=== PATIENT | male | born 1965 | race Caucasian/White ===

== ENCOUNTER 2016-05-24 00:54 | Inpatient (IN) | payer OTHER ==
[~2016-05-24] VITALS: Ht 180.3 cm; Wt 94.4 kg
[~2016-05-24 00:54] MED LIST: ASPI1TAB30 PO; CETI10TA16 PO; DIAZ5TAB4 PO; ESCI10TA PO; MIDO10TA PO; OXYM30SP NS; QUET400T6 PO; TAMS0.4C2 PO; TIZA2CAP PO; allergy
[2016-05-24 01:50] LABS: BASO # 0.1 x10^3/uL (0.0-0.2); BASO % 1 % (0-3); EOS % 4 % (0-3); HEMATOCRIT 41.3 % (39.0-53.0); HEMOGLOBIN 13.9 g/dL (13.0-17.5); LYMPH # 2.2 x10^3/uL (1.0-4.8); LYMPH % 35 % (24-48); MEAN CORPUSCULAR HEMOGLOBIN 32 pg (25-35); MEAN CORPUSCULAR HGB CONC 34 g/dL (31-37); MEAN CORPUSCULAR VOLUME 96 fL (79-100); MONO % 10 % (0-9); NEUT % 49 % (31-73); PLATELET COUNT 88 x10^3/uL (140-400); RED CELL DISTRIBUTION WIDTH 13.1 % (11.5-14.5); WHITE BLOOD COUNT 6.4 x10^3/uL (4.0-11.0)
[2016-05-24 02:05] LABS: CREATININE 1.1 mg/dL (0.7-1.3)
[2016-05-24 02:11] LABS: ALBUMIN 3.4 g/dL (3.4-5.0); ALBUMIN/GLOBULIN RATIO 0.8 (1.0-1.7); TOTAL BILIRUBIN 0.4 mg/dL (0.2-1.0); TOTAL PROTEIN 7.5 g/dL (6.4-8.2)
[2016-05-24] MEDS ORDERED: CONTRAST GIVEN MC PRN (02:15)
[2016-05-24] MEDS ORDERED: IOHEXOL 300 MG/ML 75 ML VIAL IV ONE (02:30)
--- NOTE | 2016-05-24 03:07 | RAD ---
PROCEDURE CT abdomen and pelvis with contrast dated 05/24/2016. HISTORY Diffuse lower abdominal pain for 4-5 days TECHNIQUE Contiguous axial imaging of the abdomen and pelvis performed after the administration of 75 cc Omnipaque 300.Exposure: One or more of the following individualized dose reduction techniques were utilized for this exam: 1. Automated exposure control. 2. Adjustment of the mA and/or kV according to patient size. 3. Use of iterative reconstruction technique. COMPARISON None. FINDINGS Limited images of lung bases are clear. Heart size within normal limits. No pleural or pericardial effusion. Minimal dependent opacity at the lung bases, likely atelectasis. Liver show subtle nodularity of its outer contour. No focal mass. Spleen is mildly enlarged. Pancreas, adrenal glands and kidneys are unremarkable. No hydronephrosis. Gallbladder is surgically absent. There is some hazy increased attenuation along the ventral margin of the proximal abdominal aorta. This appears to extend along the course of the proximal superior mesenteric artery. There is mild narrowing of the SMA ostium. The celiac artery origin is patent. Bilateral renal artery origins are grossly patent. There is mild narrowing of the proximal left renal vein. Hazy increased density extends along the dorsal margin of the pancreas. No circumscribed fluid collection. Borderline enlarged lymph nodes at the portacaval region and left periaortic region. No mesenteric adenopathy or ascites. Unopacified GI tract normal in caliber and contour. No focal bowel wall thickening. No inflammatory stranding in the mesentery. The appendix is normal in caliber. Images of pelvis show nondistended urinary bladder. Prostate gland normal in size. No free pelvic fluid or pelvic adenopathy. Bone window show no acute findings. Multilevel spondylosis. IMPRESSION - Hazy inflammatory stranding near the ventral abdominal aorta, origin of SMA and along the dorsal margin of the pancreas of uncertain etiology. Although this may represent an acute aortitis or other causes of vasculitis, there is no significant luminal narrowing of the vessels at this time. A mild pancreatitis is another consideration. Recommend laboratory correlation. - Slightly nodular appearance of the liver, raising the question of early cirrhotic change. - Borderline splenomegaly. - Status postcholecystectomy. Electronically signed by: Leland Beth (May 24, 2016 03:06:06)
[2016-05-24] MEDS ORDERED: ONDANSETRON PF 4 MG/2 ML VIAL. IV PRN (03:15)
--- NOTE | 2016-05-24 03:20 | PHYS DOC ---
Past Medical History Past Medical History: Bipolar, Hypotension, Hepatitis, Schizophrenia, Other Additional Past Medical Histor: DDD, sleep apnea, hx of drug and ETOH abuse Past Surgical History: Cholecystectomy, Other Additional Past Surgical Histo: sinus, right shoulder reconstruct, teeth, jaw Alcohol Use: Sober Drug Use: None Adult General Chief Complaint Chief Complaint: ABDOMINAL PAIN HPI HPI Patient is a 51 year old gentleman with a history significant for cholecystectomy presents here today complaining of abdominal pain for 5 days. Patient reports the pain increases with food. Patient denies any fevers shakes chills. Patient has any nausea or vomiting. Patient reports she's had loose bowel movements for the last 24 hours. Patient has a dysuria frequency or urgency. Patient has a cough cold runny nose. Patient has a chest pain or shortness of breath. Patient denies any rashes. Patient has any melena or bright red blood per rectum. Patient denies any hematemesis. Patient's physical exam was significant for mild to moderate diffuse tenderness to palpation of his abdomen. Patient has no rebound or guarding. Patient has no psoas or upgrader signs. Patient has no pulsatile mass. Patient is NABS. Patient is ER workup was significant for labs which were all unremarkable. Patient is a normal CBC and loculates. Patient had a CT scan of his abdomen and pelvis with IV contrast which showed Hazy inflammatory stranding of the ventral abdominal aorta origin of the SMA along the dorsal margin of the pancreas of uncertain etiology. Although this may represent an acute aortitis or other causes of vasculitis there is no significant luminal narrowing of the vessels at this time. Min Harris is another consideration. Given the patient's discomfort and the CT scan I think it appropriate to admit the patient for further evaluation hospital. Patient given 2 doses of pain medications without any significant relief in his discomfort. I discussed with the patient the plan to be admitted to the hospital he is in full agreement with this as planned. Review of Systems Review of Systems Constitutional: Denies fever or chills [] Eyes: Denies change in visual acuity, redness, or eye pain [] All other review systems are negative except as documented in history of present illness portion. Current Medications Current Medications Current Medications Medications (Trade) Dose Ordered Sig/Prem Start Time Stop Time Status Last Admin Dose Admin Info (Do NOT chart on this entry -- for MONITORING) 1 each PRN DAILY PRN 05/24/16 02:15 05/26/16 02:14 Iohexol (Omnipaque 300 Mg/ml) 75 ml 1X ONCE 05/24/16 02:30 05/24/16 02:31 DC 05/24/16 02:24 75 ML Allergies Allergies Allergies Coded Allergies Type Severity Reaction Last Updated Verified codeine Allergy Intermediate 06/21/15 Yes meperidine Allergy Intermediate 06/21/15 Yes Physical Exam Physical Exam Constitutional: Well developed, well nourished, no acute distress, non-toxic appearance. [] HENT: Normocephalic, atraumatic, bilateral external ears normal, oropharynx moist, no oral exudates, nose normal. [] Eyes: PERRLA, EOMI, conjunctiva normal, no discharge. [] Neck: Normal range of motion, no tenderness, supple, no stridor. [] Cardiovascular:Heart rate regular rhythm, no murmur [] Lungs & Thorax: Bilateral breath sounds clear to auscultation [] Abdomen: Bowel sounds normal, soft,no masses, no pulsatile masses tenderness to palpation diffusely greatest in the periumbilical region.. [] Skin: Warm, dry, no erythema, no rash. [] Back: No tenderness, no CVA tenderness. [] Extremities: No tenderness, no cyanosis, no clubbing, ROM intact, no edema. [] Neurologic: Alert and oriented X 3, normal motor function, normal sensory function, no focal deficits noted. [] Psychologic: Affect normal, judgement normal, mood normal. [] Current Patient Data Vital Signs Vital Signs Date Time Temp Pulse Resp B/P Pulse Ox O2 Delivery O2 Flow Rate FiO2 05/24/16 01:35 97.9 69 19 128/82 97 Room Air 97.9 Lab Values Laboratory Tests Test 05/24/16 01:29 White Blood Count 6.4x10^3/uL (4.0-11.0) Red Blood Count 4.30x10^6/uL (4.30-5.70) Hemoglobin 13.9g/dL (13.0-17.5) Hematocrit 41.3% (39.0-53.0) Mean Corpuscular Volume 96fL (79-100) Mean Corpuscular Hemoglobin 32pg (25-35) Mean Corpuscular Hemoglobin Concent 34g/dL (31-37) Red Cell Distribution Width 13.1% (11.5-14.5) Platelet Count 88x10^3/uL (140-400) L Neutrophils (%) (Auto) 49% (31-73) Lymphocytes (%) (Auto) 35% (24-48) Monocytes (%) (Auto) 10% (0-9) H Eosinophils (%) (Auto) 4% (0-3) H Basophils (%) (Auto) 1% (0-3) Neutrophils # (Auto) 3.1x10^3uL (1.8-7.7) Lymphocytes # (Auto) 2.2x10^3/uL (1.0-4.8) Monocytes # (Auto) 0.7x10^3/uL (0.0-1.1) Eosinophils # (Auto) 0.3x10^3/uL (0.0-0.7) Basophils # (Auto) 0.1x10^3/uL (0.0-0.2) Sodium Level 142mmol/L (136-145) Potassium Level 4.0mmol/L (3.5-5.1) Chloride Level 105mmol/L (98-107) Carbon Dioxide Level 29mmol/L (21-32) Anion Gap 8 (6-14) Blood Urea Nitrogen 15mg/dL (8-26) Creatinine 1.1mg/dL (0.7-1.3) Estimated GFR (Cockcroft-Gault) 70.0 BUN/Creatinine Ratio 14 (6-20) Glucose Level 92mg/dL (70-99) Calcium Level 9.0mg/dL (8.5-10.1) Total Bilirubin 0.4mg/dL (0.2-1.0) Aspartate Amino Transferase (AST) 18U/L (15-37) Alanine Aminotransferase (ALT) 19U/L (16-63) Alkaline Phosphatase 57U/L (46-116) Total Protein 7.5g/dL (6.4-8.2) Albumin 3.4g/dL (3.4-5.0) Albumin/Globulin Ratio 0.8 (1.0-1.7) L Lipase 305U/L (73-393) Laboratory Tests 05/24/16 01:29 Laboratory Tests 05/24/16 01:29 EKG EKG [] Radiology/Procedures Radiology/Procedures [] Course & Med Decision Making Course & Med Decision Making Pertinent Labs and Imaging studies reviewed. (See chart for details) [] Dragon Disclaimer Dragon Disclaimer This electronic medical record was generated, in whole or in part, using a voice recognition dictation system. Departure Departure Impression: Primary Impression: Intractable abdominal pain Disposition: ADMITTED INPATIENT Admitting Physician: Sejal Lopez Condition: IMPROVED Referrals: BABITA OREILLY MD (PCP) VENUS DEWEY MD May 24, 2016 03:20
[2016-05-24 03:26] LABS: BILIRUBIN,URINE NEGATIVE (NEG); GLUCOSE,URINE NEGATIVE (NEG); NITRITE,URINE NEGATIVE (NEG); PH,URINE 6.5; PROTEIN,URINE NEGATIVE (NEG-TRACE); UROBILINOGEN,URINE 0.2 mg/dL (0.2 mg/dL)
[2016-05-24 03:30] LABS: BACTERIA,URINE 0 /HPF (0-FEW); RBC,URINE OCC /HPF (0-2); SQUAMOUS EPITHELIAL CELL,UR OCC /LPF; WBC,URINE OCC /HPF (0-4)
--- NOTE | 2016-05-24 03:33 | ACF ---
Admit Criteria Forms Admit Criteria Forms Admit Criteria Forms ABDOMINAL PAIN Clinical Indications for Admission to Inpatient Care (Place 'X' for any and all applicable criteria): Admission is indicated for ANY ONE of the following(1)(2)(3)(4)(5): [X]I. Inpatient admission required rather than observation care (Also use Abdominal Pain: Observation Care, as appropriate) because of ANY ONE of the following: [X]a) Severe pain requiring acute inpatient management [ ]b) Identification of etiology/finding that requires inpatient care (eg, aortic dissection, free air) [ ]c) Absent bowel sounds with complete ileus(6) [ ]d) Suspected toxic megacolon [ ]e) Severe electrolyte abnormalities requiring inpatient care [ ]f) High fever or infection requiring inpatient admission as indicated by ANY ONE of following(7)(8): [ ] i) Appropriate outpatient or observational care antimicrobial treatment unavailable, not effective, or not feasible [ ] ii) Documented bacteremia [ ] iii) Temperature > 104.9 degrees F (oral) [ ] iv) T >103.1 F (oral) or < 96.8 F(rectal) that does not respond to all emergency treatment measures [ ]g) Signs of intestinal obstruction [B] [ ]h) Hemodynamic instability [ ]i) IV fluid to replace significant ongoing losses (greater than 3 L/m2 per day) (12)(13) [ ]j) Percutaneous or open drainage (eg, abscess, biliary tract ) procedures [ ]k) Parenteral nutrition regimen that must be implemented on inpatient basis [ ]l) Other condition,treatment or monitoring requiring inpatient admission. [ ]II. Peritoneal signs present [ ]III. Surgery needed that cannot be performed on an ambulatory basis. [ ]IV. Evaluation requires patient to not eat or drink for extended period ( eg, more than 24 hours). [ ]V. Contraindications and/or Inappropriate clinical situations for Observational Care in patients with abdominal pain, when ANY ONE of the following is required: [ ]a) Thorough evaluation is required to prevent catastrophic events due to delays in diagnosing (e.g.Mesenteric ischemia) 1,3 [ ]b) Patient with severe pathology or with chronic symptoms unlikely to improve in the ED stay (3) [ ]. General contraindications and/or Inappropriate clinical situations for Observational Care in patients with abdominal pain, when ANY ONE of the following is required: [ ]a) Prediction of prolongation of LOS based on ANY ONE of the following may be considered as a contraindication for observational care 2, 3, 4, 5, 6, 7, 8, 9, 10, 11 [ ]i) Age > 65 yrs. [ ]ii) Patient arriving by ambulance [ ]iii) Patient with high acuity [ ]iv) Patient requiring vital sign monitoring [ ]v) Patient on IV medication [ ]b) Systolic blood pressures 180mmHg 3,12 [ ]c) Patient with altered mental status including delirium and other alteration of consciousness, (3) [ ]d) Patient whose discharge disposition will be to a [place] [facility] home or rehabilitation home should not be managed in Emergency Department Observation Unit. CMS rule requires 3 days hospital stay before such placement.3,13 [ ]e) Patient with failure to thrive due to broad array of etiologies 3,16,17 [ ]f) Inability to ambulate 3,14 Extended stay beyond goal length of stay may be needed for(2)(3): [ ]a) Persistent abdominal pain with suspected intra-abdominal process [ ]b) Diagnosed condition requiring continued stay (e.g., pancreatitis, complicated diverticulitis) [ ]c) Surgery (e.g., colectomy) The original [employer] content created by [employer] has been revised. The portions of the content which have been revised are identified through the use of italic text or in bold, and [employer] [facility] [employer] has neither reviewed nor approved the modified material.All other unmodified content is copyright [employer]. Please see references footnoted in the original [employer] [employer] [facility] edition 2016 MILTON BEDOYA May 24, 2016 03:33
[2016-05-24 04:38] VITALS: BP 127/85
[2016-05-24] MEDS: FENTANYL PF 100 MCG/2 ML VIAL. IV PRN ×5 (04:54→19:27)
[2016-05-24] MEDS: IV NORMAL SALINE 1000ML BAG 1,000 ML IV SCH ×3 (04:55→12:35)
[2016-05-24 07:00] VITALS: BP 134/66
[2016-05-24 11:00] VITALS: BP 132/77
--- NOTE | 2016-05-24 14:26 | HP ---
ADMIT DATE: 05/24/2016 CHIEF COMPLAINT: Abdominal pain. HISTORY OF PRESENT ILLNESS: The patient is a pleasant 51-year-old male with multiple medical issues. Basically, he presents with abdominal pain that has been occurring for 5 days. It is worse with food. He has also had some loose stools, cough, and runny nose. He has had some periodic chest pain. While in the ER, they did some imaging which showed possible inflammation of the aorta and particularly it was read as hazy inflammation, stranding near the ventral abdominal aorta and SMA and along the dorsal margin of the pancreas. This was of uncertain etiology, although this could represent aortitis or other vasculitis. The patient is now being admitted. We are consulting Vascular Surgery and GI. PAST MEDICAL HISTORY: Degenerative joint disease, bipolar, hypotension, hepatitis, schizophrenia, history of alcohol, cholecystectomy, right shoulder reconstruction, and jaw surgery. ALLERGIES: CODEINE AND MEPERIDINE. FAMILY HISTORY: Diabetes. SOCIAL HISTORY: He does not smoke. He has a history of drug and alcohol. MEDICATIONS: Reviewed. Please refer to the MRAD. REVIEW OF SYSTEMS: GENERAL: No history of weight change, weakness, or fevers. SKIN: No bruising, hair changes, or rashes. EYES: No blurred, double, or loss of vision. NOSE AND THROAT: No history of nosebleeds, hoarseness, or sore throat. HEART: No history of palpitations, chest pain, or shortness of breath on exertion. LUNGS: Denies cough, hemoptysis, wheezing, or shortness of breath. GASTROINTESTINAL: He complains of abdominal pain. GENITOURINARY: No history of frequency, urgency, hesitancy or nocturia. NEUROLOGIC: Denies history of numbness, tingling, tremor or weakness. PSYCHIATRIC: No history of panic, anxiety or depression. ENDOCRINE: No history of heat or cold intolerance, polyuria or polydipsia. EXTREMITIES: Denies muscle weakness, joint pain, pain on walking or stiffness PHYSICAL EXAMINATION: VITAL SIGNS: Temperature afebrile, pulse 67, respirations 20, blood pressure 134/66, and O2 saturation 97%. GENERAL: He is sleeping. He awakens. HEART: Distant S1 and S2. LUNGS: Clear. ABDOMEN: Soft. Decreased bowel sounds, a little tender in the epigastrium. EXTREMITIES: No edema. SKIN: No rashes. PSYCHIATRIC: He is stable currently. VASCULAR: Good capillary refill. ENDOCRINE: No thyromegaly. LYMPHATICS: No cervical nodes. HEMATOPOIETIC: No bruising. LABORATORY DATA: White count 6, hemoglobin 14, and platelets 88. His electrolytes are normal. Urinalysis is negative. ASSESSMENT AND PLAN: Abdominal pain with abnormal CAT scan of the abdomen suspicious for possible vasculitis and/or pancreatitis. The patient has been admitted. We are consulting Gastroenterology and Vascular Surgery. IV hydration, continue his home medications, p.r.n. fentanyl, p.r.n. Zofran, frequent labs, n.p.o. until he is seen by Gastroenterology, other than his medications. [place]Y [place] DO DR: NADIRA/stephanie JOB#: [id number] / [id number]
[2016-05-24 15:00] VITALS: BP 124/73
--- NOTE | 2016-05-24 15:51 | PDOC2 ---
CONSULT Date of Consult Date of Consult DATE: 05/24/16 TIME: 15:35 Reason for Consult Reason for Consult: Abdominal pain. Referring Physician Referring Physician: Dr. Chacon. Source Source: Chart review, Patient History of Present Illness Reason for Visit: 51 y/o male with 4-5 day history of abdominal pain. Located in periumbilical area w/o radiation. Tends to occur ~30-45 minutes pc with severe cramping which persists for some time. Some nausea w/o emesis. Denies typical heartburn , dysphagia or h/o PUD. Prior bozena in 2005 with gallstones. Had EGD then felt normal. On CT here, "haziness" near SMA/aortic junction, cause unclear. H /o chronic HCV and imaging in the past to suggest cirrhosis; had this treated at with oral agents only and pronounced "cured". Former smoker. 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 No ASA or NSAID use. Stools generally soft w/o diarrhea and occur 0-3/day. No constipation, hematochezia or melena. Wt/ appetite OK. Had "normal" colonoscopy historically w/in last 2 years. GI family history unknown as adopted. Past Medical History Musculoskeletal: Other (right shoulder injury) Infectious disease: Other (sinusitis) Past Surgical History Past Surgical History: Other (sinus drainage procedure, right shoulder reconstruction) Family History Family History Unknown as adopted. Social History Quit ALCOHOL: heavy (quit) Drugs: Other (former iv drug use) Current Problem List Problem List Problems Medical Problems: (1) Intractable abdominal pain Status: Acute Current Medications Current Medications Current Medications Iohexol (Omnipaque 300 Mg/ml) 75 ml 1X ONCE IV Last administered on 05/24/16t 02:24; Start 05/24/16 at 02:30; Stop 05/24/16 at 02:31; Status DC Info (Do NOT chart on this entry -- for MONITORING) 1 each PRN DAILY PRN MC SEE COMMENTS; Start 05/24/16 at 02:15; Stop 05/26/16 at 02:14 Ondansetron HCl (Zofran) 4 mg PRN Q8HRS PRN IV NAUSEA/VOMITING; Start 05/24/16 at 03:15; Stop 05/25/16 at 03:14 Fentanyl Citrate 50 mcg 50 mcg PRN Q2HR PRN IV SEVERE PAIN Last administered on 05/24/16 12:34; Start 05/24/16 at 03:15; Stop 05/25/16 at 03:14 Sodium Chloride (Iv Sodium Chloride 0.9% 1000ml Bag) 1,000 ml @ 125 mls/hr Q8H IV Last administered on 05/24/16 12:35; Start 05/24/16 at 03:12; Stop 05/25/16 at 03:11 Active Scripts Active Reported Midodrine Hcl 10 Mg Tablet 10 Mg PO TID Tamsulosin Hcl 0.4 Mg Cap.er.24h 1 Cap PO HS Seroquel Xr (Quetiapine Fumarate) 400 Mg Tab.er.24h 2 Tab PO QHS Excedrin Migraine Caplet (Aspirin/Acetaminophen/Caffeine) 1 Each Tablet 2 Each PO Afrin (Oxymetazoline Hcl) 30 Ml [place] 30 Ml NS BID PRN Tizanidine Hcl 2 Mg Capsule 2 Mg PO QHS PRN Diazepam 5 Mg Tablet 5 Mg PO QHS Escitalopram Oxalate 10 Mg Tablet 1 Tab PO DAILY Cetirizine Hcl 10 Mg Tablet 1 Tab PO DAILY Allergies Allergies: Coded Allergies: codeine (Verified Allergy, Intermediate, 06/21/15) meperidine (Verified Allergy, Intermediate, 06/21/15) ROS Review of System 10-point review otherwise negative, particularly any skin rash/lesions or joint issues. Physical Exam General: Alert, Oriented X3, Cooperative, mild distress Lungs: Clear to auscultation Heart: Regular rate, Normal S1, Normal S2, No murmurs Abdomen: Normal bowel sounds, Soft, No hepatosplenomegaly, No masses, Other ( tenderness from epigastric area towards RLQ/some costal margin tenderness) Vitals VITALS Vital Signs Date Time Temp Pulse Resp B/P Pulse Ox O2 Delivery O2 Flow Rate FiO2 05/24/16 15:00 98.0 61 18 124/73 96 Room Air 98.0 Labs Labs Laboratory Tests Test 05/24/16 01:29 05/24/16 03:09 05/24/16 13:45 White Blood Count 6.4x10^3/uL (4.0-11.0) Red Blood Count 4.30x10^6/uL (4.30-5.70) Hemoglobin 13.9g/dL (13.0-17.5) Hematocrit 41.3% (39.0-53.0) Mean Corpuscular Volume 96fL (79-100) Mean Corpuscular Hemoglobin 32pg (25-35) Mean Corpuscular Hemoglobin Concent 34g/dL (31-37) Red Cell Distribution Width 13.1% (11.5-14.5) Platelet Count 88x10^3/uL (140-400) Neutrophils (%) (Auto) 49% (31-73) Lymphocytes (%) (Auto) 35% (24-48) Monocytes (%) (Auto) 10% (0-9) Eosinophils (%) (Auto) 4% (0-3) Basophils (%) (Auto) 1% (0-3) Neutrophils # (Auto) 3.1x10^3uL (1.8-7.7) Lymphocytes # (Auto) 2.2x10^3/uL (1.0-4.8) Monocytes # (Auto) 0.7x10^3/uL (0.0-1.1) Eosinophils # (Auto) 0.3x10^3/uL (0.0-0.7) Basophils # (Auto) 0.1x10^3/uL (0.0-0.2) Sodium Level 142mmol/L (136-145) Potassium Level 4.0mmol/L (3.5-5.1) Chloride Level 105mmol/L (98-107) Carbon Dioxide Level 29mmol/L (21-32) Anion Gap 8 (6-14) Blood Urea Nitrogen 15mg/dL (8-26) Creatinine 1.1mg/dL (0.7-1.3) Estimated GFR (Cockcroft-Gault) 70.0 BUN/Creatinine Ratio 14 (6-20) Glucose Level 92mg/dL (70-99) Calcium Level 9.0mg/dL (8.5-10.1) Total Bilirubin 0.4mg/dL (0.2-1.0) Aspartate Amino Transf (AST/SGOT) 18U/L (15-37) Alanine Aminotransferase (ALT/SGPT) 19U/L (16-63) Alkaline Phosphatase 57U/L (46-116) Total Protein 7.5g/dL (6.4-8.2) Albumin 3.4g/dL (3.4-5.0) Albumin/Globulin Ratio 0.8 (1.0-1.7) Lipase 305U/L (73-393) Urine Collection Type Unknown Urine Color Yellow Urine Clarity Clear Urine pH 6.5 Urine Specific [place] 1.025 Urine Protein Negativemg/dL (NEG-TRACE) Urine Glucose (UA) Negativemg/dL (NEG) Urine Ketones (Stick) Negativemg/dL (NEG) Urine Blood Negative (NEG) Urine Nitrite Negative (NEG) Urine Bilirubin Negative (NEG) Urine Urobilinogen Dipstick 0.2mg/dL (0.2 mg/dL) Urine Leukocyte Esterase Negative (NEG) Urine RBC Occ/HPF (0-2) Urine WBC Occ/HPF (0-4) Urine Squamous Epithelial Cells Occ/LPF Urine Bacteria 0/HPF (0-FEW) Urine Mucus Slight/LPF Erythrocyte Sedimentation Rate 35 (0-15) Laboratory Tests Test 05/24/16 01:29 05/24/16 03:09 05/24/16 13:45 White Blood Count 6.4x10^3/uL (4.0-11.0) Red Blood Count 4.30x10^6/uL (4.30-5.70) Hemoglobin 13.9g/dL (13.0-17.5) Hematocrit 41.3% (39.0-53.0) Mean Corpuscular Volume 96fL (79-100) Mean Corpuscular Hemoglobin 32pg (25-35) Mean Corpuscular Hemoglobin Concent 34g/dL (31-37) Red Cell Distribution Width 13.1% (11.5-14.5) Platelet Count 88x10^3/uL (140-400) Neutrophils (%) (Auto) 49% (31-73) Lymphocytes (%) (Auto) 35% (24-48) Monocytes (%) (Auto) 10% (0-9) Eosinophils (%) (Auto) 4% (0-3) Basophils (%) (Auto) 1% (0-3) Neutrophils # (Auto) 3.1x10^3uL (1.8-7.7) Lymphocytes # (Auto) 2.2x10^3/uL (1.0-4.8) Monocytes # (Auto) 0.7x10^3/uL (0.0-1.1) Eosinophils # (Auto) 0.3x10^3/uL (0.0-0.7) Basophils # (Auto) 0.1x10^3/uL (0.0-0.2) Sodium Level 142mmol/L (136-145) Potassium Level 4.0mmol/L (3.5-5.1) Chloride Level 105mmol/L (98-107) Carbon Dioxide Level 29mmol/L (21-32) Anion Gap 8 (6-14) Blood Urea Nitrogen 15mg/dL (8-26) Creatinine 1.1mg/dL (0.7-1.3) Estimated GFR (Cockcroft-Gault) 70.0 BUN/Creatinine Ratio 14 (6-20) Glucose Level 92mg/dL (70-99) Calcium Level 9.0mg/dL (8.5-10.1) Total Bilirubin 0.4mg/dL (0.2-1.0) Aspartate Amino Transf (AST/SGOT) 18U/L (15-37) Alanine Aminotransferase (ALT/SGPT) 19U/L (16-63) Alkaline Phosphatase 57U/L (46-116) Total Protein 7.5g/dL (6.4-8.2) Albumin 3.4g/dL (3.4-5.0) Albumin/Globulin Ratio 0.8 (1.0-1.7) Lipase 305U/L (73-393) Urine Collection Type Unknown Urine Color Yellow Urine Clarity Clear Urine pH 6.5 Urine Specific [place] 1.025 Urine Protein Negativemg/dL (NEG-TRACE) Urine Glucose (UA) Negativemg/dL (NEG) Urine Ketones (Stick) Negativemg/dL (NEG) Urine Blood Negative (NEG) Urine Nitrite Negative (NEG) Urine Bilirubin Negative (NEG) Urine Urobilinogen Dipstick 0.2mg/dL (0.2 mg/dL) Urine Leukocyte Esterase Negative (NEG) Urine RBC Occ/HPF (0-2) Urine WBC Occ/HPF (0-4) Urine Squamous Epithelial Cells Occ/LPF Urine Bacteria 0/HPF (0-FEW) Urine Mucus Slight/LPF Erythrocyte Sedimentation Rate 35 (0-15) Fairly normal. Images Images On CT: IMPRESSION - Hazy inflammatory stranding near the ventral abdominal aorta, origin of SMA and along the dorsal margin of the pancreas of uncertain etiology. Although this may represent an acute aortitis or other causes of vasculitis, there is no significant luminal narrowing of the vessels at this time. A mild pancreatitis is another consideration. Recommend laboratory correlation. - Slightly nodular appearance of the liver, raising the question of early cirrhotic change. - Borderline splenomegaly. - Status postcholecystectomy. Reviewed personally. Assessment/Plan Assessment/Plan IMP: 1. One week h/o abdominal pain; location and timing c/w small bowel origin. Given findings on CT, some sort of vasculitis? Pain and CT not typical for pancreatitis and normal lipase. 2. S/p bozena. 3. History of HCV, treated historically with SVR. Imaging in past suggests possible cirrhosis. REC: 1. ESR, CRP 2. CTA abdomen 3. Complement levels. --other pending. Thank you for allowing us to assist in the care of this patient. Please call if questions. BARTOLO VENTURA MD May 24, 2016 15:51
[2016-05-24 19:05] VITALS: BP 126/69
[2016-05-24] MEDS ORDERED: OLAN20TA7 PO (19:26)
[2016-05-24] MEDS ORDERED: TRAZ150T55 PO (19:26)
[2016-05-24] MEDS ORDERED: MONT10TA9 PO (19:26)
[2016-05-24] MEDS ORDERED: OLAN5TAB9 PO (19:26)
[2016-05-24] MEDS ORDERED: FLUO10CA7 PO (19:26)
[2016-05-24] MEDS ORDERED: DIVA500T17 PO (19:26)
[2016-05-24] MEDS: OLANZAPINE 5 MG TABLET. PO SCH ×2 (19:49→20:26)
[2016-05-24] MEDS: TAMSULOSIN 0.4 MG CAP.ER.24H. PO SCH (20:26)
[2016-05-24] MEDS: MONTELUKAST SODIUM 10 MG TABLET. PO SCH (20:26)
[2016-05-24] MEDS: traZODone 50 MG TABLET. PO SCH (20:27)
[2016-05-24] MEDS: CETIRIZINE HCL 10 MG TABLET PO SCH (20:27)
[2016-05-24] MEDS: DIVALPROEX EXTENDED RELEASE 500 MG TAB.ER.24H. PO SCH (20:27)
[2016-05-24] MEDS: FLUOXETINE HCL 10 MG CAPSULE PO SCH (20:27)
[2016-05-24 22:58] VITALS: BP 147/84
[2016-05-25 02:51] VITALS: BP 119/67
[2016-05-25] MEDS: FENTANYL PF 100 MCG/2 ML VIAL. IV PRN ×5 (03:00→22:31)
[2016-05-25 04:13] LABS: BASO # 0.1 x10^3/uL (0.0-0.2); BASO % 1 % (0-3); EOS % 4 % (0-3); HEMATOCRIT 39.7 % (39.0-53.0); HEMOGLOBIN 13.4 g/dL (13.0-17.5); LYMPH # 2.3 x10^3/uL (1.0-4.8); LYMPH % 39 % (24-48); MEAN CORPUSCULAR HEMOGLOBIN 32 pg (25-35); MEAN CORPUSCULAR HGB CONC 34 g/dL (31-37); MEAN CORPUSCULAR VOLUME 95 fL (79-100); MONO % 9 % (0-9); NEUT % 47 % (31-73); PLATELET COUNT 92 x10^3/uL (140-400); RED BLOOD COUNT 4.17 x10^6/uL (4.30-5.70); RED CELL DISTRIBUTION WIDTH 12.8 % (11.5-14.5); WHITE BLOOD COUNT 5.9 x10^3/uL (4.0-11.0)
[2016-05-25 04:31] LABS: CALCIUM 8.2 mg/dL (8.5-10.1); CREATININE 0.9 mg/dL (0.7-1.3); GFR 88.3; POTASSIUM 3.9 mmol/L (3.5-5.1)
[2016-05-25 07:00] VITALS: BP 113/72
[2016-05-25] MEDS ORDERED: CONTRAST GIVEN MC PRN (08:30)
[2016-05-25] MEDS ORDERED: IOHEXOL 350 MG/ML 100ML VIAL. IV ONE (08:30)
[2016-05-25] MEDS: OLANZAPINE 5 MG TABLET. PO SCH ×2 (08:51→20:22)
[2016-05-25] MEDS: FLUOXETINE HCL 10 MG CAPSULE PO SCH (08:51)
[2016-05-25] MEDS: CETIRIZINE HCL 10 MG TABLET PO SCH (08:51)
--- NOTE | 2016-05-25 09:20 | RAD ---
EXAM: CTA abdomen/pelvis with contrast. HISTORY: Aortic/vascular inflammation on prior CT. TECHNIQUE: Computed tomographic angiography of the abdomen/pelvis was performed after the intravenous administration of 90 mL Omnipaque 350. Three-dimensional reconstructions were also performed. COMPARISON: 05/24/2016. FINDINGS: Nonangiographic findings: Images of the lung bases demonstrate dependent atelectasis. Bone windows reveal no suspicious lesions. The hepatic surface is mildly nodular consistent with cirrhotic change. No focal lesions are seen. The gallbladder is surgically absent. The spleen is moderately enlarged at 16.5 cm. The pancreas, kidneys and adrenal glands are unremarkable. There are no pathologically enlarged lymph nodes. The appendix is not inflamed. There is no obstruction or bowel wall thickening. Angiographic findings: There is wall thickening with mild surrounding stranding at the superior mesenteric artery. This results in mild stenosis just beyond its origin. No dissection flap is appreciable. The celiac axis and inferior mesenteric artery are widely patent. No additional perivascular inflammation is seen. There are no additional stenoses or aneurysm. Both renal arteries are widely patent. The abdominal aorta and iliac systems demonstrate moderate atherosclerotic calcifications without stenosis. The common femoral and proximal superficial and deep femoral arteries are patent. IMPRESSION: 1. Mild stenosis, wall thickening and perivascular inflammation about the proximal superior mesenteric artery. This may reflect segmental arterial mediolysis. No dissection flap is detectable, but a thrombosed underlying dissection is another possibility. Correlate with systemic inflammatory markers to further exclude vasculitis. No additional sites of vascular involvement are seen. 2. Morphologic changes of cirrhosis. Moderate splenomegaly. One or more of the following individualized dose reduction techniques were utilized for this examination: 1. Automated exposure control. 2. Adjustment of the mA and/or kV according to patient size. 3. Use of iterative reconstruction technique.
[2016-05-25 10:42] VITALS: BP 118/73
[2016-05-25] MEDS ORDERED: IV NORMAL SALINE 1000ML BAG 1,000 ML IV SCH (11:45)
[2016-05-25] MEDS ORDERED: FENTANYL PF 100 MCG/2 ML VIAL. IV ONE (13:45)
[2016-05-25] MEDS ORDERED: BENZOCAINE/MENTHOL LOZENGE. PO PRN (13:45)
[2016-05-25] MEDS ORDERED: SALIVA STIMULANT AGENT 44ML SPRAY BOTTLE. PO PRN (13:45)
--- NOTE | 2016-05-25 13:46 | PDOC ---
Subjective: Subjective: Pain unchanged - diffuse today, worse in lower quadrants, rates 7/10. Objective: Vital Signs: Vital Signs Date Time Temp Pulse Resp B/P Pulse Ox O2 Delivery O2 Flow Rate FiO2 05/25/16 10:42 97.8 67 18 118/73 94 Room Air 97.8 Labs: Laboratory Tests Test 05/24/16 13:45 05/25/16 03:45 Erythrocyte Sedimentation Rate 35 White Blood Count 5.9x10^3/uL Red Blood Count 4.17x10^6/uL Hemoglobin 13.4g/dL Hematocrit 39.7% Mean Corpuscular Volume 95fL Mean Corpuscular Hemoglobin 32pg Mean Corpuscular Hemoglobin Concent 34g/dL Red Cell Distribution Width 12.8% Platelet Count 92x10^3/uL Neutrophils (%) (Auto) 47% Lymphocytes (%) (Auto) 39% Monocytes (%) (Auto) 9% Eosinophils (%) (Auto) 4% Basophils (%) (Auto) 1% Neutrophils # (Auto) 2.8x10^3uL Lymphocytes # (Auto) 2.3x10^3/uL Monocytes # (Auto) 0.6x10^3/uL Eosinophils # (Auto) 0.2x10^3/uL Basophils # (Auto) 0.1x10^3/uL Sodium Level 143mmol/L Potassium Level 3.9mmol/L Chloride Level 108mmol/L Carbon Dioxide Level 27mmol/L Anion Gap 8 Blood Urea Nitrogen 12mg/dL Creatinine 0.9mg/dL Estimated GFR (Cockcroft-Gault) 88.3 Glucose Level 81mg/dL Calcium Level 8.2mg/dL Imaging: CT A/P 05/24/16 IMPRESSION - Hazy inflammatory stranding near the ventral abdominal aorta, origin of SMA and along the dorsal margin of the pancreas of uncertain etiology. Although this may represent an acute aortitis or other causes of vasculitis, there is no significant luminal narrowing of the vessels at this time. A mild pancreatitis is another consideration. Recommend laboratory correlation. - Slightly nodular appearance of the liver, raising the question of early cirrhotic change. - Borderline splenomegaly. - Status postcholecystectomy. CTA A/P 05/25/16 IMPRESSION: 1. Mild stenosis, wall thickening and perivascular inflammation about the proximal superior mesenteric artery. This may reflect segmental arterial mediolysis. No dissection flap is detectable, but a thrombosed underlying dissection is another possibility. Correlate with systemic inflammatory markers to further exclude vasculitis. No additional sites of vascular involvement are seen. 2. Morphologic changes of cirrhosis. Moderate splenomegaly. PE: GEN: NAD although looks a bit uncomfortable LUNGS: clear anteriorly HEART: S1S2 ABD: NABS, S/ND, tender in BLQ > BUQ NEURO/PSYCH: A & O 3 A/P: Abd pain -describes post-prandial cramping (periumbilical - today seems more diffuse), nausea -elevated ESR (35) and CRP (8.8), complement levels pending -CTA as above w/ mild stenosis, wall thickening, and perivascular inflammation about the proximal SMA H/o HCV, historically treated -cirrhosis and splenomegaly on CTA -- Will review w/ Dr. Mg. ADALBERTO BARAJAS May 25, 2016 13:46
[2016-05-25] MEDS: POTASSIUM CL 20MEQ D5-0.45NACL 1,000 ML IV SCH ×2 (14:47→21:57)
[2016-05-25 15:00] VITALS: BP 129/69
--- NOTE | 2016-05-25 15:07 | PDOC ---
PROGRESS NOTES Chief Complaint Chief Complaint acute abd pain vasculitis nausea hc EtOH abuse and meth use recent treatment at [facility] for Hep C, possibly with Harvoni Vitals Vitals Vital Signs Date Time Temp Pulse Resp B/P Pulse Ox O2 Delivery O2 Flow Rate FiO2 05/25/16 14:44 16 94 Room Air 05/25/16 10:42 97.8 67 118/73 97.8 Physical Exam General: Alert, Oriented X3, Cooperative, mild distress Heart: Regular rate, Normal S1, Normal S2, No murmurs Lungs: Clear, Other Abdomen: Normal bowel sounds, Soft, No hepatosplenomegaly, No masses, Other ( tenderness from epigastric area towards RLQ/some costal margin tenderness) Labs LABS Laboratory Tests Test 05/25/16 03:45 White Blood Count 5.9x10^3/uL (4.0-11.0) Red Blood Count 4.17x10^6/uL (4.30-5.70) Hemoglobin 13.4g/dL (13.0-17.5) Hematocrit 39.7% (39.0-53.0) Mean Corpuscular Volume 95fL (79-100) Mean Corpuscular Hemoglobin 32pg (25-35) Mean Corpuscular Hemoglobin Concent 34g/dL (31-37) Red Cell Distribution Width 12.8% (11.5-14.5) Platelet Count 92x10^3/uL (140-400) Neutrophils (%) (Auto) 47% (31-73) Lymphocytes (%) (Auto) 39% (24-48) Monocytes (%) (Auto) 9% (0-9) Eosinophils (%) (Auto) 4% (0-3) Basophils (%) (Auto) 1% (0-3) Neutrophils # (Auto) 2.8x10^3uL (1.8-7.7) Lymphocytes # (Auto) 2.3x10^3/uL (1.0-4.8) Monocytes # (Auto) 0.6x10^3/uL (0.0-1.1) Eosinophils # (Auto) 0.2x10^3/uL (0.0-0.7) Basophils # (Auto) 0.1x10^3/uL (0.0-0.2) Sodium Level 143mmol/L (136-145) Potassium Level 3.9mmol/L (3.5-5.1) Chloride Level 108mmol/L (98-107) Carbon Dioxide Level 27mmol/L (21-32) Anion Gap 8 (6-14) Blood Urea Nitrogen 12mg/dL (8-26) Creatinine 0.9mg/dL (0.7-1.3) Estimated GFR (Cockcroft-Gault) 88.3 Glucose Level 81mg/dL (70-99) Calcium Level 8.2mg/dL (8.5-10.1) Review of Systems Review of Systems nausea abd pain, dry mouth, pain in abd, but would like to eat Assessment and Plan Assessmemt and Plan w/u vasculitis, cont current Rheum consult pain control IV fluid, add D5, half Problems Medical Problems: (1) Intractable abdominal pain Status: Acute Problems: Comment Review of Relevant I have reviewed the following items venita (where applicable) has been applied. Labs Laboratory Tests Test 05/24/16 01:29 05/24/16 03:09 05/24/16 13:45 05/25/16 03:45 White Blood Count 6.4x10^3/uL (4.0-11.0) 5.9x10^3/uL (4.0-11.0) Red Blood Count 4.30x10^6/uL (4.30-5.70) 4.17x10^6/uL (4.30-5.70) Hemoglobin 13.9g/dL (13.0-17.5) 13.4g/dL (13.0-17.5) Hematocrit 41.3% (39.0-53.0) 39.7% (39.0-53.0) Mean Corpuscular Volume 96fL (79-100) 95fL (79-100) Mean Corpuscular Hemoglobin 32pg (25-35) 32pg (25-35) Mean Corpuscular Hemoglobin Concent 34g/dL (31-37) 34g/dL (31-37) Red Cell Distribution Width 13.1% (11.5-14.5) 12.8% (11.5-14.5) Platelet Count 88x10^3/uL (140-400) 92x10^3/uL (140-400) Neutrophils (%) (Auto) 49% (31-73) 47% (31-73) Lymphocytes (%) (Auto) 35% (24-48) 39% (24-48) Monocytes (%) (Auto) 10% (0-9) 9% (0-9) Eosinophils (%) (Auto) 4% (0-3) 4% (0-3) Basophils (%) (Auto) 1% (0-3) 1% (0-3) Neutrophils # (Auto) 3.1x10^3uL (1.8-7.7) 2.8x10^3uL (1.8-7.7) Lymphocytes # (Auto) 2.2x10^3/uL (1.0-4.8) 2.3x10^3/uL (1.0-4.8) Monocytes # (Auto) 0.7x10^3/uL (0.0-1.1) 0.6x10^3/uL (0.0-1.1) Eosinophils # (Auto) 0.3x10^3/uL (0.0-0.7) 0.2x10^3/uL (0.0-0.7) Basophils # (Auto) 0.1x10^3/uL (0.0-0.2) 0.1x10^3/uL (0.0-0.2) Sodium Level 142mmol/L (136-145) 143mmol/L (136-145) Potassium Level 4.0mmol/L (3.5-5.1) 3.9mmol/L (3.5-5.1) Chloride Level 105mmol/L (98-107) 108mmol/L (98-107) Carbon Dioxide Level 29mmol/L (21-32) 27mmol/L (21-32) Anion Gap 8 (6-14) 8 (6-14) Blood Urea Nitrogen 15mg/dL (8-26) 12mg/dL (8-26) Creatinine 1.1mg/dL (0.7-1.3) 0.9mg/dL (0.7-1.3) Estimated GFR (Cockcroft-Gault) 70.0 88.3 BUN/Creatinine Ratio 14 (6-20) Glucose Level 92mg/dL (70-99) 81mg/dL (70-99) Calcium Level 9.0mg/dL (8.5-10.1) 8.2mg/dL (8.5-10.1) Total Bilirubin 0.4mg/dL (0.2-1.0) Aspartate Amino Transf (AST/SGOT) 18U/L (15-37) Alanine Aminotransferase (ALT/SGPT) 19U/L (16-63) Alkaline Phosphatase 57U/L (46-116) C-Reactive Protein, Quantitative 8.9mg/L (0-3.3) Total Protein 7.5g/dL (6.4-8.2) Albumin 3.4g/dL (3.4-5.0) Albumin/Globulin Ratio 0.8 (1.0-1.7) Lipase 305U/L (73-393) Urine Collection Type Unknown Urine Color Yellow Urine Clarity Clear Urine pH 6.5 Urine Specific [place] 1.025 Urine Protein Negativemg/dL (NEG-TRACE) Urine Glucose (UA) Negativemg/dL (NEG) Urine Ketones (Stick) Negativemg/dL (NEG) Urine Blood Negative (NEG) Urine Nitrite Negative (NEG) Urine Bilirubin Negative (NEG) Urine Urobilinogen Dipstick 0.2mg/dL (0.2 mg/dL) Urine Leukocyte Esterase Negative (NEG) Urine RBC Occ/HPF (0-2) Urine WBC Occ/HPF (0-4) Urine Squamous Epithelial Cells Occ/LPF Urine Bacteria 0/HPF (0-FEW) Urine Mucus Slight/LPF Erythrocyte Sedimentation Rate 35 (0-15) Laboratory Tests Test 05/25/16 03:45 White Blood Count 5.9x10^3/uL (4.0-11.0) Red Blood Count 4.17x10^6/uL (4.30-5.70) Hemoglobin 13.4g/dL (13.0-17.5) Hematocrit 39.7% (39.0-53.0) Mean Corpuscular Volume 95fL (79-100) Mean Corpuscular Hemoglobin 32pg (25-35) Mean Corpuscular Hemoglobin Concent 34g/dL (31-37) Red Cell Distribution Width 12.8% (11.5-14.5) Platelet Count 92x10^3/uL (140-400) Neutrophils (%) (Auto) 47% (31-73) Lymphocytes (%) (Auto) 39% (24-48) Monocytes (%) (Auto) 9% (0-9) Eosinophils (%) (Auto) 4% (0-3) Basophils (%) (Auto) 1% (0-3) Neutrophils # (Auto) 2.8x10^3uL (1.8-7.7) Lymphocytes # (Auto) 2.3x10^3/uL (1.0-4.8) Monocytes # (Auto) 0.6x10^3/uL (0.0-1.1) Eosinophils # (Auto) 0.2x10^3/uL (0.0-0.7) Basophils # (Auto) 0.1x10^3/uL (0.0-0.2) Sodium Level 143mmol/L (136-145) Potassium Level 3.9mmol/L (3.5-5.1) Chloride Level 108mmol/L (98-107) Carbon Dioxide Level 27mmol/L (21-32) Anion Gap 8 (6-14) Blood Urea Nitrogen 12mg/dL (8-26) Creatinine 0.9mg/dL (0.7-1.3) Estimated GFR (Cockcroft-Gault) 88.3 Glucose Level 81mg/dL (70-99) Calcium Level 8.2mg/dL (8.5-10.1) Medications Current Medications Iohexol (Omnipaque 300 Mg/ml) 75 ml 1X ONCE IV Last administered on 05/24/16 02:24; Start 05/24/16 at 02:30; Stop 05/24/16 at 02:31; Status DC Info (Do NOT chart on this entry -- for MONITORING) 1 each PRN DAILY PRN MC SEE COMMENTS; Start 05/24/16 at 02:15; Stop 05/25/16 at 13:30; Status DC Ondansetron HCl (Zofran) 4 mg PRN Q8HRS PRN IV NAUSEA/VOMITING; Start 05/24/16 at 03:15; Stop 05/25/16 at 03:14; Status DC Fentanyl Citrate 50 mcg 50 mcg PRN Q2HR PRN IV SEVERE PAIN Last administered on 05/25/16 03:00; Start 05/24/16 at 03:15; Stop 05/25/16 at 03:14; Status DC Sodium Chloride (Iv Sodium Chloride 0.9% 1000ml Bag) 1,000 ml @ 125 mls/hr Q8H IV Last administered on 05/24/16 12:35; Start 05/24/16 at 03:12; Stop 05/25/16 at 03:11; Status DC Cetirizine HCl (Zyrtec) 10 mg DAILY PO Last administered on 05/24/16 20:27; Start 05/24/16 at 20:00 Divalproex Sodium (Depakote Er) 1,000 mg QHS PO Last administered on 05/24/16 20:27; Start 05/24/16 at 21:00 Fluoxetine HCl (Prozac) 10 mg DAILY PO Last administered on 05/24/16 20:27; Start 05/24/16 at 20:00 Montelukast Sodium (Singulair) 10 mg HS PO Last administered on 05/24/16 20:26 ; Start 05/24/16 at 21:00 Olanzapine (Zyprexa) 5 mg DAILY PO ; Start 05/24/16 at 20:00 Tamsulosin HCl (Flomax) 0.4 mg HS PO Last administered on 05/24/16 20:26; Start 05/24/16 at 21:00 Olanzapine (Zyprexa) 20 mg QHS PO Last administered on 05/24/16 20:26; Start at 21:00 Trazodone HCl (Desyrel) 150 mg QHS PO ; Start 05/24/16 at 21:00 Iohexol (Omnipaque 350 Mg/ml) 90 ml 1X ONCE IV Last administered on 05/25/16 08:48; Start 05/25/16 at 08:30; Stop 05/25/16 at 08:31; Status DC Info (Do NOT chart on this entry -- for MONITORING) 1 each PRN DAILY PRN MC SEE COMMENTS; Start 05/25/16 at 08:30; Stop 05/27/16 at 08:29 Fentanyl Citrate 50 mcg 50 mcg PRN Q2HR PRN IV PAIN Last administered on 09:26; Start 05/25/16 at 08:45 Sodium Chloride (Iv Sodium Chloride 0.9% 1000ml Bag) 1,000 ml @ 125 mls/hr Q8H IV Last administered on 05/25/16 11:45; Start 05/25/16 at 11:45; Stop 05/25/16 at 13:39; Status DC Saliva Substitute (Biotene Moisturizing Mouth) 2 spray PRN Q15MIN PRN PO DRY MOUTH; Start 05/25/16 at 13:45 Throat Lozenges 1 aliyah 1 aliyah PRN Q2HRS PRN PO SORE THROAT; Start 05/25/16 at 13: 45 Potassium Chloride/Dextrose/ Sod Cl (KCl 20 Meq In D5W-1/2 NS) 1,000 ml @ 125 mls/hr Q8H IV Last administered on 05/25/16 14:47; Start 05/25/16 at 13:45 Fentanyl Citrate (Fentanyl 2ml Vial) 75 mcg 1X ONCE IV Last administered on 14:44; Start 05/25/16 at 13:45; Stop 05/25/16 at 13:46; Status DC Active Scripts Active Reported Trazodone Hcl 150 Mg Tablet 1 Tab PO QHS Montelukast Sodium Tablet (Montelukast Sodium) 10 Mg Tablet 10 Mg PO HS Divalproex Sodium Er (Divalproex Sodium) 500 Mg Tab.er.24h 2 Tab PO QHS Olanzapine 20 Mg Tablet 1 Tab PO QHS Olanzapine 5 Mg Tablet 5 Mg PO DAILY Fluoxetine Hcl 10 Mg Capsule 1 Cap PO DAILY Tamsulosin Hcl 0.4 Mg Cap.er.24h 1 Cap PO HS Cetirizine Hcl 10 Mg Tablet 1 Tab PO DAILY Vitals/I & O Vital Sign - Last 24 Hours 05/24/16 05/24/16 05/24/16 05/24/16 16:24 17:37 19:05 19:27 Temp 97.5 97.5 Pulse 66 Resp 18 B/P 126/69 Pulse Ox 93 O2 Delivery Room Air Room Air Room Air Room Air 05/24/16 05/24/16 05/25/16 05/25/16 20:22 22:58 02:51 03:00 Temp 98.0 98.2 98.0 98.2 Pulse 69 72 Resp 18 20 18 B/P 147/84 119/67 Pulse Ox 94 91 O2 Delivery Room Air Room Air Room Air 05/25/16 05/25/16 05/25/1617 07:00 08:00 09:26 10:01 Temp 98.0 98.0 Pulse 61 Resp 20 18 18 B/P 113/72 Pulse Ox 94 94 94 O2 Delivery Room Air Room Air Room Air Room Air 05/25/16 05/25/16 10:42 14:44 Temp 97.8 97.8 Pulse 67 Resp 18 16 B/P 118/73 Pulse Ox 94 94 O2 Delivery Room Air Room Air Intake and Output 05/24/16 05/24/16 05/25/16 15:00 23:00 07:00 Intake Total 1313 ml 0 ml Output Total 900 ml Balance 413 ml 0 ml LORI VINSON MD May 25, 2016 15:07
--- NOTE | 2016-05-25 18:10 | PDOC2 ---
KATI REVELES MANAGER ELECTRICAL 05/25/160: CONSULT Date of Consult Date of Consult DATE: 05/25/16 TIME: 16:56 Reason for Consult Reason for Consult: Possible aortic vasculitis. Referring Physician Referring Physician: Odin Chacon D.O. Identification/Chief Complaint Chief Complaint Severe abdominal pain with fullness. Source Source: Chart review, Patient History of Present Illness Reason for Visit: This is a pleasant 51-year-old male who is in obvious moderate distress experiencing abdominal pain at the time of this consultation. He is a good historian. The patient states he began to experience abdominal pain about 1 week ago that slowly and progressively worsened. He described the pain initially as dull in the morning and would progress throughout the day. He noticed the pain would worsen after eating. This discomfort progressively intensified to the point that he was unable to tolerate the pain and presented to the emergency room for evaluation. He cannot tell me if he has had any significant weight loss as he does not have access to a scale. When asked if his clothes fit the same, he believes he is experiencing abdominal distention. The patient has recently been around family that are currently hospitalized with the flu. Additionally, he admits to having problems with loose, diarrhea stools that started several months ago prior to the onset of this abdominal pain. The patient denies any symptoms of hip, buttock or lower extremity claudication. Vascular Surgery has been consulted as CTA suspect for aortic vasculitis. Past Medical History Past Medical History 1. Bipolar disorder. 2. History of alcohol abuse. Sober for 4.5 years. 3. History of drug abuse, clean since 1994. 4. Degenerative joint disease. 5. Hepatitis C. 6. Schizophrenia. Past Surgical History Past Surgical History 1. Right shoulder surgery. 2. Sinus surgery. Social History Social History Current smoking history, stating he had his last cigarette prior to coming to the hospital. History of alcohol abuse. Sober for 4.5 years. History of IV drug abuse. Clean since 1994. . 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 Current Problem List Problem List Problems Medical Problems: (1) Intractable abdominal pain Status: Acute Current Medications Current Medications Current Medications Iohexol (Omnipaque 300 Mg/ml) 75 ml 1X ONCE IV Last administered on 05/24/16t 02:24; Start 05/24/16 at 02:30; Stop 05/24/16 at 02:31; Status DC Info (Do NOT chart on this entry -- for MONITORING) 1 each PRN DAILY PRN MC SEE COMMENTS; Start 05/24/16 at 02:15; Stop 05/25/16 at 13:30; Status DC Ondansetron HCl (Zofran) 4 mg PRN Q8HRS PRN IV NAUSEA/VOMITING; Start 05/24/16 at 03:15; Stop 05/25/16 at 03:14; Status DC Fentanyl Citrate 50 mcg 50 mcg PRN Q2HR PRN IV SEVERE PAIN Last administered on 05/25/16 03:00; Start 05/24/16 at 03:15; Stop 05/25/16 at 03:14; Status DC Sodium Chloride (Iv Sodium Chloride 0.9% 1000ml Bag) 1,000 ml @ 125 mls/hr Q8H IV Last administered on 05/24/16 12:35; Start 05/24/16 at 03:12; Stop 05/25/16 at 03:11; Status DC Cetirizine HCl (Zyrtec) 10 mg DAILY PO Last administered on 05/24/16 20:27; Start 05/24/16 at 20:00 Divalproex Sodium (Depakote Er) 1,000 mg QHS PO Last administered on 05/24/16 20:27; Start 05/24/16 at 21:00 Fluoxetine HCl (Prozac) 10 mg DAILY PO Last administered on 05/24/16 20:27; Start 05/24/16 at 20:00 Montelukast Sodium (Singulair) 10 mg HS PO Last administered on 05/24/16 20:26 ; Start 05/24/16 at 21:00 Olanzapine (Zyprexa) 5 mg DAILY PO ; Start 05/24/16 at 20:00 Tamsulosin HCl (Flomax) 0.4 mg HS PO Last administered on 05/24/16 20:26; Start 05/24/16 at 21:00 Olanzapine (Zyprexa) 20 mg QHS PO Last administered on 05/24/16 20:26; Start at 21:00 Trazodone HCl (Desyrel) 150 mg QHS PO ; Start 05/24/16 at 21:00 Iohexol (Omnipaque 350 Mg/ml) 90 ml 1X ONCE IV Last administered on 05/25/16 08:48; Start 05/25/16 at 08:30; Stop 05/25/16 at 08:31; Status DC Info (Do NOT chart on this entry -- for MONITORING) 1 each PRN DAILY PRN MC SEE COMMENTS; Start 05/25/16 at 08:30; Stop 05/27/16 at 08:29 Fentanyl Citrate 50 mcg 50 mcg PRN Q2HR PRN IV PAIN Last administered on 09:26; Start 05/25/16 at 08:45 Sodium Chloride (Iv Sodium Chloride 0.9% 1000ml Bag) 1,000 ml @ 125 mls/hr Q8H IV Last administered on 05/25/16 11:45; Start 05/25/16 at 11:45; Stop 05/25/16 at 13:39; Status DC Saliva Substitute (Biotene Moisturizing Mouth) 2 spray PRN Q15MIN PRN PO DRY MOUTH; Start 05/25/16 at 13:45 Throat Lozenges 1 aliyah 1 aliyah PRN Q2HRS PRN PO SORE THROAT; Start 05/25/16 at 13: 45 Potassium Chloride/Dextrose/ Sod Cl (KCl 20 Meq In D5W-1/2 NS) 1,000 ml @ 125 mls/hr Q8H IV Last administered on 05/25/16 14:47; Start 05/25/16 at 13:45 Fentanyl Citrate (Fentanyl 2ml Vial) 75 mcg 1X ONCE IV Last administered on 14:44; Start 05/25/16 at 13:45; Stop 05/25/16 at 13:46; Status DC Active Scripts Active Reported Trazodone Hcl 150 Mg Tablet 1 Tab PO QHS Montelukast Sodium Tablet (Montelukast Sodium) 10 Mg Tablet 10 Mg PO HS Divalproex Sodium Er (Divalproex Sodium) 500 Mg Tab.er.24h 2 Tab PO QHS Olanzapine 20 Mg Tablet 1 Tab PO QHS Olanzapine 5 Mg Tablet 5 Mg PO DAILY Fluoxetine Hcl 10 Mg Capsule 1 Cap PO DAILY Tamsulosin Hcl 0.4 Mg Cap.er.24h 1 Cap PO HS Cetirizine Hcl 10 Mg Tablet 1 Tab PO DAILY Allergies Allergies: Coded Allergies: codeine (Verified Allergy, Intermediate, 06/21/15) meperidine (Verified Allergy, Intermediate, 06/21/15) ROS General: YES: Appetite (Reduced), No: Chills, Fatigue, Malaise, Night Sweats PSYCHOLOGICAL ROS: YES: Depression, Hallucinations HEENT: YES: Heacaches, No: Nasal congestion, Sinus pain, Sore Throat Respiratory: YES: Shortness of breath, Wheezing Cardiovascular: No Chest Pain, No Orthopnea, No Palpitations, No Paroxysmal Noc. Dyspnea Gastrointestinal: Yes Abdominal Pain, Yes Diarrhea, Yes Other (Abdominal distention) Skin: No Dry Skin, No Mottling, No Rash Physical Exam General: Alert, Oriented X3, Cooperative, moderate distress HEENT: Atraumatic, PERRLA Lungs: Other (Long, expiratory wheezes. Somewhat short of breath with conversation.) Heart: Regular rate, Normal S1, Normal S2, No murmurs Abdomen: Normal bowel sounds, Other (Unable to palpate due to pain. Very guarded. Significant pain just above the umbilicus. ) Extremities: No clubbing, No cyanosis, No edema, Normal pulses Skin: No rashes, No breakdown, No significant lesion Vitals VITALS Vital Signs Date Time Temp Pulse Resp B/P Pulse Ox O2 Delivery O2 Flow Rate FiO2 05/25/16 15:18 18 94 Room Air 05/25/16 15:00 97.6 71 129/69 97.6 Labs Labs Laboratory Tests Test 05/24/16 01:29 05/24/16 03:09 05/24/16 13:45 05/25/16 03:45 White Blood Count 6.4x10^3/uL (4.0-11.0) 5.9x10^3/uL (4.0-11.0) Red Blood Count 4.30x10^6/uL (4.30-5.70) 4.17x10^6/uL (4.30-5.70) Hemoglobin 13.9g/dL (13.0-17.5) 13.4g/dL (13.0-17.5) Hematocrit 41.3% (39.0-53.0) 39.7% (39.0-53.0) Mean Corpuscular Volume 96fL (79-100) 95fL (79-100) Mean Corpuscular Hemoglobin 32pg (25-35) 32pg (25-35) Mean Corpuscular Hemoglobin Concent 34g/dL (31-37) 34g/dL (31-37) Red Cell Distribution Width 13.1% (11.5-14.5) 12.8% (11.5-14.5) Platelet Count 88x10^3/uL (140-400) 92x10^3/uL (140-400) Neutrophils (%) (Auto) 49% (31-73) 47% (31-73) Lymphocytes (%) (Auto) 35% (24-48) 39% (24-48) Monocytes (%) (Auto) 10% (0-9) 9% (0-9) Eosinophils (%) (Auto) 4% (0-3) 4% (0-3) Basophils (%) (Auto) 1% (0-3) 1% (0-3) Neutrophils # (Auto) 3.1x10^3uL (1.8-7.7) 2.8x10^3uL (1.8-7.7) Lymphocytes # (Auto) 2.2x10^3/uL (1.0-4.8) 2.3x10^3/uL (1.0-4.8) Monocytes # (Auto) 0.7x10^3/uL (0.0-1.1) 0.6x10^3/uL (0.0-1.1) Eosinophils # (Auto) 0.3x10^3/uL (0.0-0.7) 0.2x10^3/uL (0.0-0.7) Basophils # (Auto) 0.1x10^3/uL (0.0-0.2) 0.1x10^3/uL (0.0-0.2) Sodium Level 142mmol/L (136-145) 143mmol/L (136-145) Potassium Level 4.0mmol/L (3.5-5.1) 3.9mmol/L (3.5-5.1) Chloride Level 105mmol/L (98-107) 108mmol/L (98-107) Carbon Dioxide Level 29mmol/L (21-32) 27mmol/L (21-32) Anion Gap 8 (6-14) 8 (6-14) Blood Urea Nitrogen 15mg/dL (8-26) 12mg/dL (8-26) Creatinine 1.1mg/dL (0.7-1.3) 0.9mg/dL (0.7-1.3) Estimated GFR (Cockcroft-Gault) 70.0 88.3 BUN/Creatinine Ratio 14 (6-20) Glucose Level 92mg/dL (70-99) 81mg/dL (70-99) Calcium Level 9.0mg/dL (8.5-10.1) 8.2mg/dL (8.5-10.1) Total Bilirubin 0.4mg/dL (0.2-1.0) Aspartate Amino Transf (AST/SGOT) 18U/L (15-37) Alanine Aminotransferase (ALT/SGPT) 19U/L (16-63) Alkaline Phosphatase 57U/L (46-116) C-Reactive Protein, Quantitative 8.9mg/L (0-3.3) Total Protein 7.5g/dL (6.4-8.2) Albumin 3.4g/dL (3.4-5.0) Albumin/Globulin Ratio 0.8 (1.0-1.7) Lipase 305U/L (73-393) Urine Collection Type Unknown Urine Color Yellow Urine Clarity Clear Urine pH 6.5 Urine Specific [place] 1.025 Urine Protein Negativemg/dL (NEG-TRACE) Urine Glucose (UA) Negativemg/dL (NEG) Urine Ketones (Stick) Negativemg/dL (NEG) Urine Blood Negative (NEG) Urine Nitrite Negative (NEG) Urine Bilirubin Negative (NEG) Urine Urobilinogen Dipstick 0.2mg/dL (0.2 mg/dL) Urine Leukocyte Esterase Negative (NEG) Urine RBC Occ/HPF (0-2) Urine WBC Occ/HPF (0-4) Urine Squamous Epithelial Cells Occ/LPF Urine Bacteria 0/HPF (0-FEW) Urine Mucus Slight/LPF Erythrocyte Sedimentation Rate 35 (0-15) Laboratory Tests Test 05/25/16 03:45 White Blood Count 5.9x10^3/uL (4.0-11.0) Red Blood Count 4.17x10^6/uL (4.30-5.70) Hemoglobin 13.4g/dL (13.0-17.5) Hematocrit 39.7% (39.0-53.0) Mean Corpuscular Volume 95fL (79-100) Mean Corpuscular Hemoglobin 32pg (25-35) Mean Corpuscular Hemoglobin Concent 34g/dL (31-37) Red Cell Distribution Width 12.8% (11.5-14.5) Platelet Count 92x10^3/uL (140-400) Neutrophils (%) (Auto) 47% (31-73) Lymphocytes (%) (Auto) 39% (24-48) Monocytes (%) (Auto) 9% (0-9) Eosinophils (%) (Auto) 4% (0-3) Basophils (%) (Auto) 1% (0-3) Neutrophils # (Auto) 2.8x10^3uL (1.8-7.7) Lymphocytes # (Auto) 2.3x10^3/uL (1.0-4.8) Monocytes # (Auto) 0.6x10^3/uL (0.0-1.1) Eosinophils # (Auto) 0.2x10^3/uL (0.0-0.7) Basophils # (Auto) 0.1x10^3/uL (0.0-0.2) Sodium Level 143mmol/L (136-145) Potassium Level 3.9mmol/L (3.5-5.1) Chloride Level 108mmol/L (98-107) Carbon Dioxide Level 27mmol/L (21-32) Anion Gap 8 (6-14) Blood Urea Nitrogen 12mg/dL (8-26) Creatinine 0.9mg/dL (0.7-1.3) Estimated GFR (Cockcroft-Gault) 88.3 Glucose Level 81mg/dL (70-99) Calcium Level 8.2mg/dL (8.5-10.1) Images Images CT abdomen and pelvis with contrast dated 05/24/2016. IMPRESSION - Hazy inflammatory stranding near the ventral abdominal aorta, origin of SMA and along the dorsal margin of the pancreas of uncertain etiology. Although this may represent an acute aortitis or other causes of vasculitis, there is no significant luminal narrowing of the vessels at this time. A mild pancreatitis is another consideration. Recommend laboratory correlation. - Slightly nodular appearance of the liver, raising the question of early cirrhotic change. - Borderline splenomegaly. - Status postcholecystectomy. CTA Abdomen and Pelvis: IMPRESSION: 1. Mild stenosis, wall thickening and perivascular inflammation about the proximal superior mesenteric artery. This may reflect segmental arterial mediolysis. No dissection flap is detectable, but a thrombosed underlying dissection is another possibility. Correlate with systemic inflammatory markers to further exclude vasculitis. No additional sites of vascular involvement are seen. 2. Morphologic changes of cirrhosis. Moderate splenomegaly. One or more of the following individualized dose reduction techniques were utilized for this examination: 1. Automated exposure control. 2. Adjustment of the mA and/or kV according to patient size. 3. Use of iterative reconstruction technique. Assessment/Plan Assessment/Plan Abdominal pain with CTA of the abdomen/pelvis indicating a mild stenosis, wall thickening and perivascular inflammation at the proximal superior mesenteric artery. There is no dissection flap detected. The patient has an elevated Sed Rate of 35 and a CRP of 8.8. Rheumatology consultation is pending. History and symptoms suspect for vasculitis of the aorta, although symptoms also consistent with stenosis of the SMA but difficult to fully evaluate at this time. A vasculitis at the location of the SMA can cause temporary stenosis but improve with treatment. Most likely, will need to be treated with steroids for vasculitis and then re-evaluated with a repeat CTA after steroid regimen completed. At this time, we will defer to Rheumatology for evaluation and a treatment plan with steroids for probable vasculitis. We would like to recommend adding antiplatelet therapy with Aspirin 81mg daily but the patient's platelet count is only 92,000. Will defer this to Dr. Chacon to determine if contraindicated. Thank you for the opportunity to participate in the care of this patient. Dr. Enamorado will provide additional recommendations as needed. We will intermittently follow while the patient is hospitalized. ELLY MERINO II, MD 05/26/16 2213: CONSULT Allergies Allergies: Coded Allergies: codeine (Verified Allergy, Intermediate, 06/21/15) meperidine (Verified Allergy, Intermediate, 06/21/15) Assessment/Plan Assessment/Plan History reviewed. Pt sleeping. Nurse states that abdominal pain persists, SOCIAL PSYCHOLOGIST fentanyl begun. CTA reviewed. No significant SMA stenosis, not flow limiting. Don't think the etiology of his pain is arterial insufficiency. Suggest continued GI evaluation and f/u. KATI REVELES APRN May 25, 2016 18:10 ELLY MERINO II, MD May 26, 2016 22:13
[2016-05-25 19:35] VITALS: BP 135/72
[2016-05-25] MEDS: traZODone 50 MG TABLET. PO SCH (20:21)
[2016-05-25] MEDS: DIVALPROEX EXTENDED RELEASE 500 MG TAB.ER.24H. PO SCH (20:21)
[2016-05-25] MEDS: TAMSULOSIN 0.4 MG CAP.ER.24H. PO SCH (20:21)
[2016-05-25] MEDS: MONTELUKAST SODIUM 10 MG TABLET. PO SCH (20:22)
[2016-05-25 22:50] VITALS: BP 151/80
[2016-05-26 02:33] VITALS: BP 124/78
[2016-05-26] MEDS: FENTANYL PF 100 MCG/2 ML VIAL. IV PRN ×4 (03:21→13:53)
[2016-05-26 04:04] LABS: BASO # 0.1 x10^3/uL (0.0-0.2); BASO % 1 % (0-3); EOS % 3 % (0-3); HEMATOCRIT 40.4 % (39.0-53.0); HEMOGLOBIN 13.7 g/dL (13.0-17.5); LYMPH # 2.1 x10^3/uL (1.0-4.8); LYMPH % 35 % (24-48); MEAN CORPUSCULAR HEMOGLOBIN 32 pg (25-35); MEAN CORPUSCULAR HGB CONC 34 g/dL (31-37); MEAN CORPUSCULAR VOLUME 94 fL (79-100); MONO % 11 % (0-9); NEUT % 50 % (31-73); PLATELET COUNT 96 x10^3/uL (140-400); RED BLOOD COUNT 4.29 x10^6/uL (4.30-5.70); WHITE BLOOD COUNT 5.8 x10^3/uL (4.0-11.0)
[2016-05-26 04:28] LABS: CALCIUM 8.4 mg/dL (8.5-10.1); GFR 78.2; POTASSIUM 4.2 mmol/L (3.5-5.1)
[2016-05-26] MEDS: POTASSIUM CL 20MEQ D5-0.45NACL 1,000 ML IV SCH ×3 (05:22→15:47)
[2016-05-26 06:17] LABS: RHEUMATOID FACTOR <10.0 IU/mL (0.0-13.9)
[2016-05-26 07:00] VITALS: BP 123/76
[2016-05-26] MEDS: OLANZAPINE 5 MG TABLET. PO SCH ×2 (09:07→21:30)
[2016-05-26] MEDS: FLUOXETINE HCL 10 MG CAPSULE PO SCH (09:07)
[2016-05-26] MEDS: CETIRIZINE HCL 10 MG TABLET PO SCH (09:07)
--- NOTE | 2016-05-26 10:17 | PDOC ---
Subjective: Subjective: Still 7/10 pain. Objective: Vital Signs: Vital Signs Date Time Temp Pulse Resp B/P Pulse Ox O2 Delivery O2 Flow Rate FiO2 05/26/16 08:00 Room Air 05/26/16 07:00 98.0 68 18 123/76 96 98.0 Labs: Laboratory Tests Test 05/25/16 15:00 05/26/16 03:50 Rheumatoid Factor <10.0IU/mL c-ANCA Pending p-ANCA Pending Atypical p-ANCA Pending White Blood Count 5.8x10^3/uL Red Blood Count 4.29x10^6/uL Hemoglobin 13.7g/dL Hematocrit 40.4% Mean Corpuscular Volume 94fL Mean Corpuscular Hemoglobin 32pg Mean Corpuscular Hemoglobin Concent 34g/dL Red Cell Distribution Width 14.0% Platelet Count 96x10^3/uL Neutrophils (%) (Auto) 50% Lymphocytes (%) (Auto) 35% Monocytes (%) (Auto) 11% Eosinophils (%) (Auto) 3% Basophils (%) (Auto) 1% Neutrophils # (Auto) 2.9x10^3uL Lymphocytes # (Auto) 2.1x10^3/uL Monocytes # (Auto) 0.6x10^3/uL Eosinophils # (Auto) 0.2x10^3/uL Basophils # (Auto) 0.1x10^3/uL Sodium Level 144mmol/L Potassium Level 4.2mmol/L Chloride Level 109mmol/L Carbon Dioxide Level 29mmol/L Anion Gap 6 Blood Urea Nitrogen 11mg/dL Creatinine 1.0mg/dL Estimated GFR (Cockcroft-Gault) 78.2 Glucose Level 95mg/dL Calcium Level 8.4mg/dL PE: GEN: NAD LUNGS: clear anteriorly HEART: RRR ABD: RUQ tenderness mostly today NEURO/PSYCH: A & O 3 A/P: Abd pain, vasculitis -elevated ESR (35) and CRP (8.8), RF neg -CTA as above w/ mild stenosis, wall thickening, and perivascular inflammation about the proximal SMA -rheum consult and additional labs pending H/o HCV, historically treated -cirrhosis and splenomegaly on CTA -- Ongoing pain, still NPO. Will review w/ Dr. Mg. ADALBERTO BARAJAS May 26, 2016 10:17
--- NOTE | 2016-05-26 10:30 | CONS ---
DATE OF CONSULTATION: 05/24/2016 REQUESTING PHYSICIAN: Dr. Haywood. REASON FOR CONSULTATION: Abdominal pain and abnormal CT scan. HISTORY OF PRESENT ILLNESS: The patient is a 51-year-old male with multiple medical problems, has been admitted because of the abdominal pain from last 5-6 days. He described the pain as constant, achy, cramping, but today it is intermittent, associated with nausea, but no vomiting and some diarrhea. He denies any fever. On further evaluation, he was found to have abnormal features on CT scan of abdomen suggestive of vasculitis. So, rheumatology consultation has been requested for further evaluation and management. He denies any joint pain, joint swelling, stiffness, skin rash, etc. PAST MEDICAL HISTORY: Osteoarthritis, bipolar, hypotension, hepatitis C treated, schizophrenia, alcoholism. PAST SURGICAL HISTORY: Cholecystectomy, right shoulder reconstruction and jaw surgery. SOCIAL HISTORY: He denies tobacco smoking or any current alcohol abuse. FAMILY HISTORY: Negative for any autoimmune disease. ALLERGIES: MEPERIDINE AND CODEINE. MEDICATIONS: I have reviewed the list of medications. REVIEW OF SYSTEMS: All other systems are reviewed and negative except for HPI. PHYSICAL EXAMINATION: VITAL SIGNS: Reveal temperature 97.6, pulse 71, respirations 18 and blood pressure 129/69. GENERAL: He is awake, alert, oriented x 3, not in acute distress. SKIN: He does not have any rash. HEENT: Normocephalic, atraumatic head. No oral ulcerations. NECK: Supple. HEART: S1, S2 regular. LUNGS: Clear to auscultation. EXTREMITIES: No pitting edema. MUSCULOSKELETAL: Did not reveal any joint tenderness or synovitis. I have reviewed his laboratory test and his sed rate is 35, C-reactive protein is 8.9, creatinine 0.9, platelet count is 92. I have reviewed his CT of abdomen. ASSESSMENT: 1. Abdominal pain. 2. Abnormal CT scan of the abdomen. 3. Elevated sedimentation rate and CRP. 4. Segmental arterial mediolysis. I have reviewed the CT scan of the abdomen with radiologist and vasculitis is very unlikely. Possibly he has a segmental arterial mediolysis which is spontaneous in nature. So at the present I am not requesting any further workup for the vasculitis and recommend further treatment by GI. After one month, if he still does not have any improvement or if there is any worsening you may repeat the CT scan of the abdomen. Thank you for allowing me to participate in his care. If any question, please do not hesitate to contact me. FADI GUERIN MD DR: ITZ/stephanie JOB#: [id number] / [id number] DEMETRIO
[2016-05-26 11:00] VITALS: BP 125/71
[2016-05-26 15:00] VITALS: BP 118/72
[2016-05-26] MEDS: FENTANYL STANDARD PCA 30 ML IV PRN (16:01)
--- NOTE | 2016-05-26 16:03 | PDOC ---
PROGRESS NOTES Chief Complaint Chief Complaint acute abd pain vasculitis, EDISON , segmental arterial mediolysis nausea hx prior EtOH abuse and meth use recent treatment at [facility] for Hep C, possibly with Harvoni History of Present Illness History of Present Illness IR consulted to eval for stent or embolization, films reviewed, unsure if any benefit from stenting, pain does not seem post-prandial, and possible inflammation from pancreas or other, Pt has now been NPO > 24 hours, and pain not improving change IV fluid to PPN stop current pain meds, start [employer] fentanyl Vitals Vitals Vital Signs Date Time Temp Pulse Resp B/P Pulse Ox O2 Delivery O2 Flow Rate FiO2 05/26/16 13:53 18 Room Air 05/26/16 11:00 98.3 60 125/71 95 98.3 Physical Exam General: Alert, Oriented X3, Cooperative, moderate distress Heart: Regular rate, Normal S1, Normal S2, No murmurs Lungs: Clear, Other Abdomen: Normal bowel sounds, Other (Unable to palpate due to pain. Very guarded. Significant pain just above the umbilicus. ) Extremities: No clubbing, No cyanosis, No edema, Normal pulses Skin: No rashes, No breakdown, No significant lesion Labs LABS Laboratory Tests Test 05/26/16 03:50 White Blood Count 5.8x10^3/uL (4.0-11.0) Red Blood Count 4.29x10^6/uL (4.30-5.70) Hemoglobin 13.7g/dL (13.0-17.5) Hematocrit 40.4% (39.0-53.0) Mean Corpuscular Volume 94fL (79-100) Mean Corpuscular Hemoglobin 32pg (25-35) Mean Corpuscular Hemoglobin Concent 34g/dL (31-37) Red Cell Distribution Width 14.0% (11.5-14.5) Platelet Count 96x10^3/uL (140-400) Neutrophils (%) (Auto) 50% (31-73) Lymphocytes (%) (Auto) 35% (24-48) Monocytes (%) (Auto) 11% (0-9) Eosinophils (%) (Auto) 3% (0-3) Basophils (%) (Auto) 1% (0-3) Neutrophils # (Auto) 2.9x10^3uL (1.8-7.7) Lymphocytes # (Auto) 2.1x10^3/uL (1.0-4.8) Monocytes # (Auto) 0.6x10^3/uL (0.0-1.1) Eosinophils # (Auto) 0.2x10^3/uL (0.0-0.7) Basophils # (Auto) 0.1x10^3/uL (0.0-0.2) Sodium Level 144mmol/L (136-145) Potassium Level 4.2mmol/L (3.5-5.1) Chloride Level 109mmol/L (98-107) Carbon Dioxide Level 29mmol/L (21-32) Anion Gap 6 (6-14) Blood Urea Nitrogen 11mg/dL (8-26) Creatinine 1.0mg/dL (0.7-1.3) Estimated GFR (Cockcroft-Gault) 78.2 Glucose Level 95mg/dL (70-99) Calcium Level 8.4mg/dL (8.5-10.1) Review of Systems Review of Systems no n.v.d 10/29 pain, insomnia Assessment and Plan Assessmemt and Plan Problems Medical Problems: (1) Intractable abdominal pain Status: Acute Problems: Comment Review of Relevant I have reviewed the following items venita (where applicable) has been applied. Labs Laboratory Tests Test 05/25/16 03:45 05/25/16 15:00 05/26/16 03:50 White Blood Count 5.9x10^3/uL (4.0-11.0) 5.8x10^3/uL (4.0-11.0) Red Blood Count 4.17x10^6/uL (4.30-5.70) 4.29x10^6/uL (4.30-5.70) Hemoglobin 13.4g/dL (13.0-17.5) 13.7g/dL (13.0-17.5) Hematocrit 39.7% (39.0-53.0) 40.4% (39.0-53.0) Mean Corpuscular Volume 95fL (79-100) 94fL (79-100) Mean Corpuscular Hemoglobin 32pg (25-35) 32pg (25-35) Mean Corpuscular Hemoglobin Concent 34g/dL (31-37) 34g/dL (31-37) Red Cell Distribution Width 12.8% (11.5-14.5) 14.0% (11.5-14.5) Platelet Count 92x10^3/uL (140-400) 96x10^3/uL (140-400) Neutrophils (%) (Auto) 47% (31-73) 50% (31-73) Lymphocytes (%) (Auto) 39% (24-48) 35% (24-48) Monocytes (%) (Auto) 9% (0-9) 11% (0-9) Eosinophils (%) (Auto) 4% (0-3) 3% (0-3) Basophils (%) (Auto) 1% (0-3) 1% (0-3) Neutrophils # (Auto) 2.8x10^3uL (1.8-7.7) 2.9x10^3uL (1.8-7.7) Lymphocytes # (Auto) 2.3x10^3/uL (1.0-4.8) 2.1x10^3/uL (1.0-4.8) Monocytes # (Auto) 0.6x10^3/uL (0.0-1.1) 0.6x10^3/uL (0.0-1.1) Eosinophils # (Auto) 0.2x10^3/uL (0.0-0.7) 0.2x10^3/uL (0.0-0.7) Basophils # (Auto) 0.1x10^3/uL (0.0-0.2) 0.1x10^3/uL (0.0-0.2) Sodium Level 143mmol/L (136-145) 144mmol/L (136-145) Potassium Level 3.9mmol/L (3.5-5.1) 4.2mmol/L (3.5-5.1) Chloride Level 108mmol/L (98-107) 109mmol/L (98-107) Carbon Dioxide Level 27mmol/L (21-32) 29mmol/L (21-32) Anion Gap 8 (6-14) 6 (6-14) Blood Urea Nitrogen 12mg/dL (8-26) 11mg/dL (8-26) Creatinine 0.9mg/dL (0.7-1.3) 1.0mg/dL (0.7-1.3) Estimated GFR (Cockcroft-Gault) 88.3 78.2 Glucose Level 81mg/dL (70-99) 95mg/dL (70-99) Calcium Level 8.2mg/dL (8.5-10.1) 8.4mg/dL (8.5-10.1) Rheumatoid Factor <10.0IU/mL (0.0-13.9) Laboratory Tests Test 05/26/16 03:50 White Blood Count 5.8x10^3/uL (4.0-11.0) Red Blood Count 4.29x10^6/uL (4.30-5.70) Hemoglobin 13.7g/dL (13.0-17.5) Hematocrit 40.4% (39.0-53.0) Mean Corpuscular Volume 94fL (79-100) Mean Corpuscular Hemoglobin 32pg (25-35) Mean Corpuscular Hemoglobin Concent 34g/dL (31-37) Red Cell Distribution Width 14.0% (11.5-14.5) Platelet Count 96x10^3/uL (140-400) Neutrophils (%) (Auto) 50% (31-73) Lymphocytes (%) (Auto) 35% (24-48) Monocytes (%) (Auto) 11% (0-9) Eosinophils (%) (Auto) 3% (0-3) Basophils (%) (Auto) 1% (0-3) Neutrophils # (Auto) 2.9x10^3uL (1.8-7.7) Lymphocytes # (Auto) 2.1x10^3/uL (1.0-4.8) Monocytes # (Auto) 0.6x10^3/uL (0.0-1.1) Eosinophils # (Auto) 0.2x10^3/uL (0.0-0.7) Basophils # (Auto) 0.1x10^3/uL (0.0-0.2) Sodium Level 144mmol/L (136-145) Potassium Level 4.2mmol/L (3.5-5.1) Chloride Level 109mmol/L (98-107) Carbon Dioxide Level 29mmol/L (21-32) Anion Gap 6 (6-14) Blood Urea Nitrogen 11mg/dL (8-26) Creatinine 1.0mg/dL (0.7-1.3) Estimated GFR (Cockcroft-Gault) 78.2 Glucose Level 95mg/dL (70-99) Calcium Level 8.4mg/dL (8.5-10.1) Medications Current Medications Iohexol (Omnipaque 300 Mg/ml) 75 ml 1X ONCE IV Last administered on 05/24/16 02:24; Start 05/24/16 at 02:30; Stop 05/24/16 at 02:31; Status DC Info (Do NOT chart on this entry -- for MONITORING) 1 each PRN DAILY PRN MC SEE COMMENTS; Start 05/24/16 at 02:15; Stop 05/25/16 at 13:30; Status DC Ondansetron HCl (Zofran) 4 mg PRN Q8HRS PRN IV NAUSEA/VOMITING; Start 05/24/16 at 03:15; Stop 05/25/16 at 03:14; Status DC Fentanyl Citrate 50 mcg 50 mcg PRN Q2HR PRN IV SEVERE PAIN Last administered on 05/25/16 03:00; Start 05/24/16 at 03:15; Stop 05/25/16 at 03:14; Status DC Sodium Chloride (Iv Sodium Chloride 0.9% 1000ml Bag) 1,000 ml @ 125 mls/hr Q8H IV Last administered on 05/24/16 12:35; Start 05/24/16 at 03:12; Stop 05/25/16 at 03:11; Status DC Cetirizine HCl (Zyrtec) 10 mg DAILY PO Last administered on 05/26/16 09:07; Start 05/24/16 at 20:00 Divalproex Sodium (Depakote Er) 1,000 mg QHS PO Last administered on 05/24/16 20:27; Start 05/24/16 at 21:00 Fluoxetine HCl (Prozac) 10 mg DAILY PO Last administered on 05/26/16 09:07; Start 05/24/16 at 20:00 Montelukast Sodium (Singulair) 10 mg HS PO Last administered on 05/24/16 20:26 ; Start 05/24/16 at 21:00 Olanzapine (Zyprexa) 5 mg DAILY PO Last administered on 05/26/16 09:07; Start 05/24/16 at 20:00 Tamsulosin HCl (Flomax) 0.4 mg HS PO Last administered on 05/24/16 20:26; Start 05/24/16 at 21:00 Olanzapine (Zyprexa) 20 mg QHS PO Last administered on 05/24/16 20:26; Start at 21:00 Trazodone HCl (Desyrel) 150 mg QHS PO ; Start 05/24/16 at 21:00 Iohexol (Omnipaque 350 Mg/ml) 90 ml 1X ONCE IV Last administered on 05/25/16 08:48; Start 05/25/16 at 08:30; Stop 05/25/16 at 08:31; Status DC Info (Do NOT chart on this entry -- for MONITORING) 1 each PRN DAILY PRN MC SEE COMMENTS; Start 05/25/16 at 08:30; Stop 05/27/16 at 08:29 Fentanyl Citrate 50 mcg 50 mcg PRN Q2HR PRN IV PAIN Last administered on 13:53; Start 05/25/16 at 08:45; Stop 05/26/16 at 15:13; Status DC Sodium Chloride (Iv Sodium Chloride 0.9% 1000ml Bag) 1,000 ml @ 125 mls/hr Q8H IV Last administered on 05/25/16 11:45; Start 05/25/16 at 11:45; Stop 05/25/16 at 13:39; Status DC Saliva Substitute (Biotene Moisturizing Mouth) 2 spray PRN Q15MIN PRN PO DRY MOUTH; Start 05/25/16 at 13:45 Throat Lozenges 1 aliyah 1 aliyah PRN Q2HRS PRN PO SORE THROAT; Start 05/25/16 at 13: 45 Potassium Chloride/Dextrose/ Sod Cl (KCl 20 Meq In D5W-1/2 NS) 1,000 ml @ 125 mls/hr Q8H IV Last administered on 05/26/16 14:00; Start 05/25/16 at 13:45 Fentanyl Citrate 75 mcg 75 mcg 1X ONCE IV Last administered on 3/6/17at 14:44 ; Start 05/25/16 at 13:45; Stop 05/25/16 at 13:46; Status DC Fentanyl Citrate (Fentanyl 600 Mcg/30 ml [employer]) 30 ml @ 0 mls/hr CONT PRN PRN IV PROTOCOL; Start 05/26/16 at 14:15 Active Scripts Active Reported Trazodone Hcl 150 Mg Tablet 1 Tab PO QHS Montelukast Sodium Tablet (Montelukast Sodium) 10 Mg Tablet 10 Mg PO HS Divalproex Sodium Er (Divalproex Sodium) 500 Mg Tab.er.24h 2 Tab PO QHS Olanzapine 20 Mg Tablet 1 Tab PO QHS Olanzapine 5 Mg Tablet 5 Mg PO DAILY Fluoxetine Hcl 10 Mg Capsule 1 Cap PO DAILY Tamsulosin Hcl 0.4 Mg Cap.er.24h 1 Cap PO HS Cetirizine Hcl 10 Mg Tablet 1 Tab PO DAILY Vitals/I & O Vital Sign - Last 24 Hours 05/25/16 05/25/16 05/25/16 05/25/16 17:07 17:40 19:35 20:05 Temp 98.4 98.4 Pulse 61 Resp 18 18 B/P 135/72 Pulse Ox 94 94 96 O2 Delivery Room Air Room Air Room Air 05/25/16 05/25/16 05/25/16 05/26/16 20:19 22:31 22:50 02:33 Temp 97.9 97.6 97.9 97.6 Pulse 72 63 Resp 18 18 B/P 151/80 124/78 Pulse Ox 96 94 O2 Delivery Room Air Room Air Room Air Room Air 05/26/16 05/26/16 05/26/16 05/26/16 03:21 05:20 07:00 08:00 Temp 98.0 98.0 Pulse 68 Resp 18 B/P 123/76 Pulse Ox 96 O2 Delivery Room Air Room Air Room Air Room Air 05/26/16 05/26/16 05/26/16 05/26/16 10:45 11:00 11:16 13:53 Temp 98.3 98.3 Pulse 60 Resp 18 18 18 18 B/P 125/71 Pulse Ox 95 O2 Delivery Room Air Room Air Room Air Room Air Intake and Output 05/25/16 05/25/16 05/26/16 15:00 23:00 07:00 Intake Total 276 ml 4386 ml Output Total 1450 ml 400 ml Balance -1174 ml 3986 ml LORI VINSON MD May 26, 2016 16:03
[2016-05-26] MEDS: AA 4.25%/CALCIUM/LYTES/D5W 1,000 ML IV SCH (16:47)
[2016-05-26 19:30] VITALS: BP 124/77
[2016-05-26] MEDS: MONTELUKAST SODIUM 10 MG TABLET. PO SCH (21:27)
[2016-05-26] MEDS: traZODone 50 MG TABLET. PO SCH (21:28)
[2016-05-26] MEDS: DIVALPROEX EXTENDED RELEASE 500 MG TAB.ER.24H. PO SCH (21:28)
[2016-05-26] MEDS: TAMSULOSIN 0.4 MG CAP.ER.24H. PO SCH (21:28)
[2016-05-26 23:46] VITALS: BP 104/66
[2016-05-27 03:13] LABS: C3 COMPLEMENT 115 mg/dL (82-167); C4 COMPLEMENT 19 mg/dL (14-44)
[2016-05-27 03:24] VITALS: BP 116/62
[2016-05-27 04:50] LABS: BASO % 1 % (0-3); EOS % 4 % (0-3); HEMATOCRIT 41.1 % (39.0-53.0); HEMOGLOBIN 14.2 g/dL (13.0-17.5); LYMPH % 37 % (24-48); MEAN CORPUSCULAR HEMOGLOBIN 33 pg (25-35); MEAN CORPUSCULAR HGB CONC 34 g/dL (31-37); MEAN CORPUSCULAR VOLUME 95 fL (79-100); MONO % 11 % (0-9); NEUT % 48 % (31-73); PLATELET COUNT 97 x10^3/uL (140-400); RED BLOOD COUNT 4.35 x10^6/uL (4.30-5.70); RED CELL DISTRIBUTION WIDTH 13.9 % (11.5-14.5); WHITE BLOOD COUNT 5.5 x10^3/uL (4.0-11.0)
[2016-05-27] MEDS: AA 4.25%/CALCIUM/LYTES/D5W 1,000 ML IV SCH (05:02)
[2016-05-27 05:03] LABS: ALBUMIN 2.9 g/dL (3.4-5.0); ALBUMIN/GLOBULIN RATIO 0.7 (1.0-1.7); CALCIUM 8.8 mg/dL (8.5-10.1); CREATININE 0.9 mg/dL (0.7-1.3); GFR 88.3; POTASSIUM 4.5 mmol/L (3.5-5.1); TOTAL BILIRUBIN 0.4 mg/dL (0.2-1.0)
[2016-05-27 07:45] VITALS: BP 110/70
--- NOTE | 2016-05-27 08:41 | PDOC ---
SURGICAL PROGRESS NOTE Subjective pt's abdominal pain improved. Vital Signs Vital Signs Date Time Temp Pulse Resp B/P Pulse Ox O2 Delivery O2 Flow Rate FiO2 05/27/16 07:45 98.0 64 20 110/70 93 Room Air 98.0 I&O Intake and Output 05/27/16 07:00 Output Total 1800 ml Balance -1800 ml Output Urine Total 1800 ml # Voids 2 Abdomen: Normal bowel sounds, Soft, Other (mild tenderness right upper quadrant ) Extremities: Normal pulses Labs Laboratory Tests Test 05/25/16 15:00 05/26/16 03:50 05/27/16 04:00 Rheumatoid Factor <10.0IU/mL (0.0-13.9) White Blood Count 5.8x10^3/uL (4.0-11.0) 5.5x10^3/uL (4.0-11.0) Red Blood Count 4.29x10^6/uL (4.30-5.70) 4.35x10^6/uL (4.30-5.70) Hemoglobin 13.7g/dL (13.0-17.5) 14.2g/dL (13.0-17.5) Hematocrit 40.4% (39.0-53.0) 41.1% (39.0-53.0) Mean Corpuscular Volume 94fL (79-100) 95fL (79-100) Mean Corpuscular Hemoglobin 32pg (25-35) 33pg (25-35) Mean Corpuscular Hemoglobin Concent 34g/dL (31-37) 34g/dL (31-37) Red Cell Distribution Width 14.0% (11.5-14.5) 13.9% (11.5-14.5) Platelet Count 96x10^3/uL (140-400) 97x10^3/uL (140-400) Neutrophils (%) (Auto) 50% (31-73) 48% (31-73) Lymphocytes (%) (Auto) 35% (24-48) 37% (24-48) Monocytes (%) (Auto) 11% (0-9) 11% (0-9) Eosinophils (%) (Auto) 3% (0-3) 4% (0-3) Basophils (%) (Auto) 1% (0-3) 1% (0-3) Neutrophils # (Auto) 2.9x10^3uL (1.8-7.7) 2.6x10^3uL (1.8-7.7) Lymphocytes # (Auto) 2.1x10^3/uL (1.0-4.8) 2.0x10^3/uL (1.0-4.8) Monocytes # (Auto) 0.6x10^3/uL (0.0-1.1) 0.6x10^3/uL (0.0-1.1) Eosinophils # (Auto) 0.2x10^3/uL (0.0-0.7) 0.2x10^3/uL (0.0-0.7) Basophils # (Auto) 0.1x10^3/uL (0.0-0.2) 0.0x10^3/uL (0.0-0.2) Sodium Level 144mmol/L (136-145) 145mmol/L (136-145) Potassium Level 4.2mmol/L (3.5-5.1) 4.5mmol/L (3.5-5.1) Chloride Level 109mmol/L (98-107) 109mmol/L (98-107) Carbon Dioxide Level 29mmol/L (21-32) 30mmol/L (21-32) Anion Gap 6 (6-14) 6 (6-14) Blood Urea Nitrogen 11mg/dL (8-26) 12mg/dL (8-26) Creatinine 1.0mg/dL (0.7-1.3) 0.9mg/dL (0.7-1.3) Estimated GFR (Cockcroft-Gault) 78.2 88.3 Glucose Level 95mg/dL (70-99) 93mg/dL (70-99) Calcium Level 8.4mg/dL (8.5-10.1) 8.8mg/dL (8.5-10.1) BUN/Creatinine Ratio 13 (6-20) Total Bilirubin 0.4mg/dL (0.2-1.0) Aspartate Amino Transf (AST/SGOT) 22U/L (15-37) Alanine Aminotransferase (ALT/SGPT) 19U/L (16-63) Alkaline Phosphatase 53U/L (46-116) Total Protein 7.0g/dL (6.4-8.2) Albumin 2.9g/dL (3.4-5.0) Albumin/Globulin Ratio 0.7 (1.0-1.7) Laboratory Tests Test 05/27/16 04:00 White Blood Count 5.5x10^3/uL (4.0-11.0) Red Blood Count 4.35x10^6/uL (4.30-5.70) Hemoglobin 14.2g/dL (13.0-17.5) Hematocrit 41.1% (39.0-53.0) Mean Corpuscular Volume 95fL (79-100) Mean Corpuscular Hemoglobin 33pg (25-35) Mean Corpuscular Hemoglobin Concent 34g/dL (31-37) Red Cell Distribution Width 13.9% (11.5-14.5) Platelet Count 97x10^3/uL (140-400) Neutrophils (%) (Auto) 48% (31-73) Lymphocytes (%) (Auto) 37% (24-48) Monocytes (%) (Auto) 11% (0-9) Eosinophils (%) (Auto) 4% (0-3) Basophils (%) (Auto) 1% (0-3) Neutrophils # (Auto) 2.6x10^3uL (1.8-7.7) Lymphocytes # (Auto) 2.0x10^3/uL (1.0-4.8) Monocytes # (Auto) 0.6x10^3/uL (0.0-1.1) Eosinophils # (Auto) 0.2x10^3/uL (0.0-0.7) Basophils # (Auto) 0.0x10^3/uL (0.0-0.2) Sodium Level 145mmol/L (136-145) Potassium Level 4.5mmol/L (3.5-5.1) Chloride Level 109mmol/L (98-107) Carbon Dioxide Level 30mmol/L (21-32) Anion Gap 6 (6-14) Blood Urea Nitrogen 12mg/dL (8-26) Creatinine 0.9mg/dL (0.7-1.3) Estimated GFR (Cockcroft-Gault) 88.3 BUN/Creatinine Ratio 13 (6-20) Glucose Level 93mg/dL (70-99) Calcium Level 8.8mg/dL (8.5-10.1) Total Bilirubin 0.4mg/dL (0.2-1.0) Aspartate Amino Transf (AST/SGOT) 22U/L (15-37) Alanine Aminotransferase (ALT/SGPT) 19U/L (16-63) Alkaline Phosphatase 53U/L (46-116) Total Protein 7.0g/dL (6.4-8.2) Albumin 2.9g/dL (3.4-5.0) Albumin/Globulin Ratio 0.7 (1.0-1.7) I have reviewed the following reviewed the CTA with Dr Shahid. We do not feel that the origin of the SMA is significantly stenosed. Therefore angiography / angioplasty not indicated. Problem List Problems Medical Problems: (1) Intractable abdominal pain Status: Acute Assessment/Plan 1. abd pain, improving. Do not think vascular etiology. Rec: GI continued evaluation. Will sign off. Problems: ELLY MERINO II, MD May 27, 2016 08:41
[2016-05-27] MEDS: FLUOXETINE HCL 10 MG CAPSULE PO SCH (09:41)
[2016-05-27] MEDS: CETIRIZINE HCL 10 MG TABLET PO SCH (09:41)
[2016-05-27] MEDS: OLANZAPINE 5 MG TABLET. PO SCH ×2 (09:41→20:50)
--- NOTE | 2016-05-27 09:52 | PDOC ---
Subjective: Subjective: Says still has pain but maybe a little better - occurs ~45 min after eating. Objective: Vital Signs: Vital Signs Date Time Temp Pulse Resp B/P Pulse Ox O2 Delivery O2 Flow Rate FiO2 05/27/16 07:45 98.0 64 20 110/70 93 Room Air 98.0 Labs: Laboratory Tests Test 05/27/16 04:00 White Blood Count 5.5x10^3/uL Red Blood Count 4.35x10^6/uL Hemoglobin 14.2g/dL Hematocrit 41.1% Mean Corpuscular Volume 95fL Mean Corpuscular Hemoglobin 33pg Mean Corpuscular Hemoglobin Concent 34g/dL Red Cell Distribution Width 13.9% Platelet Count 97x10^3/uL Neutrophils (%) (Auto) 48% Lymphocytes (%) (Auto) 37% Monocytes (%) (Auto) 11% Eosinophils (%) (Auto) 4% Basophils (%) (Auto) 1% Neutrophils # (Auto) 2.6x10^3uL Lymphocytes # (Auto) 2.0x10^3/uL Monocytes # (Auto) 0.6x10^3/uL Eosinophils # (Auto) 0.2x10^3/uL Basophils # (Auto) 0.0x10^3/uL Sodium Level 145mmol/L Potassium Level 4.5mmol/L Chloride Level 109mmol/L Carbon Dioxide Level 30mmol/L Anion Gap 6 Blood Urea Nitrogen 12mg/dL Creatinine 0.9mg/dL Estimated GFR (Cockcroft-Gault) 88.3 BUN/Creatinine Ratio 13 Glucose Level 93mg/dL Calcium Level 8.8mg/dL Total Bilirubin 0.4mg/dL Aspartate Amino Transf (AST/SGOT) 22U/L Alanine Aminotransferase (ALT/SGPT) 19U/L Alkaline Phosphatase 53U/L Total Protein 7.0g/dL Albumin 2.9g/dL Albumin/Globulin Ratio 0.7 PE: GEN: NAD LUNGS: clear anteriorly HEART: RRR ABD: mostly periumbilical tenderness NEURO/PSYCH: A & O 3 A/P: Abd pain -elevated ESR (35) and CRP (8.8), RF neg, complement levels normal -CTA w/ mild stenosis, wall thickening, and perivascular inflammation about the proximal SMA -vascular has seen and reviewed w/ IR, signed off -rheum has also seen - 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 Mg. ADALBERTO BARAJAS May 27, 2016 09:51
[2016-05-27] MEDS ORDERED: FAMOTIDINE 20 MG/2 ML VIAL IVP ONE (10:00)
[2016-05-27 11:23] VITALS: BP 141/57
--- NOTE | 2016-05-27 13:31 | PDOC ---
PROGRESS NOTES Chief Complaint Chief Complaint acute abd pain vasculitis, still consider segmental arterial mediolysis nausea hx prior EtOH abuse and meth use recent treatment at [facility] for Hep C, History of Present Illness History of Present Illness VASc surg, IR, Rheum and GI eval NPO for > 24 hours, now pain improved geoff clears no intervention was on PPN, stop now as able to take more PO Vitals Vitals Vital Signs Date Time Temp Pulse Resp B/P Pulse Ox O2 Delivery O2 Flow Rate FiO2 05/27/16 11:23 98.0 57 18 141/57 94 Room Air 98.0 Physical Exam General: Alert, Oriented X3, Cooperative, moderate distress Heart: Regular rate, Normal S1, Normal S2, No murmurs Lungs: Clear, Other Abdomen: Normal bowel sounds, Soft, Other (mild tenderness right upper quadrant ) Extremities: Normal pulses Skin: No rashes, No breakdown, No significant lesion Labs LABS Laboratory Tests Test 05/27/16 04:00 White Blood Count 5.5x10^3/uL (4.0-11.0) Red Blood Count 4.35x10^6/uL (4.30-5.70) Hemoglobin 14.2g/dL (13.0-17.5) Hematocrit 41.1% (39.0-53.0) Mean Corpuscular Volume 95fL (79-100) Mean Corpuscular Hemoglobin 33pg (25-35) Mean Corpuscular Hemoglobin Concent 34g/dL (31-37) Red Cell Distribution Width 13.9% (11.5-14.5) Platelet Count 97x10^3/uL (140-400) Neutrophils (%) (Auto) 48% (31-73) Lymphocytes (%) (Auto) 37% (24-48) Monocytes (%) (Auto) 11% (0-9) Eosinophils (%) (Auto) 4% (0-3) Basophils (%) (Auto) 1% (0-3) Neutrophils # (Auto) 2.6x10^3uL (1.8-7.7) Lymphocytes # (Auto) 2.0x10^3/uL (1.0-4.8) Monocytes # (Auto) 0.6x10^3/uL (0.0-1.1) Eosinophils # (Auto) 0.2x10^3/uL (0.0-0.7) Basophils # (Auto) 0.0x10^3/uL (0.0-0.2) Sodium Level 145mmol/L (136-145) Potassium Level 4.5mmol/L (3.5-5.1) Chloride Level 109mmol/L (98-107) Carbon Dioxide Level 30mmol/L (21-32) Anion Gap 6 (6-14) Blood Urea Nitrogen 12mg/dL (8-26) Creatinine 0.9mg/dL (0.7-1.3) Estimated GFR (Cockcroft-Gault) 88.3 BUN/Creatinine Ratio 13 (6-20) Glucose Level 93mg/dL (70-99) Calcium Level 8.8mg/dL (8.5-10.1) Total Bilirubin 0.4mg/dL (0.2-1.0) Aspartate Amino Transf (AST/SGOT) 22U/L (15-37) Alanine Aminotransferase (ALT/SGPT) 19U/L (16-63) Alkaline Phosphatase 53U/L (46-116) Total Protein 7.0g/dL (6.4-8.2) Albumin 2.9g/dL (3.4-5.0) Albumin/Globulin Ratio 0.7 (1.0-1.7) Review of Systems Review of Systems pain 5/10 no pain meds > 5 hours Assessment and Plan Assessmemt and Plan clears try advance later change PPN back to g5 half I contacted his PCP office today, will need close f/u Problems Medical Problems: (1) Intractable abdominal pain Status: Acute Problems: Comment Review of Relevant I have reviewed the following items venita (where applicable) has been applied. Labs Laboratory Tests Test 05/25/16 15:00 05/26/16 03:50 05/27/16 04:00 Rheumatoid Factor <10.0IU/mL (0.0-13.9) White Blood Count 5.8x10^3/uL (4.0-11.0) 5.5x10^3/uL (4.0-11.0) Red Blood Count 4.29x10^6/uL (4.30-5.70) 4.35x10^6/uL (4.30-5.70) Hemoglobin 13.7g/dL (13.0-17.5) 14.2g/dL (13.0-17.5) Hematocrit 40.4% (39.0-53.0) 41.1% (39.0-53.0) Mean Corpuscular Volume 94fL (79-100) 95fL (79-100) Mean Corpuscular Hemoglobin 32pg (25-35) 33pg (25-35) Mean Corpuscular Hemoglobin Concent 34g/dL (31-37) 34g/dL (31-37) Red Cell Distribution Width 14.0% (11.5-14.5) 13.9% (11.5-14.5) Platelet Count 96x10^3/uL (140-400) 97x10^3/uL (140-400) Neutrophils (%) (Auto) 50% (31-73) 48% (31-73) Lymphocytes (%) (Auto) 35% (24-48) 37% (24-48) Monocytes (%) (Auto) 11% (0-9) 11% (0-9) Eosinophils (%) (Auto) 3% (0-3) 4% (0-3) Basophils (%) (Auto) 1% (0-3) 1% (0-3) Neutrophils # (Auto) 2.9x10^3uL (1.8-7.7) 2.6x10^3uL (1.8-7.7) Lymphocytes # (Auto) 2.1x10^3/uL (1.0-4.8) 2.0x10^3/uL (1.0-4.8) Monocytes # (Auto) 0.6x10^3/uL (0.0-1.1) 0.6x10^3/uL (0.0-1.1) Eosinophils # (Auto) 0.2x10^3/uL (0.0-0.7) 0.2x10^3/uL (0.0-0.7) Basophils # (Auto) 0.1x10^3/uL (0.0-0.2) 0.0x10^3/uL (0.0-0.2) Sodium Level 144mmol/L (136-145) 145mmol/L (136-145) Potassium Level 4.2mmol/L (3.5-5.1) 4.5mmol/L (3.5-5.1) Chloride Level 109mmol/L (98-107) 109mmol/L (98-107) Carbon Dioxide Level 29mmol/L (21-32) 30mmol/L (21-32) Anion Gap 6 (6-14) 6 (6-14) Blood Urea Nitrogen 11mg/dL (8-26) 12mg/dL (8-26) Creatinine 1.0mg/dL (0.7-1.3) 0.9mg/dL (0.7-1.3) Estimated GFR (Cockcroft-Gault) 78.2 88.3 Glucose Level 95mg/dL (70-99) 93mg/dL (70-99) Calcium Level 8.4mg/dL (8.5-10.1) 8.8mg/dL (8.5-10.1) BUN/Creatinine Ratio 13 (6-20) Total Bilirubin 0.4mg/dL (0.2-1.0) Aspartate Amino Transf (AST/SGOT) 22U/L (15-37) Alanine Aminotransferase (ALT/SGPT) 19U/L (16-63) Alkaline Phosphatase 53U/L (46-116) Total Protein 7.0g/dL (6.4-8.2) Albumin 2.9g/dL (3.4-5.0) Albumin/Globulin Ratio 0.7 (1.0-1.7) Laboratory Tests Test 05/27/16 04:00 White Blood Count 5.5x10^3/uL (4.0-11.0) Red Blood Count 4.35x10^6/uL (4.30-5.70) Hemoglobin 14.2g/dL (13.0-17.5) Hematocrit 41.1% (39.0-53.0) Mean Corpuscular Volume 95fL (79-100) Mean Corpuscular Hemoglobin 33pg (25-35) Mean Corpuscular Hemoglobin Concent 34g/dL (31-37) Red Cell Distribution Width 13.9% (11.5-14.5) Platelet Count 97x10^3/uL (140-400) Neutrophils (%) (Auto) 48% (31-73) Lymphocytes (%) (Auto) 37% (24-48) Monocytes (%) (Auto) 11% (0-9) Eosinophils (%) (Auto) 4% (0-3) Basophils (%) (Auto) 1% (0-3) Neutrophils # (Auto) 2.6x10^3uL (1.8-7.7) Lymphocytes # (Auto) 2.0x10^3/uL (1.0-4.8) Monocytes # (Auto) 0.6x10^3/uL (0.0-1.1) Eosinophils # (Auto) 0.2x10^3/uL (0.0-0.7) Basophils # (Auto) 0.0x10^3/uL (0.0-0.2) Sodium Level 145mmol/L (136-145) Potassium Level 4.5mmol/L (3.5-5.1) Chloride Level 109mmol/L (98-107) Carbon Dioxide Level 30mmol/L (21-32) Anion Gap 6 (6-14) Blood Urea Nitrogen 12mg/dL (8-26) Creatinine 0.9mg/dL (0.7-1.3) Estimated GFR (Cockcroft-Gault) 88.3 BUN/Creatinine Ratio 13 (6-20) Glucose Level 93mg/dL (70-99) Calcium Level 8.8mg/dL (8.5-10.1) Total Bilirubin 0.4mg/dL (0.2-1.0) Aspartate Amino Transf (AST/SGOT) 22U/L (15-37) Alanine Aminotransferase (ALT/SGPT) 19U/L (16-63) Alkaline Phosphatase 53U/L (46-116) Total Protein 7.0g/dL (6.4-8.2) Albumin 2.9g/dL (3.4-5.0) Albumin/Globulin Ratio 0.7 (1.0-1.7) Medications Current Medications Iohexol (Omnipaque 300 Mg/ml) 75 ml 1X ONCE IV Last administered on 05/24/16t 02:24; Start 05/24/16 at 02:30; Stop 05/24/16 at 02:31; Status DC Info (Do NOT chart on this entry -- for MONITORING) 1 each PRN DAILY PRN MC SEE COMMENTS; Start 05/24/16 at 02:15; Stop 05/25/16 at 13:30; Status DC Ondansetron HCl (Zofran) 4 mg PRN Q8HRS PRN IV NAUSEA/VOMITING; Start 05/24/16 at 03:15; Stop 05/25/16 at 03:14; Status DC Fentanyl Citrate 50 mcg 50 mcg PRN Q2HR PRN IV SEVERE PAIN Last administered on 05/25/16 03:00; Start 05/24/16 at 03:15; Stop 05/25/16 at 03:14; Status DC Sodium Chloride (Iv Sodium Chloride 0.9% 1000ml Bag) 1,000 ml @ 125 mls/hr Q8H IV Last administered on 05/24/16 12:35; Start 05/24/16 at 03:12; Stop 05/25/16 at 03:11; Status DC Cetirizine HCl (Zyrtec) 10 mg DAILY PO Last administered on 05/27/16 09:41; Start 05/24/16 at 20:00 Divalproex Sodium (Depakote Er) 1,000 mg QHS PO Last administered on 05/26/16 21:28; Start 05/24/16 at 21:00 Fluoxetine HCl (Prozac) 10 mg DAILY PO Last administered on 05/27/16 09:41; Start 05/24/16 at 20:00 Montelukast Sodium (Singulair) 10 mg HS PO Last administered on 05/26/16 21:27 ; Start 05/24/16 at 21:00 Olanzapine (Zyprexa) 5 mg DAILY PO Last administered on 05/27/16 09:41; Start 05/24/16 at 20:00 Tamsulosin HCl (Flomax) 0.4 mg HS PO Last administered on 05/26/16 21:28; Start 05/24/16 at 21:00 Olanzapine (Zyprexa) 20 mg QHS PO Last administered on 05/26/16 21:30; Start at 21:00 Trazodone HCl (Desyrel) 150 mg QHS PO Last administered on 05/26/16 21:28; Start 05/24/16 at 21:00 Iohexol (Omnipaque 350 Mg/ml) 90 ml 1X ONCE IV Last administered on 05/25/16 08:48; Start 05/25/16 at 08:30; Stop 05/25/16 at 08:31; Status DC Info (Do NOT chart on this entry -- for MONITORING) 1 each PRN DAILY PRN MC SEE COMMENTS; Start 05/25/16 at 08:30; Stop 05/27/16 at 08:29; Status DC Fentanyl Citrate 50 mcg 50 mcg PRN Q2HR PRN IV PAIN Last administered on 13:53; Start 05/25/16 at 08:45; Stop 05/26/16 at 15:13; Status DC Sodium Chloride (Iv Sodium Chloride 0.9% 1000ml Bag) 1,000 ml @ 125 mls/hr Q8H IV Last administered on 05/25/16 11:45; Start 05/25/16 at 11:45; Stop 05/25/16 at 13:39; Status DC Saliva Substitute (Biotene Moisturizing Mouth) 2 spray PRN Q15MIN PRN PO DRY MOUTH; Start 05/25/16 at 13:45 Throat Lozenges 1 aliyah 1 aliyah PRN Q2HRS PRN PO SORE THROAT; Start 05/25/16 at 13: 45 Potassium Chloride/Dextrose/ Sod Cl (KCl 20 Meq In D5W-1/2 NS) 1,000 ml @ 80 mls/hr [id number] IV Last administered on 05/26/16 15:47; Start 05/25/16 at 13:45 Fentanyl Citrate 75 mcg 75 mcg 1X ONCE IV Last administered on 05/25/16 14:44 ; Start 05/25/16 at 13:45; Stop 05/25/16 at 13:46; Status DC Fentanyl Citrate 30 ml @ 0 mls/hr CONT PRN PRN IV PROTOCOL Last administered on 05/26/16 16:01; Start 05/26/16 at 14:15 Amino Acids/ Electrolytes/ Dextrose (Clinimix E 4.25%-5% Solution) 1,000 ml @ 80 mls/hr [id number] IV Last administered on 05/27/16 05:02; Start 05/26/16 at 17: 00; Stop 05/27/16 at 09:58; Status DC Famotidine (Pepcid) 20 mg 1X ONCE IVP Last administered on 05/27/16t 11:04; Start 05/27/16 at 10:00; Stop 05/27/16 at 10:01; Status DC Famotidine (Pepcid) 20 mg BID PO ; Start 05/27/16 at 21:00 Active Scripts Active Reported Trazodone Hcl 150 Mg Tablet 1 Tab PO QHS Montelukast Sodium Tablet (Montelukast Sodium) 10 Mg Tablet 10 Mg PO HS Divalproex Sodium Er (Divalproex Sodium) 500 Mg Tab.er.24h 2 Tab PO QHS Olanzapine 20 Mg Tablet 1 Tab PO QHS Olanzapine 5 Mg Tablet 5 Mg PO DAILY Fluoxetine Hcl 10 Mg Capsule 1 Cap PO DAILY Tamsulosin Hcl 0.4 Mg Cap.er.24h 1 Cap PO HS Cetirizine Hcl 10 Mg Tablet 1 Tab PO DAILY Vitals/I & O Vital Sign - Last 24 Hours 05/26/16 05/26/16 05/26/16 05/26/16 13:53 15:00 16:01 16:40 Temp 98.3 98.3 Pulse 66 Resp 18 18 18 16 B/P 118/72 Pulse Ox 91 O2 Delivery Room Air Room Air Room Air Room Air 05/26/16 05/26/16 05/26/16 05/27/16 19:30 19:30 23:46 03:24 Temp 98.1 97.7 98.0 98.1 97.7 98.0 Pulse 65 69 65 Resp 18 18 18 B/P 124/77 104/66 116/62 Pulse Ox 94 94 95 O2 Delivery Room Air Room Air Room Air Room Air 05/27/16 05/27/16 05/27/16 07:45 08:00 11:23 Temp 98.0 98.0 98.0 98.0 Pulse 64 57 Resp 20 18 B/P 110/70 141/57 Pulse Ox 93 94 O2 Delivery Room Air Room Air Room Air Intake and Output 05/26/16 05/26/16 05/27/16 15:00 23:00 07:00 Output Total 1200 ml 600 ml Balance -1200 ml -600 ml LORI VINSON MD May 27, 2016 13:31
[2016-05-27 15:03] VITALS: BP 116/67
[2016-05-27 16:19] LABS: C ANCA <1:20 titer (Neg:<1:20)
[2016-05-27] MEDS: POTASSIUM CL 20MEQ D5-0.45NACL 1,000 ML IV SCH (16:22)
[2016-05-27] MEDS: FENTANYL STANDARD PCA 30 ML IV PRN (16:28)
--- NOTE | 2016-05-27 16:51 | PDOC ---
PROGRESS NOTES Subjective Subjective Still c/o pain in abdomen, achy, constant, improving, no nausea, vomiting,. Denies any other complaints. Objective Objective Vital Signs Date Time Temp Pulse Resp B/P Pulse Ox O2 Delivery O2 Flow Rate FiO2 05/27/16 16:28 Room Air 05/27/16 15:03 96.8 65 18 116/67 96 96.8 Intake and Output 05/27/16 07:00 Output Total 1800 ml Balance -1800 ml Output Urine Total 1800 ml # Voids 2 Physical Exam Extremities: No clubbing, No cyanosis, No edema, Normal pulses, No tenderness/ swelling General: Alert, Oriented X3, Cooperative, No acute distress MUSCULOSKELETAL: No joint tenderness, No deformity, No swelling, No muscular tenderness noted Skin: No rashes, No breakdown, No significant lesion Assessment Assessment 1. Abdominal pain, improving 2. Abnormal CT scan of the abdomen. 3. Elevated sedimentation rate and CRP. 4. Segmental arterial mediolysis. Plan Plan of Care Reviewed labs. Discussed with Dr. Haywood. No vasculitis at present. Rx with symptomatic management. F/u prn. Comment Review of Relevant I have reviewed the following items venita (where applicable) has been applied. Labs Laboratory Tests Test 05/26/16 03:50 05/27/16 04:00 White Blood Count 5.8x10^3/uL (4.0-11.0) 5.5x10^3/uL (4.0-11.0) Red Blood Count 4.29x10^6/uL (4.30-5.70) 4.35x10^6/uL (4.30-5.70) Hemoglobin 13.7g/dL (13.0-17.5) 14.2g/dL (13.0-17.5) Hematocrit 40.4% (39.0-53.0) 41.1% (39.0-53.0) Mean Corpuscular Volume 94fL (79-100) 95fL (79-100) Mean Corpuscular Hemoglobin 32pg (25-35) 33pg (25-35) Mean Corpuscular Hemoglobin Concent 34g/dL (31-37) 34g/dL (31-37) Red Cell Distribution Width 14.0% (11.5-14.5) 13.9% (11.5-14.5) Platelet Count 96x10^3/uL (140-400) 97x10^3/uL (140-400) Neutrophils (%) (Auto) 50% (31-73) 48% (31-73) Lymphocytes (%) (Auto) 35% (24-48) 37% (24-48) Monocytes (%) (Auto) 11% (0-9) 11% (0-9) Eosinophils (%) (Auto) 3% (0-3) 4% (0-3) Basophils (%) (Auto) 1% (0-3) 1% (0-3) Neutrophils # (Auto) 2.9x10^3uL (1.8-7.7) 2.6x10^3uL (1.8-7.7) Lymphocytes # (Auto) 2.1x10^3/uL (1.0-4.8) 2.0x10^3/uL (1.0-4.8) Monocytes # (Auto) 0.6x10^3/uL (0.0-1.1) 0.6x10^3/uL (0.0-1.1) Eosinophils # (Auto) 0.2x10^3/uL (0.0-0.7) 0.2x10^3/uL (0.0-0.7) Basophils # (Auto) 0.1x10^3/uL (0.0-0.2) 0.0x10^3/uL (0.0-0.2) Sodium Level 144mmol/L (136-145) 145mmol/L (136-145) Potassium Level 4.2mmol/L (3.5-5.1) 4.5mmol/L (3.5-5.1) Chloride Level 109mmol/L (98-107) 109mmol/L (98-107) Carbon Dioxide Level 29mmol/L (21-32) 30mmol/L (21-32) Anion Gap 6 (6-14) 6 (6-14) Blood Urea Nitrogen 11mg/dL (8-26) 12mg/dL (8-26) Creatinine 1.0mg/dL (0.7-1.3) 0.9mg/dL (0.7-1.3) Estimated GFR (Cockcroft-Gault) 78.2 88.3 Glucose Level 95mg/dL (70-99) 93mg/dL (70-99) Calcium Level 8.4mg/dL (8.5-10.1) 8.8mg/dL (8.5-10.1) BUN/Creatinine Ratio 13 (6-20) Total Bilirubin 0.4mg/dL (0.2-1.0) Aspartate Amino Transf (AST/SGOT) 22U/L (15-37) Alanine Aminotransferase (ALT/SGPT) 19U/L (16-63) Alkaline Phosphatase 53U/L (46-116) Total Protein 7.0g/dL (6.4-8.2) Albumin 2.9g/dL (3.4-5.0) Albumin/Globulin Ratio 0.7 (1.0-1.7) Laboratory Tests Test 05/27/16 04:00 White Blood Count 5.5x10^3/uL (4.0-11.0) Red Blood Count 4.35x10^6/uL (4.30-5.70) Hemoglobin 14.2g/dL (13.0-17.5) Hematocrit 41.1% (39.0-53.0) Mean Corpuscular Volume 95fL (79-100) Mean Corpuscular Hemoglobin 33pg (25-35) Mean Corpuscular Hemoglobin Concent 34g/dL (31-37) Red Cell Distribution Width 13.9% (11.5-14.5) Platelet Count 97x10^3/uL (140-400) Neutrophils (%) (Auto) 48% (31-73) Lymphocytes (%) (Auto) 37% (24-48) Monocytes (%) (Auto) 11% (0-9) Eosinophils (%) (Auto) 4% (0-3) Basophils (%) (Auto) 1% (0-3) Neutrophils # (Auto) 2.6x10^3uL (1.8-7.7) Lymphocytes # (Auto) 2.0x10^3/uL (1.0-4.8) Monocytes # (Auto) 0.6x10^3/uL (0.0-1.1) Eosinophils # (Auto) 0.2x10^3/uL (0.0-0.7) Basophils # (Auto) 0.0x10^3/uL (0.0-0.2) Sodium Level 145mmol/L (136-145) Potassium Level 4.5mmol/L (3.5-5.1) Chloride Level 109mmol/L (98-107) Carbon Dioxide Level 30mmol/L (21-32) Anion Gap 6 (6-14) Blood Urea Nitrogen 12mg/dL (8-26) Creatinine 0.9mg/dL (0.7-1.3) Estimated GFR (Cockcroft-Gault) 88.3 BUN/Creatinine Ratio 13 (6-20) Glucose Level 93mg/dL (70-99) Calcium Level 8.8mg/dL (8.5-10.1) Total Bilirubin 0.4mg/dL (0.2-1.0) Aspartate Amino Transf (AST/SGOT) 22U/L (15-37) Alanine Aminotransferase (ALT/SGPT) 19U/L (16-63) Alkaline Phosphatase 53U/L (46-116) Total Protein 7.0g/dL (6.4-8.2) Albumin 2.9g/dL (3.4-5.0) Albumin/Globulin Ratio 0.7 (1.0-1.7) Medications Current Medications Iohexol (Omnipaque 300 Mg/ml) 75 ml 1X ONCE IV Last administered on 05/24/16 02:24; Start 05/24/16 at 02:30; Stop 05/24/16 at 02:31; Status DC Info (Do NOT chart on this entry -- for MONITORING) 1 each PRN DAILY PRN MC SEE COMMENTS; Start 05/24/16 at 02:15; Stop 05/25/16 at 13:30; Status DC Ondansetron HCl (Zofran) 4 mg PRN Q8HRS PRN IV NAUSEA/VOMITING; Start 05/24/16 at 03:15; Stop 05/25/16 at 03:14; Status DC Fentanyl Citrate 50 mcg 50 mcg PRN Q2HR PRN IV SEVERE PAIN Last administered on 05/25/16 03:00; Start 05/24/16 at 03:15; Stop 05/25/16 at 03:14; Status DC Sodium Chloride (Iv Sodium Chloride 0.9% 1000ml Bag) 1,000 ml @ 125 mls/hr Q8H IV Last administered on 05/24/16 12:35; Start 05/24/16 at 03:12; Stop 05/25/16 at 03:11; Status DC Cetirizine HCl (Zyrtec) 10 mg DAILY PO Last administered on 05/27/16 09:41; Start 05/24/16 at 20:00 Divalproex Sodium (Depakote Er) 1,000 mg QHS PO Last administered on 05/26/16 21:28; Start 05/24/16 at 21:00 Fluoxetine HCl (Prozac) 10 mg DAILY PO Last administered on 05/27/16 09:41; Start 05/24/16 at 20:00 Montelukast Sodium (Singulair) 10 mg HS PO Last administered on 05/26/16 21:27 ; Start 05/24/16 at 21:00 Olanzapine (Zyprexa) 5 mg DAILY PO Last administered on 05/27/16 09:41; Start 05/24/16 at 20:00 Tamsulosin HCl (Flomax) 0.4 mg HS PO Last administered on 05/26/16 21:28; Start 05/24/16 at 21:00 Olanzapine (Zyprexa) 20 mg QHS PO Last administered on 05/26/16 21:30; Start at 21:00 Trazodone HCl (Desyrel) 150 mg QHS PO Last administered on 05/26/16 21:28; Start 05/24/16 at 21:00 Iohexol (Omnipaque 350 Mg/ml) 90 ml 1X ONCE IV Last administered on 05/25/16 08:48; Start 05/25/16 at 08:30; Stop 05/25/16 at 08:31; Status DC Info (Do NOT chart on this entry -- for MONITORING) 1 each PRN DAILY PRN MC SEE COMMENTS; Start 05/25/16 at 08:30; Stop 05/27/16 at 08:29; Status DC Fentanyl Citrate 50 mcg 50 mcg PRN Q2HR PRN IV PAIN Last administered on 13:53; Start 05/25/16 at 08:45; Stop 05/26/16 at 15:13; Status DC Sodium Chloride (Iv Sodium Chloride 0.9% 1000ml Bag) 1,000 ml @ 125 mls/hr Q8H IV Last administered on 05/25/16 11:45; Start 05/25/16 at 11:45; Stop 05/25/16 at 13:39; Status DC Saliva Substitute (Biotene Moisturizing Mouth) 2 spray PRN Q15MIN PRN PO DRY MOUTH; Start 05/25/16 at 13:45 Throat Lozenges 1 aliyah 1 aliyah PRN Q2HRS PRN PO SORE THROAT; Start 05/25/16 at 13: 45 Potassium Chloride/Dextrose/ Sod Cl (KCl 20 Meq In D5W-1/2 NS) 1,000 ml @ 80 mls/hr [id number] IV Last administered on 05/27/16 16:22; Start 05/25/16 at 13:45 Fentanyl Citrate 75 mcg 75 mcg 1X ONCE IV Last administered on 05/25/16 14:44 ; Start 05/25/16 at 13:45; Stop 05/25/16 at 13:46; Status DC Fentanyl Citrate 30 ml @ 0 mls/hr CONT PRN PRN IV PROTOCOL Last administered on 05/27/16 16:28; Start 05/26/16 at 14:15 Amino Acids/ Electrolytes/ Dextrose (Clinimix E 4.25%-5% Solution) 1,000 ml @ 80 mls/hr [id number] IV Last administered on 05/27/16 05:02; Start 05/26/16 at 17: 00; Stop 05/27/16 at 09:58; Status DC Famotidine (Pepcid) 20 mg 1X ONCE IVP Last administered on 05/27/16 11:04; Start 05/27/16 at 10:00; Stop 05/27/16 at 10:01; Status DC Famotidine (Pepcid) 20 mg BID PO ; Start 05/27/16 at 21:00 Active Scripts Active Reported Trazodone Hcl 150 Mg Tablet 1 Tab PO QHS Montelukast Sodium Tablet (Montelukast Sodium) 10 Mg Tablet 10 Mg PO HS Divalproex Sodium Er (Divalproex Sodium) 500 Mg Tab.er.24h 2 Tab PO QHS Olanzapine 20 Mg Tablet 1 Tab PO QHS Olanzapine 5 Mg Tablet 5 Mg PO DAILY Fluoxetine Hcl 10 Mg Capsule 1 Cap PO DAILY Tamsulosin Hcl 0.4 Mg Cap.er.24h 1 Cap PO HS Cetirizine Hcl 10 Mg Tablet 1 Tab PO DAILY Vitals/I & O Vital Sign - Last 24 Hours 05/26/16 05/26/16 05/26/16 05/27/16 19:30 19:30 23:46 03:24 Temp 98.1 97.7 98.0 98.1 97.7 98.0 Pulse 65 69 65 Resp B/P 124/77 104/66 116/62 Pulse Ox 94 94 95 O2 Delivery Room Air Room Air Room Air Room Air 05/27/16 05/27/16 05/27/16 05/27/16 07:45 08:00 11:23 15:03 Temp 98.0 98.0 96.8 98.0 98.0 96.8 Pulse 64 57 65 Resp B/P 110/70 141/57 116/67 Pulse Ox 93 94 96 O2 Delivery Room Air Room Air Room Air Room Air 05/27/16 16:28 O2 Delivery Room Air Intake and Output 05/26/16 05/26/16 05/27/16 15:00 23:00 07:00 Output Total 1200 ml 600 ml Balance -1200 ml -600 ml FADI GUERIN MD May 27, 2016 16:51
[2016-05-27 19:10] VITALS: BP 122/75
[2016-05-27] MEDS: MONTELUKAST SODIUM 10 MG TABLET. PO SCH (20:50)
[2016-05-27] MEDS: FAMOTIDINE 20 MG TABLET. PO SCH (20:50)
[2016-05-27] MEDS: TAMSULOSIN 0.4 MG CAP.ER.24H. PO SCH (20:50)
[2016-05-27] MEDS: traZODone 50 MG TABLET. PO SCH (20:50)
[2016-05-27] MEDS: DIVALPROEX EXTENDED RELEASE 500 MG TAB.ER.24H. PO SCH (20:51)
[2016-05-27 22:58] VITALS: BP 105/62
[2016-05-28 03:02] VITALS: BP 93/62
[2016-05-28] MEDS: POTASSIUM CL 20MEQ D5-0.45NACL 1,000 ML IV SCH ×2 (04:03→16:17)
[2016-05-28 04:30] LABS: BASO # 0.1 x10^3/uL (0.0-0.2); BASO % 1 % (0-3); EOS % 4 % (0-3); HEMATOCRIT 40.2 % (39.0-53.0); HEMOGLOBIN 13.8 g/dL (13.0-17.5); LYMPH # 2.3 x10^3/uL (1.0-4.8); LYMPH % 43 % (24-48); MEAN CORPUSCULAR HEMOGLOBIN 32 pg (25-35); MEAN CORPUSCULAR HGB CONC 34 g/dL (31-37); MEAN CORPUSCULAR VOLUME 94 fL (79-100); MONO % 10 % (0-9); NEUT % 42 % (31-73); PLATELET COUNT 105 x10^3/uL (140-400); RED BLOOD COUNT 4.28 x10^6/uL (4.30-5.70); WHITE BLOOD COUNT 5.3 x10^3/uL (4.0-11.0)
[2016-05-28 04:42] LABS: CALCIUM 8.5 mg/dL (8.5-10.1); CREATININE 0.9 mg/dL (0.7-1.3); GFR 88.3; POTASSIUM 4.5 mmol/L (3.5-5.1)
[2016-05-28 07:00] VITALS: BP 96/62
[2016-05-28] MEDS: FLUOXETINE HCL 10 MG CAPSULE PO SCH (09:07)
[2016-05-28] MEDS: OLANZAPINE 5 MG TABLET. PO SCH ×2 (09:07→21:02)
[2016-05-28] MEDS: CETIRIZINE HCL 10 MG TABLET PO SCH (09:07)
[2016-05-28] MEDS: FAMOTIDINE 20 MG TABLET. PO SCH ×2 (09:07→21:08)
[2016-05-28 11:00] VITALS: BP 103/60
--- NOTE | 2016-05-28 11:25 | PDOC ---
Subjective: Subjective: Feels about the same, pain 6-7/10. Tolerating clears, says going to advance diet. Objective: Vital Signs: Vital Signs Date Time Temp Pulse Resp B/P Pulse Ox O2 Delivery O2 Flow Rate FiO2 05/28/16 08:00 Room Air 05/28/16 07:00 97.6 52 18 96/62 94 97.6 Labs: Laboratory Tests Test 05/28/16 04:05 White Blood Count 5.3x10^3/uL Red Blood Count 4.28x10^6/uL Hemoglobin 13.8g/dL Hematocrit 40.2% Mean Corpuscular Volume 94fL Mean Corpuscular Hemoglobin 32pg Mean Corpuscular Hemoglobin Concent 34g/dL Red Cell Distribution Width 13.0% Platelet Count 105x10^3/uL Neutrophils (%) (Auto) 42% Lymphocytes (%) (Auto) 43% Monocytes (%) (Auto) 10% Eosinophils (%) (Auto) 4% Basophils (%) (Auto) 1% Neutrophils # (Auto) 2.2x10^3uL Lymphocytes # (Auto) 2.3x10^3/uL Monocytes # (Auto) 0.5x10^3/uL Eosinophils # (Auto) 0.2x10^3/uL Basophils # (Auto) 0.1x10^3/uL Sodium Level 145mmol/L Potassium Level 4.5mmol/L Chloride Level 108mmol/L Carbon Dioxide Level 31mmol/L Anion Gap 6 Blood Urea Nitrogen 11mg/dL Creatinine 0.9mg/dL Estimated GFR (Cockcroft-Gault) 88.3 Glucose Level 86mg/dL Calcium Level 8.5mg/dL PE: GEN: NAD LUNGS: CTAB HEART: RRR ABD: periumbilical to epigastrium, RUQ, some LUQ tenderness NEURO/PSYCH: A & O 3 A/P: Abd pain - ongoing -elevated ESR (35) and CRP (8.8), RF neg, complement levels normal -CTA w/ mild stenosis, wall thickening, and perivascular inflammation about the proximal SMA -vascular has seen and reviewed w/ IR, signed off -rheum has also seen - possible segmental arterial mediolysis, transfer to discussed -- D/w Dr. Haywood - ?need for MRI r/o pancreatic etiology. ADALBERTO BARAJAS May 28, 2016 11:25
[2016-05-28 15:00] VITALS: BP 111/46
[2016-05-28] MEDS: FENTANYL STANDARD PCA 30 ML IV PRN (16:22)
[2016-05-28 19:00] VITALS: BP 110/61
[2016-05-28] MEDS: DIVALPROEX EXTENDED RELEASE 500 MG TAB.ER.24H. PO SCH (21:01)
[2016-05-28] MEDS: MONTELUKAST SODIUM 10 MG TABLET. PO SCH (21:01)
[2016-05-28] MEDS: TAMSULOSIN 0.4 MG CAP.ER.24H. PO SCH (21:01)
[2016-05-28] MEDS: traZODone 50 MG TABLET. PO SCH (21:01)
[2016-05-28 23:00] VITALS: BP 138/73
[2016-05-29 03:00] VITALS: BP 120/65
[2016-05-29 05:19] LABS: IGG1 961 mg/dL (422-1292); IGG2 189 mg/dL (117-747); IGG3 60 mg/dL (41-129); IGG4 80 mg/dL (1-291); TOTAL IGG 1333 mg/dL (700-1600)
[2016-05-29] MEDS: POTASSIUM CL 20MEQ D5-0.45NACL 1,000 ML IV SCH (06:00)
[2016-05-29 06:39] LABS: BASO # 0.1 x10^3/uL (0.0-0.2); BASO % 1 % (0-3); EOS % 5 % (0-3); HEMATOCRIT 41.8 % (39.0-53.0); HEMOGLOBIN 14.5 g/dL (13.0-17.5); LYMPH # 1.9 x10^3/uL (1.0-4.8); LYMPH % 35 % (24-48); MEAN CORPUSCULAR HEMOGLOBIN 32 pg (25-35); MEAN CORPUSCULAR HGB CONC 35 g/dL (31-37); MEAN CORPUSCULAR VOLUME 93 fL (79-100); MONO % 10 % (0-9); NEUT % 49 % (31-73); PLATELET COUNT 97 x10^3/uL (140-400); RED BLOOD COUNT 4.48 x10^6/uL (4.30-5.70); RED CELL DISTRIBUTION WIDTH 12.8 % (11.5-14.5); WHITE BLOOD COUNT 5.5 x10^3/uL (4.0-11.0)
[2016-05-29 06:56] LABS: CALCIUM 9.5 mg/dL (8.5-10.1); CREATININE 0.9 mg/dL (0.7-1.3); GFR 88.3; POTASSIUM 4.7 mmol/L (3.5-5.1)
[2016-05-29 07:00] VITALS: BP 136/75
[2016-05-29] MEDS: FAMOTIDINE 20 MG TABLET. PO SCH (08:52)
[2016-05-29] MEDS: OLANZAPINE 5 MG TABLET. PO SCH (08:52)
[2016-05-29] MEDS: CETIRIZINE HCL 10 MG TABLET PO SCH (08:52)
[2016-05-29] MEDS: FLUOXETINE HCL 10 MG CAPSULE PO SCH (08:53)
[2016-05-29 11:00] VITALS: BP 111/65
--- NOTE | 2016-05-29 11:31 | PDOC ---
PROGRESS NOTES Chief Complaint Chief Complaint LATE entry, pt seen 05/28, case discussed with IR, GI, Patients [facility] miroslava, DR. Manzo acute abd pain vascular inflammation NOS, still consider segmental arterial mediolysis nausea hx prior EtOH abuse and meth use recent treatment at [facility] for Hep C, History of Present Illness History of Present Illness VASc surg, IR, Rheum and GI eval NPO for > 24 hours, now pain improved geoff clears no intervention was on PPN, stop now as able to take more PO Vitals Vitals Vital Signs Date Time Temp Pulse Resp B/P Pulse Ox O2 Delivery O2 Flow Rate FiO2 05/29/16 11:00 97.4 70 18 111/65 97 Room Air 97.4 Physical Exam General: Alert, Oriented X3, Cooperative, No acute distress Heart: Regular rate, Normal S1, Normal S2, No murmurs Lungs: Clear, Other Abdomen: Normal bowel sounds, Soft, Other (mild tenderness right upper quadrant ) Extremities: No clubbing, No cyanosis, No edema, Normal pulses, No tenderness/ swelling Skin: No rashes, No breakdown, No significant lesion Labs LABS Laboratory Tests Test 05/29/16 06:08 White Blood Count 5.5x10^3/uL (4.0-11.0) Red Blood Count 4.48x10^6/uL (4.30-5.70) Hemoglobin 14.5g/dL (13.0-17.5) Hematocrit 41.8% (39.0-53.0) Mean Corpuscular Volume 93fL (79-100) Mean Corpuscular Hemoglobin 32pg (25-35) Mean Corpuscular Hemoglobin Concent 35g/dL (31-37) Red Cell Distribution Width 12.8% (11.5-14.5) Platelet Count 97x10^3/uL (140-400) Neutrophils (%) (Auto) 49% (31-73) Lymphocytes (%) (Auto) 35% (24-48) Monocytes (%) (Auto) 10% (0-9) Eosinophils (%) (Auto) 5% (0-3) Basophils (%) (Auto) 1% (0-3) Neutrophils # (Auto) 2.7x10^3uL (1.8-7.7) Lymphocytes # (Auto) 1.9x10^3/uL (1.0-4.8) Monocytes # (Auto) 0.6x10^3/uL (0.0-1.1) Eosinophils # (Auto) 0.3x10^3/uL (0.0-0.7) Basophils # (Auto) 0.1x10^3/uL (0.0-0.2) Sodium Level 143mmol/L (136-145) Potassium Level 4.7mmol/L (3.5-5.1) Chloride Level 106mmol/L (98-107) Carbon Dioxide Level 30mmol/L (21-32) Anion Gap 7 (6-14) Blood Urea Nitrogen 8mg/dL (8-26) Creatinine 0.9mg/dL (0.7-1.3) Estimated GFR (Cockcroft-Gault) 88.3 Glucose Level 89mg/dL (70-99) Calcium Level 9.5mg/dL (8.5-10.1) Assessment and Plan Assessmemt and Plan Problems Medical Problems: (1) Intractable abdominal pain Status: Acute Problems: Comment Review of Relevant I have reviewed the following items venita (where applicable) has been applied. Labs Laboratory Tests Test 05/28/16 04:05 05/29/16 06:08 White Blood Count 5.3x10^3/uL (4.0-11.0) 5.5x10^3/uL (4.0-11.0) Red Blood Count 4.28x10^6/uL (4.30-5.70) 4.48x10^6/uL (4.30-5.70) Hemoglobin 13.8g/dL (13.0-17.5) 14.5g/dL (13.0-17.5) Hematocrit 40.2% (39.0-53.0) 41.8% (39.0-53.0) Mean Corpuscular Volume 94fL (79-100) 93fL (79-100) Mean Corpuscular Hemoglobin 32pg (25-35) 32pg (25-35) Mean Corpuscular Hemoglobin Concent 34g/dL (31-37) 35g/dL (31-37) Red Cell Distribution Width 13.0% (11.5-14.5) 12.8% (11.5-14.5) Platelet Count 105x10^3/uL (140-400) 97x10^3/uL (140-400) Neutrophils (%) (Auto) 42% (31-73) 49% (31-73) Lymphocytes (%) (Auto) 43% (24-48) 35% (24-48) Monocytes (%) (Auto) 10% (0-9) 10% (0-9) Eosinophils (%) (Auto) 4% (0-3) 5% (0-3) Basophils (%) (Auto) 1% (0-3) 1% (0-3) Neutrophils # (Auto) 2.2x10^3uL (1.8-7.7) 2.7x10^3uL (1.8-7.7) Lymphocytes # (Auto) 2.3x10^3/uL (1.0-4.8) 1.9x10^3/uL (1.0-4.8) Monocytes # (Auto) 0.5x10^3/uL (0.0-1.1) 0.6x10^3/uL (0.0-1.1) Eosinophils # (Auto) 0.2x10^3/uL (0.0-0.7) 0.3x10^3/uL (0.0-0.7) Basophils # (Auto) 0.1x10^3/uL (0.0-0.2) 0.1x10^3/uL (0.0-0.2) Sodium Level 145mmol/L (136-145) 143mmol/L (136-145) Potassium Level 4.5mmol/L (3.5-5.1) 4.7mmol/L (3.5-5.1) Chloride Level 108mmol/L (98-107) 106mmol/L (98-107) Carbon Dioxide Level 31mmol/L (21-32) 30mmol/L (21-32) Anion Gap 6 (6-14) 7 (6-14) Blood Urea Nitrogen 11mg/dL (8-26) 8mg/dL (8-26) Creatinine 0.9mg/dL (0.7-1.3) 0.9mg/dL (0.7-1.3) Estimated GFR (Cockcroft-Gault) 88.3 88.3 Glucose Level 86mg/dL (70-99) 89mg/dL (70-99) Calcium Level 8.5mg/dL (8.5-10.1) 9.5mg/dL (8.5-10.1) Laboratory Tests Test 05/29/16 06:08 White Blood Count 5.5x10^3/uL (4.0-11.0) Red Blood Count 4.48x10^6/uL (4.30-5.70) Hemoglobin 14.5g/dL (13.0-17.5) Hematocrit 41.8% (39.0-53.0) Mean Corpuscular Volume 93fL (79-100) Mean Corpuscular Hemoglobin 32pg (25-35) Mean Corpuscular Hemoglobin Concent 35g/dL (31-37) Red Cell Distribution Width 12.8% (11.5-14.5) Platelet Count 97x10^3/uL (140-400) Neutrophils (%) (Auto) 49% (31-73) Lymphocytes (%) (Auto) 35% (24-48) Monocytes (%) (Auto) 10% (0-9) Eosinophils (%) (Auto) 5% (0-3) Basophils (%) (Auto) 1% (0-3) Neutrophils # (Auto) 2.7x10^3uL (1.8-7.7) Lymphocytes # (Auto) 1.9x10^3/uL (1.0-4.8) Monocytes # (Auto) 0.6x10^3/uL (0.0-1.1) Eosinophils # (Auto) 0.3x10^3/uL (0.0-0.7) Basophils # (Auto) 0.1x10^3/uL (0.0-0.2) Sodium Level 143mmol/L (136-145) Potassium Level 4.7mmol/L (3.5-5.1) Chloride Level 106mmol/L (98-107) Carbon Dioxide Level 30mmol/L (21-32) Anion Gap 7 (6-14) Blood Urea Nitrogen 8mg/dL (8-26) Creatinine 0.9mg/dL (0.7-1.3) Estimated GFR (Cockcroft-Gault) 88.3 Glucose Level 89mg/dL (70-99) Calcium Level 9.5mg/dL (8.5-10.1) Medications Current Medications Iohexol (Omnipaque 300 Mg/ml) 75 ml 1X ONCE IV Last administered on 05/24/16 02:24; Start 05/24/16 at 02:30; Stop 05/24/16 at 02:31; Status DC Info (Do NOT chart on this entry -- for MONITORING) 1 each PRN DAILY PRN MC SEE COMMENTS; Start 05/24/16 at 02:15; Stop 05/25/16 at 13:30; Status DC Ondansetron HCl (Zofran) 4 mg PRN Q8HRS PRN IV NAUSEA/VOMITING; Start 05/24/16 at 03:15; Stop 05/25/16 at 03:14; Status DC Fentanyl Citrate 50 mcg 50 mcg PRN Q2HR PRN IV SEVERE PAIN Last administered on 05/25/16 03:00; Start 05/24/16 at 03:15; Stop 05/25/16 at 03:14; Status DC Sodium Chloride (Iv Sodium Chloride 0.9% 1000ml Bag) 1,000 ml @ 125 mls/hr Q8H IV Last administered on 05/24/16 12:35; Start 05/24/16 at 03:12; Stop 05/25/16 at 03:11; Status DC Cetirizine HCl (Zyrtec) 10 mg DAILY PO Last administered on 05/29/16 08:52; Start 05/24/16 at 20:00 Divalproex Sodium (Depakote Er) 1,000 mg QHS PO Last administered on 05/28/16 21:01; Start 05/24/16 at 21:00 Fluoxetine HCl (Prozac) 10 mg DAILY PO Last administered on 05/29/16 08:53; Start 05/24/16 at 20:00 Montelukast Sodium (Singulair) 10 mg HS PO Last administered on 05/28/16 21:01 ; Start 05/24/16 at 21:00 Olanzapine (Zyprexa) 5 mg DAILY PO Last administered on 05/29/16 08:52; Start 05/24/16 at 20:00 Tamsulosin HCl (Flomax) 0.4 mg HS PO Last administered on 05/28/16 21:01; Start 05/24/16 at 21:00 Olanzapine (Zyprexa) 20 mg QHS PO Last administered on 05/28/16 21:02; Start at 21:00 Trazodone HCl (Desyrel) 150 mg QHS PO Last administered on 05/28/16 21:01; Start 05/24/16 at 21:00 Iohexol (Omnipaque 350 Mg/ml) 90 ml 1X ONCE IV Last administered on 05/25/16 08:48; Start 05/25/16 at 08:30; Stop 05/25/16 at 08:31; Status DC Info (Do NOT chart on this entry -- for MONITORING) 1 each PRN DAILY PRN MC SEE COMMENTS; Start 05/25/16 at 08:30; Stop 05/27/16 at 08:29; Status DC Fentanyl Citrate 50 mcg 50 mcg PRN Q2HR PRN IV PAIN Last administered on 13:53; Start 05/25/16 at 08:45; Stop 05/26/16 at 15:13; Status DC Sodium Chloride (Iv Sodium Chloride 0.9% 1000ml Bag) 1,000 ml @ 125 mls/hr Q8H IV Last administered on 05/25/16 11:45; Start 05/25/16 at 11:45; Stop 05/25/16 at 13:39; Status DC Saliva Substitute (Biotene Moisturizing Mouth) 2 spray PRN Q15MIN PRN PO DRY MOUTH; Start 05/25/16 at 13:45 Throat Lozenges 1 aliyah 1 aliyah PRN Q2HRS PRN PO SORE THROAT; Start 05/25/16 at 13: 45 Potassium Chloride/Dextrose/ Sod Cl (KCl 20 Meq In D5W-1/2 NS) 1,000 ml @ 80 mls/hr [id number] IV Last administered on 05/29/16 06:00; Start 05/25/16 at 13:45 Fentanyl Citrate 75 mcg 75 mcg 1X ONCE IV Last administered on 05/25/16 14:44 ; Start 05/25/16 at 13:45; Stop 05/25/16 at 13:46; Status DC Fentanyl Citrate 30 ml @ 0 mls/hr CONT PRN PRN IV PROTOCOL Last administered on 05/28/16 16:22; Start 05/26/16 at 14:15 Amino Acids/ Electrolytes/ Dextrose (Clinimix E 4.25%-5% Solution) 1,000 ml @ 80 mls/hr [id number] IV Last administered on 05/27/16 05:02; Start 05/26/16 at 17: 00; Stop 05/27/16 at 09:58; Status DC Famotidine (Pepcid) 20 mg 1X ONCE IVP Last administered on 05/27/16 11:04; Start 05/27/16 at 10:00; Stop 05/27/16 at 10:01; Status DC Famotidine (Pepcid) 20 mg BID PO Last administered on 05/29/16 08:52; Start at 21:00 Active Scripts Active Reported Trazodone Hcl 150 Mg Tablet 1 Tab PO QHS Montelukast Sodium Tablet (Montelukast Sodium) 10 Mg Tablet 10 Mg PO HS Divalproex Sodium Er (Divalproex Sodium) 500 Mg Tab.er.24h 2 Tab PO QHS Olanzapine 20 Mg Tablet 1 Tab PO QHS Olanzapine 5 Mg Tablet 5 Mg PO DAILY Fluoxetine Hcl 10 Mg Capsule 1 Cap PO DAILY Tamsulosin Hcl 0.4 Mg Cap.er.24h 1 Cap PO HS Cetirizine Hcl 10 Mg Tablet 1 Tab PO DAILY Vitals/I & O Vital Sign - Last 24 Hours 05/28/16 05/28/16 05/28/16 05/28/16 15:00 16:22 16:52 19:00 Temp 97.9 98.0 97.9 98.0 Pulse 63 60 Resp 18 18 B/P 111/46 110/61 Pulse Ox 94 93 O2 Delivery Room Air Room Air Room Air Room Air 05/28/16 05/29/16 05/29/16 05/29/16 23:00 03:00 07:00 08:00 Temp 98.3 97.5 97.5 98.3 97.5 97.5 Pulse 63 60 69 Resp 18 18 18 B/P 138/73 120/65 136/75 Pulse Ox 96 94 95 O2 Delivery Room Air Room Air Room Air Room Air 05/29/16 11:00 Temp 97.4 97.4 Pulse 70 Resp 18 B/P 111/65 Pulse Ox 97 O2 Delivery Room Air Intake and Output 05/28/16 05/28/16 05/29/16 15:00 23:00 07:00 Intake Total 650 ml 1390 ml Output Total 1275 ml 1800 ml Balance -625 ml -410 ml LORI VINSON MD May 29, 2016 11:31
[2016-05-29] MEDS ORDERED: OXYC-323 PO (11:36)
--- NOTE | 2016-05-29 11:41 | PDOC3 ---
Discharge Summary Visit Information Date of Admission: May 24, 2016 Date of Discharge: May 29, 2016 Admitting Diagnosis: abd pain Final Diagnosis LATE entry, pt seen 05/28, case discussed with IR, GI, Patients [facility], DR. Manzo acute abd pain vascular inflammation NOS, still consider segmental arterial mediolysis nausea hx prior EtOH abuse and meth use recent treatment at [facility] for Hep C, Problems Medical Problems: (1) Intractable abdominal pain Status: Acute Brief Hospital Course Allergies Allergies Coded Allergies Type Severity Reaction Last Updated Verified codeine Allergy Intermediate 06/21/15 Yes meperidine Allergy Intermediate 06/21/15 Yes Vital Signs Vital Signs Date Time Temp Pulse Resp B/P Pulse Ox O2 Delivery O2 Flow Rate FiO2 05/29/16 11:00 97.4 70 18 111/65 97 Room Air 97.4 Lab Results Laboratory Tests Test 05/28/16 04:05 05/29/16 06:08 White Blood Count 5.3x10^3/uL (4.0-11.0) 5.5x10^3/uL (4.0-11.0) Red Blood Count 4.28x10^6/uL (4.30-5.70) 4.48x10^6/uL (4.30-5.70) Hemoglobin 13.8g/dL (13.0-17.5) 14.5g/dL (13.0-17.5) Hematocrit 40.2% (39.0-53.0) 41.8% (39.0-53.0) Mean Corpuscular Volume 94fL (79-100) 93fL (79-100) Mean Corpuscular Hemoglobin 32pg (25-35) 32pg (25-35) Mean Corpuscular Hemoglobin Concent 34g/dL (31-37) 35g/dL (31-37) Red Cell Distribution Width 13.0% (11.5-14.5) 12.8% (11.5-14.5) Platelet Count 105x10^3/uL (140-400) 97x10^3/uL (140-400) Neutrophils (%) (Auto) 42% (31-73) 49% (31-73) Lymphocytes (%) (Auto) 43% (24-48) 35% (24-48) Monocytes (%) (Auto) 10% (0-9) 10% (0-9) Eosinophils (%) (Auto) 4% (0-3) 5% (0-3) Basophils (%) (Auto) 1% (0-3) 1% (0-3) Neutrophils # (Auto) 2.2x10^3uL (1.8-7.7) 2.7x10^3uL (1.8-7.7) Lymphocytes # (Auto) 2.3x10^3/uL (1.0-4.8) 1.9x10^3/uL (1.0-4.8) Monocytes # (Auto) 0.5x10^3/uL (0.0-1.1) 0.6x10^3/uL (0.0-1.1) Eosinophils # (Auto) 0.2x10^3/uL (0.0-0.7) 0.3x10^3/uL (0.0-0.7) Basophils # (Auto) 0.1x10^3/uL (0.0-0.2) 0.1x10^3/uL (0.0-0.2) Sodium Level 145mmol/L (136-145) 143mmol/L (136-145) Potassium Level 4.5mmol/L (3.5-5.1) 4.7mmol/L (3.5-5.1) Chloride Level 108mmol/L (98-107) 106mmol/L (98-107) Carbon Dioxide Level 31mmol/L (21-32) 30mmol/L (21-32) Anion Gap 6 (6-14) 7 (6-14) Blood Urea Nitrogen 11mg/dL (8-26) 8mg/dL (8-26) Creatinine 0.9mg/dL (0.7-1.3) 0.9mg/dL (0.7-1.3) Estimated GFR (Cockcroft-Gault) 88.3 88.3 Glucose Level 86mg/dL (70-99) 89mg/dL (70-99) Calcium Level 8.5mg/dL (8.5-10.1) 9.5mg/dL (8.5-10.1) Laboratory Tests Test 05/29/16 06:08 White Blood Count 5.5x10^3/uL (4.0-11.0) Red Blood Count 4.48x10^6/uL (4.30-5.70) Hemoglobin 14.5g/dL (13.0-17.5) Hematocrit 41.8% (39.0-53.0) Mean Corpuscular Volume 93fL (79-100) Mean Corpuscular Hemoglobin 32pg (25-35) Mean Corpuscular Hemoglobin Concent 35g/dL (31-37) Red Cell Distribution Width 12.8% (11.5-14.5) Platelet Count 97x10^3/uL (140-400) Neutrophils (%) (Auto) 49% (31-73) Lymphocytes (%) (Auto) 35% (24-48) Monocytes (%) (Auto) 10% (0-9) Eosinophils (%) (Auto) 5% (0-3) Basophils (%) (Auto) 1% (0-3) Neutrophils # (Auto) 2.7x10^3uL (1.8-7.7) Lymphocytes # (Auto) 1.9x10^3/uL (1.0-4.8) Monocytes # (Auto) 0.6x10^3/uL (0.0-1.1) Eosinophils # (Auto) 0.3x10^3/uL (0.0-0.7) Basophils # (Auto) 0.1x10^3/uL (0.0-0.2) Sodium Level 143mmol/L (136-145) Potassium Level 4.7mmol/L (3.5-5.1) Chloride Level 106mmol/L (98-107) Carbon Dioxide Level 30mmol/L (21-32) Anion Gap 7 (6-14) Blood Urea Nitrogen 8mg/dL (8-26) Creatinine 0.9mg/dL (0.7-1.3) Estimated GFR (Cockcroft-Gault) 88.3 Glucose Level 89mg/dL (70-99) Calcium Level 9.5mg/dL (8.5-10.1) Brief Hospital Course Mr. Todd is a 51 old admit for acute abd pain inital thougth was vasculitis, CTA showed perivascular thickening of SMA Rheum diagnosis was EDISON, segmental arterial mediolysis VASc surg, IR, Rheum and GI eval and discussed, will f/u outpatient with primary care, pain control, no compromise of vessel or aneurysm, may resolve, DC with pain control geoff full liquids, wihtout much pain med, was on PPN x2 days Discharge Information Condition at Discharge: Improved Follow Up: Weeks Disposition/Orders: D/C to Home Scheduled Cetirizine Hcl (Cetirizine Hcl) 1 TAB PO DAILY (Reported) Divalproex Sodium (Divalproex Sodium Er) 2 TAB PO QHS (Reported) Fluoxetine Hcl (Fluoxetine Hcl) 1 CAP PO DAILY (Reported) Montelukast Sodium (Montelukast Sodium Tablet) 10 MG PO HS (Reported) Olanzapine (Olanzapine) 5 MG PO DAILY (Reported) Olanzapine (Olanzapine) 1 TAB PO QHS (Reported) Tamsulosin Hcl (Tamsulosin Hcl) 1 CAP PO HS (Reported) Trazodone Hcl (Trazodone Hcl) 1 TAB PO QHS (Reported) Scheduled PRN Oxycodone/Apap 5-325 (Percocet 5-325 Mg Tablet) 1 TAB PO QID PRN PRN PAIN Discontinued Medications Aspirin/Acetaminophen/Caffeine (Excedrin Migraine Caplet) 2 EACH PO (Reported) Diazepam (Diazepam) 5 MG PO QHS (Reported) Escitalopram Oxalate (Escitalopram Oxalate) 1 TAB PO DAILY (Reported) Midodrine Hcl (Midodrine Hcl) 10 MG PO TID (Reported) Oxymetazoline Hcl (Afrin) 30 ML NS BID PRN PRN NASAL CONGESTION (Reported) Quetiapine Fumarate (Seroquel Xr) 2 TAB PO QHS (Reported) Tizanidine Hcl (Tizanidine Hcl) 2 MG PO QHS PRN PRN MUSCLE SPASMS (Reported) Patient Instructions Patient Instructions CTA IMPRESSION: 1. Mild stenosis, wall thickening and perivascular inflammation about the proximal superior mesenteric artery. This may reflect segmental arterial mediolysis. No dissection flap is detectable, but a thrombosed underlying dissection is another possibility. Correlate with systemic inflammatory markers to further exclude vasculitis. No additional sites of vascular involvement are seen. 2. Morphologic changes of cirrhosis. Moderate splenomegaly 3. Status postcholecystectomy. Time > 30 min discussed by phone with his PCP 05/27, will need close OP f/u LORI VINSON MD May 29, 2016 11:41
[2016-05-29] MEDS ORDERED: DOCU-27 PO (11:43)
--- NOTE | 2016-05-29 11:50 | PDOC ---
Subjective: Subjective: 4/10 pain, tolerating full liquids. Objective: Vital Signs: Vital Signs Date Time Temp Pulse Resp B/P Pulse Ox O2 Delivery O2 Flow Rate FiO2 05/29/16 11:00 97.4 70 18 111/65 97 Room Air 97.4 PE: Was in restroom, talked from outside the door. A/P: Abd pain - ongoing -elevated ESR (35) and CRP (8.8), RF neg, complement levels normal, CA19-9 pending -CTA w/ mild stenosis, wall thickening, and perivascular inflammation about the proximal SMA -vascular has seen and reviewed w/ IR, signed off -rheum has also seen - possible segmental arterial mediolysis -d/w radiology re: MRI, probably no benefit -- Note DC plans. Follow-up re: CA19-9. ADALBERTO BARAJAS May 29, 2016 11:50
== END 2016-05-29 12:55 | disposition home or self-care (01) | DRG 301 ==
LOC: ER 00:54 → 4 NORTH 03:11 → ER 04:10
PROVIDERS: ADMIT Internal Medicine; ATTEND Internal Medicine
DX: I77.89 Other specified disorders of arteries and arterioles (principal); B18.2 Chronic viral hepatitis C; F15.90 Other stimulant use, unspecified, uncomplicated; F20.9 Schizophrenia, unspecified; F31.9 Bipolar disorder, unspecified; G47.30 Sleep apnea, unspecified; F17.210 Nicotine dependence, cigarettes, uncomplicated; K74.60 Unspecified cirrhosis of liver; F10.20 Alcohol dependence, uncomplicated; M19.90 Unspecified osteoarthritis, unspecified site; Z79.82 Long term (current) use of aspirin; Z79.899 Other long term (current) drug therapy; Z83.3 Family history of diabetes mellitus; Z90.49 Acquired absence of other specified parts of digestive tract; Z88.6 Allergy status to analgesic agent; Z88.8 Allergy status to other drugs, medicaments and biological substances; R70.0 Elevated erythrocyte sedimentation rate
CPT/HCPCS: 36415; 74174; 74177; 80048; 80053; 81001; 82787; 83690; 85027; 85651; 86021; 86140; 86160; 86162; 86301; 86431; 99406; J3010; J3490; J7030; Q9967; S0028; 99285-25

== ENCOUNTER 2017-01-02 10:45 | Inpatient (IN) | payer OTHER ==
[~2017-01-02] VITALS: Ht 180.3 cm; Wt 83.9 kg
[~2017-01-02 10:45] MED LIST changes: -ASPI1TAB30 PO; +ASPI1TAB31 PO; +DIVA500T17 PO; +DOCU-109 PO; -ESCI10TA PO; +ESCITALOPRAM OX10 MG PO; +FLUO10CA7 PO; +MONT10TA9 PO; +OLAN20TA7 PO; +OLAN5TAB9 PO; +OXYC-323 PO; +TRAZ150T49 PO
[2017-01-02] MEDS ORDERED: NITROGLYCERIN SUBLINGUAL 0.4 MG BOTTLE OF 25. SL PRN (11:00)
[2017-01-02] MEDS ORDERED: IV NORMAL SALINE 1000ML BAG 1,000 ML IV SCH (11:00)
--- NOTE | 2017-01-02 11:11 | PHYS DOC ---
Past Medical History Past Medical History: Bipolar, Hypotension, Hepatitis, Schizophrenia, Other Additional Past Medical Histor: DDD, sleep apnea, hx of drug and ETOH abuse Past Surgical History: Cholecystectomy, Other Additional Past Surgical Histo: sinus, right shoulder reconstruct, teeth, jaw Alcohol Use: Sober Drug Use: None Adult General Chief Complaint Chief Complaint: CHEST PAIN HPI HPI Patient is a 51 year old male who has an adopted who presents with substernal chest pain. States it started 3 days ago, intermittent he also felt sharp stabbing pain when he takes a big deep breath occasionally goes to his back. He denies that radiates or refills He also feel short of breath. He's had a slight productive cough of white sputum. He denies a history of COPD. He states he is actively a smoke, he states he smokes about half pack per day. States he did have a stress test but is a few years ago at [facility] thinks is the [facility]. He states he's on infusions every 2 weeks at [facility] for "his spleen". He does have a history of hep C but states his been cured by this. He's been drug free since 2011. He states he used to do "everything except for heroin" he also stopped drinking in 2011. 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 He states his boss made him come to the ER because he was scared that he might fall. He does state that he is weaker than normal. Review of Systems Review of Systems Constitutional: Denies fever or chills Eyes: Denies change in visual acuity, redness, or eye pain HENT: Denies nasal congestion or sore throat Respiratory: Denies cough or shortness of breath Cardiovascular: No additional information not addressed in HPI GI: Denies abdominal pain, nausea, vomiting, bloody stools or diarrhea : Denies dysuria or hematuria Musculoskeletal: Denies back pain or joint pain Integument: Denies rash or skin lesions Neurologic: Denies headache, focal weakness or sensory changes Endocrine: Denies polyuria or polydipsia Current Medications Current Medications Current Medications Medications (Trade) Dose Ordered Sig/Prem Start Time Stop Time Status Last Admin Dose Admin Aspirin (Acacia Aspirin) 325 mg 1X ONCE 01/02/17 11:15 01/02/17 11:16 DC 01/02/17 11:28 325 MG Morphine Sulfate 2 mg PRN Q15MIN PRN 01/02/17 11:00 01/03/17 10:59 01/02/17 13:31 2 MG Nitroglycerin (Nitrostat) 0.4 mg PRN Q5MIN PRN 01/02/17 11:00 01/03/17 10:59 01/02/17 11:27 0.4 MG Sodium Chloride 1,000 ml @ 1,000 mls/hr Q1H 01/02/17 11:00 01/02/17 11:59 DC 01/02/17 11:26 1,000 MLS/HR Allergies Allergies Allergies Coded Allergies Type Severity Reaction Last Updated Verified codeine Allergy Intermediate 01/02/17 Yes meperidine Allergy Intermediate 06/21/15 Yes Physical Exam Physical Exam Constitutional: Well developed, well nourished, no acute distress, non-toxic appearance. HENT: Normocephalic, atraumatic, bilateral external ears normal, oropharynx moist, no oral exudates, nose normal. Eyes: PERRLA, EOMI, conjunctiva normal, no discharge. Neck: Normal range of motion, no tenderness, supple, no stridor. Cardiovascular:Heart rate regular rhythm, no murmur Lungs & Thorax: Bilateral breath sounds clear to auscultation Abdomen: Bowel sounds normal, soft, mild tender palpation in the right upper quadrant no rebound or guarding, no masses, no pulsatile masses. Skin: Warm, dry, no erythema, no rash. Back: No tenderness, no CVA tenderness. Extremities: No tenderness, no cyanosis, no clubbing, ROM intact, no edema. Neurologic: Alert and oriented X 3, normal motor function, normal sensory function, no focal deficits noted. Psychologic: Affect normal, judgement normal, mood normal. Current Patient Data Vital Signs Vital Signs Date Time Temp Pulse Resp B/P (MAP) Pulse Ox O2 Delivery O2 Flow Rate FiO2 01/02/17 12:25 59 21 128/70 (89) 98 Room Air 01/02/17 10:55 98.1 98.1 Lab Values Laboratory Tests Test 01/02/17 11:03 01/02/17 11:05 01/02/17 12:25 Troponin I Quantitative < 0.017 ng/mL (0.000-0.055) White Blood Count 5.1 x10^3/uL (4.0-11.0) Red Blood Count 4.03 x10^6/uL (4.30-5.70) L Hemoglobin 13.7 g/dL (13.0-17.5) Hematocrit 39.6 % (39.0-53.0) Mean Corpuscular Volume 98 fL (79-100) Mean Corpuscular Hemoglobin 34 pg (25-35) Mean Corpuscular Hemoglobin Concent 35 g/dL (31-37) Red Cell Distribution Width 13.6 % (11.5-14.5) Platelet Count 65 x10^3/uL (140-400) L Neutrophils (%) (Auto) 76 % (31-73) H Lymphocytes (%) (Auto) 14 % (24-48) L Monocytes (%) (Auto) 7 % (0-9) Eosinophils (%) (Auto) 2 % (0-3) Basophils (%) (Auto) 1 % (0-3) Neutrophils # (Auto) 3.9 x10^3uL (1.8-7.7) Lymphocytes # (Auto) 0.7 x10^3/uL (1.0-4.8) L Monocytes # (Auto) 0.3 x10^3/uL (0.0-1.1) Eosinophils # (Auto) 0.1 x10^3/uL (0.0-0.7) Basophils # (Auto) 0.0 x10^3/uL (0.0-0.2) Prothrombin Time 13.0 SEC (11.7-14.0) Prothrombin Time INR 1.0 (0.8-1.1) D-Dimer (Robyn) 0.31 ug/mlFEU (0.00-0.50) Sodium Level 141 mmol/L (136-145) Potassium Level 3.3 mmol/L (3.5-5.1) L Chloride Level 102 mmol/L (98-107) Carbon Dioxide Level 27 mmol/L (21-32) Anion Gap 12 (6-14) Blood Urea Nitrogen 13 mg/dL (8-26) Creatinine 1.1 mg/dL (0.7-1.3) Estimated GFR (Cockcroft-Gault) 70.0 Glucose Level 139 mg/dL (70-99) H Calcium Level 9.0 mg/dL (8.5-10.1) Magnesium Level 1.8 mg/dL (1.8-2.4) Total Bilirubin 0.3 mg/dL (0.2-1.0) Direct Bilirubin 0.1 mg/dL (0.0-0.2) Aspartate Amino Transferase (AST) 18 U/L (15-37) Alanine Aminotransferase (ALT) 13 U/L (16-63) L Alkaline Phosphatase 51 U/L (46-116) Creatine Kinase 38 U/L (39-308) L Creatine Kinase MB (Mass) 0.5 ng/mL (0.0-3.6) Creatine Kinase MB Relative Index % (0-4) IL-Sxn-I-Type Natriuretic Peptide 652 pg/mL (0-124) H Total Protein 7.3 g/dL (6.4-8.2) Albumin 3.4 g/dL (3.4-5.0) Lipase 240 U/L (73-393) Urine Collection Type Unknown Urine Color Yellow Urine Clarity Clear Urine pH 6.0 Urine Specific [place] 1.010 Urine Protein Negative mg/dL (NEG-TRACE) Urine Glucose (UA) Negative mg/dL (NEG) Urine Ketones (Stick) Negative mg/dL (NEG) Urine Blood Negative (NEG) Urine Nitrite Negative (NEG) Urine Bilirubin Negative (NEG) Urine Urobilinogen Dipstick 0.2 mg/dL (0.2 mg/dL) Urine Leukocyte Esterase Negative (NEG) Urine RBC 1-2 /HPF (0-2) Urine WBC Occ /HPF (0-4) Urine Bacteria 0 /HPF (0-FEW) Urine Hyaline Casts Moderate /HPF Urine Mucus Mod /LPF Urine Opiates Screen Pos (NEG) Urine Methadone Screen Neg (NEG) Urine Barbiturates Neg (NEG) Urine Phencyclidine Screen Neg (NEG) Urine Amphetamine/Methamphetamine Neg (NEG) Urine Benzodiazepines Screen Neg (NEG) Urine Cocaine Screen Neg (NEG) Urine Cannabinoids Screen Neg (NEG) Urine Ethyl Alcohol Neg (NEG) Laboratory Tests 01/02/17 11:05 Laboratory Tests 01/02/17 11:05 EKG EKG EKG shows sinus rhythm with rate of [address] elevations or T-wave inversions, normal axis, QTC 443 ms, as interpreted by me. Radiology/Procedures Radiology/Procedures [facility] [address] [place] [address] IMAGING REPORT Signed PATIENT: REYES LAURA ACCOUNT: [id number] : 1965 LOCATION: ER AGE: 51 SEX: M EXAM STATUS: PRE ER ORD. PHYSICIAN: ANDREW ALEJANDRE MD REASON: chest pain PROCEDURE: PORTABLE CHEST 1V Portable AP upright view CXR: Clinical indications: Chest pain and dizziness and shortness of breath for a week. Comparison: September 08, 2015. Findings: No acute lung infiltrate or pleural effusion or pulmonary edema or lung mass or pneumothorax is seen. The heart size, pulmonary vasculature, mediastinum and both leo are unremarkable. Impression: No acute radiographic abnormality is seen. DICTATED and SIGNED BY: SUSIE SHANKS MD DATE: 01/02/17 1150 CC: ANDREW ALEJANDRE MD; BABITA OREILLY MD ~ [facility] [address] [place] [address] IMAGING REPORT Signed PATIENT: REYES LAURA ACCOUNT: [id number] : 1965 LOCATION: [address] [place] [address] AGE: 51 SEX: M EXAM STATUS: ADM IN ORD. PHYSICIAN: ANDREW ALEJANDRE MD REASON: r/o aortic disection PROCEDURE: CT ANGIO CHEST ABD PELVIS CTA of the chest abdomen and pelvis with and without contrast Clinical indications: Substernal chest pain. Shortness of air. Cough for 3 days. Abdominal pain. Evaluation for aortic dissection. Technique: Noncontrast helical CT scanning of the chest and abdomen and pelvis was performed. After IV infusion of 90 cc of Omnipaque 350, helical CT scanning of the chest and abdomen and pelvis was performed. Multiplanar 2-D MIP reconstructions were generated. Using a MIP algorithm, a 3-D reconstructed arteriogram of the chest and abdomen and pelvis was generated. PQRS Compliance Statement: One or more of the following individualized dose reduction techniques were utilized for this examination: 1. Automated exposure control 2. Adjustment of the mA and/or kV according to patient size 3. Use of iterative reconstruction technique Comparison: CT study of abdomen and pelvis dated May 25, 2016. CHEST CTA: No focal aneurysmal dilatation of the thoracic aorta is seen. No ectasia is evident. No intimal flap or dissection is seen. The heart size is normal and no pericardial effusion is seen. No abnormally enlarged thoracic lymphadenopathy is seen. No central pulmonary emboli are evident. There is some atelectasis of the right lower lobe. Mild atelectasis of the left lower lobe is seen. No lung mass or lung consolidation or pleural effusion or pneumothorax is seen. The proximal bronchial tree is patent. No osteolytic process is seen. No compression fracture is evident. IMPRESSION: Mild bibasilar atelectasis. No acute abnormality of the chest is evident otherwise. Specifically, no thoracic aortic aneurysm or dissection is seen. ABDOMEN AND PELVIS CTA: A small blush of the posterior segment of the right lobe of liver is seen which may represent a small hemangioma or differential perfusion attenuation which is unchanged. Another new focus of perfusion differentiation attenuation is seen more inferiorly within the lateral aspect of the right lobe of the liver. The spleen is not abnormally enlarged. The pancreas is normal. The gallbladder is surgically absent. No extra hepatic biliary ductal dilatation is seen. No adrenal mass is seen. Both kidneys are normal and no hydronephrosis or hydroureter is seen. No enlarged abdominal or pelvic lymphadenopathy is seen. Urinary bladder wall is smooth. The appendix is normal. No obstructive bowel pattern is evident. No free fluid or free intraperitoneal air or mesenteric inflammatory change is seen. No osteolytic process is seen. No focal aneurysmal dilatation of the abdominal aorta is seen. Mild calcified atheromatous disease of the abdominal aorta and common iliac arteries is seen. No significant stenosis of these arteries is seen. The celiac artery and superior mesenteric artery and main renal arteries and inferior mesenteric artery enhance normally. The previously seen inflammation around the superior mesenteric artery has resolved. There is approximate 50% narrowing of the proximal SMA which is unchanged. No occlusive disease is seen. IMPRESSION: Resolution of previously seen inflammation around the superior mesenteric artery. 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 No aortic dissection or focal aneurysmal dilatation is seen. No acute abnormality of the abdomen or pelvis is seen otherwise. DICTATED and SIGNED BY: SUSIE SHANKS MD DATE: 01/02/17 2306 CC: SOY CHACON III DO; ANDREW ALEJANDRE MD; BABITA OREILLY MD ~ Impressions: Chest pain Course & Med Decision Making Course & Med Decision Making Pertinent Labs and Imaging studies reviewed. (See chart for details) Patient presents for chest pain that's pleuritic in nature goes to his back. His d-dimer is negative. He also has mild shortness of breath and clear sputum. This could be related to his tobacco use. CT angiogram is chest abdomen pelvis is pending at this time. His first troponin and EKG is nonacute. He is being admitted to Dr. Chacon with cardiology consultation. Dragon Disclaimer Dragon Disclaimer This electronic medical record was generated, in whole or in part, using a voice recognition dictation system. Departure Departure Impression: Primary Impression: Chest pain Disposition: ADMITTED INPATIENT Admitting Physician: Soy Chacon Condition: STABLE Referrals: BABITA OREILLY MD (PCP) Problem Qualifiers Primary Impression: Chest pain Chest pain type: unspecified Qualified Codes: R07.9 - Chest pain, unspecified ANDREW ALEJANDRE MD Jan 02, 2017 11:11
[2017-01-02 11:12] LABS: BASO % 1 % (0-3); EOS % 2 % (0-3); HEMATOCRIT 39.6 % (39.0-53.0); HEMOGLOBIN 13.7 g/dL (13.0-17.5); LYMPH # 0.7 x10^3/uL (1.0-4.8); LYMPH % 14 % (24-48); MEAN CORPUSCULAR HEMOGLOBIN 34 pg (25-35); MEAN CORPUSCULAR HGB CONC 35 g/dL (31-37); MEAN CORPUSCULAR VOLUME 98 fL (79-100); MONO % 7 % (0-9); NEUT % 76 % (31-73); PLATELET COUNT 65 x10^3/uL (140-400); RED BLOOD COUNT 4.03 x10^6/uL (4.30-5.70); RED CELL DISTRIBUTION WIDTH 13.6 % (11.5-14.5); WHITE BLOOD COUNT 5.1 x10^3/uL (4.0-11.0)
[2017-01-02] MEDS ORDERED: ASPIRIN 325 MG TABLET PO ONE (11:15)
[2017-01-02 11:25] LABS: CREATININE 1.1 mg/dL (0.7-1.3); POTASSIUM 3.3 mmol/L (3.5-5.1)
[2017-01-02] MEDS: MORPHINE SULFATE 2 MG/ML DISP.SYRIN. IV/SQ PRN ×2 (11:28→13:31)
[2017-01-02 11:31] LABS: ALBUMIN 3.4 g/dL (3.4-5.0); DIRECT BILIRUBIN 0.1 mg/dL (0.0-0.2); MAGNESIUM 1.8 mg/dL (1.8-2.4); TOTAL BILIRUBIN 0.3 mg/dL (0.2-1.0); TOTAL PROTEIN 7.3 g/dL (6.4-8.2)
[2017-01-02 11:41] LABS: CKMB MASS 0.5 ng/mL (0.0-3.6); CREATINE KINASE 38 U/L (39-308)
--- NOTE | 2017-01-02 11:56 | EKG ---
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
--- NOTE | 2017-01-02 11:56 | RAD ---
Portable AP upright view CXR: Clinical indications: Chest pain and dizziness and shortness of breath for a week. Comparison: September 08, 2015. Findings: No acute lung infiltrate or pleural effusion or pulmonary edema or lung mass or pneumothorax is seen. The heart size, pulmonary vasculature, mediastinum and both leo are unremarkable. Impression: No acute radiographic abnormality is seen.
[2017-01-02 12:45] LABS: BILIRUBIN,URINE NEGATIVE (NEG); GLUCOSE,URINE NEGATIVE (NEG); NITRITE,URINE NEGATIVE (NEG); PROTEIN,URINE NEGATIVE (NEG-TRACE); UROBILINOGEN,URINE 0.2 mg/dL (0.2 mg/dL)
[2017-01-02 12:52] LABS: BARBITURATES NEG (NEG); BENZODIAZEPINES NEG (NEG); CANNABINOIDS NEG (NEG); COCAINE NEG (NEG); METHADONE NEG (NEG); OPIATES POS (NEG); PHENCYCLIDINE NEG (NEG)
[2017-01-02 13:02] LABS: BACTERIA,URINE 0 /HPF (0-FEW); WBC,URINE OCC /HPF (0-4)
[2017-01-02] MEDS ORDERED: CONTRAST GIVEN MC PRN (13:15)
[2017-01-02] MEDS ORDERED: ONDANSETRON PF 4 MG/2 ML VIAL. IV PRN (13:15)
[2017-01-02] MEDS ORDERED: IOHEXOL 350 MG/ML 100 ML VIAL. IV ONE (13:30)
--- NOTE | 2017-01-02 14:49 | RAD ---
CTA of the chest abdomen and pelvis with and without contrast Clinical indications: Substernal chest pain. Shortness of air. Cough for 3 days. Abdominal pain. Evaluation for aortic dissection. Technique: Noncontrast helical CT scanning of the chest and abdomen and pelvis was performed. After IV infusion of 90 cc of Omnipaque 350, helical CT scanning of the chest and abdomen and pelvis was performed. Multiplanar 2-D MIP reconstructions were generated. Using a MIP algorithm, a 3-D reconstructed arteriogram of the chest and abdomen and pelvis was generated. PQRS Compliance Statement: One or more of the following individualized dose reduction techniques were utilized for this examination: 1. Automated exposure control 2. Adjustment of the mA and/or kV according to patient size 3. Use of iterative reconstruction technique Comparison: CT study of abdomen and pelvis dated May 25, 2016. CHEST CTA: No focal aneurysmal dilatation of the thoracic aorta is seen. No ectasia is evident. No intimal flap or dissection is seen. The heart size is normal and no pericardial effusion is seen. No abnormally enlarged thoracic lymphadenopathy is seen. No central pulmonary emboli are evident. There is some atelectasis of the right lower lobe. Mild atelectasis of the left lower lobe is seen. No lung mass or lung consolidation or pleural effusion or pneumothorax is seen. The proximal bronchial tree is patent. No osteolytic process is seen. No compression fracture is evident. IMPRESSION: Mild bibasilar atelectasis. No acute abnormality of the chest is evident otherwise. Specifically, no thoracic aortic aneurysm or dissection is seen. ABDOMEN AND PELVIS CTA: A small blush of the posterior segment of the right lobe of liver is seen which may represent a small hemangioma or differential perfusion attenuation which is unchanged. Another new focus of perfusion differentiation attenuation is seen more inferiorly within the lateral aspect of the right lobe of the liver. The spleen is not abnormally enlarged. The pancreas is normal. The gallbladder is surgically absent. No extra hepatic biliary ductal dilatation is seen. No adrenal mass is seen. Both kidneys are normal and no hydronephrosis or hydroureter is seen. No enlarged abdominal or pelvic lymphadenopathy is seen. Urinary bladder wall is smooth. The appendix is normal. No obstructive bowel pattern is evident. No free fluid or free intraperitoneal air or mesenteric inflammatory change is seen. No osteolytic process is seen. No focal aneurysmal dilatation of the abdominal aorta is seen. Mild calcified atheromatous disease of the abdominal aorta and common iliac arteries is seen. No significant stenosis of these arteries is seen. The celiac artery and superior mesenteric artery and main renal arteries and inferior mesenteric artery enhance normally. The previously seen inflammation around the superior mesenteric artery has resolved. There is approximate 50% narrowing of the proximal SMA which is unchanged. No occlusive disease is seen. IMPRESSION: Resolution of previously seen inflammation around the superior mesenteric artery. 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 No aortic dissection or focal aneurysmal dilatation is seen. No acute abnormality of the abdomen or pelvis is seen otherwise.
[2017-01-02 15:00] VITALS: BP 141/73
[2017-01-02] MEDS: MORPHINE SULFATE 2 MG/ML DISP.SYRIN. IV PRN ×3 (16:04→21:48)
[2017-01-02 16:19] VITALS: BP 141/73
[2017-01-02 19:00] VITALS: BP 112/64
[2017-01-02] MEDS ORDERED: DOCUSATE SODIUM 100 MG CAPSULE. PO PRN (19:30)
--- NOTE | 2017-01-02 19:55 | HP ---
ADMIT DATE: 01/02/2017 CHIEF COMPLAINT: Cough and chest pain. HISTORY OF PRESENT ILLNESS: The patient is a pleasant middle-aged white male who used to be a heavy drinker and states he did all of the different drugs. He has been clean for several years now, but now he has got chest pain, shortness of breath and cough, rates it 7/10. He has associated weakness. I have discussed the case with the ER physician. We are going to admit the patient and consult pulmonary medicine. PAST MEDICAL HISTORY: Previous drug abuse, previous alcohol issues but he quit. Chronic pain, hypertension, seizures, depression, anxiety, asthma, BPH and insomnia. ALLERGIES: CODEINE, GABAPENTIN, . FAMILY HISTORY: Hypertension. SOCIAL HISTORY: He quit smoking. He quit drinking and he quit drugs. MEDICATIONS: Reviewed, please refer to the MRAD. REVIEW OF SYSTEMS: GENERAL: No history of weight change, weakness or fevers. SKIN: No bruising, hair changes or rashes. EYES: No blurred, double or loss of vision. NOSE AND THROAT: No history of nosebleeds, hoarseness or sore throat. HEART: He complains of chest pain. PULMONARY: He complains of shortness of breath. GASTROINTESTINAL: Denies changes in appetite, nausea, vomiting, diarrhea or constipation. GENITOURINARY: No history of frequency, urgency, hesitancy or nocturia. NEUROLOGIC: Denies history of numbness, tingling, tremor or weakness. PSYCHIATRIC: No history of panic, anxiety or depression. ENDOCRINE: No history of heat or cold intolerance, polyuria or polydipsia. EXTREMITIES: Denies muscle weakness, joint pain, pain on walking or stiffness. PHYSICAL EXAMINATION: VITAL SIGNS: Temperature afebrile, pulse 56, respirations 18, blood pressure 141/73. GENERAL: He is alert, cooperative. HEART: Normal S1, S2. LUNGS: Clear. There are some slight crackles in both bases. ABDOMEN: Soft, positive bowel sounds. EXTREMITIES: No edema. SKIN: No rashes. PSYCHIATRIC: He is depressed. VASCULAR: Good capillary refill. ENDOCRINE: No thyromegaly. LYMPHATICS: No cervical nodes. HEMATOPOIETIC: No bruising. LABORATORY DATA: White count 5, hemoglobin 13.7, platelets 65. Electrolytes: Sodium 141, potassium 3.3, chloride 102, bicarbonate 27, BUN 13, creatinine 1, glucose 139. Liver function tests are normal. INR is 1. Urinalysis negative. Drug screen positive for opiates, but he has a prescription for that. Chest x-ray, no obvious abnormalities. CT of the abdomen and pelvis, no obvious acute abnormalities. ASSESSMENT AND PLAN: 1. Shortness of breath, cough, chest pain. The patient is being admitted. We will give him DuoNeb p.r.n. oxygen. Consult pulmonary medicine. CBC, BMP in the morning. I resumed his home medicines, cardiac monitoring. Consult Cardiology. SOY CHURCHILL DO DR: NADIRA/stephanie JOB#: [id number] / [id number]
[2017-01-02 20:13] VITALS: BP 141/73
[2017-01-02] MEDS: MONTELUKAST SODIUM 10 MG TABLET. PO SCH (20:55)
[2017-01-02] MEDS: DIVALPROEX EXTENDED RELEASE 500 MG TAB.ER.24H. PO SCH (20:56)
[2017-01-02] MEDS: traZODone 100 MG TABLET. PO SCH (20:56)
[2017-01-02] MEDS: OLANZapine 5 MG TABLET PO SCH (20:56)
[2017-01-02] MEDS: TAMSULOSIN 0.4 MG CAP.ER.24H. PO SCH (20:56)
[2017-01-02 21:39] LABS: ALBUMIN 2.7 g/dL (3.4-5.0); ALBUMIN/GLOBULIN RATIO 0.9 (1.0-1.7); CALCIUM 8.2 mg/dL (8.5-10.1); CREATININE 0.8 mg/dL (0.7-1.3); GFR 101.1; POTASSIUM 3.7 mmol/L (3.5-5.1); TOTAL BILIRUBIN 0.3 mg/dL (0.2-1.0); TOTAL PROTEIN 5.8 g/dL (6.4-8.2)
[2017-01-02] MEDS: IPRATRPIUM/ALBUTEROL 0.5/2.5MG 3 ML NEBU. NEB SCH (22:17)
[2017-01-02 23:00] VITALS: BP 108/52
[2017-01-03 03:00] VITALS: BP 114/58
[2017-01-03 05:27] LABS: BASO % 1 % (0-3); EOS % 5 % (0-3); HEMATOCRIT 33.9 % (39.0-53.0); HEMOGLOBIN 11.7 g/dL (13.0-17.5); LYMPH # 1.1 x10^3/uL (1.0-4.8); LYMPH % 37 % (24-48); MEAN CORPUSCULAR HEMOGLOBIN 34 pg (25-35); MEAN CORPUSCULAR HGB CONC 35 g/dL (31-37); MEAN CORPUSCULAR VOLUME 98 fL (79-100); MONO % 7 % (0-9); NEUT % 50 % (31-73); PLATELET COUNT 56 x10^3/uL (140-400); RED BLOOD COUNT 3.47 x10^6/uL (4.30-5.70); RED CELL DISTRIBUTION WIDTH 13.4 % (11.5-14.5); WHITE BLOOD COUNT 2.9 x10^3/uL (4.0-11.0)
[2017-01-03 06:02] LABS: CALCIUM 8.4 mg/dL (8.5-10.1); CREATININE 0.8 mg/dL (0.7-1.3); GFR 101.1; POTASSIUM 3.7 mmol/L (3.5-5.1)
[2017-01-03 07:00] VITALS: BP 99/57
[2017-01-03] MEDS: IPRATRPIUM/ALBUTEROL 0.5/2.5MG 3 ML NEBU. NEB SCH ×4 (08:02→19:34)
[2017-01-03] MEDS: FLUoxetine HCL 10 MG CAPSULE PO SCH (09:06)
[2017-01-03] MEDS: OLANZapine 5 MG TABLET PO SCH ×2 (09:06→19:48)
[2017-01-03] MEDS: CETIRIZINE HCL 10 MG TABLET. PO SCH (09:06)
[2017-01-03] MEDS ORDERED: guaiFENesin DM 200MG/20MG 10 ML SYRUP PO PRN (09:15)
[2017-01-03] MEDS ORDERED: ONDANSETRON PF 4 MG/2 ML VIAL. IV PRN (09:15)
[2017-01-03 11:00] VITALS: BP 86/47
--- NOTE | 2017-01-03 13:36 | PDOC2 ---
CONSULT Date of Consult Date of Consult DATE: 01/03/17 TIME: 13:30 Reason for Consult Reason for Consult: chest pain Referring Physician Referring Physician: Dr. Chacon Identification/Chief Complaint Chief Complaint Chest pain Problems: Source Source: Patient History of Present Illness Reason for Visit: The patient is a 51-year-old male who was admitted through the emergency room with a history of 3-4 days of chest pain and shortness of breath. Patient initial EKG showed a sinus rhythm with no acute ischemic changes. Troponin has been negative 2. The patient did have a CTA of the chest that showed no acute abnormalities. Overnight he reports feeling better. He does have a history of past drug abuse but states he has been drug free since 2011. He is also been treated for hypertension and possible bipolar disease. He reports a history of treated hepatitis C. He also is apparently followed at with biweekly infusions but the patient is uncertain of what the infusions are for. He is now resting fairly comfortably in bed. Past Medical History Cardiovascular: HTN Pulmonary: Bronchitis Hepatobiliary: Hep A/B/C Psych: Addictions Past Surgical History Past Surgical History: Cholecystectomy Family History Family History: Hypertension Social History ALCOHOL: other (alcohol and drug free since 2011) Current Medications Current Medications Current Medications Aspirin (Acacia Aspirin) 325 mg 1X ONCE PO Last administered on 01/02/17 11: 28; Start 01/02/17 at 11:15; Stop 01/02/17 at 11:16; Status DC Nitroglycerin (Nitrostat) 0.4 mg PRN Q5MIN PRN SL CP RATING > 1/10 Last administered on 01/02/17 11:27; Start 01/02/17 at 11:00; Stop 01/03/17 at 10 :59; Status DC Morphine Sulfate 2 mg PRN Q15MIN PRN IV/SQ PAIN GREATER THAN 3/10 Last administered on 01/02/17 13:31; Start 01/02/17 at 11:00; Stop 01/03/17 at 10 :59; Status DC Sodium Chloride 1,000 ml @ 1,000 mls/hr Q1H IV Last administered on 11:26; Start 01/02/17 at 11:00; Stop 01/02/17 at 11:59; Status DC Iohexol (Omnipaque 350 Mg/ml) 90 ml 1X ONCE IV Last administered on 13:14; Start 01/02/17 at 13:30; Stop 01/02/17 at 13:31; Status DC Info (Do NOT chart on this entry -- for MONITORING) 1 each PRN DAILY PRN MC SEE COMMENTS; Start 01/02/17 at 13:15; Stop 01/04/17 at 13:14 Ondansetron HCl (Zofran) 4 mg PRN Q8HRS PRN IV NAUSEA/VOMITING; Start at 13:15; Stop 01/03/17 at 09:07; Status DC Morphine Sulfate 2 mg PRN Q2HR PRN IV PAIN Last administered on 01/02/17 21: 48; Start 01/02/17 at 13:15; Stop 01/03/17 at 13:14; Status DC Albuterol/ Ipratropium (Duoneb) 3 ml RTQID NEB Last administered on 01/03/17 12:29; Start 01/02/17 at 20:00 Cetirizine HCl (ZyrTEC) 10 mg DAILY PO Last administered on 01/03/17 09:06; Start 01/03/17 at 09:00 Divalproex Sodium (Depakote Er) 1,000 mg QHS PO Last administered on 20:56; Start 01/02/17 at 21:00 Docusate Sodium (Colace) 100 mg PRN BID PRN PO hard stool or no stool; Start 01/02/17 at 19:30 Fluoxetine HCl (PROzac) 10 mg DAILY PO Last administered on 01/03/17 09:06; Start 01/03/17 at 09:00 Montelukast Sodium (Singulair) 10 mg HS PO Last administered on 01/02/17 20: 55; Start 01/02/17 at 21:00 Olanzapine (ZyPREXA) 5 mg DAILY PO Last administered on 01/03/17 09:06; Start 01/03/17 at 09:00 Oxycodone/ Acetaminophen (Percocet 5/325) 1 tab PRN QID PRN PO PAIN; Start at 19:30 Tamsulosin HCl (Flomax) 0.4 mg HS PO Last administered on 01/02/17 20:56; Start 01/02/17 at 21:00 Olanzapine (ZyPREXA) 20 mg QHS PO Last administered on 01/02/17 20:56; Start 01/02/17 at 21:00 Trazodone HCl (Desyrel) 150 mg QHS PO Last administered on 01/02/17t 20:56; Start 01/02/17 at 21:00 Ondansetron HCl (Zofran) 4 mg PRN Q6HRS PRN IV NAUSEA/VOMITING; Start at 09:15; Stop 01/04/17 at 09:14 Guaifenesin (Robitussin Dm) 10 ml PRN Q6HRS PRN PO COUGH; Start 01/03/17 at 09 :15 Active Scripts Active Colace (Docusate Sodium) 100 Mg Capsule 100 Mg PO BID PRN Percocet 5-325 Mg Tablet (Oxycodone/Acetaminophen) 1 Each Tablet 1 Tab PO QID PRN Reported Trazodone Hcl 150 Mg Tablet 1 Tab PO QHS Montelukast Sodium Tablet (Montelukast Sodium) 10 Mg Tablet 10 Mg PO HS Divalproex Sodium Er (Divalproex Sodium) 500 Mg Tab.er.24h 2 Tab PO QHS Olanzapine 20 Mg Tablet 1 Tab PO QHS Olanzapine 5 Mg Tablet 5 Mg PO DAILY Fluoxetine Hcl 10 Mg Capsule 1 Cap PO DAILY Tamsulosin Hcl 0.4 Mg Cap.er.24h 1 Cap PO HS Cetirizine Hcl 10 Mg Tablet 1 Tab PO DAILY Allergies Allergies: Coded Allergies: codeine (Verified Allergy, Intermediate, 01/02/17) PERCOCET is home med gabapentin (Verified Allergy, Intermediate, 01/02/17) meperidine (Verified Allergy, Intermediate, 06/21/15) ROS General: YES: Fatigue Respiratory: YES: SOB with excertion Cardiovascular: yes Chest Pain Physical Exam General: mild distress HEENT: Atraumatic Lungs: Other (mildly decreased breath sounds) Heart: Regular rate Abdomen: Normal bowel sounds Vitals VITALS Vital Signs Date Time Temp Pulse Resp B/P (MAP) Pulse Ox O2 Delivery O2 Flow Rate FiO2 01/03/17 12:30 Room Air 01/03/17 11:00 97.9 60 16 86/47 (60) 95 97.9 Labs Labs Laboratory Tests Test 01/02/17 11:03 01/02/17 11:05 01/02/17 12:25 01/02/17 19:45 Troponin I Quantitative < 0.017 ng/mL (0.000-0.055) < 0.017 ng/mL (0.000-0.055) White Blood Count 5.1 x10^3/uL (4.0-11.0) Red Blood Count 4.03 x10^6/uL (4.30-5.70) Hemoglobin 13.7 g/dL (13.0-17.5) Hematocrit 39.6 % (39.0-53.0) Mean Corpuscular Volume 98 fL (79-100) Mean Corpuscular Hemoglobin 34 pg (25-35) Mean Corpuscular Hemoglobin Concent 35 g/dL (31-37) Red Cell Distribution Width 13.6 % (11.5-14.5) Platelet Count 65 x10^3/uL (140-400) Neutrophils (%) (Auto) 76 % (31-73) Lymphocytes (%) (Auto) 14 % (24-48) Monocytes (%) (Auto) 7 % (0-9) Eosinophils (%) (Auto) 2 % (0-3) Basophils (%) (Auto) 1 % (0-3) Neutrophils # (Auto) 3.9 x10^3uL (1.8-7.7) Lymphocytes # (Auto) 0.7 x10^3/uL (1.0-4.8) Monocytes # (Auto) 0.3 x10^3/uL (0.0-1.1) Eosinophils # (Auto) 0.1 x10^3/uL (0.0-0.7) Basophils # (Auto) 0.0 x10^3/uL (0.0-0.2) Prothrombin Time 13.0 SEC (11.7-14.0) Prothromb Time International Ratio 1.0 (0.8-1.1) D-Dimer (Robyn) 0.31 ug/mlFEU (0.00-0.50) Sodium Level 141 mmol/L (136-145) 144 mmol/L (136-145) Potassium Level 3.3 mmol/L (3.5-5.1) 3.7 mmol/L (3.5-5.1) Chloride Level 102 mmol/L (98-107) 107 mmol/L (98-107) Carbon Dioxide Level 27 mmol/L (21-32) 27 mmol/L (21-32) Anion Gap 12 (6-14) 10 (6-14) Blood Urea Nitrogen 13 mg/dL (8-26) 10 mg/dL (8-26) Creatinine 1.1 mg/dL (0.7-1.3) 0.8 mg/dL (0.7-1.3) Estimated GFR (Cockcroft-Gault) 70.0 101.1 Glucose Level 139 mg/dL (70-99) 106 mg/dL (70-99) Calcium Level 9.0 mg/dL (8.5-10.1) 8.2 mg/dL (8.5-10.1) Magnesium Level 1.8 mg/dL (1.8-2.4) Total Bilirubin 0.3 mg/dL (0.2-1.0) 0.3 mg/dL (0.2-1.0) Direct Bilirubin 0.1 mg/dL (0.0-0.2) Aspartate Amino Transf (AST/SGOT) 18 U/L (15-37) 14 U/L (15-37) Alanine Aminotransferase (ALT/SGPT) 13 U/L (16-63) 14 U/L (16-63) Alkaline Phosphatase 51 U/L (46-116) 39 U/L (46-116) Creatine Kinase 38 U/L (39-308) Creatine Kinase MB (Mass) 0.5 ng/mL (0.0-3.6) Creatine Kinase MB Relative Index % (0-4) VA-Uka-M-Type Natriuretic Peptide 652 pg/mL (0-124) Total Protein 7.3 g/dL (6.4-8.2) 5.8 g/dL (6.4-8.2) Albumin 3.4 g/dL (3.4-5.0) 2.7 g/dL (3.4-5.0) Lipase 240 U/L (73-393) Urine Collection Type Unknown Urine Color Yellow Urine Clarity Clear Urine pH 6.0 Urine Specific [place] 1.010 Urine Protein Negative mg/dL (NEG-TRACE) Urine Glucose (UA) Negative mg/dL (NEG) Urine Ketones (Stick) Negative mg/dL (NEG) Urine Blood Negative (NEG) Urine Nitrite Negative (NEG) Urine Bilirubin Negative (NEG) Urine Urobilinogen Dipstick 0.2 mg/dL (0.2 mg/dL) Urine Leukocyte Esterase Negative (NEG) Urine RBC 1-2 /HPF (0-2) Urine WBC Occ /HPF (0-4) Urine Bacteria 0 /HPF (0-FEW) Urine Hyaline Casts Moderate /HPF Urine Mucus Mod /LPF Urine Opiates Screen Pos (NEG) Urine Methadone Screen Neg (NEG) Urine Barbiturates Neg (NEG) Urine Phencyclidine Screen Neg (NEG) Urine Amphetamine/Methamphetamine Neg (NEG) Urine Benzodiazepines Screen Neg (NEG) Urine Cocaine Screen Neg (NEG) Urine Cannabinoids Screen Neg (NEG) Urine Ethyl Alcohol Neg (NEG) BUN/Creatinine Ratio 13 (6-20) Albumin/Globulin Ratio 0.9 (1.0-1.7) Test 01/03/17 03:33 01/03/17 03:45 White Blood Count 2.9 x10^3/uL (4.0-11.0) Red Blood Count 3.47 x10^6/uL (4.30-5.70) Hemoglobin 11.7 g/dL (13.0-17.5) Hematocrit 33.9 % (39.0-53.0) Mean Corpuscular Volume 98 fL (79-100) Mean Corpuscular Hemoglobin 34 pg (25-35) Mean Corpuscular Hemoglobin Concent 35 g/dL (31-37) Red Cell Distribution Width 13.4 % (11.5-14.5) Platelet Count 56 x10^3/uL (140-400) Neutrophils (%) (Auto) 50 % (31-73) Lymphocytes (%) (Auto) 37 % (24-48) Monocytes (%) (Auto) 7 % (0-9) Eosinophils (%) (Auto) 5 % (0-3) Basophils (%) (Auto) 1 % (0-3) Neutrophils # (Auto) 1.4 x10^3uL (1.8-7.7) Lymphocytes # (Auto) 1.1 x10^3/uL (1.0-4.8) Monocytes # (Auto) 0.2 x10^3/uL (0.0-1.1) Eosinophils # (Auto) 0.1 x10^3/uL (0.0-0.7) Basophils # (Auto) 0.0 x10^3/uL (0.0-0.2) Sodium Level 144 mmol/L (136-145) Potassium Level 3.7 mmol/L (3.5-5.1) Chloride Level 108 mmol/L (98-107) Carbon Dioxide Level 28 mmol/L (21-32) Anion Gap 8 (6-14) Blood Urea Nitrogen 9 mg/dL (8-26) Creatinine 0.8 mg/dL (0.7-1.3) Estimated GFR (Cockcroft-Gault) 101.1 Glucose Level 87 mg/dL (70-99) Calcium Level 8.4 mg/dL (8.5-10.1) Troponin I Quantitative < 0.017 ng/mL (0.000-0.055) Laboratory Tests Test 01/02/17 19:45 01/03/17 03:33 01/03/17 03:45 Sodium Level 144 mmol/L (136-145) 144 mmol/L (136-145) Potassium Level 3.7 mmol/L (3.5-5.1) 3.7 mmol/L (3.5-5.1) Chloride Level 107 mmol/L (98-107) 108 mmol/L (98-107) Carbon Dioxide Level 27 mmol/L (21-32) 28 mmol/L (21-32) Anion Gap 10 (6-14) 8 (6-14) Blood Urea Nitrogen 10 mg/dL (8-26) 9 mg/dL (8-26) Creatinine 0.8 mg/dL (0.7-1.3) 0.8 mg/dL (0.7-1.3) Estimated GFR (Cockcroft-Gault) 101.1 101.1 BUN/Creatinine Ratio 13 (6-20) Glucose Level 106 mg/dL (70-99) 87 mg/dL (70-99) Calcium Level 8.2 mg/dL (8.5-10.1) 8.4 mg/dL (8.5-10.1) Total Bilirubin 0.3 mg/dL (0.2-1.0) Aspartate Amino Transf (AST/SGOT) 14 U/L (15-37) Alanine Aminotransferase (ALT/SGPT) 14 U/L (16-63) Alkaline Phosphatase 39 U/L (46-116) Troponin I Quantitative < 0.017 ng/mL (0.000-0.055) < 0.017 ng/mL (0.000-0.055) Total Protein 5.8 g/dL (6.4-8.2) Albumin 2.7 g/dL (3.4-5.0) Albumin/Globulin Ratio 0.9 (1.0-1.7) White Blood Count 2.9 x10^3/uL (4.0-11.0) Red Blood Count 3.47 x10^6/uL (4.30-5.70) Hemoglobin 11.7 g/dL (13.0-17.5) Hematocrit 33.9 % (39.0-53.0) Mean Corpuscular Volume 98 fL (79-100) Mean Corpuscular Hemoglobin 34 pg (25-35) Mean Corpuscular Hemoglobin Concent 35 g/dL (31-37) Red Cell Distribution Width 13.4 % (11.5-14.5) Platelet Count 56 x10^3/uL (140-400) Neutrophils (%) (Auto) 50 % (31-73) Lymphocytes (%) (Auto) 37 % (24-48) Monocytes (%) (Auto) 7 % (0-9) Eosinophils (%) (Auto) 5 % (0-3) Basophils (%) (Auto) 1 % (0-3) Neutrophils # (Auto) 1.4 x10^3uL (1.8-7.7) Lymphocytes # (Auto) 1.1 x10^3/uL (1.0-4.8) Monocytes # (Auto) 0.2 x10^3/uL (0.0-1.1) Eosinophils # (Auto) 0.1 x10^3/uL (0.0-0.7) Basophils # (Auto) 0.0 x10^3/uL (0.0-0.2) Images Images CTA of the chest shows no acute changes. Assessment/Plan Assessment/Plan 1. Chest pain. Patient is feeling better overnight. EKG shows no ischemic changes. Troponin has been negative 2. CT of the chest shows no acute changes. We'll continue medical treatment. We'll check an echocardiogram. We'll monitor clinical course to determine if the patient requires stress testing. 2. Shortness of breath. CTA scan as noted above shows no acute changes. Patient does have a history of tobacco use. We'll check echocardiogram as above. Pulmonary consult has been requested. 3. History of treated hepatitis C. The patient continues to be treated [facility] for uncertain reason. We'll attempt to obtain records. 4. Hypertension. Blood pressures under better control. Will continue to monitor. Thank you for allowing us to participate in the care of your patient. MONSE AGGARWAL MD Jan 03, 2017 13:36
--- NOTE | 2017-01-03 13:51 | PDOC ---
PROGRESS NOTES Chief Complaint Chief Complaint 1. CP at rest in an adult, intial encounter - likely costochondritis vs gerd 2/Pancytopenia 3. Prev heavy etohiosm 4. Tobaccosim History of Present Illness History of Present Illness Looks like he is in discomfort, laying still in bed VS and labs ok [facility] has ordered echo Still smokes, claims sober for 5 yrs Lives alone at home, no family emotional support seems like Hgb 11, platelets 56 no bleeding,. WBC 2 on neutropenic prec SOme productive sounding cough x 5-6 weeks now, no fevers PLAN: Check CXR PO abx, cough med Echo per cards MOnitor pancytopenia nicotine prn Vitals Vitals Vital Signs Date Time Temp Pulse Resp B/P (MAP) Pulse Ox O2 Delivery O2 Flow Rate FiO2 01/03/17 12:30 Room Air 01/03/17 11:00 97.9 60 16 86/47 (60) 95 97.9 Physical Exam General: Alert, Oriented X3, Cooperative, mild distress Heart: Regular rate Lungs: Clear, Other Abdomen: Normal bowel sounds Extremities: No clubbing, No cyanosis Skin: No rashes, No breakdown Labs LABS Laboratory Tests Test 01/02/17 19:45 01/03/17 03:33 01/03/17 03:45 Sodium Level 144 mmol/L (136-145) 144 mmol/L (136-145) Potassium Level 3.7 mmol/L (3.5-5.1) 3.7 mmol/L (3.5-5.1) Chloride Level 107 mmol/L (98-107) 108 mmol/L (98-107) Carbon Dioxide Level 27 mmol/L (21-32) 28 mmol/L (21-32) Anion Gap 10 (6-14) 8 (6-14) Blood Urea Nitrogen 10 mg/dL (8-26) 9 mg/dL (8-26) Creatinine 0.8 mg/dL (0.7-1.3) 0.8 mg/dL (0.7-1.3) Estimated GFR (Cockcroft-Gault) 101.1 101.1 BUN/Creatinine Ratio 13 (6-20) Glucose Level 106 mg/dL (70-99) 87 mg/dL (70-99) Calcium Level 8.2 mg/dL (8.5-10.1) 8.4 mg/dL (8.5-10.1) Total Bilirubin 0.3 mg/dL (0.2-1.0) Aspartate Amino Transf (AST/SGOT) 14 U/L (15-37) Alanine Aminotransferase (ALT/SGPT) 14 U/L (16-63) Alkaline Phosphatase 39 U/L (46-116) Troponin I Quantitative < 0.017 ng/mL (0.000-0.055) < 0.017 ng/mL (0.000-0.055) Total Protein 5.8 g/dL (6.4-8.2) Albumin 2.7 g/dL (3.4-5.0) Albumin/Globulin Ratio 0.9 (1.0-1.7) White Blood Count 2.9 x10^3/uL (4.0-11.0) Red Blood Count 3.47 x10^6/uL (4.30-5.70) Hemoglobin 11.7 g/dL (13.0-17.5) Hematocrit 33.9 % (39.0-53.0) Mean Corpuscular Volume 98 fL (79-100) Mean Corpuscular Hemoglobin 34 pg (25-35) Mean Corpuscular Hemoglobin Concent 35 g/dL (31-37) Red Cell Distribution Width 13.4 % (11.5-14.5) Platelet Count 56 x10^3/uL (140-400) Neutrophils (%) (Auto) 50 % (31-73) Lymphocytes (%) (Auto) 37 % (24-48) Monocytes (%) (Auto) 7 % (0-9) Eosinophils (%) (Auto) 5 % (0-3) Basophils (%) (Auto) 1 % (0-3) Neutrophils # (Auto) 1.4 x10^3uL (1.8-7.7) Lymphocytes # (Auto) 1.1 x10^3/uL (1.0-4.8) Monocytes # (Auto) 0.2 x10^3/uL (0.0-1.1) Eosinophils # (Auto) 0.1 x10^3/uL (0.0-0.7) Basophils # (Auto) 0.0 x10^3/uL (0.0-0.2) Review of Systems Review of Systems cough, no fevers, some soa, no abd pain, emesis, diarrhea Comment Review of Relevant I have reviewed the following items venita (where applicable) has been applied. Labs Laboratory Tests Test 01/02/17 11:03 01/02/17 11:05 01/02/17 12:25 01/02/17 19:45 Troponin I Quantitative < 0.017 ng/mL (0.000-0.055) < 0.017 ng/mL (0.000-0.055) White Blood Count 5.1 x10^3/uL (4.0-11.0) Red Blood Count 4.03 x10^6/uL (4.30-5.70) Hemoglobin 13.7 g/dL (13.0-17.5) Hematocrit 39.6 % (39.0-53.0) Mean Corpuscular Volume 98 fL (79-100) Mean Corpuscular Hemoglobin 34 pg (25-35) Mean Corpuscular Hemoglobin Concent 35 g/dL (31-37) Red Cell Distribution Width 13.6 % (11.5-14.5) Platelet Count 65 x10^3/uL (140-400) Neutrophils (%) (Auto) 76 % (31-73) Lymphocytes (%) (Auto) 14 % (24-48) Monocytes (%) (Auto) 7 % (0-9) Eosinophils (%) (Auto) 2 % (0-3) Basophils (%) (Auto) 1 % (0-3) Neutrophils # (Auto) 3.9 x10^3uL (1.8-7.7) Lymphocytes # (Auto) 0.7 x10^3/uL (1.0-4.8) Monocytes # (Auto) 0.3 x10^3/uL (0.0-1.1) Eosinophils # (Auto) 0.1 x10^3/uL (0.0-0.7) Basophils # (Auto) 0.0 x10^3/uL (0.0-0.2) Prothrombin Time 13.0 SEC (11.7-14.0) Prothromb Time International Ratio 1.0 (0.8-1.1) D-Dimer (Robyn) 0.31 ug/mlFEU (0.00-0.50) Sodium Level 141 mmol/L (136-145) 144 mmol/L (136-145) Potassium Level 3.3 mmol/L (3.5-5.1) 3.7 mmol/L (3.5-5.1) Chloride Level 102 mmol/L (98-107) 107 mmol/L (98-107) Carbon Dioxide Level 27 mmol/L (21-32) 27 mmol/L (21-32) Anion Gap 12 (6-14) 10 (6-14) Blood Urea Nitrogen 13 mg/dL (8-26) 10 mg/dL (8-26) Creatinine 1.1 mg/dL (0.7-1.3) 0.8 mg/dL (0.7-1.3) Estimated GFR (Cockcroft-Gault) 70.0 101.1 Glucose Level 139 mg/dL (70-99) 106 mg/dL (70-99) Calcium Level 9.0 mg/dL (8.5-10.1) 8.2 mg/dL (8.5-10.1) Magnesium Level 1.8 mg/dL (1.8-2.4) Total Bilirubin 0.3 mg/dL (0.2-1.0) 0.3 mg/dL (0.2-1.0) Direct Bilirubin 0.1 mg/dL (0.0-0.2) Aspartate Amino Transf (AST/SGOT) 18 U/L (15-37) 14 U/L (15-37) Alanine Aminotransferase (ALT/SGPT) 13 U/L (16-63) 14 U/L (16-63) Alkaline Phosphatase 51 U/L (46-116) 39 U/L (46-116) Creatine Kinase 38 U/L (39-308) Creatine Kinase MB (Mass) 0.5 ng/mL (0.0-3.6) Creatine Kinase MB Relative Index % (0-4) XX-[id number]-G-Type Natriuretic Peptide 652 pg/mL (0-124) Total Protein 7.3 g/dL (6.4-8.2) 5.8 g/dL (6.4-8.2) Albumin 3.4 g/dL (3.4-5.0) 2.7 g/dL (3.4-5.0) Lipase 240 U/L (73-393) Urine Collection Type Unknown Urine Color Yellow Urine Clarity Clear Urine pH 6.0 Urine Specific [place] 1.010 Urine Protein Negative mg/dL (NEG-TRACE) Urine Glucose (UA) Negative mg/dL (NEG) Urine Ketones (Stick) Negative mg/dL (NEG) Urine Blood Negative (NEG) Urine Nitrite Negative (NEG) Urine Bilirubin Negative (NEG) Urine Urobilinogen Dipstick 0.2 mg/dL (0.2 mg/dL) Urine Leukocyte Esterase Negative (NEG) Urine RBC 1-2 /HPF (0-2) Urine WBC Occ /HPF (0-4) Urine Bacteria 0 /HPF (0-FEW) Urine Hyaline Casts Moderate /HPF Urine Mucus Mod /LPF Urine Opiates Screen Pos (NEG) Urine Methadone Screen Neg (NEG) Urine Barbiturates Neg (NEG) Urine Phencyclidine Screen Neg (NEG) Urine Amphetamine/Methamphetamine Neg (NEG) Urine Benzodiazepines Screen Neg (NEG) Urine Cocaine Screen Neg (NEG) Urine Cannabinoids Screen Neg (NEG) Urine Ethyl Alcohol Neg (NEG) BUN/Creatinine Ratio 13 (6-20) Albumin/Globulin Ratio 0.9 (1.0-1.7) Test 01/03/17 03:33 01/03/17 03:45 White Blood Count 2.9 x10^3/uL (4.0-11.0) Red Blood Count 3.47 x10^6/uL (4.30-5.70) Hemoglobin 11.7 g/dL (13.0-17.5) Hematocrit 33.9 % (39.0-53.0) Mean Corpuscular Volume 98 fL (79-100) Mean Corpuscular Hemoglobin 34 pg (25-35) Mean Corpuscular Hemoglobin Concent 35 g/dL (31-37) Red Cell Distribution Width 13.4 % (11.5-14.5) Platelet Count 56 x10^3/uL (140-400) Neutrophils (%) (Auto) 50 % (31-73) Lymphocytes (%) (Auto) 37 % (24-48) Monocytes (%) (Auto) 7 % (0-9) Eosinophils (%) (Auto) 5 % (0-3) Basophils (%) (Auto) 1 % (0-3) Neutrophils # (Auto) 1.4 x10^3uL (1.8-7.7) Lymphocytes # (Auto) 1.1 x10^3/uL (1.0-4.8) Monocytes # (Auto) 0.2 x10^3/uL (0.0-1.1) Eosinophils # (Auto) 0.1 x10^3/uL (0.0-0.7) Basophils # (Auto) 0.0 x10^3/uL (0.0-0.2) Sodium Level 144 mmol/L (136-145) Potassium Level 3.7 mmol/L (3.5-5.1) Chloride Level 108 mmol/L (98-107) Carbon Dioxide Level 28 mmol/L (21-32) Anion Gap 8 (6-14) Blood Urea Nitrogen 9 mg/dL (8-26) Creatinine 0.8 mg/dL (0.7-1.3) Estimated GFR (Cockcroft-Gault) 101.1 Glucose Level 87 mg/dL (70-99) Calcium Level 8.4 mg/dL (8.5-10.1) Troponin I Quantitative < 0.017 ng/mL (0.000-0.055) Laboratory Tests Test 01/02/17 19:45 01/03/17 03:33 01/03/17 03:45 Sodium Level 144 mmol/L (136-145) 144 mmol/L (136-145) Potassium Level 3.7 mmol/L (3.5-5.1) 3.7 mmol/L (3.5-5.1) Chloride Level 107 mmol/L (98-107) 108 mmol/L (98-107) Carbon Dioxide Level 27 mmol/L (21-32) 28 mmol/L (21-32) Anion Gap 10 (6-14) 8 (6-14) Blood Urea Nitrogen 10 mg/dL (8-26) 9 mg/dL (8-26) Creatinine 0.8 mg/dL (0.7-1.3) 0.8 mg/dL (0.7-1.3) Estimated GFR (Cockcroft-Gault) 101.1 101.1 BUN/Creatinine Ratio 13 (6-20) Glucose Level 106 mg/dL (70-99) 87 mg/dL (70-99) Calcium Level 8.2 mg/dL (8.5-10.1) 8.4 mg/dL (8.5-10.1) Total Bilirubin 0.3 mg/dL (0.2-1.0) Aspartate Amino Transf (AST/SGOT) 14 U/L (15-37) Alanine Aminotransferase (ALT/SGPT) 14 U/L (16-63) Alkaline Phosphatase 39 U/L (46-116) Troponin I Quantitative < 0.017 ng/mL (0.000-0.055) < 0.017 ng/mL (0.000-0.055) Total Protein 5.8 g/dL (6.4-8.2) Albumin 2.7 g/dL (3.4-5.0) Albumin/Globulin Ratio 0.9 (1.0-1.7) White Blood Count 2.9 x10^3/uL (4.0-11.0) Red Blood Count 3.47 x10^6/uL (4.30-5.70) Hemoglobin 11.7 g/dL (13.0-17.5) Hematocrit 33.9 % (39.0-53.0) Mean Corpuscular Volume 98 fL (79-100) Mean Corpuscular Hemoglobin 34 pg (25-35) Mean Corpuscular Hemoglobin Concent 35 g/dL (31-37) Red Cell Distribution Width 13.4 % (11.5-14.5) Platelet Count 56 x10^3/uL (140-400) Neutrophils (%) (Auto) 50 % (31-73) Lymphocytes (%) (Auto) 37 % (24-48) Monocytes (%) (Auto) 7 % (0-9) Eosinophils (%) (Auto) 5 % (0-3) Basophils (%) (Auto) 1 % (0-3) Neutrophils # (Auto) 1.4 x10^3uL (1.8-7.7) Lymphocytes # (Auto) 1.1 x10^3/uL (1.0-4.8) Monocytes # (Auto) 0.2 x10^3/uL (0.0-1.1) Eosinophils # (Auto) 0.1 x10^3/uL (0.0-0.7) Basophils # (Auto) 0.0 x10^3/uL (0.0-0.2) Medications Current Medications Aspirin ([place] Aspirin) 325 mg 1X ONCE PO Last administered on 01/02/17t 11: 28; Start 01/02/17 at 11:15; Stop 01/02/17 at 11:16; Status DC Nitroglycerin (Nitrostat) 0.4 mg PRN Q5MIN PRN SL CP RATING > 1/10 Last administered on 01/02/17 11:27; Start 01/02/17 at 11:00; Stop 01/03/17 at 10 :59; Status DC Morphine Sulfate 2 mg PRN Q15MIN PRN IV/SQ PAIN GREATER THAN 3/10 Last administered on 01/02/17 13:31; Start 01/02/17 at 11:00; Stop 01/03/17 at 10 :59; Status DC Sodium Chloride 1,000 ml @ 1,000 mls/hr Q1H IV Last administered on 11:26; Start 01/02/17 at 11:00; Stop 01/02/17 at 11:59; Status DC Iohexol (Omnipaque 350 Mg/ml) 90 ml 1X ONCE IV Last administered on 13:14; Start 01/02/17 at 13:30; Stop 01/02/17 at 13:31; Status DC Info (Do NOT chart on this entry -- for MONITORING) 1 each PRN DAILY PRN MC SEE COMMENTS; Start 01/02/17 at 13:15; Stop 01/04/17 at 13:14 Ondansetron HCl (Zofran) 4 mg PRN Q8HRS PRN IV NAUSEA/VOMITING; Start at 13:15; Stop 01/03/17 at 09:07; Status DC Morphine Sulfate 2 mg PRN Q2HR PRN IV PAIN Last administered on 01/02/17 21: 48; Start 01/02/17 at 13:15; Stop 01/03/17 at 13:14; Status DC Albuterol/ Ipratropium (Duoneb) 3 ml RTQID NEB Last administered on 01/03/17 12:29; Start 01/02/17 at 20:00 Cetirizine HCl (ZyrTEC) 10 mg DAILY PO Last administered on 01/03/17 09:06; Start 01/03/17 at 09:00 Divalproex Sodium (Depakote Er) 1,000 mg QHS PO Last administered on 20:56; Start 01/02/17 at 21:00 Docusate Sodium (Colace) 100 mg PRN BID PRN PO hard stool or no stool; Start 01/02/17 at 19:30 Fluoxetine HCl (PROzac) 10 mg DAILY PO Last administered on 01/03/17 09:06; Start 01/03/17 at 09:00 Montelukast Sodium (Singulair) 10 mg HS PO Last administered on 01/02/17 20: 55; Start 01/02/17 at 21:00 Olanzapine (ZyPREXA) 5 mg DAILY PO Last administered on 01/03/17 09:06; Start 01/03/17 at 09:00 Oxycodone/ Acetaminophen (Percocet 5/325) 1 tab PRN QID PRN PO PAIN; Start at 19:30 Tamsulosin HCl (Flomax) 0.4 mg HS PO Last administered on 01/02/17 20:56; Start 01/02/17 at 21:00 Olanzapine (ZyPREXA) 20 mg QHS PO Last administered on 01/02/17 20:56; Start 01/02/17 at 21:00 Trazodone HCl (Desyrel) 150 mg QHS PO Last administered on 01/02/17 20:56; Start 01/02/17 at 21:00 Ondansetron HCl (Zofran) 4 mg PRN Q6HRS PRN IV NAUSEA/VOMITING; Start at 09:15; Stop 01/04/17 at 09:14 Guaifenesin (Robitussin Dm) 10 ml PRN Q6HRS PRN PO COUGH; Start 01/03/17 at 09 :15 Active Scripts Active Colace (Docusate Sodium) 100 Mg Capsule 100 Mg PO BID PRN Percocet 5-325 Mg Tablet (Oxycodone/Acetaminophen) 1 Each Tablet 1 Tab PO QID PRN Reported Trazodone Hcl 150 Mg Tablet 1 Tab PO QHS Montelukast Sodium Tablet (Montelukast Sodium) 10 Mg Tablet 10 Mg PO HS Divalproex Sodium Er (Divalproex Sodium) 500 Mg Tab.er.24h 2 Tab PO QHS Olanzapine 20 Mg Tablet 1 Tab PO QHS Olanzapine 5 Mg Tablet 5 Mg PO DAILY Fluoxetine Hcl 10 Mg Capsule 1 Cap PO DAILY Tamsulosin Hcl 0.4 Mg Cap.er.24h 1 Cap PO HS Cetirizine Hcl 10 Mg Tablet 1 Tab PO DAILY Vitals/I & O Vital Sign - Last 24 Hours 01/02/17 01/02/17 01/02/17 01/02/17 13:50 14:01 14:05 15:00 Temp 98.2 98.2 Pulse 52 52 58 Resp 17 9 18 B/P (MAP) 130/72 (91) 131/71 (91) 141/73 (95) Pulse Ox 98 98 98 96 O2 Delivery Room Air Room Air Room Air 01/02/17 01/02/17 01/02/17 01/02/17 16:04 16:19 16:34 19:00 Temp 97.5 98.2 97.5 98.2 Pulse 56 62 Resp 18 20 18 21 B/P (MAP) 141/73 (95) 112/64 (80) Pulse Ox 100 94 O2 Delivery Room Air Room Air Room Air 01/02/17 01/02/17 01/02/17 01/02/17 19:13 19:47 20:13 20:18 Temp 97.5 97.5 Pulse 53 Resp 18 20 B/P (MAP) 141/73 (95) Pulse Ox 100 O2 Delivery Room Air Room Air Room Air Room Air 01/02/17 01/02/17 01/02/17 01/02/17 21:48 22:18 22:19 23:00 Temp 98.2 98.2 Pulse 72 Resp 18 B/P (MAP) 108/52 (70) Pulse Ox 100 98 98 95 O2 Delivery Room Air Room Air Room Air Room Air 01/03/17 01/03/17 01/03/17 01/03/17 03:00 07:00 07:00 08:04 Temp 98.1 97.7 97.7 98.1 97.7 97.7 Pulse 67 60 60 Resp 17 16 16 B/P (MAP) 114/58 (76) 99/57 (71) 99/57 (71) Pulse Ox 97 96 96 96 O2 Delivery Room Air Room Air Room Air Room Air 01/03/17 01/03/17 11:00 12:30 Temp 97.9 97.9 Pulse 60 Resp 16 B/P (MAP) 86/47 (60) Pulse Ox 95 O2 Delivery Room Air Room Air Intake and Output 01/03/17 01/03/17 01/04/17 15:00 23:00 07:00 Output Total 1100 ml Balance -1100 ml BELLE SOLITARIO MD Jan 03, 2017 13:51
[2017-01-03] MEDS: oxyCODONE/APAP 5/325 1 TAB TABLET PO PRN (15:11)
[2017-01-03] MEDS: CEPHALEXIN 250 MG CAPSULE. PO SCH ×2 (15:11→19:47)
[2017-01-03] MEDS: NICOTINE 21MG PATCH. TD PRN (15:11)
[2017-01-03 15:33] VITALS: BP 87/47
[2017-01-03 19:00] VITALS: BP 93/40
--- NOTE | 2017-01-03 19:08 | PDOC ---
PULMONARY PROGRESS NOTES Vitals Vital Signs Date Time Temp Pulse Resp B/P (MAP) Pulse Ox O2 Delivery O2 Flow Rate FiO2 01/03/17 16:39 Room Air 01/03/17 15:33 98.4 65 16 87/47 (60) 93 98.4 Lungs: Clear, Other Labs Laboratory Tests Test 01/02/17 11:03 01/02/17 11:05 01/02/17 12:25 01/02/17 19:45 Troponin I Quantitative < 0.017 ng/mL (0.000-0.055) < 0.017 ng/mL (0.000-0.055) White Blood Count 5.1 x10^3/uL (4.0-11.0) Red Blood Count 4.03 x10^6/uL (4.30-5.70) Hemoglobin 13.7 g/dL (13.0-17.5) Hematocrit 39.6 % (39.0-53.0) Mean Corpuscular Volume 98 fL (79-100) Mean Corpuscular Hemoglobin 34 pg (25-35) Mean Corpuscular Hemoglobin Concent 35 g/dL (31-37) Red Cell Distribution Width 13.6 % (11.5-14.5) Platelet Count 65 x10^3/uL (140-400) Neutrophils (%) (Auto) 76 % (31-73) Lymphocytes (%) (Auto) 14 % (24-48) Monocytes (%) (Auto) 7 % (0-9) Eosinophils (%) (Auto) 2 % (0-3) Basophils (%) (Auto) 1 % (0-3) Neutrophils # (Auto) 3.9 x10^3uL (1.8-7.7) Lymphocytes # (Auto) 0.7 x10^3/uL (1.0-4.8) Monocytes # (Auto) 0.3 x10^3/uL (0.0-1.1) Eosinophils # (Auto) 0.1 x10^3/uL (0.0-0.7) Basophils # (Auto) 0.0 x10^3/uL (0.0-0.2) Prothrombin Time 13.0 SEC (11.7-14.0) Prothromb Time International Ratio 1.0 (0.8-1.1) D-Dimer (Robyn) 0.31 ug/mlFEU (0.00-0.50) Sodium Level 141 mmol/L (136-145) 144 mmol/L (136-145) Potassium Level 3.3 mmol/L (3.5-5.1) 3.7 mmol/L (3.5-5.1) Chloride Level 102 mmol/L (98-107) 107 mmol/L (98-107) Carbon Dioxide Level 27 mmol/L (21-32) 27 mmol/L (21-32) Anion Gap 12 (6-14) 10 (6-14) Blood Urea Nitrogen 13 mg/dL (8-26) 10 mg/dL (8-26) Creatinine 1.1 mg/dL (0.7-1.3) 0.8 mg/dL (0.7-1.3) Estimated GFR (Cockcroft-Gault) 70.0 101.1 Glucose Level 139 mg/dL (70-99) 106 mg/dL (70-99) Calcium Level 9.0 mg/dL (8.5-10.1) 8.2 mg/dL (8.5-10.1) Magnesium Level 1.8 mg/dL (1.8-2.4) Total Bilirubin 0.3 mg/dL (0.2-1.0) 0.3 mg/dL (0.2-1.0) Direct Bilirubin 0.1 mg/dL (0.0-0.2) Aspartate Amino Transf (AST/SGOT) 18 U/L (15-37) 14 U/L (15-37) Alanine Aminotransferase (ALT/SGPT) 13 U/L (16-63) 14 U/L (16-63) Alkaline Phosphatase 51 U/L (46-116) 39 U/L (46-116) Creatine Kinase 38 U/L (39-308) Creatine Kinase MB (Mass) 0.5 ng/mL (0.0-3.6) Creatine Kinase MB Relative Index % (0-4) [id number]-Uhu-[id number]-Type Natriuretic Peptide 652 pg/mL (0-124) Total Protein 7.3 g/dL (6.4-8.2) 5.8 g/dL (6.4-8.2) Albumin 3.4 g/dL (3.4-5.0) 2.7 g/dL (3.4-5.0) Lipase 240 U/L (73-393) Urine Collection Type Unknown Urine Color Yellow Urine Clarity Clear Urine pH 6.0 Urine Specific [place] 1.010 Urine Protein Negative mg/dL (NEG-TRACE) Urine Glucose (UA) Negative mg/dL (NEG) Urine Ketones (Stick) Negative mg/dL (NEG) Urine Blood Negative (NEG) Urine Nitrite Negative (NEG) Urine Bilirubin Negative (NEG) Urine Urobilinogen Dipstick 0.2 mg/dL (0.2 mg/dL) Urine Leukocyte Esterase Negative (NEG) Urine RBC 1-2 /HPF (0-2) Urine WBC Occ /HPF (0-4) Urine Bacteria 0 /HPF (0-FEW) Urine Hyaline Casts Moderate /HPF Urine Mucus Mod /LPF Urine Opiates Screen Pos (NEG) Urine Methadone Screen Neg (NEG) Urine Barbiturates Neg (NEG) Urine Phencyclidine Screen Neg (NEG) Urine Amphetamine/Methamphetamine Neg (NEG) Urine Benzodiazepines Screen Neg (NEG) Urine Cocaine Screen Neg (NEG) Urine Cannabinoids Screen Neg (NEG) Urine Ethyl Alcohol Neg (NEG) BUN/Creatinine Ratio 13 (6-20) Albumin/Globulin Ratio 0.9 (1.0-1.7) Test 01/03/17 03:33 01/03/17 03:45 White Blood Count 2.9 x10^3/uL (4.0-11.0) Red Blood Count 3.47 x10^6/uL (4.30-5.70) Hemoglobin 11.7 g/dL (13.0-17.5) Hematocrit 33.9 % (39.0-53.0) Mean Corpuscular Volume 98 fL (79-100) Mean Corpuscular Hemoglobin 34 pg (25-35) Mean Corpuscular Hemoglobin Concent 35 g/dL (31-37) Red Cell Distribution Width 13.4 % (11.5-14.5) Platelet Count 56 x10^3/uL (140-400) Neutrophils (%) (Auto) 50 % (31-73) Lymphocytes (%) (Auto) 37 % (24-48) Monocytes (%) (Auto) 7 % (0-9) Eosinophils (%) (Auto) 5 % (0-3) Basophils (%) (Auto) 1 % (0-3) Neutrophils # (Auto) 1.4 x10^3uL (1.8-7.7) Lymphocytes # (Auto) 1.1 x10^3/uL (1.0-4.8) Monocytes # (Auto) 0.2 x10^3/uL (0.0-1.1) Eosinophils # (Auto) 0.1 x10^3/uL (0.0-0.7) Basophils # (Auto) 0.0 x10^3/uL (0.0-0.2) Sodium Level 144 mmol/L (136-145) Potassium Level 3.7 mmol/L (3.5-5.1) Chloride Level 108 mmol/L (98-107) Carbon Dioxide Level 28 mmol/L (21-32) Anion Gap 8 (6-14) Blood Urea Nitrogen 9 mg/dL (8-26) Creatinine 0.8 mg/dL (0.7-1.3) Estimated GFR (Cockcroft-Gault) 101.1 Glucose Level 87 mg/dL (70-99) Calcium Level 8.4 mg/dL (8.5-10.1) Troponin I Quantitative < 0.017 ng/mL (0.000-0.055) Laboratory Tests Test 01/02/17 19:45 01/03/17 03:33 01/03/17 03:45 Sodium Level 144 mmol/L (136-145) 144 mmol/L (136-145) Potassium Level 3.7 mmol/L (3.5-5.1) 3.7 mmol/L (3.5-5.1) Chloride Level 107 mmol/L (98-107) 108 mmol/L (98-107) Carbon Dioxide Level 27 mmol/L (21-32) 28 mmol/L (21-32) Anion Gap 10 (6-14) 8 (6-14) Blood Urea Nitrogen 10 mg/dL (8-26) 9 mg/dL (8-26) Creatinine 0.8 mg/dL (0.7-1.3) 0.8 mg/dL (0.7-1.3) Estimated GFR (Cockcroft-Gault) 101.1 101.1 BUN/Creatinine Ratio 13 (6-20) Glucose Level 106 mg/dL (70-99) 87 mg/dL (70-99) Calcium Level 8.2 mg/dL (8.5-10.1) 8.4 mg/dL (8.5-10.1) Total Bilirubin 0.3 mg/dL (0.2-1.0) Aspartate Amino Transf (AST/SGOT) 14 U/L (15-37) Alanine Aminotransferase (ALT/SGPT) 14 U/L (16-63) Alkaline Phosphatase 39 U/L (46-116) Troponin I Quantitative < 0.017 ng/mL (0.000-0.055) < 0.017 ng/mL (0.000-0.055) Total Protein 5.8 g/dL (6.4-8.2) Albumin 2.7 g/dL (3.4-5.0) Albumin/Globulin Ratio 0.9 (1.0-1.7) White Blood Count 2.9 x10^3/uL (4.0-11.0) Red Blood Count 3.47 x10^6/uL (4.30-5.70) Hemoglobin 11.7 g/dL (13.0-17.5) Hematocrit 33.9 % (39.0-53.0) Mean Corpuscular Volume 98 fL (79-100) Mean Corpuscular Hemoglobin 34 pg (25-35) Mean Corpuscular Hemoglobin Concent 35 g/dL (31-37) Red Cell Distribution Width 13.4 % (11.5-14.5) Platelet Count 56 x10^3/uL (140-400) Neutrophils (%) (Auto) 50 % (31-73) Lymphocytes (%) (Auto) 37 % (24-48) Monocytes (%) (Auto) 7 % (0-9) Eosinophils (%) (Auto) 5 % (0-3) Basophils (%) (Auto) 1 % (0-3) Neutrophils # (Auto) 1.4 x10^3uL (1.8-7.7) Lymphocytes # (Auto) 1.1 x10^3/uL (1.0-4.8) Monocytes # (Auto) 0.2 x10^3/uL (0.0-1.1) Eosinophils # (Auto) 0.1 x10^3/uL (0.0-0.7) Basophils # (Auto) 0.0 x10^3/uL (0.0-0.2) Medications Active Scripts Medications Dose Route/Sig Max Daily Dose Days Date Category Colace (Docusate Sodium) 100 Mg Capsule 100 Mg PO BID PRN 05/29/16 Rx Percocet 5-325 Mg Tablet (Oxycodone/Acetaminophen) 1 Each Tablet 1 Tab PO QID PRN 05/29/16 Rx Trazodone Hcl 150 Mg Tablet 1 Tab PO QHS 05/24/16 Reported Montelukast Sodium Tablet (Montelukast Sodium) 10 Mg Tablet 10 Mg PO HS 05/24/16 Reported Divalproex Sodium Er (Divalproex Sodium) 500 Mg Tab.er.24h 2 Tab PO QHS 05/24/16 Reported Olanzapine 20 Mg Tablet 1 Tab PO QHS 05/24/16 Reported Olanzapine 5 Mg Tablet 5 Mg PO DAILY 05/24/16 Reported Fluoxetine Hcl 10 Mg Capsule 1 Cap PO DAILY 05/24/16 Reported Tamsulosin Hcl 0.4 Mg Cap.er.24h 1 Cap PO HS 06/21/15 Reported Cetirizine Hcl 10 Mg Tablet 1 Tab PO DAILY 06/21/15 Reported Impression . FULL NOTE DICTATED AECOPD GERD SEE ORDERS THANKS ANA HOLLAND MD Jan 03, 2017 19:07
[2017-01-03] MEDS: TAMSULOSIN 0.4 MG CAP.ER.24H. PO SCH (19:47)
[2017-01-03] MEDS: predniSONE 10 MG TABLET PO SCH (19:47)
[2017-01-03] MEDS: DIVALPROEX EXTENDED RELEASE 500 MG TAB.ER.24H. PO SCH (19:48)
[2017-01-03] MEDS: MONTELUKAST SODIUM 10 MG TABLET. PO SCH (19:48)
[2017-01-03] MEDS: traZODone 100 MG TABLET. PO SCH (19:48)
[2017-01-03] MEDS: FAMOTIDINE 20 MG TABLET. PO SCH (19:52)
[2017-01-03 23:00] VITALS: BP 131/72
--- NOTE | 2017-01-04 00:56 | CONS ---
DATE OF CONSULTATION: 01/03/2017 ATTENDING PHYSICIAN: Dr. Chacon. REASON FOR CONSULTATION: The patient seen in pulmonary consultation at the request of Dr. Chacon for increasing shortness of air. HISTORY OF PRESENT ILLNESS: The patient is a 51-year-old that presented with increasing shortness of air, cough, mostly nonproductive, some audible wheezing. He also had some chest pain in the epigastric area. He does drink caffeinated beverages. Denies any previous gastritis. Denies any alcohol. He continues to smoke. I was asked to see him in consultation. He had a CT of the chest, which I personally reviewed. CT chest reveals no evidence of pulmonary emboli. There was basilar atelectasis. PAST MEDICAL HISTORY: COPD, polysubstance use, previous alcoholism, chronic pain, hypertension, seizure, depression, and BPH. ALLERGIES: CODEINE, GABAPENTIN, AND MEPERIDINE. SOCIAL HISTORY: He currently smoked; in the past, he has done illicit drugs. REVIEW OF SYSTEMS: As indicated above, otherwise, a 10-point system was reviewed and negative. MEDICATIONS: Current medication list was reviewed. Home medication list was likewise reviewed. FAMILY HISTORY: Remarkable for hypertension. PHYSICAL EXAMINATION: VITAL SIGNS: The patient was in no respiratory distress, on room air saturation 93%. HEENT: Eyes, the sclerae were nonicteric. NECK: Jugular venous distention was not elevated. No lymphadenopathy. CHEST: Full expansion. LUNGS: Coarse breath sounds, expiratory wheeze. CARDIOVASCULAR: Regular rate and rhythm, with S1, S2, no S3. ABDOMEN: Soft, nontender, nondistended. EXTREMITIES: No clubbing, cyanosis or edema. LABORATORY DATA: White count was low, hemoglobin and hematocrit were noted. INR was 1.0. D-dimer was not elevated. Electrolytes were noted. BUN and creatinine was noted. IMPRESSION: 1. Progressive dyspnea secondary to acute exacerbation of chronic obstructive pulmonary disease. 2. Acute exacerbation of chronic obstructive pulmonary disease. 3. Polysubstance use. 4. Negative CT for PE protocol. 5. Tobacco dependence. 6. Chest pain. Suspect reflux versus costochondritis. 7. History of hepatitis C, treated. PLAN: 1. Recommend steroids and p.o. Keflex. 2. Nebulized treatments. 3. Consult Cardiology, already performed. 4. The patient instructed on the importance of discontinuing tobacco use. 5. Avoid caffeinated beverages. 6. Pepcid daily. I do appreciate the privilege in sharing in the patient's care. ANA HOLLAND MD DR: ZACKERY/stephanie JOB#: [id number] / [id number]
[2017-01-04 03:00] VITALS: BP 113/61
[2017-01-04 05:06] LABS: BASO % 0 % (0-3); EOS % 0 % (0-3); HEMOGLOBIN 13.1 g/dL (13.0-17.5); LYMPH # 0.4 x10^3/uL (1.0-4.8); LYMPH % 8 % (24-48); MEAN CORPUSCULAR HEMOGLOBIN 34 pg (25-35); MEAN CORPUSCULAR HGB CONC 34 g/dL (31-37); MEAN CORPUSCULAR VOLUME 98 fL (79-100); MONO % 3 % (0-9); NEUT % 88 % (31-73); PLATELET COUNT 71 x10^3/uL (140-400); RED BLOOD COUNT 3.88 x10^6/uL (4.30-5.70); WHITE BLOOD COUNT 5.1 x10^3/uL (4.0-11.0)
[2017-01-04 06:50] LABS: CALCIUM 8.5 mg/dL (8.5-10.1); GFR 78.2; POTASSIUM 4.5 mmol/L (3.5-5.1)
[2017-01-04 07:00] VITALS: BP 96/57
[2017-01-04] MEDS: IPRATRPIUM/ALBUTEROL 0.5/2.5MG 3 ML NEBU. NEB SCH ×3 (07:10→20:00)
[2017-01-04] MEDS: CEPHALEXIN 250 MG CAPSULE. PO SCH ×3 (07:46→20:59)
[2017-01-04] MEDS: predniSONE 10 MG TABLET PO SCH (07:46)
[2017-01-04] MEDS: FAMOTIDINE 20 MG TABLET. PO SCH ×2 (07:47→20:59)
[2017-01-04] MEDS: CETIRIZINE HCL 10 MG TABLET. PO SCH (07:47)
[2017-01-04] MEDS: FLUoxetine HCL 10 MG CAPSULE PO SCH (07:47)
[2017-01-04] MEDS: OLANZapine 5 MG TABLET PO SCH ×2 (07:47→21:00)
[2017-01-04] MEDS: oxyCODONE/APAP 5/325 1 TAB TABLET PO PRN ×2 (07:47→16:04)
[2017-01-04] MEDS ORDERED: ONDANSETRON PF 4 MG/2 ML VIAL. IV PRN (10:00)
[2017-01-04 11:00] VITALS: BP 83/43
--- NOTE | 2017-01-04 12:13 | PDOC ---
PULMONARY PROGRESS NOTES Subjective PT SLIGHTLY BETTER LESS SOA NO CHEST PAIN AT THIS TIME Vitals Vital Signs Date Time Temp Pulse Resp B/P (MAP) Pulse Ox O2 Delivery O2 Flow Rate FiO2 01/04/17 11:00 97.7 76 20 83/43 (56) 86 Room Air 97.7 ROS: No Nausea, No Chest Pain, No Abdominal Pain, No Increase Cough Lungs: Clear Cardiovascular: S1, S2 Abdomen: Soft Neuro Exam: Alert Extremities: No Edema Skin: Warm Labs Laboratory Tests Test 01/02/17 12:25 01/02/17 19:45 01/03/17 03:33 01/03/17 03:45 Urine Collection Type Unknown Urine Color Yellow Urine Clarity Clear Urine pH 6.0 Urine Specific [place] 1.010 Urine Protein Negative mg/dL (NEG-TRACE) Urine Glucose (UA) Negative mg/dL (NEG) Urine Ketones (Stick) Negative mg/dL (NEG) Urine Blood Negative (NEG) Urine Nitrite Negative (NEG) Urine Bilirubin Negative (NEG) Urine Urobilinogen Dipstick 0.2 mg/dL (0.2 mg/dL) Urine Leukocyte Esterase Negative (NEG) Urine RBC 1-2 /HPF (0-2) Urine WBC Occ /HPF (0-4) Urine Bacteria 0 /HPF (0-FEW) Urine Hyaline Casts Moderate /HPF Urine Mucus Mod /LPF Urine Opiates Screen Pos (NEG) Urine Methadone Screen Neg (NEG) Urine Barbiturates Neg (NEG) Urine Phencyclidine Screen Neg (NEG) Urine Amphetamine/Methamphetamine Neg (NEG) Urine Benzodiazepines Screen Neg (NEG) Urine Cocaine Screen Neg (NEG) Urine Cannabinoids Screen Neg (NEG) Urine Ethyl Alcohol Neg (NEG) Sodium Level 144 mmol/L (136-145) 144 mmol/L (136-145) Potassium Level 3.7 mmol/L (3.5-5.1) 3.7 mmol/L (3.5-5.1) Chloride Level 107 mmol/L (98-107) 108 mmol/L (98-107) Carbon Dioxide Level 27 mmol/L (21-32) 28 mmol/L (21-32) Anion Gap 10 (6-14) 8 (6-14) Blood Urea Nitrogen 10 mg/dL (8-26) 9 mg/dL (8-26) Creatinine 0.8 mg/dL (0.7-1.3) 0.8 mg/dL (0.7-1.3) Estimated GFR (Cockcroft-Gault) 101.1 101.1 BUN/Creatinine Ratio 13 (6-20) Glucose Level 106 mg/dL (70-99) 87 mg/dL (70-99) Calcium Level 8.2 mg/dL (8.5-10.1) 8.4 mg/dL (8.5-10.1) Total Bilirubin 0.3 mg/dL (0.2-1.0) Aspartate Amino Transf (AST/SGOT) 14 U/L (15-37) Alanine Aminotransferase (ALT/SGPT) 14 U/L (16-63) Alkaline Phosphatase 39 U/L (46-116) Troponin I Quantitative < 0.017 ng/mL (0.000-0.055) < 0.017 ng/mL (0.000-0.055) Total Protein 5.8 g/dL (6.4-8.2) Albumin 2.7 g/dL (3.4-5.0) Albumin/Globulin Ratio 0.9 (1.0-1.7) White Blood Count 2.9 x10^3/uL (4.0-11.0) Red Blood Count 3.47 x10^6/uL (4.30-5.70) Hemoglobin 11.7 g/dL (13.0-17.5) Hematocrit 33.9 % (39.0-53.0) Mean Corpuscular Volume 98 fL (79-100) Mean Corpuscular Hemoglobin 34 pg (25-35) Mean Corpuscular Hemoglobin Concent 35 g/dL (31-37) Red Cell Distribution Width 13.4 % (11.5-14.5) Platelet Count 56 x10^3/uL (140-400) Neutrophils (%) (Auto) 50 % (31-73) Lymphocytes (%) (Auto) 37 % (24-48) Monocytes (%) (Auto) 7 % (0-9) Eosinophils (%) (Auto) 5 % (0-3) Basophils (%) (Auto) 1 % (0-3) Neutrophils # (Auto) 1.4 x10^3uL (1.8-7.7) Lymphocytes # (Auto) 1.1 x10^3/uL (1.0-4.8) Monocytes # (Auto) 0.2 x10^3/uL (0.0-1.1) Eosinophils # (Auto) 0.1 x10^3/uL (0.0-0.7) Basophils # (Auto) 0.0 x10^3/uL (0.0-0.2) Test 01/04/17 04:15 White Blood Count 5.1 x10^3/uL (4.0-11.0) Red Blood Count 3.88 x10^6/uL (4.30-5.70) Hemoglobin 13.1 g/dL (13.0-17.5) Hematocrit 38.0 % (39.0-53.0) Mean Corpuscular Volume 98 fL (79-100) Mean Corpuscular Hemoglobin 34 pg (25-35) Mean Corpuscular Hemoglobin Concent 34 g/dL (31-37) Red Cell Distribution Width 13.0 % (11.5-14.5) Platelet Count 71 x10^3/uL (140-400) Neutrophils (%) (Auto) 88 % (31-73) Lymphocytes (%) (Auto) 8 % (24-48) Monocytes (%) (Auto) 3 % (0-9) Eosinophils (%) (Auto) 0 % (0-3) Basophils (%) (Auto) 0 % (0-3) Neutrophils # (Auto) 4.5 x10^3uL (1.8-7.7) Lymphocytes # (Auto) 0.4 x10^3/uL (1.0-4.8) Monocytes # (Auto) 0.2 x10^3/uL (0.0-1.1) Eosinophils # (Auto) 0.0 x10^3/uL (0.0-0.7) Basophils # (Auto) 0.0 x10^3/uL (0.0-0.2) Sodium Level 144 mmol/L (136-145) Potassium Level 4.5 mmol/L (3.5-5.1) Chloride Level 109 mmol/L (98-107) Carbon Dioxide Level 27 mmol/L (21-32) Anion Gap 8 (6-14) Blood Urea Nitrogen 14 mg/dL (8-26) Creatinine 1.0 mg/dL (0.7-1.3) Estimated GFR (Cockcroft-Gault) 78.2 Glucose Level 123 mg/dL (70-99) Calcium Level 8.5 mg/dL (8.5-10.1) Triglycerides Level 48 mg/dL (0-150) Cholesterol Level 134 mg/dL (0-200) LDL Cholesterol, Calculated 97 mg/dL (0-100) VLDL Cholesterol, Calculated 10 mg/dL (0-40) Non-HDL Cholesterol Calculated 107 mg/dL (0-129) HDL Cholesterol 27 mg/dL (40-60) Cholesterol/HDL Ratio 5.0 Laboratory Tests Test 01/04/17 04:15 White Blood Count 5.1 x10^3/uL (4.0-11.0) Red Blood Count 3.88 x10^6/uL (4.30-5.70) Hemoglobin 13.1 g/dL (13.0-17.5) Hematocrit 38.0 % (39.0-53.0) Mean Corpuscular Volume 98 fL (79-100) Mean Corpuscular Hemoglobin 34 pg (25-35) Mean Corpuscular Hemoglobin Concent 34 g/dL (31-37) Red Cell Distribution Width 13.0 % (11.5-14.5) Platelet Count 71 x10^3/uL (140-400) Neutrophils (%) (Auto) 88 % (31-73) Lymphocytes (%) (Auto) 8 % (24-48) Monocytes (%) (Auto) 3 % (0-9) Eosinophils (%) (Auto) 0 % (0-3) Basophils (%) (Auto) 0 % (0-3) Neutrophils # (Auto) 4.5 x10^3uL (1.8-7.7) Lymphocytes # (Auto) 0.4 x10^3/uL (1.0-4.8) Monocytes # (Auto) 0.2 x10^3/uL (0.0-1.1) Eosinophils # (Auto) 0.0 x10^3/uL (0.0-0.7) Basophils # (Auto) 0.0 x10^3/uL (0.0-0.2) Sodium Level 144 mmol/L (136-145) Potassium Level 4.5 mmol/L (3.5-5.1) Chloride Level 109 mmol/L (98-107) Carbon Dioxide Level 27 mmol/L (21-32) Anion Gap 8 (6-14) Blood Urea Nitrogen 14 mg/dL (8-26) Creatinine 1.0 mg/dL (0.7-1.3) Estimated GFR (Cockcroft-Gault) 78.2 Glucose Level 123 mg/dL (70-99) Calcium Level 8.5 mg/dL (8.5-10.1) Triglycerides Level 48 mg/dL (0-150) Cholesterol Level 134 mg/dL (0-200) LDL Cholesterol, Calculated 97 mg/dL (0-100) VLDL Cholesterol, Calculated 10 mg/dL (0-40) Non-HDL Cholesterol Calculated 107 mg/dL (0-129) HDL Cholesterol 27 mg/dL (40-60) Cholesterol/HDL Ratio 5.0 Medications Active Scripts Medications Dose Route/Sig Max Daily Dose Days Date Category Colace (Docusate Sodium) 100 Mg Capsule 100 Mg PO BID PRN 05/29/16 Rx Percocet 5-325 Mg Tablet (Oxycodone/Acetaminophen) 1 Each Tablet 1 Tab PO QID PRN 05/29/16 Rx Trazodone Hcl 150 Mg Tablet 1 Tab PO QHS 05/24/16 Reported Montelukast Sodium Tablet (Montelukast Sodium) 10 Mg Tablet 10 Mg PO HS 05/24/16 Reported Divalproex Sodium Er (Divalproex Sodium) 500 Mg Tab.er.24h 2 Tab PO QHS 05/24/16 Reported Olanzapine 20 Mg Tablet 1 Tab PO QHS 05/24/16 Reported Olanzapine 5 Mg Tablet 5 Mg PO DAILY 05/24/16 Reported Fluoxetine Hcl 10 Mg Capsule 1 Cap PO DAILY 05/24/16 Reported Tamsulosin Hcl 0.4 Mg Cap.er.24h 1 Cap PO HS 06/21/15 Reported Cetirizine Hcl 10 Mg Tablet 1 Tab PO DAILY 06/21/15 Reported Impression . 1. Progressive dyspnea secondary to acute exacerbation of chronic obstructive pulmonary disease. 2. Acute exacerbation of chronic obstructive pulmonary disease. 3. Polysubstance use. 4. Negative CT for PE protocol. 5. Tobacco dependence. 6. Chest pain. Suspect reflux versus costochondritis. 7. History of hepatitis C, treated. Plan . CARDIAC WORK UP HOME WHEN CLEARED BY CARD 1. Recommend steroids and p.o. Keflex. 2. Nebulized treatments. 3. Consult Cardiology, already performed. 4. The patient instructed on the importance of discontinuing tobacco use. 5. Avoid caffeinated beverages. 6. Pepcid daily. ANA HOLLAND MD Jan 04, 2017 12:13
[2017-01-04 14:17] LABS: % BASOS 1 % (0-3); % EOS 2 % (0-5)
[2017-01-04 14:18] LABS: PLT ESTIMATE ADEQUATE (ADEQUATE)
[2017-01-04 15:00] VITALS: BP 100/58
--- NOTE | 2017-01-04 15:30 | CARD ---
APPROVED REPORT EXAM: Two-dimensional and M-mode echocardiogram with Doppler and color Doppler. Other Information Quality : Technically Limited Technically limited study due to body habitus. INDICATION Dyspnea 2D DIMENSIONS RVDd2.0 (2.9-3.5cm)Left Atrium(2D)2.3 (1.6-4.0cm) IVSd0.9 (0.7-1.1cm)Aortic Root(2D)2.5 (2.0-3.7cm) LVDd4.1 (3.9-5.9cm)LVOT Diameter2.0 (1.8-2.4cm) PWd1.0 (0.7-1.1cm)LVDs2.5 (2.5-4.0cm) FS (%) 30.0 %SV51.4 ml LVEF(%)60.0 (>50%) Aortic Valve AoV Peak Rajinder.140.1cm/sAoV VTI24.1cm AO Peak GR.7.9mmHgLVOT Peak Rajinder.109.3cm/s LVOT VTI 22.26cmAO Mean GR.4mmHg AREN (VMAX)2.90ro6PYI (VTI)2.92cm2 Mitral Valve MV E Tabjeuiv577.0cm/sMV DECEL CHOS937ic MV A Cmpunwlq40.3cm/sMV XRP52qi E/A Ratio1.2MVA (PHT)3.43cm2 TDI E/Lateral E'9.4E/Medial E'11.6 Tricuspid Valve TR P. Vsdhicxq403rd/sRAP [id number] TR Peak Gr.90nrInNOJB12uxMk Pulmonary Vein S1 Mftbvlhu08.0cm/sD2 Rgwebrvm56.2cm/s LEFT VENTRICLE The left ventricle is normal size. There is normal left ventricular wall thickness. The left ventricu lar systolic function is normal. The Ejection Fraction is 55-60%. There is normal LV segmental wall m otion. Transmitral Doppler flow pattern is Grade I-abnormal relaxation pattern. RIGHT VENTRICLE The right ventricle is normal size. The right ventricular systolic function is normal. ATRIA The left atrium size is normal. The right atrium size is normal. The interatrial septum is intact wit h no evidence for an atrial septal defect or patent foramen ovale as noted on 2-D or Doppler imaging. AORTIC VALVE The aortic valve is not well visualized but appears to be functioning normally by Doppler interrogati on. Doppler and Color Flow revealed no significant aortic regurgitation. There is no significant aort ic valvular stenosis. MITRAL VALVE The mitral valve is normal in structure and function. There is no evidence of mitral valve prolapse. There is no mitral valve stenosis. Doppler and Color-flow revealed mild mitral regurgitation. TRICUSPID VALVE The tricuspid valve is normal in structure and function. Doppler and Color Flow revealed trace tricus pid regurgitation. The PA pressure was estimated at 28 mmHg. There is no tricuspid valve stenosis. PULMONIC VALVE The pulmonic valve is not well visualized but appears to be functioning normally by Doppler interroga tion. Doppler and Color Flow revealed no pulmonic valvular regurgitation. There is no pulmonic valvul ar stenosis. GREAT VESSELS The aortic root is normal in size. The ascending aorta is not well seen. The IVC is normal in size an d collapses >50% with inspiration. PERICARDIAL EFFUSION There is no evidence of significant pericardial effusion. Critical Notification Critical Value: No <Conclusion> The left ventricular systolic function is normal. The Ejection Fraction is 55-60%. There is normal LV segmental wall motion. Mild mitral regurgitation. Trace tricuspid regurgitation. The PA pressure was estimated at 28 mmHg. There is no evidence of significant pericardial effusion.
--- NOTE | 2017-01-04 15:41 | PDOC ---
PROGRESS NOTES Chief Complaint Chief Complaint 1. atypical chest pain, anginal, but also component of costochondritis vs gerd 2. Pancytopenia 3. Prev heavy EtOHiosm 4. Tobaccosim History of Present Illness History of Present Illness MPI stress tobaccoism, off EtOH limited family support Vitals Vitals Vital Signs Date Time Temp Pulse Resp B/P (MAP) Pulse Ox O2 Delivery O2 Flow Rate FiO2 01/04/17 15:00 97.7 65 20 100/58 (72) 93 Room Air 97.7 Physical Exam General: Alert, Oriented X3, Cooperative, No acute distress Heart: Regular rate Lungs: Clear Abdomen: Normal bowel sounds Extremities: No clubbing, No cyanosis Skin: No rashes, No breakdown Labs LABS Laboratory Tests Test 01/04/17 04:15 White Blood Count 5.1 x10^3/uL (4.0-11.0) Red Blood Count 3.88 x10^6/uL (4.30-5.70) Hemoglobin 13.1 g/dL (13.0-17.5) Hematocrit 38.0 % (39.0-53.0) Mean Corpuscular Volume 98 fL (79-100) Mean Corpuscular Hemoglobin 34 pg (25-35) Mean Corpuscular Hemoglobin Concent 34 g/dL (31-37) Red Cell Distribution Width 13.0 % (11.5-14.5) Platelet Count 71 x10^3/uL (140-400) Neutrophils (%) (Auto) 88 % (31-73) Lymphocytes (%) (Auto) 8 % (24-48) Monocytes (%) (Auto) 3 % (0-9) Eosinophils (%) (Auto) 0 % (0-3) Basophils (%) (Auto) 0 % (0-3) Neutrophils # (Auto) 4.5 x10^3uL (1.8-7.7) Lymphocytes # (Auto) 0.4 x10^3/uL (1.0-4.8) Monocytes # (Auto) 0.2 x10^3/uL (0.0-1.1) Eosinophils # (Auto) 0.0 x10^3/uL (0.0-0.7) Basophils # (Auto) 0.0 x10^3/uL (0.0-0.2) Segmented Neutrophils % 83 % (35-66) Band Neutrophils % 9 % (0-9) Lymphocytes % 3 % (24-48) Monocytes % 2 % (0-10) Eosinophils % 2 % (0-5) Basophils % 1 % (0-3) Platelet Estimate Adequate (ADEQUATE) Sodium Level 144 mmol/L (136-145) Potassium Level 4.5 mmol/L (3.5-5.1) Chloride Level 109 mmol/L (98-107) Carbon Dioxide Level 27 mmol/L (21-32) Anion Gap 8 (6-14) Blood Urea Nitrogen 14 mg/dL (8-26) Creatinine 1.0 mg/dL (0.7-1.3) Estimated GFR (Cockcroft-Gault) 78.2 Glucose Level 123 mg/dL (70-99) Calcium Level 8.5 mg/dL (8.5-10.1) Triglycerides Level 48 mg/dL (0-150) Cholesterol Level 134 mg/dL (0-200) LDL Cholesterol, Calculated 97 mg/dL (0-100) VLDL Cholesterol, Calculated 10 mg/dL (0-40) Non-HDL Cholesterol Calculated 107 mg/dL (0-129) HDL Cholesterol 27 mg/dL (40-60) Cholesterol/HDL Ratio 5.0 Review of Systems Review of Systems pain, weakness, lethargy dry mouth Assessment and Plan Assessmemt and Plan stress test today plan DC soon out of bed to chair Problems: Comment Review of Relevant I have reviewed the following items venita (where applicable) has been applied. Labs Laboratory Tests Test 01/02/17 19:45 01/03/17 03:33 01/03/17 03:45 01/04/17 04:15 Sodium Level 144 mmol/L (136-145) 144 mmol/L (136-145) 144 mmol/L (136-145) Potassium Level 3.7 mmol/L (3.5-5.1) 3.7 mmol/L (3.5-5.1) 4.5 mmol/L (3.5-5.1) Chloride Level 107 mmol/L (98-107) 108 mmol/L (98-107) 109 mmol/L (98-107) Carbon Dioxide Level 27 mmol/L (21-32) 28 mmol/L (21-32) 27 mmol/L (21-32) Anion Gap 10 (6-14) 8 (6-14) 8 (6-14) Blood Urea Nitrogen 10 mg/dL (8-26) 9 mg/dL (8-26) 14 mg/dL (8-26) Creatinine 0.8 mg/dL (0.7-1.3) 0.8 mg/dL (0.7-1.3) 1.0 mg/dL (0.7-1.3) Estimated GFR (Cockcroft-Gault) 101.1 101.1 78.2 BUN/Creatinine Ratio 13 (6-20) Glucose Level 106 mg/dL (70-99) 87 mg/dL (70-99) 123 mg/dL (70-99) Calcium Level 8.2 mg/dL (8.5-10.1) 8.4 mg/dL (8.5-10.1) 8.5 mg/dL (8.5-10.1) Total Bilirubin 0.3 mg/dL (0.2-1.0) Aspartate Amino Transf (AST/SGOT) 14 U/L (15-37) Alanine Aminotransferase (ALT/SGPT) 14 U/L (16-63) Alkaline Phosphatase 39 U/L (46-116) Troponin I Quantitative < 0.017 ng/mL (0.000-0.055) < 0.017 ng/mL (0.000-0.055) Total Protein 5.8 g/dL (6.4-8.2) Albumin 2.7 g/dL (3.4-5.0) Albumin/Globulin Ratio 0.9 (1.0-1.7) White Blood Count 2.9 x10^3/uL (4.0-11.0) 5.1 x10^3/uL (4.0-11.0) Red Blood Count 3.47 x10^6/uL (4.30-5.70) 3.88 x10^6/uL (4.30-5.70) Hemoglobin 11.7 g/dL (13.0-17.5) 13.1 g/dL (13.0-17.5) Hematocrit 33.9 % (39.0-53.0) 38.0 % (39.0-53.0) Mean Corpuscular Volume 98 fL (79-100) 98 fL (79-100) Mean Corpuscular Hemoglobin 34 pg (25-35) 34 pg (25-35) Mean Corpuscular Hemoglobin Concent 35 g/dL (31-37) 34 g/dL (31-37) Red Cell Distribution Width 13.4 % (11.5-14.5) 13.0 % (11.5-14.5) Platelet Count 56 x10^3/uL (140-400) 71 x10^3/uL (140-400) Neutrophils (%) (Auto) 50 % (31-73) 88 % (31-73) Lymphocytes (%) (Auto) 37 % (24-48) 8 % (24-48) Monocytes (%) (Auto) 7 % (0-9) 3 % (0-9) Eosinophils (%) (Auto) 5 % (0-3) 0 % (0-3) Basophils (%) (Auto) 1 % (0-3) 0 % (0-3) Neutrophils # (Auto) 1.4 x10^3uL (1.8-7.7) 4.5 x10^3uL (1.8-7.7) Lymphocytes # (Auto) 1.1 x10^3/uL (1.0-4.8) 0.4 x10^3/uL (1.0-4.8) Monocytes # (Auto) 0.2 x10^3/uL (0.0-1.1) 0.2 x10^3/uL (0.0-1.1) Eosinophils # (Auto) 0.1 x10^3/uL (0.0-0.7) 0.0 x10^3/uL (0.0-0.7) Basophils # (Auto) 0.0 x10^3/uL (0.0-0.2) 0.0 x10^3/uL (0.0-0.2) Segmented Neutrophils % 83 % (35-66) Band Neutrophils % 9 % (0-9) Lymphocytes % 3 % (24-48) Monocytes % 2 % (0-10) Eosinophils % 2 % (0-5) Basophils % 1 % (0-3) Platelet Estimate Adequate (ADEQUATE) Triglycerides Level 48 mg/dL (0-150) Cholesterol Level 134 mg/dL (0-200) LDL Cholesterol, Calculated 97 mg/dL (0-100) VLDL Cholesterol, Calculated 10 mg/dL (0-40) Non-HDL Cholesterol Calculated 107 mg/dL (0-129) HDL Cholesterol 27 mg/dL (40-60) Cholesterol/HDL Ratio 5.0 Laboratory Tests Test 01/04/17 04:15 White Blood Count 5.1 x10^3/uL (4.0-11.0) Red Blood Count 3.88 x10^6/uL (4.30-5.70) Hemoglobin 13.1 g/dL (13.0-17.5) Hematocrit 38.0 % (39.0-53.0) Mean Corpuscular Volume 98 fL (79-100) Mean Corpuscular Hemoglobin 34 pg (25-35) Mean Corpuscular Hemoglobin Concent 34 g/dL (31-37) Red Cell Distribution Width 13.0 % (11.5-14.5) Platelet Count 71 x10^3/uL (140-400) Neutrophils (%) (Auto) 88 % (31-73) Lymphocytes (%) (Auto) 8 % (24-48) Monocytes (%) (Auto) 3 % (0-9) Eosinophils (%) (Auto) 0 % (0-3) Basophils (%) (Auto) 0 % (0-3) Neutrophils # (Auto) 4.5 x10^3uL (1.8-7.7) Lymphocytes # (Auto) 0.4 x10^3/uL (1.0-4.8) Monocytes # (Auto) 0.2 x10^3/uL (0.0-1.1) Eosinophils # (Auto) 0.0 x10^3/uL (0.0-0.7) Basophils # (Auto) 0.0 x10^3/uL (0.0-0.2) Segmented Neutrophils % 83 % (35-66) Band Neutrophils % 9 % (0-9) Lymphocytes % 3 % (24-48) Monocytes % 2 % (0-10) Eosinophils % 2 % (0-5) Basophils % 1 % (0-3) Platelet Estimate Adequate (ADEQUATE) Sodium Level 144 mmol/L (136-145) Potassium Level 4.5 mmol/L (3.5-5.1) Chloride Level 109 mmol/L (98-107) Carbon Dioxide Level 27 mmol/L (21-32) Anion Gap 8 (6-14) Blood Urea Nitrogen 14 mg/dL (8-26) Creatinine 1.0 mg/dL (0.7-1.3) Estimated GFR (Cockcroft-Gault) 78.2 Glucose Level 123 mg/dL (70-99) Calcium Level 8.5 mg/dL (8.5-10.1) Triglycerides Level 48 mg/dL (0-150) Cholesterol Level 134 mg/dL (0-200) LDL Cholesterol, Calculated 97 mg/dL (0-100) VLDL Cholesterol, Calculated 10 mg/dL (0-40) Non-HDL Cholesterol Calculated 107 mg/dL (0-129) HDL Cholesterol 27 mg/dL (40-60) Cholesterol/HDL Ratio 5.0 Medications Current Medications Aspirin (Optify Aspirin) 325 mg 1X ONCE PO Last administered on 01/02/17 11: 28; Start 01/02/17 at 11:15; Stop 01/02/17 at 11:16; Status DC Nitroglycerin (Nitrostat) 0.4 mg PRN Q5MIN PRN SL CP RATING > 1/10 Last administered on 01/02/17 11:27; Start 01/02/17 at 11:00; Stop 01/03/17 at 10 :59; Status DC Morphine Sulfate 2 mg PRN Q15MIN PRN IV/SQ PAIN GREATER THAN 3/10 Last administered on 01/02/17 13:31; Start 01/02/17 at 11:00; Stop 01/03/17 at 10 :59; Status DC Sodium Chloride 1,000 ml @ 1,000 mls/hr Q1H IV Last administered on 11:26; Start 01/02/17 at 11:00; Stop 01/02/17 at 11:59; Status DC Iohexol (Omnipaque 350 Mg/ml) 90 ml 1X ONCE IV Last administered on 13:14; Start 01/02/17 at 13:30; Stop 01/02/17 at 13:31; Status DC Info (Do NOT chart on this entry -- for MONITORING) 1 each PRN DAILY PRN MC SEE COMMENTS; Start 01/02/17 at 13:15; Stop 01/04/17 at 13:14; Status DC Ondansetron HCl (Zofran) 4 mg PRN Q8HRS PRN IV NAUSEA/VOMITING; Start at 13:15; Stop 01/03/17 at 09:07; Status DC Morphine Sulfate 2 mg PRN Q2HR PRN IV PAIN Last administered on 01/02/17 21: 48; Start 01/02/17 at 13:15; Stop 01/03/17 at 13:14; Status DC Albuterol/ Ipratropium (Duoneb) 3 ml RTQID NEB Last administered on 01/04/17 07:10; Start 01/02/17 at 20:00 Cetirizine HCl (ZyrTEC) 10 mg DAILY PO Last administered on 01/04/17 07:47; Start 01/03/17 at 09:00 Divalproex Sodium (Depakote Er) 1,000 mg QHS PO Last administered on 19:48; Start 01/02/17 at 21:00 Docusate Sodium (Colace) 100 mg PRN BID PRN PO hard stool or no stool; Start 01/02/17 at 19:30 Fluoxetine HCl (PROzac) 10 mg DAILY PO Last administered on 01/04/17 07:47; Start 01/03/17 at 09:00 Montelukast Sodium (Singulair) 10 mg HS PO Last administered on 01/03/17 19: 48; Start 01/02/17 at 21:00 Olanzapine (ZyPREXA) 5 mg DAILY PO Last administered on 01/04/17 07:47; Start 01/03/17 at 09:00 Oxycodone/ Acetaminophen (Percocet 5/325) 1 tab PRN QID PRN PO PAIN Last administered on 01/04/17 07:47; Start 01/02/17 at 19:30 Tamsulosin HCl (Flomax) 0.4 mg HS PO Last administered on 01/03/17 19:47; Start 01/02/17 at 21:00 Olanzapine (ZyPREXA) 20 mg QHS PO Last administered on 01/03/17 19:48; Start 01/02/17 at 21:00 Trazodone HCl (Desyrel) 150 mg QHS PO Last administered on 01/03/17 19:48; Start 01/02/17 at 21:00 Ondansetron HCl (Zofran) 4 mg PRN Q6HRS PRN IV NAUSEA/VOMITING; Start at 09:15; Stop 01/04/17 at 09:14; Status DC Guaifenesin (Robitussin Dm) 10 ml PRN Q6HRS PRN PO COUGH; Start 01/03/17 at 09 :15 Nicotine (Nicoderm Cq 21mg) 1 patch PRN DAILY PRN TD SMOKING CESSATION Last administered on 01/03/17 15:11; Start 01/03/17 at 14:00 Guaifenesin (Mucinex) 600 mg BID PO Last administered on 01/04/17 07:46; Start 01/03/17 at 21:00 Cephalexin HCl (Keflex) 500 mg TID PO Last administered on 01/04/17 07:46; Start 01/03/17 at 14:00 Famotidine (Pepcid) 20 mg BID PO Last administered on 01/04/17 07:47; Start 01/03/17 at 21:00 Prednisone (Prednisone) 30 mg DAILY PO Last administered on 01/04/17 07:46; Start 01/03/17 at 20:00 Ondansetron HCl (Zofran) 4 mg PRN Q8HRS PRN IV NAUSEA/VOMITING Last administered on 01/04/17 10:43; Start 01/04/17 at 10:00 Active Scripts Active Colace (Docusate Sodium) 100 Mg Capsule 100 Mg PO BID PRN Percocet 5-325 Mg Tablet (Oxycodone/Acetaminophen) 1 Each Tablet 1 Tab PO QID PRN Reported Trazodone Hcl 150 Mg Tablet 1 Tab PO QHS Montelukast Sodium Tablet (Montelukast Sodium) 10 Mg Tablet 10 Mg PO HS Divalproex Sodium Er (Divalproex Sodium) 500 Mg Tab.er.24h 2 Tab PO QHS Olanzapine 20 Mg Tablet 1 Tab PO QHS Olanzapine 5 Mg Tablet 5 Mg PO DAILY Fluoxetine Hcl 10 Mg Capsule 1 Cap PO DAILY Tamsulosin Hcl 0.4 Mg Cap.er.24h 1 Cap PO HS Cetirizine Hcl 10 Mg Tablet 1 Tab PO DAILY Vitals/I & O Vital Sign - Last 24 Hours 01/03/17 01/03/17 01/03/17 01/03/17 16:39 19:00 19:35 20:00 Temp 98.3 98.3 Pulse 70 Resp 18 B/P (MAP) 93/40 (57) Pulse Ox 99 96 O2 Delivery Room Air Room Air Room Air Room Air 01/03/17 01/04/17 01/04/17 01/04/17 23:00 03:00 07:00 07:10 Temp 98.3 98.3 98.7 98.3 98.3 98.7 Pulse 72 85 95 Resp 18 18 20 B/P (MAP) 131/72 (91) 113/61 (78) 96/57 (70) Pulse Ox 95 92 93 O2 Delivery Room Air Room Air Room Air Room Air 01/04/17 01/04/17 01/04/17 01/04/17 07:47 08:00 08:47 11:00 Temp 97.7 97.7 Pulse 76 Resp 18 20 B/P (MAP) 83/43 (56) Pulse Ox 93 86 O2 Delivery Room Air Room Air Room Air Room Air 01/04/17 15:00 Temp 97.7 97.7 Pulse 65 Resp 20 B/P (MAP) 100/58 (72) Pulse Ox 93 O2 Delivery Room Air LORI VINSON MD Jan 04, 2017 15:41
--- NOTE | 2017-01-04 15:44 | PDOC ---
CARDIO Progress Notes Date and Time Date of Service 01/04/2017 Time of Evaluation 1530 Subjective Subjective: No shortness of breath, No Palpitations, No Dizziness, Other ( still has intermittent CP) Vitals Vitals Vital Signs Date Time Temp Pulse Resp B/P (MAP) Pulse Ox O2 Delivery O2 Flow Rate FiO2 01/04/17 15:00 97.7 65 20 100/58 (72) 93 Room Air 97.7 Weight Weight [ ] Laboratory Labs Laboratory Tests Test 01/04/17 04:15 White Blood Count 5.1 x10^3/uL (4.0-11.0) Red Blood Count 3.88 x10^6/uL (4.30-5.70) Hemoglobin 13.1 g/dL (13.0-17.5) Hematocrit 38.0 % (39.0-53.0) Mean Corpuscular Volume 98 fL (79-100) Mean Corpuscular Hemoglobin 34 pg (25-35) Mean Corpuscular Hemoglobin Concent 34 g/dL (31-37) Red Cell Distribution Width 13.0 % (11.5-14.5) Platelet Count 71 x10^3/uL (140-400) Neutrophils (%) (Auto) 88 % (31-73) Lymphocytes (%) (Auto) 8 % (24-48) Monocytes (%) (Auto) 3 % (0-9) Eosinophils (%) (Auto) 0 % (0-3) Basophils (%) (Auto) 0 % (0-3) Neutrophils # (Auto) 4.5 x10^3uL (1.8-7.7) Lymphocytes # (Auto) 0.4 x10^3/uL (1.0-4.8) Monocytes # (Auto) 0.2 x10^3/uL (0.0-1.1) Eosinophils # (Auto) 0.0 x10^3/uL (0.0-0.7) Basophils # (Auto) 0.0 x10^3/uL (0.0-0.2) Segmented Neutrophils % 83 % (35-66) Band Neutrophils % 9 % (0-9) Lymphocytes % 3 % (24-48) Monocytes % 2 % (0-10) Eosinophils % 2 % (0-5) Basophils % 1 % (0-3) Platelet Estimate Adequate (ADEQUATE) Sodium Level 144 mmol/L (136-145) Potassium Level 4.5 mmol/L (3.5-5.1) Chloride Level 109 mmol/L (98-107) Carbon Dioxide Level 27 mmol/L (21-32) Anion Gap 8 (6-14) Blood Urea Nitrogen 14 mg/dL (8-26) Creatinine 1.0 mg/dL (0.7-1.3) Estimated GFR (Cockcroft-Gault) 78.2 Glucose Level 123 mg/dL (70-99) Calcium Level 8.5 mg/dL (8.5-10.1) Triglycerides Level 48 mg/dL (0-150) Cholesterol Level 134 mg/dL (0-200) LDL Cholesterol, Calculated 97 mg/dL (0-100) VLDL Cholesterol, Calculated 10 mg/dL (0-40) Non-HDL Cholesterol Calculated 107 mg/dL (0-129) HDL Cholesterol 27 mg/dL (40-60) Cholesterol/HDL Ratio 5.0 Physical Exam HEENT: Neck Supple W Full Motion Chest: Symmetric LUNGS: Clear to Auscultation Heart: S1S2, RRR (SR) Abdomen: Soft N/T Extremities: No Edema, No Calf Tenderness Neurology: alert, oriented, follow commands Assessment Assessment 1. CP/dyspnea: last MPI 2 yrs ago at [facility] 2. AECOPD/Tobaccoism 3. HTN; low BP currently 4. History of treated hepatitis C Recommendations 1. TTE with normal wall motion and EF. Still has intermittent CP. MPi tomorrow. HILLARY ALVARADO APRN Jan 04, 2017 15:44
[2017-01-04 19:00] VITALS: BP 110/56
[2017-01-04] MEDS: NICOTINE 21MG PATCH. TD PRN (19:51)
[2017-01-04] MEDS: DIVALPROEX EXTENDED RELEASE 500 MG TAB.ER.24H. PO SCH (20:59)
[2017-01-04] MEDS: TAMSULOSIN 0.4 MG CAP.ER.24H. PO SCH (21:00)
[2017-01-04] MEDS: traZODone 100 MG TABLET. PO SCH (21:00)
[2017-01-04] MEDS: MONTELUKAST SODIUM 10 MG TABLET. PO SCH (21:07)
[2017-01-04 23:00] VITALS: BP 112/62
[2017-01-05 03:14] VITALS: BP 105/49
[2017-01-05 07:00] VITALS: BP_SYST 115; BP_SYST 123; BP_DIAS 60; BP_DIAS 61
[2017-01-05] MEDS: IPRATRPIUM/ALBUTEROL 0.5/2.5MG 3 ML NEBU. NEB SCH ×4 (08:00→20:54)
[2017-01-05] MEDS ORDERED: REGADENOSON 0.4 MG/5 ML DISP.SYRIN. IV ONE (10:30)
[2017-01-05 11:00] VITALS: BP_SYST 112; BP_SYST 115; BP_DIAS 60; BP_DIAS 63
--- NOTE | 2017-01-05 11:20 | PDOC ---
CARDIO Progress Notes Date and Time Date of Service 01/05/17 Time of Evaluation 0945 Subjective Subjective: No shortness of breath, No Palpitations, No Dizziness, Other (had episodes of CP overnight associated with cough) Vitals Vitals Vital Signs Date Time Temp Pulse Resp B/P (MAP) Pulse Ox O2 Delivery O2 Flow Rate FiO2 01/05/17 08:01 96 Room Air 01/05/17 07:00 97.7 67 18 123/61 (81) 97.7 Weight Weight [ ] Physical Exam HEENT: Neck Supple W Full Motion Chest: Symmetric LUNGS: Clear to Auscultation Heart: S1S2, RRR (SR), murmurs (2/6 systolic murmur) Abdomen: Soft N/T Extremities: No Edema, No Calf Tenderness Neurology: alert, oriented, follow commands Assessment Assessment 1. CP/dyspnea: AMI ruled out. Echo showed preserved LV function, no WMA. Associated with cough overnight. 2. AECOPD/Tobaccoism; discussed/encouraged cessation. Continue treatment as per pulm 3. Hypertension; controlled. Continue present therapy. 4. History of hepatitis C, treated Recommendations 1. MPI underway today. If no evidence of ischemia or infarct, may discharge from a CV standpoint. FRANCO ANGELA APRN Jan 05, 2017 11:20
[2017-01-05] MEDS: predniSONE 10 MG TABLET PO SCH (11:54)
[2017-01-05] MEDS: FLUoxetine HCL 10 MG CAPSULE PO SCH (11:54)
[2017-01-05] MEDS: CETIRIZINE HCL 10 MG TABLET. PO SCH (11:54)
[2017-01-05] MEDS: CEPHALEXIN 250 MG CAPSULE. PO SCH ×3 (11:54→22:53)
[2017-01-05] MEDS: OLANZapine 5 MG TABLET PO SCH ×2 (11:55→22:53)
[2017-01-05] MEDS: FAMOTIDINE 20 MG TABLET. PO SCH ×2 (11:55→22:57)
--- NOTE | 2017-01-05 13:44 | RAD ---
APPROVED REPORT Test Type: Pharmacological Stress Nurse/Tech: YOLIS Jc Test Indications: chest pain, dizziness Cardiac History: see EMR Medications: see EMR Medical History: smoker, see EMR Resting ECG: SR/Acc. Junctional Resting Heart Rate: 68 bpm Resting Blood Pressure: 111/58mmHg Pretest Chest Pain: No chest pain Nurse/Tech Notes HR 60's, SR/Acc. Junctional per monitor, Lungs coarse with productive cough Consent: The procedure was explained to the patient in lay terms. Informed consent was witnessed. Edgar eout was entered into [employer]. History and Stress Test performed by RT Carlo (R) (N) Pharm. Details Pharmacologic stress testing was performed using 0.4mg per 5ml of regadenoson given intravenously ove r 7-10 seconds. Stress Symptoms Pt c/o slight chest pain and SOA during stress, subsided shortly after. Pt did c/o headache afterward s. VSS. POST EXERCISE Reason for Termination: Infusion complete Max HR: 99 bpm Max Blood Pressure: 115/55mmHg Blood Pressure response to exercise: Blood pressure decreased slightly Heart Rate response to exercise: Normal response during stress Chest Pain: . slight during stress, subsided after stress Arrhythmia: No. ST Change: No. INTERPRETATION Stress EKG Conclusion: Baseline EKG showed sinus rhythm. No ischemic changes at peak stress. No arr hythmias. Imaging Protocol IMAGE PROTOCOL: Rest Tc-99m/stress Tc-99m 1 day Rest: Stress: Viability: Radiopharm.Tc99m [id number] Sestamibi [id number] 33mCi Duration 15min. 10min. Img Date 01/05/2017 01/05/2017 Inj-Img [id number]. 60min. Rest Admin Site:IV - Right AntecubitalAdministrator:RT Trina (R)(N) Stress Admin Site: IV - Right AntecubitalAdministrator: RT Carlo (R)(N) STRESS DATA End Diast. Vol.82.0mlAv. Heart Rate80.0bpm End Syst. Vol.8.0mlCO Index BSA6.0L/min Myocardial Hiwf217.0gEject. Yjlvynzn53.0% Stress Rates Pk. Fill Rate4.76EDV/secLVtime Pk. Fill 208.69msec Pk. Empty Rate5.91ESV/secLVtime Pk. Byafe678.85msec /3 Pk. Fill1.74EDV/sec Stress Scores Regional WT0.00Summed WT0.00 Regional WM0.00Summed WM1.00 Study quality was good. Left Ventricular size was Normal at Rest and Stress. Lung uptake was Normal. Left Ventricular ejection fraction is 90%. The rest and stress images show normal perfusion, normal contraction and thickening. LV Perf. Quant 17 Seg. SSS0.00 17 Seg. SRS1.00 17 Seg. SDS0.00 Stress Defect Extent (% LAD)0.00Rest Defect Extent (% LAD)0.00Rev. Defect Extent (% LAD)0.00 Stress Defect Extent (% LCX) 0.00Rest Defect Extent (% LCX)0.00Rev. Defect Extent (% LCX)0.00 Stress Defect Extent (% RCA)0.00Rest Defect Extent (% RCA)0.00Rev. Defect Extent (% RCA)0.00 Stress Defect Extent (% BRIANNA)0.00Rest Defect Extent (% BRIANNA)0.00Rev. Defect Extent (% BRIANNA)0.00 Conclusion 1. Regadenoson cardioisotope stress test did not show any evidence of ischemia or infarct. 2. Normal left ventricular systolic function with ejection fraction calculated at 90%. 3. Low risk for cardiac events.
[2017-01-05 15:00] VITALS: BP 115/60
--- NOTE | 2017-01-05 18:42 | PDOC ---
PULMONARY PROGRESS NOTES Subjective PT SLIGHTLY BETTER LESS SOA NO CHEST PAIN AT THIS TIME Vitals Vital Signs Date Time Temp Pulse Resp B/P (MAP) Pulse Ox O2 Delivery O2 Flow Rate FiO2 01/05/17 15:30 95 Room Air 01/05/17 15:00 97.5 70 20 115/60 (78) 97.5 ROS: No Nausea, No Chest Pain, No Abdominal Pain, No Increase Cough Lungs: Clear Cardiovascular: S1, S2 Abdomen: Soft Neuro Exam: Alert Extremities: No Edema Skin: Warm Labs Laboratory Tests Test 01/04/17 04:15 White Blood Count 5.1 x10^3/uL (4.0-11.0) Red Blood Count 3.88 x10^6/uL (4.30-5.70) Hemoglobin 13.1 g/dL (13.0-17.5) Hematocrit 38.0 % (39.0-53.0) Mean Corpuscular Volume 98 fL (79-100) Mean Corpuscular Hemoglobin 34 pg (25-35) Mean Corpuscular Hemoglobin Concent 34 g/dL (31-37) Red Cell Distribution Width 13.0 % (11.5-14.5) Platelet Count 71 x10^3/uL (140-400) Neutrophils (%) (Auto) 88 % (31-73) Lymphocytes (%) (Auto) 8 % (24-48) Monocytes (%) (Auto) 3 % (0-9) Eosinophils (%) (Auto) 0 % (0-3) Basophils (%) (Auto) 0 % (0-3) Neutrophils # (Auto) 4.5 x10^3uL (1.8-7.7) Lymphocytes # (Auto) 0.4 x10^3/uL (1.0-4.8) Monocytes # (Auto) 0.2 x10^3/uL (0.0-1.1) Eosinophils # (Auto) 0.0 x10^3/uL (0.0-0.7) Basophils # (Auto) 0.0 x10^3/uL (0.0-0.2) Segmented Neutrophils % 83 % (35-66) Band Neutrophils % 9 % (0-9) Lymphocytes % 3 % (24-48) Monocytes % 2 % (0-10) Eosinophils % 2 % (0-5) Basophils % 1 % (0-3) Platelet Estimate Adequate (ADEQUATE) Sodium Level 144 mmol/L (136-145) Potassium Level 4.5 mmol/L (3.5-5.1) Chloride Level 109 mmol/L (98-107) Carbon Dioxide Level 27 mmol/L (21-32) Anion Gap 8 (6-14) Blood Urea Nitrogen 14 mg/dL (8-26) Creatinine 1.0 mg/dL (0.7-1.3) Estimated GFR (Cockcroft-Gault) 78.2 Glucose Level 123 mg/dL (70-99) Calcium Level 8.5 mg/dL (8.5-10.1) Triglycerides Level 48 mg/dL (0-150) Cholesterol Level 134 mg/dL (0-200) LDL Cholesterol, Calculated 97 mg/dL (0-100) VLDL Cholesterol, Calculated 10 mg/dL (0-40) Non-HDL Cholesterol Calculated 107 mg/dL (0-129) HDL Cholesterol 27 mg/dL (40-60) Cholesterol/HDL Ratio 5.0 Medications Active Scripts Medications Dose Route/Sig Max Daily Dose Days Date Category Colace (Docusate Sodium) 100 Mg Capsule 100 Mg PO BID PRN 05/29/16 Rx Percocet 5-325 Mg Tablet (Oxycodone/Acetaminophen) 1 Each Tablet 1 Tab PO QID PRN 05/29/16 Rx Trazodone Hcl 150 Mg Tablet 1 Tab PO QHS 05/24/16 Reported Montelukast Sodium Tablet (Montelukast Sodium) 10 Mg Tablet 10 Mg PO HS 05/24/16 Reported Divalproex Sodium Er (Divalproex Sodium) 500 Mg Tab.er.24h 2 Tab PO QHS 05/24/16 Reported Olanzapine 20 Mg Tablet 1 Tab PO QHS 05/24/16 Reported Olanzapine 5 Mg Tablet 5 Mg PO DAILY 05/24/16 Reported Fluoxetine Hcl 10 Mg Capsule 1 Cap PO DAILY 05/24/16 Reported Tamsulosin Hcl 0.4 Mg Cap.er.24h 1 Cap PO HS 06/21/15 Reported Cetirizine Hcl 10 Mg Tablet 1 Tab PO DAILY 06/21/15 Reported Impression . 1. Progressive dyspnea secondary to acute exacerbation of chronic obstructive pulmonary disease. 2. Acute exacerbation of chronic obstructive pulmonary disease. 3. Polysubstance use. 4. Negative CT for PE protocol. 5. Tobacco dependence. 6. Chest pain. Suspect reflux versus costochondritis. 7. History of hepatitis C, treated. Plan . PT RESP STATUS IS COMPENSATED D/C IN AM KEFLEX AND STEROIDS D/C SMOKING FOLLOW UP IN OFFICE IN NOV\ ANA HOLLAND MD Jan 05, 2017 18:42
[2017-01-05 19:00] VITALS: BP 108/49
[2017-01-05] MEDS: traZODone 100 MG TABLET. PO SCH (22:54)
[2017-01-05] MEDS: DIVALPROEX EXTENDED RELEASE 500 MG TAB.ER.24H. PO SCH (22:56)
[2017-01-05] MEDS: TAMSULOSIN 0.4 MG CAP.ER.24H. PO SCH (22:57)
[2017-01-05] MEDS: MONTELUKAST SODIUM 10 MG TABLET. PO SCH (22:57)
[2017-01-05 23:00] VITALS: BP 108/56
[2017-01-05] MEDS: NICOTINE 21MG PATCH. TD PRN (23:01)
[2017-01-06 03:37] VITALS: BP 142/69
[2017-01-06 07:00] VITALS: BP 123/56
[2017-01-06] MEDS: IPRATRPIUM/ALBUTEROL 0.5/2.5MG 3 ML NEBU. NEB SCH ×2 (08:04→11:35)
[2017-01-06] MEDS: FAMOTIDINE 20 MG TABLET. PO SCH (08:35)
[2017-01-06] MEDS: predniSONE 10 MG TABLET PO SCH (08:36)
[2017-01-06] MEDS: OLANZapine 5 MG TABLET PO SCH (08:36)
[2017-01-06] MEDS: FLUoxetine HCL 10 MG CAPSULE PO SCH (08:36)
[2017-01-06] MEDS: CETIRIZINE HCL 10 MG TABLET. PO SCH (08:36)
[2017-01-06] MEDS: CEPHALEXIN 250 MG CAPSULE. PO SCH (08:36)
[2017-01-06 11:00] VITALS: BP 100/43
--- NOTE | 2017-01-06 11:38 | PDOC ---
PULMONARY PROGRESS NOTES Subjective PT BETTER NOT MORE SOA Vitals Vital Signs Date Time Temp Pulse Resp B/P (MAP) Pulse Ox O2 Delivery O2 Flow Rate FiO2 01/06/17 11:00 97.7 62 20 100/43 (62) 97 Room Air 97.7 ROS: No Nausea, No Chest Pain, No Abdominal Pain, No Increase Cough Lungs: Clear Cardiovascular: S1, S2 Abdomen: Soft Neuro Exam: Alert Extremities: No Edema Skin: Warm Medications Active Scripts Medications Dose Route/Sig Max Daily Dose Days Date Category Colace (Docusate Sodium) 100 Mg Capsule 100 Mg PO BID PRN 05/29/16 Rx Percocet 5-325 Mg Tablet (Oxycodone/Acetaminophen) 1 Each Tablet 1 Tab PO QID PRN 05/29/16 Rx Trazodone Hcl 150 Mg Tablet 1 Tab PO QHS 05/24/16 Reported Montelukast Sodium Tablet (Montelukast Sodium) 10 Mg Tablet 10 Mg PO HS 05/24/16 Reported Divalproex Sodium Er (Divalproex Sodium) 500 Mg Tab.er.24h 2 Tab PO QHS 05/24/16 Reported Olanzapine 20 Mg Tablet 1 Tab PO QHS 05/24/16 Reported Olanzapine 5 Mg Tablet 5 Mg PO DAILY 05/24/16 Reported Fluoxetine Hcl 10 Mg Capsule 1 Cap PO DAILY 05/24/16 Reported Tamsulosin Hcl 0.4 Mg Cap.er.24h 1 Cap PO HS 06/21/15 Reported Cetirizine Hcl 10 Mg Tablet 1 Tab PO DAILY 06/21/15 Reported Impression . 1. Progressive dyspnea secondary to acute exacerbation of chronic obstructive pulmonary disease. 2. Acute exacerbation of chronic obstructive pulmonary disease. 3. Polysubstance use. 4. Negative CT for PE protocol. 5. Tobacco dependence. 6. Chest pain. Suspect reflux versus costochondritis. 7. History of hepatitis C, treated. Plan . D/C FOLLOW UP IN OFFICE KEFLEX AND STEROIDS D/C SMOKING FOLLOW UP IN OFFICE IN NOV\ ANA HOLLAND MD Jan 06, 2017 11:38
[2017-01-06] MEDS ORDERED: PRED-220 PO (12:23)
[2017-01-06] MEDS ORDERED: CEPH-264 PO (12:23)
[2017-01-06] MEDS ORDERED: OXYC-323 PO (12:23)
--- NOTE | 2017-01-06 14:19 | PDOC3 ---
Discharge Summary Visit Information Date of Admission: Jan 02, 2017 Date of Discharge: Jan 06, 2017 Admitting Diagnosis: dyspnea and pain Final Diagnosis 1/ atypical chest pain, anginal, but also component of costochondritis vs gerd 2. Pancytopenia 3. Prev heavy EtOHiosm 4. Tobaccosim 5. COPD with acute bronchitis Brief Hospital Course Allergies Allergies Coded Allergies Type Severity Reaction Last Updated Verified codeine Allergy Intermediate 01/02/17 Yes gabapentin Allergy Intermediate 01/02/17 Yes meperidine Allergy Intermediate 06/21/15 Yes Vital Signs Vital Signs Date Time Temp Pulse Resp B/P (MAP) Pulse Ox O2 Delivery O2 Flow Rate FiO2 01/06/17 11:36 Room Air 01/06/17 11:00 97.7 62 20 100/43 (62) 97 97.7 Brief Hospital Course Mr. Todd is a 51 old male admit for dyspnea and cehst pain r.o ACS, then MPI neg cough and dyspnea, treated as COPD, ae, with nebs steroids and abx tapered to DC, will f.u in PULM clinic in 2 weeks Discharge Information Condition at Discharge: Improved Follow Up: Weeks Disposition/Orders: D/C to Home Scheduled Cephalexin (Keflex), 1 CAP PO TID Cetirizine Hcl (Cetirizine Hcl), 1 TAB PO DAILY, (Reported) Divalproex Sodium (Divalproex Sodium Er), 2 TAB PO QHS, (Reported) Fluoxetine Hcl (Fluoxetine Hcl), 1 CAP PO DAILY, (Reported) Montelukast Sodium (Montelukast Sodium Tablet), 10 MG PO HS, (Reported) Olanzapine (Olanzapine), 5 MG PO DAILY, (Reported) Olanzapine (Olanzapine), 1 TAB PO QHS, (Reported) Prednisone (Prednisone), 10 MG PO UD Tamsulosin Hcl (Tamsulosin Hcl), 1 CAP PO HS, (Reported) Trazodone Hcl (Trazodone Hcl), 1 TAB PO QHS, (Reported) Scheduled PRN Docusate Sodium (Colace), 100 MG PO BID PRN for hard stool or no stool Oxycodone/Apap 5-325 (Percocet 5-325 Mg Tablet), 1 TAB PO QID PRN for PAIN Patient Instructions Patient Instructions > 30 min face to face LORI VINSON MD Jan 06, 2017 14:19
--- NOTE | 2017-01-06 14:20 | PDOC ---
PROGRESS NOTES Chief Complaint Chief Complaint LATE entry, pt seen . COPD acute bronchitis 1. atypical chest pain, anginal, but also component of costochondritis vs gerd 2. Pancytopenia 3. Prev heavy EtOHiosm 4. Tobaccosim History of Present Illness History of Present Illness MPI stress cont current weakenss and pain off EtOH limited family support Vitals Vitals Vital Signs Date Time Temp Pulse Resp B/P (MAP) Pulse Ox O2 Delivery O2 Flow Rate FiO2 01/06/17 11:36 Room Air 01/06/17 11:00 97.7 62 20 100/43 (62) 97 97.7 Physical Exam General: Alert, Oriented X3, Cooperative, No acute distress Heart: Regular rate Lungs: Clear Abdomen: Normal bowel sounds Extremities: No clubbing, No cyanosis Skin: No rashes, No breakdown Review of Systems Review of Systems no n.vd pain Comment Review of Relevant I have reviewed the following items venita (where applicable) has been applied. Medications Current Medications Aspirin (Acacia Aspirin) 325 mg 1X ONCE PO Last administered on 01/02/17 11: 28; Start 01/02/17 at 11:15; Stop 01/02/17 at 11:16; Status DC Nitroglycerin (Nitrostat) 0.4 mg PRN Q5MIN PRN SL CP RATING > 1/10 Last administered on 01/02/17 11:27; Start 01/02/17 at 11:00; Stop 01/03/17 at 10 :59; Status DC Morphine Sulfate 2 mg PRN Q15MIN PRN IV/SQ PAIN GREATER THAN 3/10 Last administered on 01/02/17 13:31; Start 01/02/17 at 11:00; Stop 01/03/17 at 10 :59; Status DC Sodium Chloride 1,000 ml @ 1,000 mls/hr Q1H IV Last administered on 11:26; Start 01/02/17 at 11:00; Stop 01/02/17 at 11:59; Status DC Iohexol (Omnipaque 350 Mg/ml) 90 ml 1X ONCE IV Last administered on 13:14; Start 01/02/17 at 13:30; Stop 01/02/17 at 13:31; Status DC Info (Do NOT chart on this entry -- for MONITORING) 1 each PRN DAILY PRN MC SEE COMMENTS; Start 01/02/17 at 13:15; Stop 01/04/17 at 13:14; Status DC Ondansetron HCl (Zofran) 4 mg PRN Q8HRS PRN IV NAUSEA/VOMITING; Start at 13:15; Stop 01/03/17 at 09:07; Status DC Morphine Sulfate 2 mg PRN Q2HR PRN IV PAIN Last administered on 01/02/17 21: 48; Start 01/02/17 at 13:15; Stop 01/03/17 at 13:14; Status DC Albuterol/ Ipratropium (Duoneb) 3 ml RTQID NEB Last administered on 01/06/17 11:35; Start 01/02/17 at 20:00; Stop 01/06/17 at 13:08; Status DC Cetirizine HCl (ZyrTEC) 10 mg DAILY PO Last administered on 01/06/17 08:36; Start 01/03/17 at 09:00; Stop 01/06/17 at 13:08; Status DC Divalproex Sodium (Depakote Er) 1,000 mg QHS PO Last administered on 22:56; Start 01/02/17 at 21:00; Stop 01/06/17 at 13:08; Status DC Docusate Sodium (Colace) 100 mg PRN BID PRN PO hard stool or no stool; Start 01/02/17 at 19:30; Stop 01/06/17 at 13:08; Status DC Fluoxetine HCl (PROzac) 10 mg DAILY PO Last administered on 01/06/17 08:36; Start 01/03/17 at 09:00; Stop 01/06/17 at 13:08; Status DC Montelukast Sodium (Singulair) 10 mg HS PO Last administered on 01/05/17 22: 57; Start 01/02/17 at 21:00; Stop 01/06/17 at 13:08; Status DC Olanzapine (ZyPREXA) 5 mg DAILY PO Last administered on 01/06/17 08:36; Start 01/03/17 at 09:00; Stop 01/06/17 at 13:08; Status DC Oxycodone/ Acetaminophen (Percocet 5/325) 1 tab PRN QID PRN PO PAIN Last administered on 01/04/17 16:04; Start 01/02/17 at 19:30; Stop 01/06/17 at 13 :08; Status DC Tamsulosin HCl (Flomax) 0.4 mg HS PO Last administered on 01/05/17 22:57; Start 01/02/17 at 21:00; Stop 01/06/17 at 13:08; Status DC Olanzapine (ZyPREXA) 20 mg QHS PO Last administered on 01/05/17 22:53; Start 01/02/17 at 21:00; Stop 01/06/17 at 13:08; Status DC Trazodone HCl (Desyrel) 150 mg QHS PO Last administered on 01/05/17 22:54; Start 01/02/17 at 21:00; Stop 01/06/17 at 13:08; Status DC Ondansetron HCl (Zofran) 4 mg PRN Q6HRS PRN IV NAUSEA/VOMITING; Start at 09:15; Stop 01/04/17 at 09:14; Status DC Guaifenesin (Robitussin Dm) 10 ml PRN Q6HRS PRN PO COUGH; Start 01/03/17 at 09 :15; Stop 01/06/17 at 13:08; Status DC Nicotine (Nicoderm Cq 21mg) 1 patch PRN DAILY PRN TD SMOKING CESSATION Last administered on 01/05/17 23:01; Start 01/03/17 at 14:00; Stop 01/06/17 at 13 :08; Status DC Guaifenesin (Mucinex) 600 mg BID PO Last administered on 01/06/17 08:36; Start 01/03/17 at 21:00; Stop 01/06/17 at 13:08; Status DC Cephalexin HCl (Keflex) 500 mg TID PO Last administered on 01/06/17 08:36; Start 01/03/17 at 14:00; Stop 01/06/17 at 13:08; Status DC Famotidine (Pepcid) 20 mg BID PO Last administered on 01/06/17 08:35; Start 01/03/17 at 21:00; Stop 01/06/17 at 13:08; Status DC Prednisone (Prednisone) 30 mg DAILY PO Last administered on 01/06/17 08:36; Start 01/03/17 at 20:00; Stop 01/06/17 at 13:08; Status DC Ondansetron HCl (Zofran) 4 mg PRN Q8HRS PRN IV NAUSEA/VOMITING Last administered on 01/04/17 10:43; Start 01/04/17 at 10:00; Stop 01/06/17 at 13 :08; Status DC Regadenoson (Lexiscan) 0.4 mg 1X ONCE IV Last administered on 01/05/17 11:32 ; Start 01/05/17 at 10:30; Stop 01/05/17 at 10:31; Status DC Active Scripts Active Prednisone 10 Mg Tablet 10 Mg PO UD Take 3 tablets by mouth daily for 3 days, then take 2 tablets by mouth daily for 3 days, then take 1 tablet by mouth daily for 3 days, then stop. Keflex (Cephalexin) 500 Mg Capsule 1 Cap PO TID Percocet 5-325 Mg Tablet (Oxycodone/Acetaminophen) 1 Each Tablet 1 Tab PO QID PRN Colace (Docusate Sodium) 100 Mg Capsule 100 Mg PO BID PRN Reported Trazodone Hcl 150 Mg Tablet 1 Tab PO QHS Montelukast Sodium Tablet (Montelukast Sodium) 10 Mg Tablet 10 Mg PO HS Divalproex Sodium Er (Divalproex Sodium) 500 Mg Tab.er.24h 2 Tab PO QHS Olanzapine 20 Mg Tablet 1 Tab PO QHS Olanzapine 5 Mg Tablet 5 Mg PO DAILY Fluoxetine Hcl 10 Mg Capsule 1 Cap PO DAILY Tamsulosin Hcl 0.4 Mg Cap.er.24h 1 Cap PO HS Cetirizine Hcl 10 Mg Tablet 1 Tab PO DAILY Vitals/I & O Vital Sign - Last 24 Hours 01/05/17 01/05/17 01/05/17 01/05/17 15:00 15:30 19:00 20:00 Temp 97.5 97.9 97.5 97.9 Pulse 70 78 Resp 20 20 B/P (MAP) 115/60 (78) 108/49 (68) Pulse Ox 98 95 95 O2 Delivery Room Air Room Air Room Air Room Air 01/05/17 01/05/17 01/06/17 01/06/17 20:55 23:00 03:37 07:00 Temp 98.4 97.5 97.7 98.4 97.5 97.7 Pulse 82 65 63 Resp 20 20 20 B/P (MAP) 108/56 (73) 142/69 (93) 123/56 (78) Pulse Ox 97 95 96 93 O2 Delivery Room Air Room Air Room Air Room Air 01/06/17 01/06/17 01/06/17 01/06/17 07:30 08:05 11:00 11:36 Temp 97.7 97.7 Pulse 62 Resp 20 B/P (MAP) 100/43 (62) Pulse Ox 99 97 O2 Delivery Room Air Room Air Room Air Room Air LORI VINSON MD Jan 06, 2017 14:20
== END 2017-01-06 13:08 | disposition home or self-care (01) | DRG 191 ==
LOC: ER 10:45 → 5 NORTH 12:50
PROVIDERS: ADMIT Internal Medicine; ATTEND Internal Medicine
DX: J44.0 Chronic obstructive pulmonary disease with (acute) lower respiratory infection (principal); D61.818 Other pancytopenia; M94.0 Chondrocostal junction syndrome [Tietze]; F20.9 Schizophrenia, unspecified; J44.1 Chronic obstructive pulmonary disease with (acute) exacerbation; K21.9 Gastro-esophageal reflux disease without esophagitis; F31.9 Bipolar disorder, unspecified; I20.9 Angina pectoris, unspecified; F17.210 Nicotine dependence, cigarettes, uncomplicated; G47.30 Sleep apnea, unspecified; I10 Essential (primary) hypertension; J20.9 Acute bronchitis, unspecified; N40.0 Benign prostatic hyperplasia without lower urinary tract symptoms; Z82.49 Family history of ischemic heart disease and other diseases of the circulatory system; Z90.49 Acquired absence of other specified parts of digestive tract; F10.20 Alcohol dependence, uncomplicated; F41.9 Anxiety disorder, unspecified; G47.00 Insomnia, unspecified; G89.29 Other chronic pain; Z88.5 Allergy status to narcotic agent; Z88.8 Allergy status to other drugs, medicaments and biological substances; F19.90 Other psychoactive substance use, unspecified, uncomplicated; Z86.19 Personal history of other infectious and parasitic diseases
CPT/HCPCS: 36415; 71010; 71275; 74174; 78452; 80048; 80053; 80061; 80076; 80307; 81001; 82553; 83690; 83735; 83880; 84484; 85007; 85025; 85379; 85610; 93005; 93017; 93306; 94250; 94640; 96361; 96374; 96375; 96376; 99406; A9500; J2270; J2405; J2785; J7030; J7512; J7620; Q9967; 99285-25; G0479

== ENCOUNTER 2017-04-10 09:26 | Emergency (ER) | payer OTHER ==
[2017-04-10 09:42] LABS: ADD MAN DIFF? NO
[2017-04-10 09:48] LABS: BASO % 1 % (0-3); EOS # 0.1 x10^3/uL (0.0-0.7); EOS % 2 % (0-3); HEMOGLOBIN 14.1 g/dL (13.0-17.5); LYMPH # 0.8 x10^3/uL (1.0-4.8); LYMPH % 15 % (24-48); MEAN CORPUSCULAR HEMOGLOBIN 34 pg (25-35); MEAN CORPUSCULAR HGB CONC 34 g/dL (31-37); MEAN CORPUSCULAR VOLUME 100 fL (79-100); MONO # 0.5 x10^3/uL (0.0-1.1); MONO % 9 % (0-9); NEUT % 73 % (31-73); PLATELET COUNT 96 x10^3/uL (140-400); RED BLOOD COUNT 4.19 x10^6/uL (4.30-5.70); RED CELL DISTRIBUTION WIDTH 13.1 % (11.5-14.5); WHITE BLOOD COUNT 5.5 x10^3/uL (4.0-11.0)
[2017-04-10 09:53] LABS: ANION GAP 13 (6-14); BLOOD UREA NITROGEN 14 mg/dL (8-26); BUN/CREATININE RATIO 14 (6-20); CALCIUM 8.9 mg/dL (8.5-10.1); CARBON DIOXIDE 26 mmol/L (21-32); CHLORIDE 101 mmol/L (98-107); GFR 77.9; GLUCOSE 137 mg/dL (70-99); POTASSIUM 3.4 mmol/L (3.5-5.1); SODIUM 140 mmol/L (136-145)
[2017-04-10 09:59] LABS: ALBUMIN 3.8 g/dL (3.4-5.0); ALBUMIN/GLOBULIN RATIO 1.1 (1.0-1.7); ALK PHOS 53 U/L (46-116); ALT (SGPT) 17 U/L (16-63); AST (SGOT) 16 U/L (15-37); TOTAL BILIRUBIN 0.7 mg/dL (0.2-1.0); TOTAL PROTEIN 7.4 g/dL (6.4-8.2)
[2017-04-10 10:02] LABS: TROPONINI < 0.017 ng/mL (0.000-0.055)
[2017-04-10] MEDS: LIDO:MAALOX:DONNATAL 1:1:1 15 ML SINGLE DOSE SWSW (10:21)
[2017-04-10] MEDS: FAMOTIDINE 20 MG/2 ML VIAL IVP (10:21)
[2017-04-10] MEDS: NITROGLYCERIN SUBLINGUAL 0.4 MG BOTTLE OF 25. SL ×2 (10:56→11:36)
[2017-04-10 11:08] LABS: D-DIMER < 0.27 ug/mlFEU (0.00-0.50)
[2017-04-10] MEDS ORDERED: LORazepam 1 MG TABLET PO (11:45)
== END 2017-04-10 12:28 | disposition home or self-care (01) ==
LOC: ER 09:26
DX: R07.2 Precordial pain (principal); F20.9 Schizophrenia, unspecified; I10 Essential (primary) hypertension; F31.9 Bipolar disorder, unspecified; Z88.1 Allergy status to other antibiotic agents; Z88.5 Allergy status to narcotic agent; Z88.8 Allergy status to other drugs, medicaments and biological substances
CPT/HCPCS: 36415; 71045; 80053; 84484; 85025; 85379; 93005; 96374; 99285-25; S0028

== ENCOUNTER 2019-08-21 13:51 | Emergency (ER) | payer MEDICARE, OTHER ==
[~2019-08-21] VITALS: Ht 180.3 cm; Wt 91.0 kg
[~2019-08-21 13:51] MED LIST changes: +CEPH-264 PO; +FLUO10CA14 PO; -FLUO10CA7 PO; +MONT10TA49 PO; -MONT10TA9 PO; +OLAN20TA15 PO; -OLAN20TA7 PO; -OXYC-323 PO; +OXYC1TAB15 PO; -OXYM30SP NS; +OXYM30SP25 NS; +PRED-220 PO; -QUET400T6 PO; +QUET400T7 PO
[2019-08-21 15:16] LABS: BASO # 0.1 x10^3/uL (0.0-0.2); BASO % 1 % (0-3); EOS # 0.2 x10^3/uL (0.0-0.7); EOS % 3 % (0-3); HEMATOCRIT 38.9 % (39.0-53.0); HEMOGLOBIN 13.7 g/dL (13.0-17.5); LYMPH % 13 % (24-48); MEAN CORPUSCULAR HEMOGLOBIN 34 pg (25-35); MEAN CORPUSCULAR HGB CONC 35 g/dL (31-37); MEAN CORPUSCULAR VOLUME 95 fL (79-100); MONO # 0.5 x10^3/uL (0.0-1.1); MONO % 7 % (0-9); NEUT # 5.4 x10^3/uL (1.8-7.7); NEUT % 76 % (31-73); PLATELET COUNT 141 x10^3/uL (140-400); RED BLOOD COUNT 4.09 x10^6/uL (4.30-5.70); WHITE BLOOD COUNT 7.2 x10^3/uL (4.0-11.0)
[2019-08-21 15:26] LABS: CREATININE 1.2 mg/dL (0.7-1.3); GFR 62.6; POTASSIUM 3.5 mmol/L (3.5-5.1)
[2019-08-21 15:30] LABS: ALBUMIN 3.2 g/dL (3.4-5.0); ALBUMIN/GLOBULIN RATIO 0.8 (1.0-1.7); TOTAL BILIRUBIN 0.5 mg/dL (0.2-1.0); TOTAL PROTEIN 7.4 g/dL (6.4-8.2)
[2019-08-21] MEDS ORDERED: IOHEXOL 240 MG/ML 50ML VIAL. PO ONE (16:00)
[2019-08-21] MEDS ORDERED: IOHEXOL 300 MG/ML 100ML VIAL. ONE (16:38)
[2019-08-21] MEDS ORDERED: IOHEXOL 300 MG/ML 100ML VIAL. IV ONE (17:00)
[2019-08-21] MEDS ORDERED: CONTRAST GIVEN. MC PRN (17:00)
--- NOTE | 2019-08-21 17:09 | RAD ---
CT SCAN OF THE ABDOMEN AND PELVIS WITH IV CONTRAST. History: Reason: abd pain L sided: Comparison:May 25, 2016. Procedure: Contiguous axial images of the abdomen and pelvis were performed after the administration of 75 cc of Omni 300 IV contrast. Oral contrast: Yes. Findings: There is an intrathecal pain pump posteriorly. Liver: Nodular surface There has been prior cholecystectomy. Spleen: Unremarkable Pancreas: Unremarkable Adrenal Glands: Unremarkable Kidneys: There are few hypoattenuating lesions in the right kidney largest measures 9 mm x 8 mm. The appendix is normal. There is a radiopacity in the cecum. There is no mass or lymphadenopathy. There is no free air. There is no free fluid. The urinary bladder appears normal. Impression: 1. Hypoattenuating lesions in the right kidney are too small to characterize but are stable and are likely cysts. 2. Radiopacity in the cecum could be a marker from biopsy. 3. Cirrhosis of the liver. PQRS Compliance Statement: One or more of the following individualized dose reduction techniques were utilized for this examination: 1. Automated exposure control 2. Adjustment of the mA and/or kV according to patient size 3. Use of iterative reconstruction technique Electronically signed by: Mark Parikh III, MD (08/21/2019 5:06 PM) [id number]
[2019-08-21] MEDS ORDERED: fentaNYL PF VIAL 100 MCG/2 ML VIAL IVP ONE (17:15)
[2019-08-21] MEDS ORDERED: KETOROLAC 30 MG/ML VIAL. IVP ONE (17:30)
[2019-08-21 17:33] VITALS: BP 125/63
--- NOTE | 2019-08-21 18:06 | PHYS DOC ---
Past Medical History Past Medical History: Bipolar, Hypotension, Hepatitis, Schizophrenia, Other Additional Past Medical Histor: DDD, sleep apnea, hx of drug and ETOH abuse SOBER SINCE 2011 Past Surgical History: Cholecystectomy, Other Additional Past Surgical Histo: sinus, right shoulder reconstruct, teeth, jaw Smoking Status: Current Every Day Smoker Alcohol Use: Sober Drug Use: None General Adult EDM: Chief Complaint: ABDOMINAL PAIN HPI: HPI: Patient is a 54 year old male who presents with left-sided abdominal pain that started over the last couple days. He states his progressively gotten worse. He initially had some loose stools but has not had any further. He has not had any nausea or vomiting. He has not had any blood in his stools or urine. He denies any fevers. He denies any trauma. Review of Systems: Review of Systems: General: Denies fever, chills, sweats, fatigue Eyes: Denies drainage, blurred vision HENT: Denies rhinorrhea, sore throat Respiratory: Denies cough, shortness of breath, wheezing Cardiac: Denies edema, palpitations, chest pain GI: Denies N/V reports abdominal pain MSK: Denies back pain, neck pain Skin: Denies rash, jaundice Neuro: Denies headache, dizziness Psychiatric: Denies SI/HI Heart Score: Risk Factors: Risk Factors: DM, Current or recent (<one month) smoker, HTN, HLP, family history of CAD, obesity. Risk Scores: Score 0 - 3: 2.5% MACE over next 6 weeks - Discharge Home Score 4 - 6: 20.3% MACE over next 6 weeks - Admit for Clinical Observation Score 7 - 10: 72.7% MACE over next 6 weeks - Early Invasive Strategies Current Medications: Current Medications Medications (Trade) Dose Ordered Sig/Prem Start Time Stop Time Status Last Admin Dose Admin Fentanyl Citrate (Fentanyl 2ml Vial) 25 mcg 1X ONCE 08/21/19 17:15 08/21/19 17:16 DC Info (CONTRAST GIVEN -- Rx MONITORING) 1 each PRN DAILY PRN 08/21/19 17:00 08/23/19 16:59 Iohexol (Omnipaque 240 Mg/ml) 30 ml 1X ONCE 08/21/19 16:00 08/21/19 16:01 DC 08/21/19 16:00 30 ML Iohexol (Omnipaque 300 Mg/ml) 75 ml 1X ONCE 08/21/19 17:00 08/21/19 17:01 DC Ketorolac Tromethamine (Toradol 30mg Vial) 30 mg 1X ONCE 08/21/19 17:30 08/21/19 17:31 DC 08/21/19 17:53 30 MG Allergies: Allergies: Allergies Coded Allergies Type Severity Reaction Last Updated Verified codeine Allergy Intermediate 01/02/17 Yes gabapentin Allergy Intermediate 01/02/17 Yes meperidine Allergy Intermediate 06/21/15 Yes Physical Exam: PE: Constitutional: Well developed, well nourished, Cooperative, NAD, non-toxic appearing HEENT: Normocephalic, atraumatic, oropharynx moist, EOMI, PERRL, no drainage from eyes, normal conjunctiva Neck: Supple, normal range of motion, no stridor Cardiovascular: RRR, 2+ radial pulses bilaterally, no edema Respiratory: CTA bilaterally, no respiratory distress, no wheezing/crackles Abdomen: Soft, left-sided abdominal tenderness, nondistended, no masses Skin: Warm, dry, intact Extremities: No obvious deformities Neurologic: Alert and Oriented x3, motor and sensory function grossly normal, no focal deficits Psychologic: Normal affect, normal judgment, normal mood. No SI/HI Current Patient Data: Labs: Laboratory Tests Test 08/21/19 15:05 White Blood Count 7.2 x10^3/uL (4.0-11.0) Red Blood Count 4.09 x10^6/uL (4.30-5.70) L Hemoglobin 13.7 g/dL (13.0-17.5) Hematocrit 38.9 % (39.0-53.0) L Mean Corpuscular Volume 95 fL (79-100) Mean Corpuscular Hemoglobin 34 pg (25-35) Mean Corpuscular Hemoglobin Concent 35 g/dL (31-37) Red Cell Distribution Width 13.0 % (11.5-14.5) Platelet Count 141 x10^3/uL (140-400) Neutrophils (%) (Auto) 76 % (31-73) H Lymphocytes (%) (Auto) 13 % (24-48) L Monocytes (%) (Auto) 7 % (0-9) Eosinophils (%) (Auto) 3 % (0-3) Basophils (%) (Auto) 1 % (0-3) Neutrophils # (Auto) 5.4 x10^3/uL (1.8-7.7) Lymphocytes # (Auto) 1.0 x10^3/uL (1.0-4.8) Monocytes # (Auto) 0.5 x10^3/uL (0.0-1.1) Eosinophils # (Auto) 0.2 x10^3/uL (0.0-0.7) Basophils # (Auto) 0.1 x10^3/uL (0.0-0.2) Sodium Level 140 mmol/L (136-145) Potassium Level 3.5 mmol/L (3.5-5.1) Chloride Level 104 mmol/L (98-107) Carbon Dioxide Level 21 mmol/L (21-32) Anion Gap 15 (6-14) H Blood Urea Nitrogen 9 mg/dL (8-26) Creatinine 1.2 mg/dL (0.7-1.3) Estimated GFR (Cockcroft-Gault) 62.6 BUN/Creatinine Ratio 8 (6-20) Glucose Level 152 mg/dL (70-99) H Calcium Level 9.0 mg/dL (8.5-10.1) Total Bilirubin 0.5 mg/dL (0.2-1.0) Aspartate Amino Transferase (AST) 17 U/L (15-37) Alanine Aminotransferase (ALT) 14 U/L (16-63) L Alkaline Phosphatase 89 U/L (46-116) Total Protein 7.4 g/dL (6.4-8.2) Albumin 3.2 g/dL (3.4-5.0) L Albumin/Globulin Ratio 0.8 (1.0-1.7) L Lipase 138 U/L (73-393) Laboratory Tests 08/21/19 15:05 Laboratory Tests 08/21/19 15:05 Vital Signs: Vital Signs Date Time Temp Pulse Resp B/P (MAP) Pulse Ox O2 Delivery O2 Flow Rate FiO2 08/21/19 17:33 76 18 125/63 (83) 95 Room Air 08/21/19 14:24 98.3 98.3 EKG: EKG: [] Radiology/Procedures: Radiology/Procedures: [] Course & Med Decision Making: Course & Med Decision Making Pertinent Labs and Imaging studies reviewed. (See chart for details) Patient is a 54-year-old male who presents to the emergency room complaining of abdominal pain. Abdominal labs and CT abdomen pelvis were ordered. Patient has a normal work-up. Is unclear at this time what is causing his pain, however it does not appear to be emergent at this time. Patient's test results and vitals while in the ED were fully reviewed and discussed with the patient. Patient is stable and at this time does not need admission to the hospital. We have discussed strict return precautions and the importance of following up with their Primary Care Physician. Patient stated understanding and was given an opp ortunity to ask any questions. Dragon Disclaimer: Dragon Disclaimer: This electronic medical record was generated, in whole or in part, using a voice recognition dictation system. Departure Departure Impression: Primary Impression: Abdominal pain Disposition: 01 HOME, SELF-CARE Condition: STABLE Patient Instructions: Abdominal Pain (Nonspecific) TATY MOHR MD Aug 21, 2019 18:06
== END 2019-08-21 18:11 | disposition home or self-care (01) ==
LOC: ER 13:51
DX: R10.9 Unspecified abdominal pain (principal); G89.29 Other chronic pain; M25.512 Pain in left shoulder; F20.9 Schizophrenia, unspecified; F31.9 Bipolar disorder, unspecified; F17.200 Nicotine dependence, unspecified, uncomplicated; Z88.1 Allergy status to other antibiotic agents; Z88.5 Allergy status to narcotic agent; Z88.8 Allergy status to other drugs, medicaments and biological substances
CPT/HCPCS: 36415; 74177; 80053; 83690; 85025; 96374; 99285; J1885; Q9966

== ENCOUNTER 2019-11-13 11:56 | Inpatient (IN) | payer MEDICARE, OTHER ==
[~2019-11-13] VITALS: Ht 177.8 cm; Wt 88.9 kg
--- NOTE | 2019-11-13 12:10 | PHYS DOC ---
Past Medical History Past Medical History: Bipolar, Hypotension, Hepatitis, Schizophrenia, Other Additional Past Medical Histor: DDD, sleep apnea, hx of drug and ETOH abuse SOBER SINCE 2011 Past Surgical History: Cholecystectomy, Other Additional Past Surgical Histo: sinus, right shoulder reconstruct, teeth, jaw Smoking Status: Current Every Day Smoker Alcohol Use: Sober Drug Use: None General Adult EDM: Chief Complaint: ALTERED MENTAL STATUS HPI: HPI: 54-year-old male past medical history significant for bipolar disorder, former alcoholism and history of liver cirrhosis secondary to alcohol abuse, presents to the ED brought in by EMS with concern for confusion, 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 Pt states he fell 2 days ago. Called EMS and c/o he was having left elbow and left knee pain but tells me he is having abdominal, dysuria,back pain and diarrhea. On reeval pt c/o chest pain. Is hyperventilating in ed. Pt reported to RN black stools. Pt denies any alcohol, drug use, SI/HI or overdose. History is limited due to patient's confusion. Allergies: Allergies: Allergies Coded Allergies Type Severity Reaction Last Updated Verified codeine Allergy Intermediate 01/02/17 Yes gabapentin Allergy Intermediate 01/02/17 Yes meperidine Allergy Intermediate 06/21/15 Yes Physical Exam: PE: Constitutional: unkept appearance, no acute distress, non-toxic appearance, follows commands but slow to respond HENT: Normocephalic, atraumatic, bilateral external ears normal, oropharynx dry, petechiae over left cheek Eyes: PERRLA, EOMI, conjunctiva normal, no discharge. [] Neck: Normal range of motion, no tenderness, supple, no stridor. [] Cardiovascular:Heart rate regular rhythm, no murmur [] Lungs & Thorax: Bilateral breath sounds clear to auscultation, hyperventilating on presentation, 94-100% RA Abdomen: Bowel sounds normal, soft, no tenderness, no masses, no pulsatile masses. [] Skin: Warm, dry, no erythema, no rash. [] Back: No tenderness, no signs of trauma Extremities: No tenderness, no cyanosis, no clubbing, ROM intact, no edema. [] Neurologic: Alert to self, not month/year, normal motor function, normal sensory function, no focal deficits noted. [] Psychologic: very flat affect, normal mood -upon ros - pt states "yes" to everything Current Patient Data: Labs: Laboratory Tests Test 11/13/19 12:03 Glucose (Fingerstick) 135 mg/dL (70-99) H EKG: EKG: Sinus tachycardia at 108 bpm, no axis deviation, QTC 446, no T wave inversions, no ST elevations or ST depressions, Q waves in inferior lateral leads-(Q waves present on March 2017 EKG but are much more pronounced on today's EKG Radiology/Procedures: Radiology/Procedures: IMAGING REPORT Signed PATIENT: REYES LAURA ACCOUNT: [id number] : 1965 LOCATION: ER AGE: 54 SEX: M EXAM STATUS: REG ER ORD. PHYSICIAN: CONNOR ROJAS DO REASON: fall PROCEDURE: CT MAXILLOFACIAL WO CONTRAST EXAM: CT Head without IV contrast INDICATION: Reason: LOWER BACK PAIN/ N/V/D / Spl. Instructions: / History: TECHNIQUE: Multi-detector row CT images were obtained of the head without the use of IV contrast. All CT scans performed at this facility utilize dose optimization techniques as appropriate to the exam, including the following: Automated exposure control and adjustment of the mA and/or KV according to patient size (this includes techniques or standardized protocols for targeted exams where dose is indication/reason for exam). COMPARISON: None FINDINGS: BRAIN PARENCHYMA: No evidence of acute intraparenchymal hemorrhage or infarct. No abnormal parenchymal density or mass. VENTRICLES & EXTRA-AXIAL SPACES: Ventricles are within normal limits. Basilar cisterns are patent. No pathologic extra-axial fluid collection or mass. ORBITS: Orbital contents are unremarkable. SINUSES: Visualized paranasal sinuses and mastoid air cells are clear. OSSEOUS & SOFT TISSUES: Calvarium and skull base are intact. IMPRESSION: Unremarkable CT of the head without contrast. EXAM: CT Cervical Spine without IV contrast INDICATION: Reason: LOWER BACK PAIN/ N/V/D / Spl. Instructions: / History: TECHNIQUE: Multi-detector row CT images were obtained through the cervical spine without the use of IV contrast. Post-processing sagittal and coronal reconstructed images were obtained for interpretation. All CT scans performed at this facility utilize dose optimization techniques as appropriate to the exam, including the following: Automated exposure control and adjustment of the mA and/or KV according to patient size (this includes techniques or standardized protocols for targeted exams where dose is indication/reason for exam). COMPARISON: None FINDINGS: CRANIOCERVICAL JUNCTION: Unremarkable. ALIGNMENT: Alignment is within normal limits. OSSEOUS: No evidence of fracture or bone destruction. Multilevel cervical degenerative spondylosis is present. DISC SPACES: Narrowing at multiple levels with endplate osteophytic spurring. FACET JOINTS: Unremarkable. SPINAL CANAL: Unremarkable. NEUROFORAMINA: Unremarkable. SOFT TISSUES: Unremarkable. IMPRESSION: C-spine degenerative changes. Otherwise unremarkable C-spine CT. EXAM: CT Maxillofacial without IV contrast INDICATION: Reason: LOWER BACK PAIN/ N/V/D / Spl. Instructions: / History: TECHNIQUE: Multi-detector row CT images were obtained through the maxillofacial region without the use of IV contrast. Post-processing reconstructed images were obtained for interpretation. All CT scans performed at this facility utilize dose optimization techniques as appropriate to the exam, including the following: Automated exposure control and adjustment of the mA and/or KV according to patient size (this includes techniques or standardized protocols for targeted exams where dose is indication/reason for exam). IV CONTRAST: Administered COMPARISON: CT head same date FINDINGS: OSSEOUS: No evidence of fracture or bone destruction. Patient is edentulous. VISUALIZED INTRACRANIAL STRUCTURES: Unremarkable. ORBITS: Orbital contents are unremarkable.. SINUSES: Visualized paranasal sinuses and mastoid air cells are clear. SOFT TISSUES: Elongated left styloid process, approaching the superior coru of the hyoid bone.. IMPRESSION: No acute findings on CT maxillofacial without contrast. EXAM: CT Abdomen and Pelvis without IV contrast INDICATION: Reason: LOWER BACK PAIN/ N/V/D / Spl. Instructions: / History: TECHNIQUE: Multi-detector row CT images were acquired from the lung bases through the abdomen and pelvis without the use of IV contrast. Sagittal and coronal images were acquired from the transaxial data. All CT scans performed at this facility utilize dose optimization techniques as appropriate to the exam, including the following: Automated exposure control and adjustment of the mA and/or KV according to patient size (this includes techniques or standardized protocols for targeted exams where dose is indication/reason for exam). ORAL CONTRAST: None COMPARISON: None FINDINGS: The absence of IV contrast limits evaluation of soft tissue pathology. LOWER CHEST: Unremarkable LIVER: Subtle nodularity to the hepatic contour is nonspecific but could reflect early cirrhotic changes. No liver masses are identified without IV contrast. BILIARY SYSTEM: Gallbladder is surgically absent. Bile ducts are not dilated. PANCREAS: Unremarkable SPLEEN: Unremarkable ADRENALS: Unremarkable KIDNEYS & URETERS: Unremarkable BLADDER: Unremarkable REPRODUCTIVE ORGANS: Unremarkable GASTROINTESTINAL: The stomach, small bowel, and colon are unremarkable. The appendix is normal. MESENTERY/PERITONEUM/RETROPERITONEUM: Unremarkable VASCULAR: Extensive vascular calcifications. No abdominal aortic aneurysm. LYMPH NODES: No adenopathy OSSEOUS & SOFT TISSUES: Left lower back infusion pump with catheter entering the spinal canal at L5-S1 extending superiorly beyond the included field of view. No acute or aggressive osseous lesions. L5-S1 degenerative spondylosis with near [id number] contact and endplate sclerosis. This results in at least moderate bilateral foraminal narrowing at this level. IMPRESSION: 1. Lower lumbar spinal degenerative spondylosis with no acute or aggressive osseous lesions and otherwise no findings to explain low back pain, nausea vomiting and diarrhea. 2. Nodular hepatic contour, suspicious for early cirrhotic changes. Correlate clinically. Electronically signed by: Balta Garrido MD (11/13/2019 2:13 PM) [id number] DICTATED and SIGNED BY: BALTA GARRIDO MD DATE: 11/13/19 1413 \\IMAGING REPORT Signed PATIENT: REYES LAURA ACCOUNT: [id number] : 1965 LOCATION: ER AGE: 54 SEX: M EXAM STATUS: REG ER ORD. PHYSICIAN: CONNOR ROJAS DO REASON: increased sob PROCEDURE: PULMONARY PERFUSION IMG PARTIC Indication: Reason: increased sob / Spl. Instructions: / History: Technique: Static images are obtained of both lungs following IV administration of 5 mCi of 99 M technetium MAA. Comparison: November 13, 2019 Findings: There are some bilateral perfusion defects identified. Cannot assess whether these are matched or not given lack of ventilation images. Impression: 1. Bilateral perfusion defects are identified. Overall intermediate probability for pulmonary embolus. Electronically signed by: Maggie Rubio MD (11/13/2019 3:26 PM) [id number] DICTATED and SIGNED BY: MAGGIE RUBIO MD DATE: 11/13/19 1526 Course & Med Decision Making: Course & Med Decision Making Pertinent Labs and Imaging studies reviewed. (See chart for details) Concern for ams - unclear etiology, possible underlying psych. Ddx considered includes toxidromes - no obvious psych do (no rigidity/nms, rhabdo). Considered covid encephalopathy - pending test. Due to hyperventilating and tachycardia on arrival - perfusion study showed intermediate probability for pulmonary embolus. Unable to do CTA chest due to patient's creatinine. Will admit for lower extremity DVT study and further medical management, consider anticoagulation. Patient stable at time of admission. Dragon Disclaimer: Dragon Disclaimer: This electronic medical record was generated, in whole or in part, using a voice recognition dictation system. Departure Departure Impression: Primary Impression: Acute encephalopathy Additional Impressions: CARMELA (acute kidney injury) Dehydration Disposition: ADMITTED INPATIENT Admitting Physician: JERRY (Dr. Jack) Condition: STABLE Referrals: BABITA OREILLY MD (PCP) Justicifation of Admission Dx: Justifications for Admission: Justification of Admission Dx: Yes Altered Mental Status: Altered Mental Status CONNOR SIMS DO Nov 13, 2019 12:10
[2019-11-13] MEDS ORDERED: cefTRIAXone IV Push 1 GM VIAL. IVP ONE (12:15)
[2019-11-13] MEDS ORDERED: IV NORMAL SALINE 1000ML BAG 1,000 ML IV ONE ×2 (12:15)
[2019-11-13 12:21] LABS: BASO # 0.1 x10^3/uL (0.0-0.2); BASO % 1 % (0-3); EOS # 0.1 x10^3/uL (0.0-0.7); EOS % 1 % (0-3); HEMOGLOBIN 14.2 g/dL (13.0-17.5); LYMPH # 2.7 x10^3/uL (1.0-4.8); LYMPH % 28 % (24-48); MEAN CORPUSCULAR HEMOGLOBIN 33 pg (25-35); MEAN CORPUSCULAR HGB CONC 35 g/dL (31-37); MEAN CORPUSCULAR VOLUME 94 fL (79-100); MONO # 0.8 x10^3/uL (0.0-1.1); MONO % 8 % (0-9); NEUT # 6.1 x10^3/uL (1.8-7.7); NEUT % 62 % (31-73); PLATELET COUNT 211 x10^3/uL (140-400); RED BLOOD COUNT 4.27 x10^6/uL (4.30-5.70); RED CELL DISTRIBUTION WIDTH 13.4 % (11.5-14.5); WHITE BLOOD COUNT 9.8 x10^3/uL (4.0-11.0)
--- NOTE | 2019-11-13 12:31 | RAD ---
EXAM: CHEST 1 VIEW History: Altered mental status COMPARISON: 04/10/2017 TECHNIQUE: Single portable radiograph of the chest FINDINGS: The cardiac silhouette is unremarkable. The lungs are clear bilaterally. The costophrenic sulci are clear and well demarcated. IMPRESSION: No radiographic evidence of an acute cardiopulmonary process. Electronically signed by: Rene Deutsch MD (11/13/2019 12:28 PM) [id number]
[2019-11-13 12:33] LABS: CALCIUM 9.4 mg/dL (8.5-10.1); CREATININE 1.8 mg/dL (0.7-1.3); GFR 39.2; POTASSIUM 3.8 mmol/L (3.5-5.1)
[2019-11-13 12:35] LABS: PROTHROMBIN TIME PATIENT 14.2 SEC (11.7-14.0)
[2019-11-13 12:39] LABS: ALBUMIN 3.8 g/dL (3.4-5.0); DIRECT BILIRUBIN 0.3 mg/dL (0.0-0.2); MAGNESIUM 1.9 mg/dL (1.8-2.4); TOTAL BILIRUBIN 0.9 mg/dL (0.2-1.0); TOTAL PROTEIN 8.2 g/dL (6.4-8.2)
[2019-11-13 12:40] LABS: ACETAMIN < 2 mcg/ml (10-30); SALIC 5.7 mg/dL (2.8-20.0)
--- NOTE | 2019-11-13 13:17 | EKG ---
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
[2019-11-13 13:26] LABS: BILIRUBIN,URINE MODERATE (NEG); CLARITY,URINE CLEAR; COLOR,URINE AMBER; NITRITE,URINE NEGATIVE (NEG); PH,URINE 5.5 (<5.0-8.0); PROTEIN,URINE 30 mg/dL (NEG-TRACE)
[2019-11-13 13:44] LABS: BASE EXCESS ABG -6 mmol/L (-3-3); HCO3 ABG 15 mmol/L (21-28); PO2 ABG 102 mmHg (75-108); SAT O2 ABG 97 % (92-99)
[2019-11-13 13:45] LABS: FIO2 ABG ROOM AIR; PCO2 ABG 20 mmHg (35-46)
[2019-11-13 13:48] LABS: BACTERIA,URINE MODERATE /HPF (0-FEW); HYALINE CASTS, URINE FEW /HPF; RBC,URINE 0 /HPF (0-2); SQUAMOUS EPITHELIAL CELL,UR FEW /LPF
--- NOTE | 2019-11-13 14:16 | RAD ---
EXAM: CT Head without IV contrast INDICATION: Reason: LOWER BACK PAIN/ N/V/D / Spl. Instructions: / History: TECHNIQUE: Multi-detector row CT images were obtained of the head without the use of IV contrast. All CT scans performed at this facility utilize dose optimization techniques as appropriate to the exam, including the following: Automated exposure control and adjustment of the mA and/or KV according to patient size (this includes techniques or standardized protocols for targeted exams where dose is indication/reason for exam). COMPARISON: None FINDINGS: BRAIN PARENCHYMA: No evidence of acute intraparenchymal hemorrhage or infarct. No abnormal parenchymal density or mass. VENTRICLES & EXTRA-AXIAL SPACES: Ventricles are within normal limits. Basilar cisterns are patent. No pathologic extra-axial fluid collection or mass. ORBITS: Orbital contents are unremarkable. SINUSES: Visualized paranasal sinuses and mastoid air cells are clear. OSSEOUS & SOFT TISSUES: Calvarium and skull base are intact. IMPRESSION: Unremarkable CT of the head without contrast. EXAM: CT Cervical Spine without IV contrast INDICATION: Reason: LOWER BACK PAIN/ N/V/D / Spl. Instructions: / History: TECHNIQUE: Multi-detector row CT images were obtained through the cervical spine without the use of IV contrast. Post-processing sagittal and coronal reconstructed images were obtained for interpretation. All CT scans performed at this facility utilize dose optimization techniques as appropriate to the exam, including the following: Automated exposure control and adjustment of the mA and/or KV according to patient size (this includes techniques or standardized protocols for targeted exams where dose is indication/reason for exam). COMPARISON: None FINDINGS: CRANIOCERVICAL JUNCTION: Unremarkable. ALIGNMENT: Alignment is within normal limits. OSSEOUS: No evidence of fracture or bone destruction. Multilevel cervical degenerative spondylosis is present. DISC SPACES: Narrowing at multiple levels with endplate osteophytic spurring. FACET JOINTS: Unremarkable. SPINAL CANAL: Unremarkable. NEUROFORAMINA: Unremarkable. SOFT TISSUES: Unremarkable. IMPRESSION: C-spine degenerative changes. Otherwise unremarkable C-spine CT. EXAM: CT Maxillofacial without IV contrast INDICATION: Reason: LOWER BACK PAIN/ N/V/D / Spl. Instructions: / History: TECHNIQUE: Multi-detector row CT images were obtained through the maxillofacial region without the use of IV contrast. Post-processing reconstructed images were obtained for interpretation. All CT scans performed at this facility utilize dose optimization techniques as appropriate to the exam, including the following: Automated exposure control and adjustment of the mA and/or KV according to patient size (this includes techniques or standardized protocols for targeted exams where dose is indication/reason for exam). IV CONTRAST: Administered COMPARISON: CT head same date FINDINGS: OSSEOUS: No evidence of fracture or bone destruction. Patient is edentulous. VISUALIZED INTRACRANIAL STRUCTURES: Unremarkable. ORBITS: Orbital contents are unremarkable.. SINUSES: Visualized paranasal sinuses and mastoid air cells are clear. SOFT TISSUES: Elongated left styloid process, approaching the superior coru of the hyoid bone.. IMPRESSION: No acute findings on CT maxillofacial without contrast. EXAM: CT Abdomen and Pelvis without IV contrast INDICATION: Reason: LOWER BACK PAIN/ N/V/D / Spl. Instructions: / History: TECHNIQUE: Multi-detector row CT images were acquired from the lung bases through the abdomen and pelvis without the use of IV contrast. Sagittal and coronal images were acquired from the transaxial data. All CT scans performed at this facility utilize dose optimization techniques as appropriate to the exam, including the following: Automated exposure control and adjustment of the mA and/or KV according to patient size (this includes techniques or standardized protocols for targeted exams where dose is indication/reason for exam). ORAL CONTRAST: None COMPARISON: None FINDINGS: The absence of IV contrast limits evaluation of soft tissue pathology. LOWER CHEST: Unremarkable LIVER: Subtle nodularity to the hepatic contour is nonspecific but could reflect early cirrhotic changes. No liver masses are identified without IV contrast. BILIARY SYSTEM: Gallbladder is surgically absent. Bile ducts are not dilated. PANCREAS: Unremarkable SPLEEN: Unremarkable ADRENALS: Unremarkable KIDNEYS & URETERS: Unremarkable BLADDER: Unremarkable REPRODUCTIVE ORGANS: Unremarkable GASTROINTESTINAL: The stomach, small bowel, and colon are unremarkable. The appendix is normal. MESENTERY/PERITONEUM/RETROPERITONEUM: Unremarkable VASCULAR: Extensive vascular calcifications. No abdominal aortic aneurysm. LYMPH NODES: No adenopathy OSSEOUS & SOFT TISSUES: Left lower back infusion pump with catheter entering the spinal canal at L5-S1 extending superiorly beyond the included field of view. No acute or aggressive osseous lesions. L5-S1 degenerative spondylosis with near [id number] contact and endplate sclerosis. This results in at least moderate bilateral foraminal narrowing at this level. IMPRESSION: 1. Lower lumbar spinal degenerative spondylosis with no acute or aggressive osseous lesions and otherwise no findings to explain low back pain, nausea vomiting and diarrhea. 2. Nodular hepatic contour, suspicious for early cirrhotic changes. Correlate clinically. Electronically signed by: Milind Garrido MD (11/13/2019 2:13 PM) [id number]
[2019-11-13 14:44] LABS: VAL ACID < 3 mcg/mL (50-100)
--- NOTE | 2019-11-13 15:29 | RAD ---
Indication: Reason: increased sob / Spl. Instructions: / History: Technique: Static images are obtained of both lungs following IV administration of 5 mCi of 99 M technetium MAA. Comparison: November 13, 2019 Findings: There are some bilateral perfusion defects identified. Cannot assess whether these are matched or not given lack of ventilation images. Impression: 1. Bilateral perfusion defects are identified. Overall intermediate probability for pulmonary embolus. Electronically signed by: Barry Das MD (11/13/2019 3:26 PM) [id number]
[2019-11-13 15:38] LABS: BARBITURATES NEG (NEG); BENZODIAZEPINES NEG (NEG); CANNABINOIDS NEG (NEG); COCAINE NEG (NEG); METHADONE NEG (NEG); OPIATES POS (NEG); PHENCYCLIDINE NEG (NEG)
[2019-11-13 15:39] LABS: AMPHETAMINE/METHAMPHETAMINE NEG (NEG)
--- NOTE | 2019-11-13 17:53 | PDOC1 ---
History and Physical Date of Service: DOS: DATE: 11/13/19 TIME: 17:48 Chief Complaint: Chief Complain: Altered mental status History of Present Illness: HPI: 54-year-old male past medical history significant for bipolar disorder, former alcoholism and history of liver cirrhosis secondary to alcohol abuse, presents to the ED brought in by EMS with concern for confusion, casino assistant manager called 911, reported patient was not acting like his normal self. Pt states he fell 2 days ago. Called EMS and c/o he was having left elbow and left knee pain but tells me he is having abdominal, dysuria,back pain and diarrhea. On reeval pt c/o chest pain. Is hyperventilation in ed. History is limited due to patient's confusion Patient was seen and examined at bedside up on the medical floor. Patient was able to give very short responses of either yes or no and he was able to state his name. Patient also had continued tongue writhing movements and a very mild resting tremor on his left hand. Patient was oriented to himself. He does not have any insight to why he is at the hospital. Patient denies any fevers, nausea vomiting, shortness of breath, abdominal pain, chest pain. Past Medical/Surgical History: PMH/PSH: Past Medical History: Bipolar, Hypotension, Hepatitis, Schizophrenia, DDD, sleep apnea, hx of drug and ETOH abuse SOBER SINCE 2011 Past Surgical History: Cholecystectomy, right shoulder reconstruct, teeth, jaw Allergies: Allergies: Coded Allergies: codeine (Verified Allergy, Intermediate, 01/02/17) PERCOCET is home med gabapentin (Verified Allergy, Intermediate, 01/02/17) meperidine (Verified Allergy, Intermediate, 06/21/15) Family History: Family History: Reviewed and none reported Social History: Social History: Smoking Status: Current Every Day Smoker Alcohol Use: Sober Drug Use: None Current Medications: Current Medications Current Medications Ceftriaxone Sodium (Rocephin) 1 gm 1X ONCE IVP Last administered on 11/13/19at 12:49; Start 11/13/19 at 12:15; Stop 11/13/19 at 12:16; Status DC Sodium Chloride 1,000 ml @ 1,000 mls/hr 1X ONCE IV Last administered on 11/13/19at 12:28; Start 11/13/19 at 12:15; Stop 11/13/19 at 13:14; Status DC Sodium Chloride 1,000 ml @ 1,000 mls/hr 1X ONCE IV Last administered on 11/13/19at 12:28; Start 11/13/19 at 12:15; Stop 11/13/19 at 13:14; Status DC Active Scripts Active Prednisone 10 Mg Tablet 10 Mg PO UD Take 3 tablets by mouth daily for 3 days, then take 2 tablets by mouth daily for 3 days, then take 1 tablet by mouth daily for 3 days, then stop. Keflex (Cephalexin) 500 Mg Capsule 1 Cap PO TID Percocet 5-325 Mg Tablet (Oxycodone/Acetaminophen) 1 Each Tablet 1 Tab PO QID PRN Colace (Docusate Sodium) 100 Mg Capsule 100 Mg PO BID PRN Reported Trazodone Hcl 150 Mg Tablet 1 Tab PO QHS Montelukast Sodium Tablet (Montelukast Sodium) 10 Mg Tablet 10 Mg PO HS Divalproex Sodium Er (Divalproex Sodium) 500 Mg Tab.er.24h 2 Tab PO QHS Olanzapine 20 Mg Tablet 1 Tab PO QHS Olanzapine 5 Mg Tablet 5 Mg PO DAILY Fluoxetine Hcl 10 Mg Capsule 1 Cap PO DAILY Tamsulosin Hcl 0.4 Mg Cap.er.24h 1 Cap PO HS Cetirizine Hcl 10 Mg Tablet 1 Tab PO DAILY ROS: Review of Systems Review of System REVIEW OF SYSTEMS: GENERAL: Denies weakness SKIN: No bruising, hair changes or rashes. EYES: No blurred, double or loss of vision. NOSE AND THROAT: No history of nosebleeds, hoarseness or sore throat. HEART: No history of palpitations, chest pain or shortness of breath on exertion. LUNGS: Denies cough, hemoptysis, wheezing or shortness of breath. GASTROINTESTINAL: Denies changes in appetite, nausea, vomiting, diarrhea or constipation. GENITOURINARY: No history of frequency, urgency, hesitancy or nocturia. NEUROLOGIC: Denies history of numbness, tingling, or tremor. PSYCHIATRIC: No history of panic, anxiety or depression. ENDOCRINE: No history of heat or cold intolerance, polyuria or polydipsia. EXTREMITIES: Denies joint pain, pain on walking or stiffness. Physical Exam: Vital Signs: Vital Signs Date Time Temp Pulse Resp B/P (MAP) Pulse Ox O2 Delivery O2 Flow Rate FiO2 8/24/20 14:58 100 28 100 11/13/19 11:56 98.3 150/81 (104) Room Air 98.3 Physcial Exam: GEN: No apparent distress. Alert and oriented HEENT: Normal cephalic, atraumatic, external auditory canals are patent EYES: Extraocular muscles are intact, pupil are equally round and reactive to light and accommodation MUSCULOSKELETAL: Well developed , well nourished, good range of motion ENDOCRINE: No thyromegaly was palpated LYMPHATICS: No cervical chain or axillary nodes were noted HEMATOPOIETIC: No bruising NECK: Supple, no JVD, no thyromegaly was noted LUNGS: Clear to auscultation in all lung caba without rhonchi or wheezing HEART: RRR, S!, S2 present. Peripheral pulses intact, no obvious murmurs noted ABDOMEN: Soft, nontender. Positive bowel sounds, no organomegaly, normal bowel sounds EXTREMITIES: Without clubbing, cyanosis, or edema. Pedal pulses intact. Negative Homans sign NEUROLOGIC: Normal speech and tone. A&O x 3, moves all extremities, no obvious focal deficits PSYCHIATRIC: Normal affect, normal mood. Stable SKIN: No ulcerations or rashes, good skin turgor, no jaundice VASCULAR: Good capillary refill, neurovascular bundle appears to be intact Labs: Labs: Laboratory Tests Test 11/13/19 12:03 11/13/19 12:05 11/13/19 13:01 11/13/19 13:15 Glucose (Fingerstick) 135 mg/dL (70-99) White Blood Count 9.8 x10^3/uL (4.0-11.0) Red Blood Count 4.27 x10^6/uL (4.30-5.70) Hemoglobin 14.2 g/dL (13.0-17.5) Hematocrit 40.0 % (39.0-53.0) Mean Corpuscular Volume 94 fL (79-100) Mean Corpuscular Hemoglobin 33 pg (25-35) Mean Corpuscular Hemoglobin Concent 35 g/dL (31-37) Red Cell Distribution Width 13.4 % (11.5-14.5) Platelet Count 211 x10^3/uL (140-400) Neutrophils (%) (Auto) 62 % (31-73) Lymphocytes (%) (Auto) 28 % (24-48) Monocytes (%) (Auto) 8 % (0-9) Eosinophils (%) (Auto) 1 % (0-3) Basophils (%) (Auto) 1 % (0-3) Neutrophils # (Auto) 6.1 x10^3/uL (1.8-7.7) Lymphocytes # (Auto) 2.7 x10^3/uL (1.0-4.8) Monocytes # (Auto) 0.8 x10^3/uL (0.0-1.1) Eosinophils # (Auto) 0.1 x10^3/uL (0.0-0.7) Basophils # (Auto) 0.1 x10^3/uL (0.0-0.2) Prothrombin Time 14.2 SEC (11.7-14.0) Prothromb Time International Ratio 1.1 (0.8-1.1) Activated Partial Thromboplast Time 30 SEC (24-38) Sodium Level 140 mmol/L (136-145) Potassium Level 3.8 mmol/L (3.5-5.1) Chloride Level 102 mmol/L (98-107) Carbon Dioxide Level 18 mmol/L (21-32) Anion Gap 20 (6-14) Blood Urea Nitrogen 23 mg/dL (8-26) Creatinine 1.8 mg/dL (0.7-1.3) Estimated GFR (Cockcroft-Gault) 39.2 Glucose Level 128 mg/dL (70-99) Calcium Level 9.4 mg/dL (8.5-10.1) Magnesium Level 1.9 mg/dL (1.8-2.4) Total Bilirubin 0.9 mg/dL (0.2-1.0) Direct Bilirubin 0.3 mg/dL (0.0-0.2) Aspartate Amino Transf (AST/SGOT) 28 U/L (15-37) Alanine Aminotransferase (ALT/SGPT) 18 U/L (16-63) Alkaline Phosphatase 85 U/L (46-116) Ammonia < 10 mcmol/L (11-34) Creatine Kinase 174 U/L (39-308) Troponin I Quantitative < 0.017 ng/mL (0.000-0.055) Total Protein 8.2 g/dL (6.4-8.2) Albumin 3.8 g/dL (3.4-5.0) Salicylates Level 5.7 mg/dL (2.8-20.0) Salicylate Last Dose Date Unknown Salicylate Last Dose Time Unknown Acetaminophen Level < 2 mcg/ml (10-30) Acetaminophen Last Dose Date Unknown Acetaminophen Last Dose Time Unknown Valproic Acid (Depakene) Level < 3 mcg/mL (50-100) Valproic Acid Last Dose Date 11/13/19 Valproic Acid Last Dose Time 0800 O2 Saturation 97 % (92-99) Arterial Blood pH 7.50 (7.35-7.45) Arterial Blood pCO2 at Patient Temp 20 mmHg (35-46) Arterial Blood pO2 at Patient Temp 102 mmHg (75-108) Arterial Blood HCO3 15 mmol/L (21-28) Arterial Blood Base Excess -6 mmol/L (-3-3) FiO2 Room air Urine Collection Type U cath Urine Color Mallory Urine Clarity Clear Urine pH 5.5 (<5.0-8.0) Urine Specific [place] 1.025 (1.000-1.030) Urine Protein 30 mg/dL (NEG-TRACE) Urine Glucose (UA) Negative mg/dL (NEG) Urine Ketones (Stick) 40 mg/dL (NEG) Urine Blood Negative (NEG) Urine Nitrite Negative (NEG) Urine Bilirubin Moderate (NEG) Urine Urobilinogen Dipstick 1.0 mg/dL (0.2 mg/dL) Urine Leukocyte Esterase Negative (NEG) Urine RBC 0 /HPF (0-2) Urine WBC 5-10 /HPF (0-4) Urine Squamous Epithelial Cells Few /LPF Urine Bacteria Moderate /HPF (0-FEW) Urine Hyaline Casts Few /HPF Urine Mucus Slight /LPF Urine Opiates Screen Pos (NEG) Urine Methadone Screen Neg (NEG) Urine Barbiturates Neg (NEG) Urine Phencyclidine Screen Neg (NEG) Urine Amphetamine/Methamphetamine Neg (NEG) Urine Benzodiazepines Screen Neg (NEG) Urine Cocaine Screen Neg (NEG) Urine Cannabinoids Screen Neg (NEG) Urine Ethyl Alcohol Neg (NEG) Laboratory Tests Test 11/13/19 12:03 11/13/19 12:05 11/13/19 13:01 11/13/19 13:15 Glucose (Fingerstick) 135 mg/dL (70-99) White Blood Count 9.8 x10^3/uL (4.0-11.0) Red Blood Count 4.27 x10^6/uL (4.30-5.70) Hemoglobin 14.2 g/dL (13.0-17.5) Hematocrit 40.0 % (39.0-53.0) Mean Corpuscular Volume 94 fL (79-100) Mean Corpuscular Hemoglobin 33 pg (25-35) Mean Corpuscular Hemoglobin Concent 35 g/dL (31-37) Red Cell Distribution Width 13.4 % (11.5-14.5) Platelet Count 211 x10^3/uL (140-400) Neutrophils (%) (Auto) 62 % (31-73) Lymphocytes (%) (Auto) 28 % (24-48) Monocytes (%) (Auto) 8 % (0-9) Eosinophils (%) (Auto) 1 % (0-3) Basophils (%) (Auto) 1 % (0-3) Neutrophils # (Auto) 6.1 x10^3/uL (1.8-7.7) Lymphocytes # (Auto) 2.7 x10^3/uL (1.0-4.8) Monocytes # (Auto) 0.8 x10^3/uL (0.0-1.1) Eosinophils # (Auto) 0.1 x10^3/uL (0.0-0.7) Basophils # (Auto) 0.1 x10^3/uL (0.0-0.2) Prothrombin Time 14.2 SEC (11.7-14.0) Prothromb Time International Ratio 1.1 (0.8-1.1) Activated Partial Thromboplast Time 30 SEC (24-38) Sodium Level 140 mmol/L (136-145) Potassium Level 3.8 mmol/L (3.5-5.1) Chloride Level 102 mmol/L (98-107) Carbon Dioxide Level 18 mmol/L (21-32) Anion Gap 20 (6-14) Blood Urea Nitrogen 23 mg/dL (8-26) Creatinine 1.8 mg/dL (0.7-1.3) Estimated GFR (Cockcroft-Gault) 39.2 Glucose Level 128 mg/dL (70-99) Calcium Level 9.4 mg/dL (8.5-10.1) Magnesium Level 1.9 mg/dL (1.8-2.4) Total Bilirubin 0.9 mg/dL (0.2-1.0) Direct Bilirubin 0.3 mg/dL (0.0-0.2) Aspartate Amino Transf (AST/SGOT) 28 U/L (15-37) Alanine Aminotransferase (ALT/SGPT) 18 U/L (16-63) Alkaline Phosphatase 85 U/L (46-116) Ammonia < 10 mcmol/L (11-34) Creatine Kinase 174 U/L (39-308) Troponin I Quantitative < 0.017 ng/mL (0.000-0.055) Total Protein 8.2 g/dL (6.4-8.2) Albumin 3.8 g/dL (3.4-5.0) Salicylates Level 5.7 mg/dL (2.8-20.0) Salicylate Last Dose Date Unknown Salicylate Last Dose Time Unknown Acetaminophen Level < 2 mcg/ml (10-30) Acetaminophen Last Dose Date Unknown Acetaminophen Last Dose Time Unknown Valproic Acid (Depakene) Level < 3 mcg/mL (50-100) Valproic Acid Last Dose Date 11/13/19 Valproic Acid Last Dose Time 0800 O2 Saturation 97 % (92-99) Arterial Blood pH 7.50 (7.35-7.45) Arterial Blood pCO2 at Patient Temp 20 mmHg (35-46) Arterial Blood pO2 at Patient Temp 102 mmHg (75-108) Arterial Blood HCO3 15 mmol/L (21-28) Arterial Blood Base Excess -6 mmol/L (-3-3) FiO2 Room air Urine Collection Type U cath Urine Color Mallory Urine Clarity Clear Urine pH 5.5 (<5.0-8.0) Urine Specific [place] 1.025 (1.000-1.030) Urine Protein 30 mg/dL (NEG-TRACE) Urine Glucose (UA) Negative mg/dL (NEG) Urine Ketones (Stick) 40 mg/dL (NEG) Urine Blood Negative (NEG) Urine Nitrite Negative (NEG) Urine Bilirubin Moderate (NEG) Urine Urobilinogen Dipstick 1.0 mg/dL (0.2 mg/dL) Urine Leukocyte Esterase Negative (NEG) Urine RBC 0 /HPF (0-2) Urine WBC 5-10 /HPF (0-4) Urine Squamous Epithelial Cells Few /LPF Urine Bacteria Moderate /HPF (0-FEW) Urine Hyaline Casts Few /HPF Urine Mucus Slight /LPF Urine Opiates Screen Pos (NEG) Urine Methadone Screen Neg (NEG) Urine Barbiturates Neg (NEG) Urine Phencyclidine Screen Neg (NEG) Urine Amphetamine/Methamphetamine Neg (NEG) Urine Benzodiazepines Screen Neg (NEG) Urine Cocaine Screen Neg (NEG) Urine Cannabinoids Screen Neg (NEG) Urine Ethyl Alcohol Neg (NEG) Images: Images CT abdomen pelvis IMPRESSION: 1. Lower lumbar spinal degenerative spondylosis with no acute or aggressive osseous lesions and otherwise no findings to explain low back pain, nausea vomiting and diarrhea. 2. Nodular hepatic contour, suspicious for early cirrhotic changes. Correlate clinically. CT maxillofacial IMPRESSION: No acute findings on CT maxillofacial without contrast. CT cervical-spine IMPRESSION: C-spine degenerative changes. Otherwise unremarkable C-spine CT. CT of the head IMPRESSION: Unremarkable CT of the head without contrast. Assessment/Plan Assessment/Plan Acute metabolic encephalopathy NOS Acute delirium or confusional state due to infectious versus toxic versus metabolic disturbance, likely due to psychotropic side effects causing extrapyramidal symptoms Admit to medicine for observation Pending psychiatric evaluation Patient has multiple antipsychotic medications. no obvious signs of infection on physical exam. No fevers or nuchal rigidity. CT head is negative for acute etiology. No history or signs of trauma Pending urine toxic drug screen Encourage early and frequent mobilization Rehab screening ordered IV Haldol as needed for agitation, consider sitter as needed if non-redirectable agitation Avoid physical restraints, catheters or tubes, and benzodiazepines Lovenox for DVT prophylaxis GI prophylaxis not indicated ADA diet Full code Discussed with RN and SW Dispo pending psychiatry evaluation DIANNA FORD MD Nov 13, 2019 17:53
[2019-11-13 19:00] VITALS: BP 168/85
--- NOTE | 2019-11-13 19:00 | NUR ---
1900 Patient was already in room prior to start of my shift, The patient, REYES LAURA, 54 y/o, M admitted by DIANNA FORD MD, was given written information regarding hospital policies, unit procedures and contact persons. Valuables were checked and left with him.
[2019-11-13] MEDS: ENOXAPARIN 40 MG/0.4 ML SYRINGE. SQ SCH (21:56)
[2019-11-13 23:57] VITALS: BP 124/71
[2019-11-14 03:32] VITALS: BP 139/78
[2019-11-14 07:12] VITALS: BP 124/67
--- NOTE | 2019-11-14 08:30 | NUR ---
pt could not verify home medications with this RN. Pt stated he does not have anyone who would know his home medications.
[2019-11-14 10:06] LABS: CALCIUM 8.1 mg/dL (8.5-10.1); CREATININE 1.1 mg/dL (0.7-1.3); GFR 69.2; POTASSIUM 3.3 mmol/L (3.5-5.1)
[2019-11-14 11:13] VITALS: BP 116/82
--- NOTE | 2019-11-14 11:34 | NUR ---
EUGENIO following. Spoke with RN and reviewed chart. EUGENIO attempted to call into pt's room and there was no answer. EUGENIO attempted to call pt's sister Alejandra and LVM, . Pt on room air. Pt on a regular diet. Pt on IV Ativan. Pt COVID pending. Wound care and psychiatric consults are in on this pt. Pt has Medicare and a hx of Bipolar. EUGENIO following. Addendum: 11/14/19 at 1225 by MIKALA BECKER Pt's sister Alejandra called RN back and a better number for her is [phone]. EUGENIO LARA to coordinate discharge planning. Pt tearful stating he can't care for himself at home. EUGENIO requested PT/OT orders from Dr. Jack. EUGENIO competed referral to [facility] for Medicaid LTC application. Pt will likely discharge SNU to LTC Medicaid pending. EUGENIO following.
--- NOTE | 2019-11-14 12:00 | NUR ---
Wound Care Pt's wound photo assessed, d/t Covid pending status. Left knee abrasion appears scabbed over, may leave DEBURRER STRIP if not draining. Wound care will s/o at this time.
[2019-11-14] MEDS ORDERED: VANCOMYCIN 2 GM in IV NORMAL SALINE 500ML BAG 500 ML IV ONE (13:00)
[2019-11-14] MEDS: VANCOMYCIN PER PHARMACY MC PRN (14:57)
--- NOTE | 2019-11-14 14:57 | NUR ---
Pharmacy Vancomycin Dosing Note S:Consulted to monitor and dose vancomycin started 11/14/19. O:REYES LAURA is a 54 year old M with Bacteremia . Height: 5 feet, 10 inches Weight: 91.5 kg [place] Body Weight: 73.00 Adjusted Body Weight: 80.40 Dosing Weight: Other Antibiotics: LABS: Last BUN: Last Creatinine: 1.1 Creatinine Clearance: 85 mL/min Last WBC: Last Procalcitonin: Tmax (past 24 hours): 98.5 Microbiology: G+COCCI CLUSTERS I/O: Drug Levels: Last level: on at Last dose given 11/14/19 at 1326 Vancomycin Dosing: Loading Dose: 2000 mg x1 Dosing Weight: Target Trough: 15-20 A: Based on: WEIGHT AND RENAL FUNCTION, VANCOMYCIN 2GM IV BOLUS GIVEN, P: 1. Begin Vancomycin 1250 mg IV q12h 2. Follow up Trough level on 11/16/19 at 0130 3. Pharmacy will continue to monitor, follow and adjust therapy as needed. MARY GARCIA [facility], 11/14/19 [id number]
[2019-11-14 15:00] VITALS: BP 133/70
--- NOTE | 2019-11-14 15:29 | PDOC ---
[employer] PROGRESS NOTE Date of Service DOS: DATE: 11/14/19 TIME: 15:27 Chief Complaint Chief Complaint Acute metabolic encephalopathy NOS Acute delirium or confusional state due to infectious versus toxic versus metabolic disturbance, likely due to psychotropic side effects causing extrapyramidal symptoms G+ bacteremia Admit to medicine for observation Pending psychiatric evaluation Patient has multiple antipsychotic medications. no obvious signs of infection on physical exam. No fevers or nuchal rigidity. CT head is negative for acute etiology. No history or signs of trauma Pending urine toxic drug screen Encourage early and frequent mobilization Rehab screening ordered IV Haldol as needed for agitation, consider sitter as needed if non-redirectable agitation Avoid physical restraints, catheters or tubes, and benzodiazepines Pending blood culture sensitivities Start IV vancomycin Lovenox for DVT prophylaxis GI prophylaxis not indicated ADA diet Full code Discussed with RN and SW Dispo pending psychiatry evaluation History of Present Illness History of Present Illness 54-year-old male past medical history significant for bipolar disorder, former alcoholism and history of liver cirrhosis secondary to alcohol abuse, presents to the ED brought in by EMS with concern for confusion, senior tax manager called 911, reported patient was not acting like his normal self. Pt states he fell 2 days ago. Called EMS and c/o he was having left elbow and left knee pain but tells me he is having abdominal, dysuria,back pain and diarrhea. On reeval pt c/o chest pain. Is hyperventilation in ed. History is limited due to patient's confusion Patient was seen and examined at bedside up on the medical floor. Patient was able to give very short responses of either yes or no and he was able to state his name. Patient also had continued tongue writhing movements and a very mild resting tremor on his left hand. Patient was oriented to himself. He does not have any insight to why he is at the hospital. Patient denies any fevers, nausea vomiting, shortness of breath, abdominal pain, chest pain. 11/14/2019 No acute events overnight. Patient continues to have some lethargy and tongue writhing movements that has decreased from yesterday. Patient is able to respond appropriately with 2-3 word sentences. Patient's chart, labs, images were reviewed and discussed with RN Vitals/I&O Vitals/I&O: Vital Signs Date Time Temp Pulse Resp B/P (MAP) Pulse Ox O2 Delivery O2 Flow Rate FiO2 11/14/19 11:13 97.6 92 14 116/82 (93) 99 Room Air 97.6 I & O 11/13/19 11/13/19 11/14/19 15:00 23:00 07:00 Intake Total 2000 ml 120 ml Balance 2000 ml 120 ml Physical Exam Lungs: Clear Labs Labs: Laboratory Tests Test 11/14/19 09:15 Sodium Level 143 mmol/L (136-145) Potassium Level 3.3 mmol/L (3.5-5.1) Chloride Level 109 mmol/L (98-107) Carbon Dioxide Level 22 mmol/L (21-32) Anion Gap 12 (6-14) Blood Urea Nitrogen 17 mg/dL (8-26) Creatinine 1.1 mg/dL (0.7-1.3) Estimated GFR (Cockcroft-Gault) 69.2 Glucose Level 146 mg/dL (70-99) Calcium Level 8.1 mg/dL (8.5-10.1) Assessment and Plan Assessmemt and Plan Problems Medical Problems: (1) Acute encephalopathy Status: Acute (2) CARMELA (acute kidney injury) Status: Acute (3) Confusion Status: Acute (4) Dehydration Status: Acute Comment Review of Relevant I have reviewed the following items venita (where applicable) has been applied. Medications: Current Medications Medications (Trade) Dose Ordered Sig/Prem Route PRN Reason Start Time Stop Time Status Last Admin Dose Admin Enoxaparin Sodium (Lovenox 40mg Syringe) 40 mg Q24H SQ 11/13/19 21:00 11/13/19 21:56 Lorazepam (Ativan Inj) 1 mg PRN Q4HRS PRN IVP ANXIETY / AGITATION 11/13/19 23:00 11/13/19 23:47 Vancomycin HCl (Vanco Per Pharmacy) 1 each PRN DAILY PRN MC SEE COMMENTS 11/14/19 12:30 11/14/19 14:57 Vancomycin HCl 2 gm/Sodium Chloride 500 ml @ 250 mls/hr ONCE ONCE IV 11/14/19 13:00 11/14/19 14:59 DC 11/14/19 13:26 DIANNA FORD MD Nov 14, 2019 15:29
[2019-11-14 19:35] VITALS: BP 155/77
--- NOTE | 2019-11-14 19:43 | PDOC1 ---
History & Psych Evaluation Date of Service: DOS: DATE: 11/14/19 TIME: 19:30 Source: Source: Caregiver, Chart review, Patient Identification: Identification 54-year-old gentleman admitted with confusion. Has previous history of bipolar mood disorder, depression anxiety and schizophrenia. History of Present Illness: HPI: He is a 54-year-old male with history of bipolar mood disorder, schizophrenia, depression anxiety, alcoholism, and liver cirrhosis secondary to alcoholism brought in by EMS with confusion. He was reported by classification case manager where he lives by himself that he was not acting like his normal self. Upon interview he appears depressed, confused, and tearful. Due to confusion, he is having difficulty to stay in interview requiring redirections. Stating, he is very depressed and anxious. He is not feeling anything right, reporting hopelessness, helplessness, feeling worthless. He has prior history of suicidal attempt and suicidal ideation however presently he denies suicidal ideation intent or plan. Often during conversation he has been phasing out and distracted. He has history of illicit substance use and alcoholism however states, for the last 8-year has not used any alcohol or illicit substances. D enies auditory or visual hallucinations. He is confused and disoriented. Denies suicidal or homicidal thoughts. No evidence of gordy or hypomania. Past Psychiatric History: Previous history of schizophrenia, bipolar mood disorder. History of alcoholism and illicit substance use. History of psychiatric hospital admissions. Previous history of suicidal atte mpts. Denies recent history of recent psychiatric hospitalizations or suicidal attempt. Past Medical History: Please see medical chart for details. Family History: Unable to obtain due to patient's factor Social History: Social History: He lives by himself. He is a smoker. Denies illicit substance use denies alcohol abuse. He has no children. Denies legal issues. Current Medications: Current Medications Current Medications Medications (Trade) Dose Ordered Sig/Prem Start Time Stop Time Status Last Admin Dose Admin Ceftriaxone Sodium (Rocephin) 1 gm 1X ONCE 11/13/19 12:15 11/13/19 12:16 DC 11/13/19 12:49 1 GM Enoxaparin Sodium (Lovenox 40mg Syringe) 40 mg Q24H 11/13/19 21:00 11/13/19 21:56 40 MG Lorazepam (Ativan Inj) 1 mg PRN Q4HRS PRN 11/13/19 23:00 11/13/19 23:47 1 MG Sodium Chloride 1,000 ml @ 1,000 mls/hr 1X ONCE 11/13/19 12:15 11/13/19 13:14 DC 11/13/19 12:28 1,000 MLS/HR Vancomycin HCl (Vanco Per Pharmacy) 1 each PRN DAILY PRN 11/14/19 12:30 11/14/19 14:57 1 EACH Vancomycin HCl (Vancomycin Trough Level) 1 each 1X ONCE 11/16/19 01:30 11/16/19 01:31 Vancomycin HCl 1.25 gm/Sodium Chloride 250 ml @ 167 mls/hr Q12H 11/15/19 02:00 Vancomycin HCl 2 gm/Sodium Chloride 500 ml @ 250 mls/hr ONCE ONCE 11/14/19 13:00 11/14/19 14:59 DC 11/14/19 13:26 250 MLS/HR Allergies: Allergies: Coded Allergies: codeine (Verified Allergy, Intermediate, 01/02/17) PERCOCET is home med gabapentin (Verified Allergy, Intermediate, 01/02/17) meperidine (Verified Allergy, Intermediate, 06/21/15) Mental Status Examination: Mental Status Examination gentleman appears his stated age Cooperative but confused Disoriented Thought processes concrete Denies auditory or visual hallucinations No abnormal perception noted Denies suicidal or homicidal thoughts. Mood is depressed and anxious Affect is dysthymic Insight is fair Judgment is poor Impulse control is poor Attention span and concentration impaired Recent and remote memory impaired ROS: 14 point review of system is otherwise negative except for stated above. Physical Exam: Refer to Physician's note. DAIRY FARM WORKER: No focal deficit MSK: No EPS, TDK, or abnormal involuntary movements Vitals: Vitals Vital Signs Date Time Temp Pulse Resp B/P (MAP) Pulse Ox O2 Delivery O2 Flow Rate FiO2 11/14/19 15:00 98.1 83 17 133/70 (91) 99 Room Air 98.1 Labs: Labs Laboratory Tests Test 11/13/19 12:03 11/13/19 12:05 11/13/19 13:01 11/13/19 13:15 Glucose (Fingerstick) 135 mg/dL (70-99) White Blood Count 9.8 x10^3/uL (4.0-11.0) Red Blood Count 4.27 x10^6/uL (4.30-5.70) Hemoglobin 14.2 g/dL (13.0-17.5) Hematocrit 40.0 % (39.0-53.0) Mean Corpuscular Volume 94 fL (79-100) Mean Corpuscular Hemoglobin 33 pg (25-35) Mean Corpuscular Hemoglobin Concent 35 g/dL (31-37) Red Cell Distribution Width 13.4 % (11.5-14.5) Platelet Count 211 x10^3/uL (140-400) Neutrophils (%) (Auto) 62 % (31-73) Lymphocytes (%) (Auto) 28 % (24-48) Monocytes (%) (Auto) 8 % (0-9) Eosinophils (%) (Auto) 1 % (0-3) Basophils (%) (Auto) 1 % (0-3) Neutrophils # (Auto) 6.1 x10^3/uL (1.8-7.7) Lymphocytes # (Auto) 2.7 x10^3/uL (1.0-4.8) Monocytes # (Auto) 0.8 x10^3/uL (0.0-1.1) Eosinophils # (Auto) 0.1 x10^3/uL (0.0-0.7) Basophils # (Auto) 0.1 x10^3/uL (0.0-0.2) Prothrombin Time 14.2 SEC (11.7-14.0) Prothromb Time International Ratio 1.1 (0.8-1.1) Activated Partial Thromboplast Time 30 SEC (24-38) Sodium Level 140 mmol/L (136-145) Potassium Level 3.8 mmol/L (3.5-5.1) Chloride Level 102 mmol/L (98-107) Carbon Dioxide Level 18 mmol/L (21-32) Anion Gap 20 (6-14) Blood Urea Nitrogen 23 mg/dL (8-26) Creatinine 1.8 mg/dL (0.7-1.3) Estimated GFR (Cockcroft-Gault) 39.2 Glucose Level 128 mg/dL (70-99) Calcium Level 9.4 mg/dL (8.5-10.1) Magnesium Level 1.9 mg/dL (1.8-2.4) Total Bilirubin 0.9 mg/dL (0.2-1.0) Direct Bilirubin 0.3 mg/dL (0.0-0.2) Aspartate Amino Transf (AST/SGOT) 28 U/L (15-37) Alanine Aminotransferase (ALT/SGPT) 18 U/L (16-63) Alkaline Phosphatase 85 U/L (46-116) Ammonia < 10 mcmol/L (11-34) Creatine Kinase 174 U/L (39-308) Troponin I Quantitative < 0.017 ng/mL (0.000-0.055) Total Protein 8.2 g/dL (6.4-8.2) Albumin 3.8 g/dL (3.4-5.0) Salicylates Level 5.7 mg/dL (2.8-20.0) Salicylate Last Dose Date Unknown Salicylate Last Dose Time Unknown Acetaminophen Level < 2 mcg/ml (10-30) Acetaminophen Last Dose Date Unknown Acetaminophen Last Dose Time Unknown Valproic Acid (Depakene) Level < 3 mcg/mL (50-100) Valproic Acid Last Dose Date 11/13/19 Valproic Acid Last Dose Time 0800 O2 Saturation 97 % (92-99) Arterial Blood pH 7.50 (7.35-7.45) Arterial Blood pCO2 at Patient Temp 20 mmHg (35-46) Arterial Blood pO2 at Patient Temp 102 mmHg (75-108) Arterial Blood HCO3 15 mmol/L (21-28) Arterial Blood Base Excess -6 mmol/L (-3-3) FiO2 Room air Urine Collection Type U cath Urine Color Mallory Urine Clarity Clear Urine pH 5.5 (<5.0-8.0) Urine Specific [place] 1.025 (1.000-1.030) Urine Protein 30 mg/dL (NEG-TRACE) Urine Glucose (UA) Negative mg/dL (NEG) Urine Ketones (Stick) 40 mg/dL (NEG) Urine Blood Negative (NEG) Urine Nitrite Negative (NEG) Urine Bilirubin Moderate (NEG) Urine Urobilinogen Dipstick 1.0 mg/dL (0.2 mg/dL) Urine Leukocyte Esterase Negative (NEG) Urine RBC 0 /HPF (0-2) Urine WBC 5-10 /HPF (0-4) Urine Squamous Epithelial Cells Few /LPF Urine Bacteria Moderate /HPF (0-FEW) Urine Hyaline Casts Few /HPF Urine Mucus Slight /LPF Urine Opiates Screen Pos (NEG) Urine Methadone Screen Neg (NEG) Urine Barbiturates Neg (NEG) Urine Phencyclidine Screen Neg (NEG) Urine Amphetamine/Methamphetamine Neg (NEG) Urine Benzodiazepines Screen Neg (NEG) Urine Cocaine Screen Neg (NEG) Urine Cannabinoids Screen Neg (NEG) Urine Ethyl Alcohol Neg (NEG) Test 11/13/19 13:45 11/14/19 09:15 Coronavirus (PCR) Not detected (Not Detected) Sodium Level 143 mmol/L (136-145) Potassium Level 3.3 mmol/L (3.5-5.1) Chloride Level 109 mmol/L (98-107) Carbon Dioxide Level 22 mmol/L (21-32) Anion Gap 12 (6-14) Blood Urea Nitrogen 17 mg/dL (8-26) Creatinine 1.1 mg/dL (0.7-1.3) Estimated GFR (Cockcroft-Gault) 69.2 Glucose Level 146 mg/dL (70-99) Calcium Level 8.1 mg/dL (8.5-10.1) Laboratory Tests Test 11/14/19 09:15 Sodium Level 143 mmol/L (136-145) Potassium Level 3.3 mmol/L (3.5-5.1) Chloride Level 109 mmol/L (98-107) Carbon Dioxide Level 22 mmol/L (21-32) Anion Gap 12 (6-14) Blood Urea Nitrogen 17 mg/dL (8-26) Creatinine 1.1 mg/dL (0.7-1.3) Estimated GFR (Cockcroft-Gault) 69.2 Glucose Level 146 mg/dL (70-99) Calcium Level 8.1 mg/dL (8.5-10.1) Diagnosis: Diagnosis: Acute delirium, likely hypoactive type, multifactorial Major depressive disorder Rule out bipolar depression Unspecified anxiety disorder Assessment: He is a gentleman with multiple medical comorbidities who lives by himself presented with acute delirium. Additionally he is depressed and anxious in context of his prior mental health challenges especially mood disorder. He is in agreement to start antidepressant and also antipsychotic recommended by this process description writer. Antipsychotic would help plan resolution of delirium and depression adjunct, anxiety and insomnia. Plan: Start Zoloft 50 mg once daily for depression and anxiety Start Zyprexa 5 mg at bedtime for the resolution of delirium, mood instability, depression adjunct, anxiety and insomnia Risks, benefits, alternatives of the treatment are discussed. He is in agreement with plan and voiced understanding Adverse drug reaction of the medications are discussed. Monitor for safety, symptomatology, and adverse drug reaction. Will adjust medications accordingly. Please avoid sedatives and hypnotics. Applied delirium protocol. Avoid sundowning during the day. Thank you for involving inpatient care QUIRINO CRAWFORD MD Nov 14, 2019 19:43
[2019-11-14] MEDS: ENOXAPARIN 40 MG/0.4 ML SYRINGE. SQ SCH (21:07)
[2019-11-14] MEDS: OLANZapine 5 MG TABLET PO SCH (21:07)
[2019-11-14 23:00] VITALS: BP 138/74
[2019-11-15] MEDS: VANCOMYCIN 1.25 GM in IV NORMAL SALINE 250ML 250 ML IV SCH ×2 (02:36→14:29)
[2019-11-15 03:00] VITALS: BP 100/57
[2019-11-15 07:15] VITALS: BP 127/76
[2019-11-15] MEDS: SERTRALINE 25 MG TABLET. PO SCH (09:55)
--- NOTE | 2019-11-15 09:59 | NUR ---
EUGENIO following. Spoke with RN and reviewed chart. EUGENIO met with pt. Pt tearful. Pt stated he lives alone. Pt stated he has a CM from [facility], . EUGENIO attempted to call to coordinate care but there was no answer. EUGENIO referred case to [facility] with PAT per pt's hx of Biploar and Schizophrenia. Pt stated he can't care for himself in the home. Spoke with pt's sister who stated pt's parents both this year. Pt's sister willing to assist with Medicaid application for LTC. SW to work with PAT to attempt to locate pt's CM as pt stated he does not have a phone number for CM. EUGENIO phoned and faxed referrals to [facility] and [facility] for LTC. EUGENIO following. Addendum: 11/15/19 at [address] Jack stated pt wants to discharge home with . EUGENIO phoned and faxed a referral to [facility] with Joe. Pt stated no preference in providers when EUGENIO met with him this morning to get authorization to send referrals to [facility] and [facility]. EUGENIO updated Patient Choice of Vendor form. EUGENIO following. Addendum: 11/15/19 at 1240 by MIKALA BECKER Spoke with Chris from [facility] and pt does have services from [facility] and his CM is Linda ([phone]). Pt has a hx of and substance abuse per Chris. Chris working to get pt a medication appointment. Spoke with Kamala at [facility] and she is considering pt for SNU to LTC Medicaid pending. Pt has had Medicaid in the past per review of [employer] per Kamala. Pt's Medicaid is currently inactive. Pt declined at [facility]. Spoke with Linda who stated pt has feces and bed bugs in his home. EUGENIO requested she meet with Ivonne from [facility] today to file Medicaid application. Spoke with Ivonne who will provide EUGENIO with completed application today. Notified Kamala with [facility] and Dr. Jack. EUGENIO following. Addendum: 11/15/19 at 1528 by MIKALA BECKER Spoke with [facility] and the Medicaid application is being filed today for LTC (will provide EUGENIO a copy). [facility] will not accept this pt per him being a smoker. EUGENIO phoned and faxed a referral to Kat at [facility] for LTC. PT says home with HH. [facility] can follow if needed. SW following.
[2019-11-15 11:15] VITALS: BP 153/75
--- NOTE | 2019-11-15 11:51 | PDOC ---
[employer] PROGRESS NOTE Date of Service DOS: DATE: 11/15/19 TIME: 11:50 Chief Complaint Chief Complaint Acute metabolic encephalopathy NOS Acute delirium or confusional state due to infectious versus toxic versus metabolic disturbance, likely due to psychotropic side effects causing extrapyramidal symptoms G+ bacteremia Admit to medicine for observation Pending psychiatric evaluation Patient has multiple antipsychotic medications. no obvious signs of infection on physical exam. No fevers or nuchal rigidity. CT head is negative for acute etiology. No history or signs of trauma Pending urine toxic drug screen Encourage early and frequent mobilization Rehab screening ordered IV Haldol as needed for agitation, consider sitter as needed if non-redirectable agitation Avoid physical restraints, catheters or tubes, and benzodiazepines Pending blood culture sensitivities Continue IV vancomycin Pending PT OT Lovenox for DVT prophylaxis GI prophylaxis not indicated ADA diet Full code Discussed with RN and SW Dispo pending psychiatry evaluation History of Present Illness History of Present Illness 54-year-old male past medical history significant for bipolar disorder, former alcoholism and history of liver cirrhosis secondary to alcohol abuse, presents to the ED brought in by EMS with concern for confusion, staffing operations manager called 911, reported patient was not acting like his normal self. Pt states he fell 2 days ago. Called EMS and c/o he was having left elbow and left knee pain but tells me he is having abdominal, dysuria,back pain and diarrhea. On reeval pt c/o chest pain. Is hyperventilation in ed. History is limited due to patient's confusion Patient was seen and examined at bedside up on the medical floor. Patient was able to give very short responses of either yes or no and he was able to state his name. Patient also had continued tongue writhing movements and a very mild resting tremor on his left hand. Patient was oriented to himself. He does not have any insight to why he is at the hospital. Patient denies any fevers, nausea vomiting, shortness of breath, abdominal pain, chest pain. 11/14/2019 No acute events overnight. Patient continues to have some lethargy and tongue writhing movements that has decreased from yesterday. Patient is able to respond appropriately with 2-3 word sentences. Patient's chart, labs, images were reviewed and discussed with RN 11/15/2019 No acute events overnight. Patient seen and examined bedside. More responsive today. Patient's chart, labs, images were reviewed and discussed with RN Vitals/I&O Vitals/I&O: Vital Signs Date Time Temp Pulse Resp B/P (MAP) Pulse Ox O2 Delivery O2 Flow Rate FiO2 11/15/19 08:05 Room Air 11/15/19 07:15 98.1 83 16 127/76 (93) 100 98.1 I & O 11/14/19 11/14/19 11/15/19 15:00 23:00 07:00 Intake Total 380 ml 450 ml Output Total 250 ml 300 ml Balance 130 ml 150 ml Physical Exam Lungs: Clear Assessment and Plan Assessmemt and Plan Problems Medical Problems: (1) Acute encephalopathy Status: Acute (2) CARMELA (acute kidney injury) Status: Acute (3) Confusion Status: Acute (4) Dehydration Status: Acute Comment Review of Relevant I have reviewed the following items venita (where applicable) has been applied. Medications: Current Medications Medications (Trade) Dose Ordered Sig/Prem Route PRN Reason Start Time Stop Time Status Last Admin Dose Admin Vancomycin HCl (Vanco Per Pharmacy) 1 each PRN DAILY PRN MC SEE COMMENTS 11/14/19 12:30 11/14/19 14:57 Vancomycin HCl 2 gm/Sodium Chloride 500 ml @ 250 mls/hr ONCE ONCE IV 11/14/19 13:00 11/14/19 14:59 DC 11/14/19 13:26 Vancomycin HCl 1.25 gm/Sodium Chloride 250 ml @ 167 mls/hr Q12H IV 11/15/19 02:00 11/15/19 02:36 Olanzapine (ZyPREXA) 5 mg HS PO 11/14/19 21:00 11/14/19 21:07 Sertraline HCl (Zoloft) 25 mg DAILY PO 11/15/19 09:00 11/15/19 09:55 DIANNA FORD MD Nov 15, 2019 11:51
[2019-11-15 15:15] VITALS: BP 152/79
[2019-11-15 19:00] VITALS: BP 138/83
[2019-11-15] MEDS ORDERED: POLYETHYLENE GLYCOL 3350 17 GM PACKET. PO PRN (20:00)
[2019-11-15] MEDS: OLANZapine 5 MG TABLET PO SCH (21:36)
[2019-11-15] MEDS: ENOXAPARIN 40 MG/0.4 ML SYRINGE. SQ SCH (21:37)
[2019-11-15 23:00] VITALS: BP 155/82
[2019-11-16 01:55] LABS: VANC TR 17.1 mcg/mL (10.0-20.0)
[2019-11-16] MEDS: VANCOMYCIN PER PHARMACY MC PRN (02:19)
--- NOTE | 2019-11-16 02:19 | NUR ---
Pharmacy Vancomycin Dosing Note S:Consulted to monitor and dose vancomycin started 11/14/19. O:REYES LAURA is a 54 year old M with Bacteremia . Height: 5 feet, 10 inches Weight: 88.9 kg Norris Body Weight: 73.00 Adjusted Body Weight: 79.36 Dosing Weight: Other Antibiotics: LABS: Last BUN: Last Creatinine: 1.1 Creatinine Clearance: 85 mL/min Last WBC: Last Procalcitonin: Tmax (past 24 hours): 98.5 Microbiology: G+COCCI CLUSTERS I/O: Drug Levels: Last Trough level: 17.1 on 11/16/19 at 0130 Last dose given 11/14/19 at 1326 Vancomycin Dosing: Loading Dose: 2000 mg x1 Dosing Weight: Target Trough: 15-20 A: Based on: TROUGH P: 1. Continue Vancomycin 1000 mg IV q12h 2. Follow up Trough level IF NEEDED 3. Pharmacy will continue to monitor, follow and adjust therapy as needed. MERCY HANNON RPH, 11/16/19 0219 Signed: 11/16/19 at 0220 by MERCY HANNON RPH PHA
[2019-11-16] MEDS: VANCOMYCIN 1.25 GM in IV NORMAL SALINE 250ML 250 ML IV SCH (02:55)
[2019-11-16 03:00] VITALS: BP 113/73
[2019-11-16 07:00] VITALS: BP 123/58
[2019-11-16] MEDS: CEPHALEXIN 250 MG CAPSULE. PO SCH ×4 (09:49→20:33)
[2019-11-16] MEDS: SERTRALINE 25 MG TABLET. PO SCH (09:49)
[2019-11-16] MEDS: SENNOSIDES/DOCUSATE 8.6/50MG TABLET. PO PRN ×2 (09:49→20:33)
--- NOTE | 2019-11-16 10:15 | NUR ---
EUGENIO following. Spoke with RN and reviewed chart. Kamala from [facility] declined pt per hx of smoking and they are a tobacco free facility. EUGENIO learned about the bedbugs and feces in the home from [facility] after HH referral was made. Dr. Jack updated on condition of pt's home and he would like SW to continue to pursue placement. [facility] will not be able to follow this patient per unsanitary home living conditions. EUGENIO did suggest to that she make an APS report. EUGENIO provided with a copy of the Medicaid application that was submitted yesterday to [facility] by [facility] (on chart). EUGENIO spoke with Kat from [facility] (allow smoking at their facility) and she will come asses patient today. Spoke with pt who is agreeable and looking forward to meeting with Kat. Pt continues to verbalize that he can't care for himself in his home. Pt remains on room air and is COVID negative. EUGENIO to continue following. Addendum: 11/16/19 at 1447 by MIKALA BECKER Pt accepted at [facility] for SNU to LT Medicaid pending per Kat. Dr. Jack notified. Pt to discharge tomorrow, 11/16. Addendum: 11/16/19 at 1713 by MIKALA BECKER RN reported pt would like to complete POA for HC. EUGENIO met with pt who stated he would like to complete a POA for HC. Pt interacting more and smiling. Pt thanked EUGENIO for working to find him LTC at [facility]. Pt reported improved mood. Pt stated he would like to list his sister Alejandra ([phone]) as his primary agent and his niece Gisel ([phone] or [phone]). POA for HC completed and notarized (pt provided with original and copies). Copy of POA for HC on the chart and in packet of clinicals to be sent with pt at discharge tomorrow.
[2019-11-16 11:13] VITALS: BP 134/66
[2019-11-16 14:53] VITALS: BP 126/65
--- NOTE | 2019-11-16 15:23 | PDOC ---
F/U PHYSCH PROG NOTE Subjective: Gentleman with major depression and delirium seen for follow-up. Progress is reviewed with nursing staff. No major emotional or behavioral breakdown reported. States, his depression is slightly better. He is relatively more alert and cooperative but disoriented denies suicidal or homicidal thoughts. Denies auditory or visual hallucinations. No evidence of gordy or hypomania. Tolerating medications and in agreement to increase Zoloft for depression. Objective: 14 point review of system is otherwise negative except for stated above. Vital Signs: Vital Signs Date Time Temp Pulse Resp B/P (MAP) Pulse Ox O2 Delivery O2 Flow Rate FiO2 11/16/19 14:53 98.2 90 18 126/65 (85) 95 Room Air 98.2 Labs: Laboratory Tests Test 11/16/19 01:25 Vancomycin Level Trough 17.1 mcg/mL (10.0-20.0) Vancomycin Last Dose Date Vancomycin Last Dose Time Medications: Current Medications Medications (Trade) Dose Ordered Sig/Prem Start Time Stop Time Status Last Admin Dose Admin Ceftriaxone Sodium (Rocephin) 1 gm 1X ONCE 11/13/19 12:15 11/13/19 12:16 DC 11/13/19 12:49 1 GM Cephalexin HCl (Keflex) 500 mg QID 11/16/19 09:00 11/16/19 12:51 500 MG Enoxaparin Sodium (Lovenox 40mg Syringe) 40 mg Q24H 11/13/19 21:00 11/15/19 21:37 40 MG Lactobacillus Rhamnosus (Culturelle) 1 cap BID 11/16/19 21:00 Lorazepam (Ativan Inj) 1 mg PRN Q4HRS PRN 11/13/19 23:00 11/15/19 04:41 1 MG Olanzapine (ZyPREXA) 5 mg HS 11/14/19 21:00 11/15/19 21:36 5 MG Polyethylene Glycol (miraLAX PACKET) 17 gm PRN DAILY PRN 11/15/19 20:00 Senna/Docusate Sodium (Senna Plus) 1 tab PRN BID PRN 11/15/19 20:00 11/16/19 09:49 1 TAB Sertraline HCl (Zoloft) 25 mg DAILY 11/15/19 09:00 11/16/19 09:49 25 MG Sodium Chloride 1,000 ml @ 1,000 mls/hr 1X ONCE 11/13/19 12:15 11/13/19 13:14 DC 11/13/19 12:28 1,000 MLS/HR Vancomycin HCl (Vanco Per Pharmacy) 1 each PRN DAILY PRN 11/14/19 12:30 11/16/19 08:08 DC 11/16/19 02:19 1 EACH Vancomycin HCl (Vancomycin Trough Level) 1 each 1X ONCE 11/16/19 01:30 11/16/19 01:31 DC 11/16/19 01:30 1 EACH Vancomycin HCl 1.25 gm/Sodium Chloride 250 ml @ 167 mls/hr Q12H 11/15/19 02:00 11/16/19 08:08 DC 11/16/19 02:55 167 MLS/HR Vancomycin HCl 2 gm/Sodium Chloride 500 ml @ 250 mls/hr ONCE ONCE 11/14/19 13:00 11/14/19 14:59 DC 11/14/19 13:26 250 MLS/HR Physical Exam: Mental Status Exam: gentleman appears his stated age Cooperative but confused Disoriented Thought processes concrete Denies auditory or visual hallucinations No abnormal perception noted Denies suicidal or homicidal thoughts. Mood is depressed and anxious Affect is dysthymic Insight is fair Judgment is poor Impulse control is poor Attention span and concentration impaired Recent and remote memory impaired Physical Exam: Refer to Physician's note. CLINICAL RESEARCH ASSISTANT: No focal deficit MSK: No EPS, TDK, or abnormal involuntary movements Diagnosis: Acute delirium, likely hypoactive type, multifactorial Major depressive disorder Rule out bipolar depression Unspecified anxiety disorder Assessment: Assessment: He is a gentleman with multiple medical comorbidities who lives by himself presented with acute delirium. Additionally he is depressed and anxious in context of his prior mental health challenges especially mood disorder. He is in agreement to start antidepressant and also antipsychotic recommended by this documentation writer. Antipsychotic would help plan resolution of delirium and depression adjunct, anxiety and insomnia. 11/16/2019. Patient appears slightly better, he is more expressive and alert. However continues to be disoriented Plan: Increase Zoloft to 50 mg once daily for depression and anxiety Continue Zyprexa 5 mg at bedtime for the resolution of delirium, mood instability, depression adjunct, anxiety and insomnia Risks, benefits, alternatives of the treatment are discussed. He is in agreement with plan and voiced understanding Adverse drug reaction of the medications are discussed. Monitor for safety, symptomatology, and adverse drug reaction. Will adjust medications accordingly. Please avoid sedatives and hypnotics. Applied delirium protocol. Avoid sundowning during the day. Thank you for involving inpatient care QUIRINO CRAWFORD MD Nov 16, 2019 15:23
[2019-11-16 16:36] LABS: BASO # 0.1 x10^3/uL (0.0-0.2); BASO % 1 % (0-3); EOS # 0.4 x10^3/uL (0.0-0.7); EOS % 8 % (0-3); HEMATOCRIT 32.5 % (39.0-53.0); HEMOGLOBIN 11.4 g/dL (13.0-17.5); LYMPH # 1.9 x10^3/uL (1.0-4.8); LYMPH % 39 % (24-48); MEAN CORPUSCULAR HEMOGLOBIN 33 pg (25-35); MEAN CORPUSCULAR HGB CONC 35 g/dL (31-37); MEAN CORPUSCULAR VOLUME 94 fL (79-100); MONO # 0.4 x10^3/uL (0.0-1.1); MONO % 9 % (0-9); NEUT # 2.1 x10^3/uL (1.8-7.7); NEUT % 43 % (31-73); PLATELET COUNT 135 x10^3/uL (140-400); RED BLOOD COUNT 3.44 x10^6/uL (4.30-5.70); RED CELL DISTRIBUTION WIDTH 13.8 % (11.5-14.5); WHITE BLOOD COUNT 4.9 x10^3/uL (4.0-11.0)
[2019-11-16 17:04] LABS: CALCIUM 8.5 mg/dL (8.5-10.1); CREATININE 0.8 mg/dL (0.7-1.3); POTASSIUM 3.4 mmol/L (3.5-5.1)
[2019-11-16 19:00] VITALS: BP 116/59
[2019-11-16] MEDS: OLANZapine 5 MG TABLET PO SCH (20:33)
[2019-11-16] MEDS: LACTOBACILLUS RHAMNOSUS GG 1 CAPSULE. PO SCH (20:34)
[2019-11-16] MEDS: ENOXAPARIN 40 MG/0.4 ML SYRINGE. SQ SCH (20:36)
--- NOTE | 2019-11-16 21:21 | PDOC ---
[facility] PROGRESS NOTE Date of Service DOS: DATE: 11/16/19 TIME: 21:20 Chief Complaint Chief Complaint Acute metabolic encephalopathy NOS Acute delirium or confusional state due to infectious versus toxic versus metabolic disturbance, likely due to psychotropic side effects causing extrapyramidal symptoms G+ bacteremia Admit to medicine for observation Increase Zoloft to 50 mg once daily for depression and anxiety Continue Zyprexa 5 mg at bedtime Patient has multiple antipsychotic medications. no obvious signs of infection on physical exam. No fevers or nuchal rigidity. CT head is negative for acute etiology. No history or signs of trauma Pending urine toxic drug screen Encourage early and frequent mobilization Rehab screening ordered IV Haldol as needed for agitation, consider sitter as needed if non-redirectable agitation Avoid physical restraints, catheters or tubes, and benzodiazepines Pending blood culture sensitivities Switch IV vancomycin to p.o. 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 Pt states he fell 2 days ago. Called EMS and c/o he was having left elbow and left knee pain but tells me he is having abdominal, dysuria,back pain and diarrhea. On reeval pt c/o chest pain. Is hyperventilation in ed. History is limited due to patient's confusion Patient was seen and examined at bedside up on the medical floor. Patient was able to give very short responses of either yes or no and he was able to state his name. Patient also had continued tongue writhing movements and a very mild resting tremor on his left hand. Patient was oriented to himself. He does not have any insight to why he is at the hospital. Patient denies any fevers, nausea vomiting, shortness of breath, abdominal pain, chest pain. 11/14/2019 No acute events overnight. Patient continues to have some lethargy and tongue writhing movements that has decreased from yesterday. Patient is able to respond appropriately with 2-3 word sentences. Patient's chart, labs, images were reviewed and discussed with RN 11/15/2019 No acute events overnight. Patient seen and examined bedside. More responsive today. Patient's chart, labs, images were reviewed and discussed with RN Vitals/I&O Vitals/I&O: Vital Signs Date Time Temp Pulse Resp B/P (MAP) Pulse Ox O2 Delivery O2 Flow Rate FiO2 11/16/19 19:00 98.1 84 18 116/59 (78) 98 Room Air 98.1 I & O 11/15/19 11/15/19 11/16/19 15:00 23:00 07:00 Intake Total 100 ml 120 ml Balance 100 ml 120 ml Physical Exam Physical Exam: GEN: No apparent distress. Alert and oriented HEENT: Normal cephalic, atraumatic, external auditory canals are patent NECK: Supple, no JVD, no thyromegaly was noted LUNGS: Bilateral crackles HEART: RRR, S1, S2 present. Peripheral pulses intact, no obvious murmurs noted ABDOMEN: Soft, nontender. Positive bowel sounds, no organomegaly, normal bowel sounds EXTREMITIES: Without clubbing, cyanosis, or edema. Pedal pulses intact. Negative Homans sign Lungs: Clear Labs Labs: Laboratory Tests Test 11/16/19 01:25 11/16/19 01:28 Vancomycin Level Trough 17.1 mcg/mL (10.0-20.0) Vancomycin Last Dose Date Vancomycin Last Dose Time White Blood Count 4.9 x10^3/uL (4.0-11.0) Red Blood Count 3.44 x10^6/uL (4.30-5.70) Hemoglobin 11.4 g/dL (13.0-17.5) Hematocrit 32.5 % (39.0-53.0) Mean Corpuscular Volume 94 fL (79-100) Mean Corpuscular Hemoglobin 33 pg (25-35) Mean Corpuscular Hemoglobin Concent 35 g/dL (31-37) Red Cell Distribution Width 13.8 % (11.5-14.5) Platelet Count 135 x10^3/uL (140-400) Neutrophils (%) (Auto) 43 % (31-73) Lymphocytes (%) (Auto) 39 % (24-48) Monocytes (%) (Auto) 9 % (0-9) Eosinophils (%) (Auto) 8 % (0-3) Basophils (%) (Auto) 1 % (0-3) Neutrophils # (Auto) 2.1 x10^3/uL (1.8-7.7) Lymphocytes # (Auto) 1.9 x10^3/uL (1.0-4.8) Monocytes # (Auto) 0.4 x10^3/uL (0.0-1.1) Eosinophils # (Auto) 0.4 x10^3/uL (0.0-0.7) Basophils # (Auto) 0.1 x10^3/uL (0.0-0.2) Sodium Level 143 mmol/L (136-145) Potassium Level 3.4 mmol/L (3.5-5.1) Chloride Level 111 mmol/L (98-107) Carbon Dioxide Level 22 mmol/L (21-32) Anion Gap 10 (6-14) Blood Urea Nitrogen 11 mg/dL (8-26) Creatinine 0.8 mg/dL (0.7-1.3) Estimated GFR (Cockcroft-Gault) 100.0 Glucose Level 91 mg/dL (70-99) Calcium Level 8.5 mg/dL (8.5-10.1) Assessment and Plan Assessmemt and Plan Problems Medical Problems: (1) Acute encephalopathy Status: Acute (2) CARMELA (acute kidney injury) Status: Acute (3) Confusion Status: Acute (4) Dehydration Status: Acute Comment Review of Relevant I have reviewed the following items venita (where applicable) has been applied. Medications: Current Medications Medications (Trade) Dose Ordered Sig/Prem Route PRN Reason Start Time Stop Time Status Last Admin Dose Admin Vancomycin HCl (Vancomycin Trough Level) 1 each 1X ONCE 11/16/19 01:30 11/16/19 01:31 DC 11/16/19 01:30 Cephalexin HCl (Keflex) 500 mg QID PO 11/16/19 09:00 11/16/19 20:33 Lactobacillus Rhamnosus (Culturelle) 1 cap BID PO 11/16/19 21:00 11/16/19 20:34 Justifications for Admission Other Justification DIANNA FORD MD Nov 16, 2019 21:21
[2019-11-16 23:00] VITALS: BP 140/68
[2019-11-17 03:00] VITALS: BP 116/71
[2019-11-17 07:00] VITALS: BP 124/59
[2019-11-17] MEDS ORDERED: SERTRALINE 50 MG TABLET. PO SCH (09:00)
[2019-11-17] MEDS ORDERED: OLAN5TAB9 PO (09:51)
[2019-11-17] MEDS ORDERED: SERT50TA8 PO (09:51)
--- NOTE | 2019-11-17 09:52 | DISCH ---
DISCHARGE INSTRUCTIONS Condition on Discharge Condition on Discharge: Stable Activity After Discharge Activity Instructions for Disc: Activity as tolerated Exercise Instruction after Dis: Progress as tolerated Driving Instructions after Dis: Do not drive today Weight Bearing Status after Di: As tolerated Diet after Discharge Diet after Discharge: Cardiac, Regular Liquid Texture: Thin Liquid Contacting the DR. after DC Call your doctor for: If your condition worsens Follow-Up Follow up with: PCP within 1 week of discharge Follow Up With: Psychiatry regarding her depression Treatment/Equipment after DC Adaptive Equipment Issued: None DIANNA FORD MD Nov 17, 2019 09:52
[2019-11-17 10:49] VITALS: BP 135/58
[2019-11-17] MEDS: CEPHALEXIN 250 MG CAPSULE. PO SCH ×2 (10:59→14:20)
[2019-11-17] MEDS: LACTOBACILLUS RHAMNOSUS GG 1 CAPSULE. PO SCH (10:59)
--- NOTE | 2019-11-17 12:01 | SNU/HH DC ---
DISCHARGE ORDERS DISCHARGE INFORMATION: FINAL DIAGNOSIS Problems Medical Problems: (1) Acute encephalopathy Status: Acute (2) CARMELA (acute kidney injury) Status: Acute (3) Confusion Status: Acute (4) Dehydration Status: Acute CONDITION ON DISCHARGE: Stable CODE STATUS: Code Status: Full ALF: SNF STAY <30 DAYS: Yes POST DISCHARGE ORDERS: ACTIVITY ORDERS: Activity as tolerated WEIGHT BEARING STATUS: As tolerated DIET AFTER DISCHARGE: Regular FOLLOW-UP: PHYSICIAN FOLLOW-UP: PCP within 1 week of discharge ADDITIONAL FOLLOW-UP: Psychiatry regarding her depression TREATMENT/EQUIPMENT ORDERS: ADAPTIVE EQUIPMENT NEEDED: None Physical Therapy For: Evalulation/Treatment Occupational Therapy For: Evaluation/Treatment Speech Language Pathology For: Evaluation/Treatment DISCHARGE MEDICATIONS: Home Meds Active Scripts Prednisone (PREDNISONE ) 10 Mg Tablet, 10 MG PO UD for PREDNISONE TAPER, #18 TAB 0 Refills Take 3 tablets by mouth daily for 3 days, then take 2 tablets by mouth daily for 3 days, then take 1 tablet by mouth daily for 3 days, then stop. Prov:LORI VINSON MD 01/06/17 Cephalexin (KEFLEX) 500 Mg Capsule, 1 CAP PO TID, #21 CAP Prov:LORI VINSON MD 01/06/17 Oxycodone/Apap 5-325 (PERCOCET 5-325 MG TABLET ) 1 Each Tablet, 1 TAB PO QID PRN for PAIN, #20 TAB Prov:LORI VINSON MD 01/06/17 Docusate Sodium (COLACE) 100 Mg Capsule, 100 MG PO BID PRN for hard stool or no stool, #60 CAP Prov:LORI VINSON MD 05/29/16 Reported Medications Trazodone Hcl (TRAZODONE HCL) 150 Mg Tablet, 1 TAB PO QHS, #30 TAB 1 Refill 05/24/16 Montelukast Sodium (MONTELUKAST SODIUM TABLET ) 10 Mg Tablet, 10 MG PO HS for FOR ASTHMA, #30 TAB 0 Refills 05/24/16 Divalproex Sodium (DIVALPROEX SODIUM ER) 500 Mg Tab.er.24h, 2 TAB PO QHS, #60 TAB 1 Refill 05/24/16 Olanzapine (OLANZAPINE) 20 Mg Tablet, 1 TAB PO QHS, #30 TAB 1 Refill 05/24/16 Olanzapine (OLANZAPINE) 5 Mg Tablet, 5 MG PO DAILY, TAB 05/24/16 Fluoxetine Hcl (FLUOXETINE HCL) 10 Mg Capsule, 1 CAP PO DAILY, #30 CAP 2 Refills 05/24/16 Tamsulosin Hcl (TAMSULOSIN HCL) 0.4 Mg Cap.er.24h, 1 CAP PO HS, #30 CAP 5 Refills 06/21/15 Cetirizine Hcl (CETIRIZINE HCL) 10 Mg Tablet, 1 TAB PO DAILY, #30 TAB 5 Refills 06/21/15 DIANNA FORD MD Nov 17, 2019 12:01
--- NOTE | 2019-11-17 12:13 | NUR ---
SW following. Spoke with RN and reviewed chart. Spoke with Dr. Jack. Pt clear for discharge today SNU to [facility] Medicaid pending. SW phoned and faxed discharge orders to [facility], , (fax). RN to call report. Clinicals updated in packet along with POA for HC. Pt on room air. Pt COVID negative. No further SW needs at this time.
--- NOTE | 2019-11-17 17:31 | PDOC3 ---
[facility]-Discharge Summary Date of Admission: Date of Admission: Nov 13, 2019 Date of Discharge: Date of Discharge: Nov 17, 2019 Admission Diagnosis: Admitting Diagnosis: Acute metabolic encephalopathy NOS Acute delirium or confusional state due to infectious versus toxic versus metabolic disturbance, likely due to psychotropic side effects causing extrapyramidal symptoms Discharge Diagnosis: Discharge Diagnosis: Acute metabolic encephalopathy NOS Acute delirium or confusional state due to infectious versus toxic versus metabolic disturbance, likely due to psychotropic side effects causing extrapyramidal symptoms MSSA bacteremia Consults: Consults: Psychiatry Hospital Course: Hospital Course: 54-year-old male past medical history significant for bipolar disorder, former alcoholism and history of liver cirrhosis secondary to alcohol abuse, presents to the ED brought in by EMS with concern for confusion, 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 Pt states he fell 2 days ago. Called EMS and c/o he was having left elbow and left knee pain but tells me he is having abdominal, dysuria,back pain and diarrhea. On reeval pt c/o chest pain. Is hyperventilation in ed. History is limited due to patient's confusion Patient was seen and examined at bedside up on the medical floor. Patient was able to give very short responses of either yes or no and he was able to state his name. Patient also had continued tongue writhing movements and a very mild resting tremor on his left hand. Patient was oriented to himself. He does not have any insight to why he is at the hospital. Patient denies any fevers, nausea vomiting, shortness of breath, abdominal pain, chest pain. Patient was admitted for further care and evaluation by psychiatry for his psychotropic medications and its interactions. Patient was also found to have MSSA bacteremia without any obvious source of infection. patient was stable throughout his hospital stay without fever, elevated white count, or other signs of sepsis. He was treated with IV vancomycin and transitioned to PO cefazolin. Patient tolerated the Abx and the changes made to his psychotropic medications without depressed moods or suicidal ideations. The rest of the hospital course was uneventful. Disposition: Disposition/Orders: D/C to Home Activity: Activity: Resume previous activity Diet: Diet: Regular Medications: Home Meds Active Scripts Olanzapine (OLANZAPINE) 5 Mg Tablet, 5 MG PO HS for depression for 30 Days, #30 TAB Prov:DIANNA FORD MD 11/17/19 Sertraline Hcl (SERTRALINE HCL) 50 Mg Tablet, 50 MG PO DAILY for depression for 30 Days, #30 TAB Prov:DIANNA FORD MD 11/17/19 Docusate Sodium (COLACE) 100 Mg Capsule, 100 MG PO BID PRN for hard stool or no stool, #60 CAP Prov:LORI VINSON MD 05/29/16 Reported Medications Montelukast Sodium (MONTELUKAST SODIUM TABLET ) 10 Mg Tablet, 10 MG PO HS for FOR ASTHMA, #30 TAB 0 Refills 05/24/16 Divalproex Sodium (DIVALPROEX SODIUM ER) 500 Mg Tab.er.24h, 2 TAB PO QHS, #60 TAB 1 Refill 05/24/16 Tamsulosin Hcl (TAMSULOSIN HCL) 0.4 Mg Cap.er.24h, 1 CAP PO HS, #30 CAP 5 Refills 06/21/15 Discontinued Reported Medications Trazodone Hcl (TRAZODONE HCL) 150 Mg Tablet, 1 TAB PO QHS, #30 TAB 1 Refill 05/24/16 Olanzapine (OLANZAPINE) 20 Mg Tablet, 1 TAB PO QHS, #30 TAB 1 Refill 05/24/16 Olanzapine (OLANZAPINE) 5 Mg Tablet, 5 MG PO DAILY, TAB 05/24/16 Fluoxetine Hcl (FLUOXETINE HCL) 10 Mg Capsule, 1 CAP PO DAILY, #30 CAP 2 Refills 05/24/16 Cetirizine Hcl (CETIRIZINE HCL) 10 Mg Tablet, 1 TAB PO DAILY, #30 TAB 5 Refills 06/21/15 Discontinued Scripts Prednisone (PREDNISONE ) 10 Mg Tablet, 10 MG PO UD for PREDNISONE TAPER, #18 TAB 0 Refills Take 3 tablets by mouth daily for 3 days, then take 2 tablets by mouth daily for 3 days, then take 1 tablet by mouth daily for 3 days, then stop. Prov:LORI VINSON MD 01/06/17 Cephalexin (KEFLEX) 500 Mg Capsule, 1 CAP PO TID, #21 CAP Prov:LORI VINSON MD 01/06/17 Oxycodone/Apap 5-325 (PERCOCET 5-325 MG TABLET ) 1 Each Tablet, 1 TAB PO QID PRN for PAIN, #20 TAB Prov:LORI VINSON MD 01/06/17 Scheduled Divalproex Sodium (Divalproex Sodium Er), 2 TAB PO QHS, (Reported) Montelukast Sodium (Montelukast Sodium Tablet ), 10 MG PO HS, (Reported) Olanzapine (Olanzapine), 5 MG PO HS Sertraline Hcl (Sertraline Hcl), 50 MG PO DAILY Tamsulosin Hcl (Tamsulosin Hcl), 1 CAP PO HS, (Reported) Scheduled PRN Docusate Sodium (Colace), 100 MG PO BID PRN for hard stool or no stool Discontinued Medications Cephalexin (Keflex), 1 CAP PO TID Cetirizine Hcl (Cetirizine Hcl), 1 TAB PO DAILY, (Reported) Fluoxetine Hcl (Fluoxetine Hcl), 1 CAP PO DAILY, (Reported) Olanzapine (Olanzapine), 5 MG PO DAILY, (Reported) Olanzapine (Olanzapine), 1 TAB PO QHS, (Reported) Oxycodone/Apap 5-325 (Percocet 5-325 Mg Tablet ), 1 TAB PO QID PRN for PAIN Prednisone (Prednisone ), 10 MG PO UD Trazodone Hcl (Trazodone Hcl), 1 TAB PO QHS, (Reported) Total Time: Total Time: Total time spent was 40 minutes in preparing scripts, discharge planning with SW and RN, and preparing this discharge summary. Justicifation of Admission Dx: Justifications for Admission: Justification of Admission Dx: Yes Altered Mental Status: Altered Mental Status DIANNA FORD MD Nov 17, 2019 17:30
== END 2019-11-17 15:15 | DRG 70 ==
LOC: ER 11:56 → 6 SOUTH 16:53 → 5 NORTH 11-14 23:18
PROVIDERS: ADMIT Internal Medicine; ATTEND Internal Medicine
DX: G93.41 Metabolic encephalopathy (principal); N17.0 Acute kidney failure with tubular necrosis; R78.81 Bacteremia; E86.0 Dehydration; F20.9 Schizophrenia, unspecified; F31.9 Bipolar disorder, unspecified; F41.9 Anxiety disorder, unspecified; K70.30 Alcoholic cirrhosis of liver without ascites; Z20.828 Contact with and (suspected) exposure to other viral communicable diseases; M47.9 Spondylosis, unspecified; Z91.5 Personal history of self-harm; F39 Unspecified mood [affective] disorder; F41.8 Other specified anxiety disorders; G47.00 Insomnia, unspecified; G47.30 Sleep apnea, unspecified; Z90.49 Acquired absence of other specified parts of digestive tract; T43.8X5A Adverse effect of other psychotropic drugs, initial encounter; Y92.89 Other specified places as the place of occurrence of the external cause; A49.01 Methicillin susceptible Staphylococcus aureus infection, unspecified site
CPT/HCPCS: 36415; 36600; 70450; 70486; 71045; 72125; 74176; 78580; 80048; 80076; 80164; 80202; 80307; 80329; 81001; 82140; 82550; 82805; 82962; 83735; 84484; 85025; 85610; 85730; 87040; 87077; 87086; 87186; 87205; 93005; 96361; 96365; 96375; 99285; A9540; J0696; J1650; J2060; J3370; J7030; J7040; J7050; P9612; 97110-GP; 97116-GP; 97530-GO; 97530-GP; 97535-GO; G0378; G0480; U0003-CS